=== PATIENT | male | born 1945 | race Caucasian/White ===

== ENCOUNTER 2019-11-13 06:00 | Outpatient (RCR) | payer MEDICARE, OTHER, SELFPAY | END 2019-11-26 00:01 | LOC: TPT 06:00 | PROVIDERS: Family Provider Nurse Practitioner Family; Visit Provider Specialist | DX: R26.81 Unsteadiness on feet (principal) | CPT/HCPCS: 97110 ×2; 97112; 97161; 97530 ==

== ENCOUNTER → 2019-11-26 00:01 | Outpatient (RCR) | payer MEDICARE, OTHER, SELFPAY | LOC: WOUND 11-19 09:47 | PROVIDERS: Family Provider Nurse Practitioner Family; Visit Provider Thoracic Surgery (Cardiothoracic Vascular Surgery) | DX: E11.621 Type 2 diabetes mellitus with foot ulcer (principal); L97.412 Non-pressure chronic ulcer of right heel and midfoot with fat layer exposed; I96 Gangrene, not elsewhere classified | CPT/HCPCS: 11042 ×2 ==

== ENCOUNTER 2019-11-27 06:00 | Outpatient (RCR) | payer MEDICARE, OTHER, SELFPAY | END 2019-12-11 23:00 | disposition home or self-care (01) | LOC: TPT 06:00 | PROVIDERS: Family Provider Nurse Practitioner Family; PCP Nurse Practitioner Family; Referring Provider Nurse Practitioner Family; Visit Provider Nurse Practitioner Family | DX: R26.81 Unsteadiness on feet (principal) | CPT/HCPCS: 97110; 97530 ==

== ENCOUNTER → 2019-12-02 15:06 | Outpatient (BNVA) | payer MEDICARE, OTHER, SELFPAY | PROVIDERS: Family Provider Nurse Practitioner Family; PCP Nurse Practitioner Family; Visit Provider Internal Medicine Nephrology | DX: N18.9 Chronic kidney disease, unspecified (principal) | CPT/HCPCS: 80069; 82044; 85025 ==

== ENCOUNTER 2019-12-10 15:33 | Outpatient (CLI) | payer MEDICARE, OTHER, SELFPAY ==
--- NOTE | 2019-12-10 15:41 | XR_ITS ---
WS: [id number] RIGHT FOOT: 3 VIEW(S) TECHNIQUE: PA, oblique and lateral. HISTORY: PAIN REDNESS, NON HEALING ULCER COMPARISON: 04/29/2019 Diffuse marked osteopenia without significant progression. Degenerative narrowing of the interphalang eal joints and also at the mid tarsal articulations. Mild flattening of the normal arch of the foot w ith vascular calcifications and small calcaneal spur. Ulceration along the plantar surface of the foot is not definitely visualized. There is some mild irr egularity along the skin surface at the level of the tarsals which could be the ulceration. XR/XR foot RT min 3V* 71088 IMPRESSION: 1. Diffuse osteopenia and peripheral arterial disease. 2. Soft tissue ulceration is not definitely seen radiographically. 3. No osteomyelitis.
== END 2019-12-10 15:34 | disposition home or self-care (01) ==
LOC: RADWPI 15:39
PROVIDERS: Family Provider Nurse Practitioner Family; PCP Nurse Practitioner Family; Referring Provider Nurse Practitioner Family; Visit Provider Thoracic Surgery (Cardiothoracic Vascular Surgery)
DX: M79.671 Pain in right foot (principal); M85.871 Other specified disorders of bone density and structure, right ankle and foot; L97.919 Non-pressure chronic ulcer of unspecified part of right lower leg with unspecified severity
CPT/HCPCS: 73630

== ENCOUNTER 2019-12-24 14:59 | Outpatient (RCR) | payer MEDICARE, OTHER, SELFPAY | END 2019-12-27 23:59 | disposition home or self-care (01) | LOC: WOUND 14:59 | PROVIDERS: Family Provider Nurse Practitioner Family; PCP Nurse Practitioner Family; Visit Provider Thoracic Surgery (Cardiothoracic Vascular Surgery) | DX: E11.621 Type 2 diabetes mellitus with foot ulcer (principal); L97.512 Non-pressure chronic ulcer of other part of right foot with fat layer exposed; M79.671 Pain in right foot; M85.871 Other specified disorders of bone density and structure, right ankle and foot; L97.919 Non-pressure chronic ulcer of unspecified part of right lower leg with unspecified severity | CPT/HCPCS: 11042; 73630; L3260 ==

== ENCOUNTER 2020-01-21 14:17 | Outpatient (RCR) | payer MEDICARE, OTHER, SELFPAY | END 2020-01-25 23:59 | disposition home or self-care (01) | LOC: WOUND 14:17 | PROVIDERS: Visit Provider Thoracic Surgery (Cardiothoracic Vascular Surgery) | DX: E11.621 Type 2 diabetes mellitus with foot ulcer (principal); L97.412 Non-pressure chronic ulcer of right heel and midfoot with fat layer exposed | CPT/HCPCS: 11042 ==

== ENCOUNTER 2020-02-25 14:51 | Outpatient (RCR) | payer MEDICARE, OTHER, SELFPAY | END 2020-02-25 23:59 | disposition home or self-care (01) | LOC: WOUND 14:51 | PROVIDERS: Visit Provider Thoracic Surgery (Cardiothoracic Vascular Surgery) | DX: E11.621 Type 2 diabetes mellitus with foot ulcer (principal); L97.512 Non-pressure chronic ulcer of other part of right foot with fat layer exposed | CPT/HCPCS: 11042 ==

== ENCOUNTER → 2020-02-27 11:47 | Outpatient (BNVA) | payer MEDICARE, OTHER, SELFPAY | PROVIDERS: Visit Provider Podiatrist Foot & Ankle Surgery | DX: M79.671 Pain in right foot (principal); E11.43 Type 2 diabetes mellitus with diabetic autonomic (poly)neuropathy; S93.324A Dislocation of tarsometatarsal joint of right foot, initial encounter; N18.9 Chronic kidney disease, unspecified; L60.3 Nail dystrophy; X58.XXXA Exposure to other specified factors, initial encounter; M85.871 Other specified disorders of bone density and structure, right ankle and foot; M77.31 Calcaneal spur, right foot; M21.41 Flat foot [pes planus] (acquired), right foot | CPT/HCPCS: 73630 ==

== ENCOUNTER → 2020-03-23 18:30 | Outpatient (BNVA) | payer MEDICARE, OTHER, SELFPAY | PROVIDERS: Visit Provider Nurse Practitioner Family | DX: E11.9 Type 2 diabetes mellitus without complications (principal) | CPT/HCPCS: 80053; 80061; 81003; 83036; 85025 ==

== ENCOUNTER 2020-03-24 13:53 | Outpatient (RCR) | payer MEDICARE, OTHER, SELFPAY | END 2020-03-26 23:59 | disposition home or self-care (01) | LOC: WOUND 13:53 | PROVIDERS: Visit Provider Thoracic Surgery (Cardiothoracic Vascular Surgery) | DX: E11.621 Type 2 diabetes mellitus with foot ulcer (principal); L97.412 Non-pressure chronic ulcer of right heel and midfoot with fat layer exposed | CPT/HCPCS: 11042 ==

== ENCOUNTER 2020-03-31 13:52 | Outpatient (CLI) | payer MEDICARE, OTHER, SELFPAY | END 2020-03-31 13:53 | disposition home or self-care (01) | LOC: WOUND 13:56 | PROVIDERS: Visit Provider Thoracic Surgery (Cardiothoracic Vascular Surgery) | DX: E11.621 Type 2 diabetes mellitus with foot ulcer (principal); L97.412 Non-pressure chronic ulcer of right heel and midfoot with fat layer exposed | CPT/HCPCS: 97597 ==

== ENCOUNTER 2020-04-07 13:59 | Outpatient (CLI) | payer MEDICARE, OTHER, SELFPAY | END 2020-04-07 14:00 | disposition home or self-care (01) | LOC: WOUND 14:01 | PROVIDERS: Visit Provider Thoracic Surgery (Cardiothoracic Vascular Surgery) | DX: E11.621 Type 2 diabetes mellitus with foot ulcer (principal); L97.412 Non-pressure chronic ulcer of right heel and midfoot with fat layer exposed | CPT/HCPCS: 11042 ==

== ENCOUNTER 2020-04-14 14:00 | Outpatient (CLI) | payer MEDICARE, OTHER, SELFPAY | END 2020-04-14 14:01 | disposition home or self-care (01) | LOC: WOUND 14:01 | PROVIDERS: Visit Provider Thoracic Surgery (Cardiothoracic Vascular Surgery) | DX: Z09 Encounter for follow-up examination after completed treatment for conditions other than malignant neoplasm (principal) | CPT/HCPCS: 99212 ==

== ENCOUNTER → 2020-09-16 15:47 | Outpatient (BNVA) | payer MEDICARE, OTHER, SELFPAY | PROVIDERS: Visit Provider Family Medicine | DX: E11.65 Type 2 diabetes mellitus with hyperglycemia (principal); Z79.4 Long term (current) use of insulin; E78.5 Hyperlipidemia, unspecified; I10 Essential (primary) hypertension; J44.9 Chronic obstructive pulmonary disease, unspecified; Z23 Encounter for immunization | CPT/HCPCS: 80053; 80061; 83036; 85025 ==

== ENCOUNTER 2020-09-29 08:15 | Outpatient (CLI) | payer MEDICARE, SELFPAY | END 2020-09-29 08:16 | disposition home or self-care (01) | LOC: WOUND 08:16 | PROVIDERS: Visit Provider Thoracic Surgery (Cardiothoracic Vascular Surgery) | DX: E11.621 Type 2 diabetes mellitus with foot ulcer (principal); L97.412 Non-pressure chronic ulcer of right heel and midfoot with fat layer exposed | CPT/HCPCS: 11042; G0463 ==

== ENCOUNTER 2020-10-06 13:36 | Outpatient (CLI) | payer MEDICARE, SELFPAY | END 2020-10-06 13:37 | disposition home or self-care (01) | LOC: WOUND 13:37 | PROVIDERS: Visit Provider Thoracic Surgery (Cardiothoracic Vascular Surgery) | DX: E11.621 Type 2 diabetes mellitus with foot ulcer (principal); L97.412 Non-pressure chronic ulcer of right heel and midfoot with fat layer exposed | CPT/HCPCS: 11042 ==

== ENCOUNTER 2020-10-13 13:25 | Outpatient (CLI) | payer MEDICARE, SELFPAY | END 2020-10-13 13:26 | disposition home or self-care (01) | LOC: WOUND 13:26 | PROVIDERS: Visit Provider Nurse Practitioner Family | DX: E11.621 Type 2 diabetes mellitus with foot ulcer (principal); L97.412 Non-pressure chronic ulcer of right heel and midfoot with fat layer exposed | CPT/HCPCS: 11042 ==

== ENCOUNTER 2020-10-20 13:58 | Outpatient (CLI) | payer MEDICARE, SELFPAY | END 2020-10-20 13:59 | disposition home or self-care (01) | LOC: WOUND 13:59 | PROVIDERS: Visit Provider Nurse Practitioner Family | DX: E11.621 Type 2 diabetes mellitus with foot ulcer (principal); L97.412 Non-pressure chronic ulcer of right heel and midfoot with fat layer exposed | CPT/HCPCS: 11042 ==

== ENCOUNTER 2020-10-27 13:03 | Outpatient (CLI) | payer MEDICARE, SELFPAY | END 2020-10-27 13:04 | disposition home or self-care (01) | LOC: WOUND 13:04 | PROVIDERS: Visit Provider Thoracic Surgery (Cardiothoracic Vascular Surgery) | DX: E11.621 Type 2 diabetes mellitus with foot ulcer (principal); L97.412 Non-pressure chronic ulcer of right heel and midfoot with fat layer exposed | CPT/HCPCS: 11042 ==

== ENCOUNTER 2020-11-03 14:02 | Outpatient (CLI) | payer MEDICARE, SELFPAY | END 2020-11-03 14:03 | disposition home or self-care (01) | LOC: WOUND 14:03 | PROVIDERS: Visit Provider Thoracic Surgery (Cardiothoracic Vascular Surgery) | DX: E11.621 Type 2 diabetes mellitus with foot ulcer; L97.412 Non-pressure chronic ulcer of right heel and midfoot with fat layer exposed | CPT/HCPCS: 11042; 99213 ==

== ENCOUNTER 2020-11-10 15:18 | Outpatient (CLI) | payer MEDICARE, SELFPAY | END 2020-11-10 15:19 | disposition home or self-care (01) | PROVIDERS: PCP Nurse Practitioner Family; Visit Provider Thoracic Surgery (Cardiothoracic Vascular Surgery) | DX: E11.621 Type 2 diabetes mellitus with foot ulcer (principal); L97.412 Non-pressure chronic ulcer of right heel and midfoot with fat layer exposed | CPT/HCPCS: 11042 ==

== ENCOUNTER 2020-11-17 10:12 | Outpatient (CLI) | payer MEDICARE, SELFPAY | END 2020-11-17 10:13 | disposition home or self-care (01) | LOC: WOUND 10:13 | PROVIDERS: PCP Nurse Practitioner Family; Visit Provider Nurse Practitioner Family | DX: E11.621 Type 2 diabetes mellitus with foot ulcer (principal); L97.412 Non-pressure chronic ulcer of right heel and midfoot with fat layer exposed | CPT/HCPCS: 11042; 87070; 87077; 87176; 87186; 87205 ==

== ENCOUNTER 2020-11-24 13:02 | Outpatient (CLI) | payer MEDICARE, SELFPAY | END 2020-11-24 13:03 | disposition home or self-care (01) | LOC: WOUND 13:03 | PROVIDERS: PCP Nurse Practitioner Family; Visit Provider Nurse Practitioner Family | DX: E11.621 Type 2 diabetes mellitus with foot ulcer (principal); L97.412 Non-pressure chronic ulcer of right heel and midfoot with fat layer exposed | CPT/HCPCS: 11042 ==

== ENCOUNTER 2020-12-01 10:48 | Outpatient (CLI) | payer MEDICARE, SELFPAY | END 2020-12-01 10:49 | disposition home or self-care (01) | LOC: WOUND 10:49 | PROVIDERS: PCP Nurse Practitioner Family; Visit Provider Thoracic Surgery (Cardiothoracic Vascular Surgery) | DX: E11.621 Type 2 diabetes mellitus with foot ulcer (principal); L97.412 Non-pressure chronic ulcer of right heel and midfoot with fat layer exposed | CPT/HCPCS: 11042 ==

== ENCOUNTER → 2020-12-07 15:52 | Outpatient (BNVA) | payer MEDICARE, OTHER, SELFPAY | PROVIDERS: PCP Nurse Practitioner Family; Visit Provider Internal Medicine Nephrology | DX: N18.2 Chronic kidney disease, stage 2 (mild) (principal); E55.9 Vitamin D deficiency, unspecified | CPT/HCPCS: 80069; 82043; 82306; 82310; 83970; 85025 ==

== ENCOUNTER 2020-12-09 13:45 | Outpatient (CLI) | payer MEDICARE, SELFPAY | END 2020-12-09 13:46 | disposition home or self-care (01) | LOC: WOUND 13:46 | PROVIDERS: PCP Nurse Practitioner Family; Visit Provider Thoracic Surgery (Cardiothoracic Vascular Surgery) | DX: E11.621 Type 2 diabetes mellitus with foot ulcer (principal); L97.412 Non-pressure chronic ulcer of right heel and midfoot with fat layer exposed | CPT/HCPCS: 11042 ==

== ENCOUNTER 2020-12-15 14:22 | Outpatient (CLI) | payer MEDICARE, SELFPAY | END 2020-12-15 14:23 | disposition home or self-care (01) | LOC: WOUND 14:35 | PROVIDERS: PCP Nurse Practitioner Family; Visit Provider Thoracic Surgery (Cardiothoracic Vascular Surgery) | DX: E11.621 Type 2 diabetes mellitus with foot ulcer (principal); L97.412 Non-pressure chronic ulcer of right heel and midfoot with fat layer exposed | CPT/HCPCS: 11042 ==

== ENCOUNTER 2020-12-22 14:08 | Outpatient (CLI) | payer MEDICARE, SELFPAY | END 2020-12-22 14:09 | disposition home or self-care (01) | LOC: WOUND 14:08 | PROVIDERS: PCP Nurse Practitioner Family; Visit Provider Thoracic Surgery (Cardiothoracic Vascular Surgery) | DX: E11.621 Type 2 diabetes mellitus with foot ulcer (principal); L97.412 Non-pressure chronic ulcer of right heel and midfoot with fat layer exposed | CPT/HCPCS: 11042 ==

== ENCOUNTER 2020-12-29 10:43 | Outpatient (CLI) | payer MEDICARE, SELFPAY | END 2020-12-29 10:44 | disposition home or self-care (01) | LOC: WOUND 10:44 | PROVIDERS: PCP Nurse Practitioner Family; Visit Provider Thoracic Surgery (Cardiothoracic Vascular Surgery) | DX: E11.621 Type 2 diabetes mellitus with foot ulcer (principal); L97.412 Non-pressure chronic ulcer of right heel and midfoot with fat layer exposed | CPT/HCPCS: 11042 ==

== ENCOUNTER 2021-01-05 13:06 | Outpatient (CLI) | payer MEDICARE, SELFPAY | END 2021-01-05 13:07 | disposition home or self-care (01) | LOC: WOUND 13:07 | PROVIDERS: PCP Nurse Practitioner Family; Visit Provider Thoracic Surgery (Cardiothoracic Vascular Surgery) | DX: E11.621 Type 2 diabetes mellitus with foot ulcer (principal); L97.412 Non-pressure chronic ulcer of right heel and midfoot with fat layer exposed | CPT/HCPCS: 11042 ==

== ENCOUNTER 2021-01-19 13:27 | Outpatient (CLI) | payer MEDICARE, OTHER, SELFPAY | END 2021-01-19 13:28 | disposition home or self-care (01) | LOC: WOUND 13:29 | PROVIDERS: PCP Nurse Practitioner Family; Visit Provider Nurse Practitioner Family | DX: E11.621 Type 2 diabetes mellitus with foot ulcer (principal); L97.412 Non-pressure chronic ulcer of right heel and midfoot with fat layer exposed | CPT/HCPCS: 11042 ==

== ENCOUNTER 2021-01-26 12:58 | Outpatient (CLI) | payer MEDICARE, OTHER, SELFPAY | END 2021-01-26 12:59 | disposition home or self-care (01) | LOC: WOUND 13:01 | PROVIDERS: PCP Nurse Practitioner Family; Visit Provider Thoracic Surgery (Cardiothoracic Vascular Surgery) | DX: E11.621 Type 2 diabetes mellitus with foot ulcer (principal); L97.412 Non-pressure chronic ulcer of right heel and midfoot with fat layer exposed | CPT/HCPCS: 11042 ==

== ENCOUNTER 2021-02-02 13:29 | Outpatient (CLI) | payer MEDICARE, OTHER, SELFPAY | END 2021-02-02 13:30 | disposition home or self-care (01) | LOC: WOUND 13:29 | PROVIDERS: PCP Nurse Practitioner Family; Visit Provider Thoracic Surgery (Cardiothoracic Vascular Surgery) | DX: E11.621 Type 2 diabetes mellitus with foot ulcer (principal); L97.412 Non-pressure chronic ulcer of right heel and midfoot with fat layer exposed | CPT/HCPCS: 11042 ==

== ENCOUNTER 2021-02-09 14:06 | Outpatient (CLI) | payer MEDICARE, OTHER, SELFPAY | END 2021-02-09 14:07 | disposition home or self-care (01) | LOC: WOUND 14:07 | PROVIDERS: PCP Nurse Practitioner Family; Visit Provider Thoracic Surgery (Cardiothoracic Vascular Surgery) | DX: E11.621 Type 2 diabetes mellitus with foot ulcer (principal); L97.412 Non-pressure chronic ulcer of right heel and midfoot with fat layer exposed | CPT/HCPCS: 11042 ==

== ENCOUNTER 2021-02-23 10:14 | Outpatient (CLI) | payer MEDICARE, OTHER, SELFPAY | END 2021-02-23 10:15 | disposition home or self-care (01) | LOC: WOUND 10:21 | PROVIDERS: PCP Nurse Practitioner Family; Visit Provider Thoracic Surgery (Cardiothoracic Vascular Surgery) | DX: E11.621 Type 2 diabetes mellitus with foot ulcer (principal); L97.412 Non-pressure chronic ulcer of right heel and midfoot with fat layer exposed | CPT/HCPCS: 11042 ==

== ENCOUNTER 2021-03-02 10:43 | Outpatient (CLI) | payer MEDICARE, OTHER, SELFPAY | END 2021-03-02 10:44 | disposition home or self-care (01) | LOC: WOUND 10:45 | PROVIDERS: PCP Nurse Practitioner Family; Visit Provider Thoracic Surgery (Cardiothoracic Vascular Surgery) | DX: E11.621 Type 2 diabetes mellitus with foot ulcer (principal); L97.512 Non-pressure chronic ulcer of other part of right foot with fat layer exposed | CPT/HCPCS: 11042 ==

== ENCOUNTER 2021-03-09 13:12 | Outpatient (CLI) | payer MEDICARE, SELFPAY | END 2021-03-09 13:13 | disposition home or self-care (01) | LOC: WOUND 13:13 | PROVIDERS: PCP Nurse Practitioner Family; Visit Provider Thoracic Surgery (Cardiothoracic Vascular Surgery) | DX: E11.621 Type 2 diabetes mellitus with foot ulcer (principal); L97.512 Non-pressure chronic ulcer of other part of right foot with fat layer exposed | CPT/HCPCS: 11042 ==

== ENCOUNTER 2021-03-16 13:04 | Outpatient (CLI) | payer MEDICARE, OTHER, SELFPAY | END 2021-03-16 13:05 | disposition home or self-care (01) | LOC: WOUND 13:05 | PROVIDERS: PCP Nurse Practitioner Family; Visit Provider Thoracic Surgery (Cardiothoracic Vascular Surgery) | DX: E11.621 Type 2 diabetes mellitus with foot ulcer (principal); L97.512 Non-pressure chronic ulcer of other part of right foot with fat layer exposed | CPT/HCPCS: 11042 ==

== ENCOUNTER → 2021-03-17 15:17 | Outpatient (BNVA) | payer MEDICARE, OTHER, SELFPAY | PROVIDERS: PCP Family Medicine; Visit Provider Family Medicine | DX: E78.5 Hyperlipidemia, unspecified (principal); E11.65 Type 2 diabetes mellitus with hyperglycemia; Z79.4 Long term (current) use of insulin; I10 Essential (primary) hypertension | CPT/HCPCS: 80053; 80061; 83036; 84443; 85025 ==

== ENCOUNTER 2021-03-23 13:52 | Outpatient (CLI) | payer MEDICARE, OTHER, SELFPAY | END 2021-03-23 13:53 | disposition home or self-care (01) | LOC: WOUND 13:53 | PROVIDERS: PCP Family Medicine; Visit Provider Thoracic Surgery (Cardiothoracic Vascular Surgery) | DX: E11.621 Type 2 diabetes mellitus with foot ulcer (principal); L97.512 Non-pressure chronic ulcer of other part of right foot with fat layer exposed | CPT/HCPCS: 11042 ==

== ENCOUNTER 2021-04-06 13:09 | Outpatient (CLI) | payer MEDICARE, OTHER, SELFPAY | END 2021-04-06 13:10 | disposition home or self-care (01) | LOC: WOUND 13:10 | PROVIDERS: PCP Family Medicine; Visit Provider Thoracic Surgery (Cardiothoracic Vascular Surgery) | DX: E11.621 Type 2 diabetes mellitus with foot ulcer (principal); L97.512 Non-pressure chronic ulcer of other part of right foot with fat layer exposed | CPT/HCPCS: 11042; 87070; 87077; 87186 ==

== ENCOUNTER 2021-04-13 13:09 | Outpatient (CLI) | payer MEDICARE, OTHER, SELFPAY | END 2021-04-13 13:10 | disposition home or self-care (01) | LOC: WOUND 13:11 | PROVIDERS: PCP Family Medicine; Visit Provider Thoracic Surgery (Cardiothoracic Vascular Surgery) | DX: E11.621 Type 2 diabetes mellitus with foot ulcer (principal); L97.512 Non-pressure chronic ulcer of other part of right foot with fat layer exposed | CPT/HCPCS: 11042 ==

== ENCOUNTER 2021-04-20 13:13 | Outpatient (CLI) | payer MEDICARE, OTHER, SELFPAY | END 2021-04-20 13:14 | disposition home or self-care (01) | LOC: WOUND 13:14 | PROVIDERS: PCP Family Medicine; Visit Provider Nurse Practitioner Family | DX: E11.621 Type 2 diabetes mellitus with foot ulcer (principal); L97.411 Non-pressure chronic ulcer of right heel and midfoot limited to breakdown of skin | CPT/HCPCS: 11042 ==

== ENCOUNTER 2021-04-27 13:27 | Outpatient (CLI) | payer MEDICARE, OTHER, SELFPAY | END 2021-04-27 13:28 | disposition home or self-care (01) | LOC: WOUND 13:28 | PROVIDERS: PCP Family Medicine; Visit Provider Thoracic Surgery (Cardiothoracic Vascular Surgery) | DX: E11.621 Type 2 diabetes mellitus with foot ulcer (principal); L97.412 Non-pressure chronic ulcer of right heel and midfoot with fat layer exposed | CPT/HCPCS: 11042 ==

== ENCOUNTER → 2021-04-28 12:37 | Outpatient (BNVA) | payer MEDICARE, OTHER, SELFPAY | PROVIDERS: PCP Family Medicine; Visit Provider Specialist | DX: G25.0 Essential tremor (principal); G62.9 Polyneuropathy, unspecified; J44.9 Chronic obstructive pulmonary disease, unspecified; Z87.891 Personal history of nicotine dependence | CPT/HCPCS: 99213; 99214 ==

== ENCOUNTER 2021-05-04 13:01 | Outpatient (CLI) | payer MEDICARE, OTHER, SELFPAY | END 2021-05-04 13:02 | disposition home or self-care (01) | LOC: WOUND 13:04 | PROVIDERS: PCP Family Medicine; Visit Provider Thoracic Surgery (Cardiothoracic Vascular Surgery) | DX: E11.621 Type 2 diabetes mellitus with foot ulcer (principal); L97.412 Non-pressure chronic ulcer of right heel and midfoot with fat layer exposed | CPT/HCPCS: 11042 ==

== ENCOUNTER 2021-05-11 13:32 | Outpatient (CLI) | payer MEDICARE, OTHER, SELFPAY | END 2021-05-11 13:33 | disposition home or self-care (01) | LOC: WOUND 13:33 | PROVIDERS: PCP Family Medicine; Visit Provider Thoracic Surgery (Cardiothoracic Vascular Surgery) | DX: E11.621 Type 2 diabetes mellitus with foot ulcer (principal); L97.512 Non-pressure chronic ulcer of other part of right foot with fat layer exposed | CPT/HCPCS: 11042 ==

== ENCOUNTER → 2021-05-12 09:54 | Outpatient (BNVA) | payer MEDICARE, OTHER, SELFPAY | PROVIDERS: PCP Family Medicine; Visit Provider Podiatrist Foot & Ankle Surgery | DX: M79.673 Pain in unspecified foot (principal); E11.621 Type 2 diabetes mellitus with foot ulcer; L97.521 Non-pressure chronic ulcer of other part of left foot limited to breakdown of skin; E11.65 Type 2 diabetes mellitus with hyperglycemia; Z79.4 Long term (current) use of insulin; E11.22 Type 2 diabetes mellitus with diabetic chronic kidney disease; N18.9 Chronic kidney disease, unspecified; L60.3 Nail dystrophy; X58.XXXS Exposure to other specified factors, sequela; Z46.89 Encounter for fitting and adjustment of other specified devices; S93.324S Dislocation of tarsometatarsal joint of right foot, sequela | CPT/HCPCS: 73610; 73630; 97760; L4361 ==

== ENCOUNTER 2021-05-12 15:45 | Outpatient (CLI) | payer MEDICARE, OTHER, SELFPAY | END 2021-05-12 15:46 | disposition home or self-care (01) | LOC: SPT 15:46 | PROVIDERS: PCP Family Medicine; Visit Provider Podiatrist Foot & Ankle Surgery | DX: Z46.89 Encounter for fitting and adjustment of other specified devices (principal); S82.831D Other fracture of upper and lower end of right fibula, subsequent encounter for closed fracture with routine healing; X58.XXXD Exposure to other specified factors, subsequent encounter | CPT/HCPCS: 97760; L4361 ==

== ENCOUNTER 2021-05-18 14:04 | Outpatient (CLI) | payer MEDICARE, OTHER, SELFPAY | END 2021-05-18 14:05 | disposition home or self-care (01) | LOC: WOUND 14:07 | PROVIDERS: PCP Family Medicine; Visit Provider Nurse Practitioner Family | DX: E11.621 Type 2 diabetes mellitus with foot ulcer (principal); L97.412 Non-pressure chronic ulcer of right heel and midfoot with fat layer exposed | CPT/HCPCS: 11042 ==

== ENCOUNTER → 2021-05-19 14:03 | Outpatient (BNVA) | payer MEDICARE, OTHER, SELFPAY | PROVIDERS: PCP Family Medicine; Visit Provider Podiatrist Foot & Ankle Surgery | DX: M79.673 Pain in unspecified foot (principal); L97.521 Non-pressure chronic ulcer of other part of left foot limited to breakdown of skin; E11.65 Type 2 diabetes mellitus with hyperglycemia; N18.9 Chronic kidney disease, unspecified; Z79.4 Long term (current) use of insulin; L60.3 Nail dystrophy; S82.831A Other fracture of upper and lower end of right fibula, initial encounter for closed fracture; X58.XXXA Exposure to other specified factors, initial encounter | CPT/HCPCS: 73610 ==

== ENCOUNTER 2021-05-25 10:47 | Outpatient (CLI) | payer MEDICARE, OTHER, SELFPAY | END 2021-05-25 10:48 | disposition home or self-care (01) | LOC: WOUND 10:48 | PROVIDERS: PCP Family Medicine; Visit Provider Thoracic Surgery (Cardiothoracic Vascular Surgery) | DX: E11.621 Type 2 diabetes mellitus with foot ulcer (principal); L97.512 Non-pressure chronic ulcer of other part of right foot with fat layer exposed | CPT/HCPCS: 11042 ==

== ENCOUNTER → 2021-06-02 14:36 | Outpatient (BNVA) | payer MEDICARE, OTHER, SELFPAY | PROVIDERS: PCP Family Medicine; Visit Provider Podiatrist Foot & Ankle Surgery | DX: S82.831A Other fracture of upper and lower end of right fibula, initial encounter for closed fracture (principal); M79.673 Pain in unspecified foot; E11.65 Type 2 diabetes mellitus with hyperglycemia; N18.9 Chronic kidney disease, unspecified; Z79.4 Long term (current) use of insulin; L60.3 Nail dystrophy; X58.XXXA Exposure to other specified factors, initial encounter; Z46.89 Encounter for fitting and adjustment of other specified devices; S82.831D Other fracture of upper and lower end of right fibula, subsequent encounter for closed fracture with routine healing; X58.XXXD Exposure to other specified factors, subsequent encounter | CPT/HCPCS: 73610; 87635; 97760; L4361 ==

== ENCOUNTER 2021-06-02 16:12 | Outpatient (CLI) | payer MEDICARE, OTHER, SELFPAY | END 2021-06-02 16:13 | disposition home or self-care (01) | LOC: SPT 16:13 | PROVIDERS: PCP Family Medicine; Visit Provider Podiatrist Foot & Ankle Surgery | DX: Z46.89 Encounter for fitting and adjustment of other specified devices (principal); S82.831D Other fracture of upper and lower end of right fibula, subsequent encounter for closed fracture with routine healing; X58.XXXD Exposure to other specified factors, subsequent encounter | CPT/HCPCS: 87635; 97760; L4361 ==

== ENCOUNTER 2021-06-04 06:10 | Day surgery (SDC) | payer MEDICARE, OTHER, SELFPAY ==
[2021-06-03 13:42] VITALS: BMI 36.2
[2021-06-04] VITALS (9 sets, daily range): BP systolic 118–139; BP diastolic 58–69; PULSE 63–66; RESP 14–18; TEMP 36.1–36.6; O2SAT 93–95
--- NOTE | 2021-06-04 | SCC_ITS ---
Procedure Done: Open reduction internal fixation right bimalleolar ankle fracture CPT 69647 2 minutes, 41 seconds of fluoroscopic guidance, for a cumulative dose of 4.897 mGy, was provided to Dr. Huizar by the radiology department. C-arm images of the RIGHT ankle were saved for the patient's permanent record. [facility]
--- NOTE | 2021-06-04 06:24 | P.HPUD_ITS ---
Surgery/Procedure H&P Update DATE OF PROCEDURE: June 04, 2021 DATE H&P PERFORMED: 06/02/21 H&P UPDATE INFORMATION: I have reviewed H&P completed within last 30 days, I have examined patient prior to procedure, No changes to prior documentation and H&P is in [facility] EMR on date indicated PREOP DIAGNOSIS: Right bimalleolar ankle fracture PLANNED PROCEDURE: Operation Date: 06/04/21 07:00 Proposed Procedures p 84496- Open reduction internal fixation right bimalleolar ankle fracture s82.841a(Right) - Eloy Huizar DPM
--- NOTE | 2021-06-04 06:24 | PM.OP ---
Operative Report Date of procedure: June 04, 2021 Pre-op Diagnosis: Right bimalleolar ankle fracture Post-op diagnosis: same Procedure Done: Open reduction internal fixation right bimalleolar ankle fracture CPT 66799 Implants: Arthrex fibula lock and Arthrex 4 mm x 60 mm headed screw with washer x2 long thread, 3-0 nylon Pathology: none sent Surgeon: Eloy Huizar D.P.M. General Merchandise Manager: Bhaskar Anesthesia: General Estimated blood loss: 5 Tourniquet time: 50 IV fluids: None Urine output: None Complications: None Findings: Right bimalleolar ankle fracture without syndesmotic disruption Condition: stable Disposition: PACU Brief History: Patient sustained a right bimalleolar ankle fracture with significant displacement of the medial malleolus necessitating open reduction internal fixation. Risks are increased due to diabetes and numerous comorbidities. Risks include pain, bleeding, numbness, infection chronic swelling, hardware failure, hardware rotation, delayed union, malunion, nonunion, need for further surgical intervention, deep vein thrombosis, pulmonary embolism, heart attack stroke and . Patient has been n.p.o. since midnight, informed consent signed by patient and myself, no guarantees written, expressed or implied, initialed his right foot and leg he is wishing to proceed. All questions answered to patient's and his satisfaction. Procedure: Under mild sedation the patient was brought to the operating room and placed on the operating table in supine position. A timeout was performed. Anesthesia was then administered by the anesthesia service. Local anesthesia was injected postoperatively a total of 30 cc 0.5% Marcaine plain right ankle hematoma block and at the lateral and medial malleolus. Well-padded pneumatic tourniquet was applied to the right calf. Right lower extremity was then scrubbed, prepped and draped utilizing normal aseptic technique. Right lower extremity was examined a weighted with an Esmarch bandage and a tourniquet inflated to 250 mmHg. Attention was directed to the right lateral ankle where the fibular distal diaphysis was palpated as well as the lateral malleolus. Utilizing fluoroscopy the longitudinal bisection of the fibula was marked on the skin as well as the distal curvature the lateral malleolus. Next a percutaneous incision was made and a 180 mm intramedullary nail provided by Arthrex fibula lock was inserted per manufacture recommendation and package insert this was fixated utilizing static technique with 3 mm screws x2 from lateral to medial and a screw from anterior to posterior these were 16 mm, 18 mm and 22 mm respectively. Excellent bony apposition and compression noted and stabilization of the fracture on was confirmed with 3 views of intraoperative fluoroscopy. Incision was flushed with saline solution and closed with 3-0 nylon. Attention was then directed to the medial malleolus where a percutaneous incision was made and fixation of the medial malleolus was performed utilizing Arthrex cannulated long threaded 4 mm screws by 60 with washers on the heads x2 with excellent apposition and compression without violating the ankle joint this was confirmed with AP, mortise and lateral views. Incision was then flushed with saline solution and closed with 3-0 nylon. Ankle mortise was congruent intraoperatively, syndesmosis was stressed utilizing cotton hook test and noted to be intact. As noted above 30 mL of point has a Marcaine plain infiltrated at the perioperative site. Incisions were then dressed with Unna boot, 4 x 4's, cast padding and short leg cast made of fiberglass was applied with ankle in neutral position. Tourniquet was deflated and a prompt hyperemic response was noted to the distal digits of the right foot. Patient tolerated the procedure and anesthesia well and was transferred to the PACU with vital signs stable and vascular status intact. Following a period of postoperative monitoring he will be discharged home will be following up in podiatry clinic next week Monday morning 11:30 AM.
--- NOTE | 2021-06-04 06:32 | ECG_ITS ---
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
[2021-06-04 06:49] LABS: Glucose Point of Care 94 mg/dL (70-110)
--- NOTE | 2021-06-04 06:52 | ANES.PREANE2 ---
Pre-Anesthetic Assessment Pre-Anesthetic Assessment: Height/Weight: Height 1.8 m Weight 117.934 kg Preop Diagnosis: Right bimalleolar ankle fracture Proposed Procedure: Operation Date: 06/04/21 07:00 Proposed Procedures p 27587- Open reduction internal fixation right bimalleolar ankle fracture s82.841a(Right) - Eloy Huizar DPM Familial anesthetic complications: None Was Beta Juan taken within 24 hours: Yes Was Clonidine taken within 24 hours: N/A Last intake: Intake Last Liquid Date 06/03/21 Last Liquid Time 23:57 Last Solid Date 06/03/21 Last Solid Time 19:00 Social: Social History: No alcohol and No tobacco Exam: Pre-Anes Outpt Exam: alert, oriented x 3, clear to auscultation bilaterally and regular rate & rhythm Additional Exam Findings (including area of procedure): A fib Airway: Cervical ROM: WNL MP: 4 Dentition: Full Pulmonary: Pulmonary: COPD and Sleep apnea CV/HEM: CV/HEM: CAD (CABG + stent in 2006 on plavix), HTN and PVD Comments: EKG showing a fib w/ controlled ventricular rate. Patient unaware of history of a fib. : : Chronic renal Insufficiency Metabolic: Metabolic: DM Neuropsych: Neuropsych: Neuropathy Comments: essential tremor Anesthetic Plan: ASA status: 4 Anesthesia: General Risk of > 500 ml blood loss (7ml/kg in children): No PFSH Anesthesia PFSH: Medical History (Updated 06/03/21 @ 07:59 by Eloy Huizar DPM) ASHD (arteriosclerotic heart disease) BPH (benign prostatic hyperplasia) CKD (chronic kidney disease) COPD (chronic obstructive pulmonary disease) Diabetes mellitus Fibromyalgia HTN (hypertension) Hyperlipidemia JOHAN (obstructive sleep apnea) PAD (peripheral artery disease) Surgical History H/O vasectomy S/P CABG (coronary artery bypass graft) S/P PTCA (percutaneous transluminal coronary angioplasty) S/P rotator cuff repair Family History Other Cancer Denies family history of Diabetes Social History Smoking and tobacco status: former smoker Alcohol intake: never Marital status: Current occupational status: retired History of recent travel: No Data Anesthesia Other Labs: Laboratory Results - last 48 hr 06/04/21 06:43 POC Glucose 94 Cardiac Studies: No Data to Display
[2021-06-04] MEDS: sodium chloride 0.9% 1,000 ML 30 ML IV (07:00)
[2021-06-04] MEDS: lidocaine 1% INJ 20 mL INJECTION (08:08)
--- NOTE | 2021-06-04 08:59 | XR_ITS ---
WS: [id number] Right ankle, 3 views, 06/04/2021 Clinical Data: post op Comparison: Right ankle, 06/02/2021. Findings: There is internal fixation of the bimalleolar fracture. There is a long myah in the medullary canal of the distal right fibula fixed with 3 orthopedic screws. There are 2 oblique screws repairing a medi al malleolar fracture. There is a fiberglass splint about the right ankle. XR/XR ankle RT min 3V* [id number] Impression: Internal fixation of bimalleolar fracture.
[2021-06-04] MEDS: fentaNYL 50 mcg/mL INJ 2mL IVP ×2 (09:11→09:16)
[2021-06-04] MEDS: HYDROcodone-acetaminophen 5-325 mg Tablet 1 TAB PO (10:07)
--- NOTE | 2021-06-04 15:21 | ANE.PACU2 ---
Inpatient post-anesthesia follow up: Airway intact: Yes Vital signs: Temperature 97.9 F Pulse Rate 65 Respiratory Rate 18 Blood Pressure 139/69 Pulse Oximetry 95 Oxygen Delivery Me thod Room Air Oxygen Flow Rate 8 Fraction of Inspir ed Oxygen Hydration adequate: Yes Nausea and vomiting: No Pain level: 2 Mental status: Baseline
== END 2021-06-04 10:45 | disposition home or self-care (01) ==
PROVIDERS: PCP Family Medicine; Visit Provider Podiatrist Foot & Ankle Surgery
PROC: (CPT 27814; principal; 2021-06-04 07:00)
DX: S82.841A Displaced bimalleolar fracture of right lower leg, initial encounter for closed fracture (principal); X58.XXXA Exposure to other specified factors, initial encounter; J44.9 Chronic obstructive pulmonary disease, unspecified; G47.30 Sleep apnea, unspecified; I25.10 Atherosclerotic heart disease of native coronary artery without angina pectoris; Z95.5 Presence of coronary angioplasty implant and graft; Z95.1 Presence of aortocoronary bypass graft; E11.40 Type 2 diabetes mellitus with diabetic neuropathy, unspecified; N40.0 Benign prostatic hyperplasia without lower urinary tract symptoms; M79.7 Fibromyalgia; G47.33 Obstructive sleep apnea (adult) (pediatric); I12.9 Hypertensive chronic kidney disease with stage 1 through stage 4 chronic kidney disease, or unspecified chronic kidney disease; E11.22 Type 2 diabetes mellitus with diabetic chronic kidney disease; N18.9 Chronic kidney disease, unspecified; Z79.4 Long term (current) use of insulin; Z87.891 Personal history of nicotine dependence
CPT/HCPCS: 27814; 36416; 73610; 76000; 82962; 93005; C1713; J1100; J2405; J2704; J3010; J3490; J7030

== ENCOUNTER → 2021-06-11 11:53 | Outpatient (BNVA) | payer MEDICARE, OTHER, SELFPAY | PROVIDERS: PCP Family Medicine; Visit Provider Podiatrist Foot & Ankle Surgery | DX: Z48.89 Encounter for other specified surgical aftercare (principal); S82.841D Displaced bimalleolar fracture of right lower leg, subsequent encounter for closed fracture with routine healing; X58.XXXD Exposure to other specified factors, subsequent encounter | CPT/HCPCS: 73610 ==

== ENCOUNTER → 2021-06-21 11:41 | Outpatient (BNVA) | payer MEDICARE, OTHER, SELFPAY | PROVIDERS: PCP Family Medicine; Visit Provider Specialist | DX: G25.0 Essential tremor (principal); E11.65 Type 2 diabetes mellitus with hyperglycemia; E11.42 Type 2 diabetes mellitus with diabetic polyneuropathy; Z79.4 Long term (current) use of insulin | CPT/HCPCS: 99214 ==

== ENCOUNTER → 2021-06-25 10:27 | Outpatient (BNVA) | payer MEDICARE, OTHER, SELFPAY | PROVIDERS: PCP Family Medicine; Visit Provider Podiatrist Foot & Ankle Surgery | DX: M25.571 Pain in right ankle and joints of right foot (principal) | CPT/HCPCS: 73610; Q4038 ==

== ENCOUNTER → 2021-07-08 13:23 | Outpatient (BNVA) | payer MEDICARE, OTHER, SELFPAY | PROVIDERS: PCP Family Medicine; Visit Provider Podiatrist Foot & Ankle Surgery | DX: M25.571 Pain in right ankle and joints of right foot (principal); Z48.89 Encounter for other specified surgical aftercare | CPT/HCPCS: 73610 ==

== ENCOUNTER → 2021-07-13 14:50 | Outpatient (BNVA) | payer MEDICARE, OTHER, SELFPAY | PROVIDERS: PCP Family Medicine; Visit Provider Nurse Practitioner Family | DX: M25.569 Pain in unspecified knee (principal); L03.115 Cellulitis of right lower limb; M25.561 Pain in right knee; Z71.89 Other specified counseling | CPT/HCPCS: 73562; 80053; 84550; 85025; 85651; 86140 ==

== ENCOUNTER → 2021-07-15 10:07 | Outpatient (BNVA) | payer MEDICARE, OTHER, SELFPAY | PROVIDERS: PCP Family Medicine; Visit Provider Nurse Practitioner Family | DX: R70.0 Elevated erythrocyte sedimentation rate (principal) | CPT/HCPCS: 86038; 86431 ==

== ENCOUNTER → 2021-07-28 14:36 | Outpatient (BNVA) | payer MEDICARE, OTHER, SELFPAY | PROVIDERS: PCP Family Medicine; Visit Provider Podiatrist Foot & Ankle Surgery | DX: Z98.890 Other specified postprocedural states (principal); M25.571 Pain in right ankle and joints of right foot; Z48.89 Encounter for other specified surgical aftercare | CPT/HCPCS: 73610 ==

== ENCOUNTER → 2021-08-25 14:42 | Outpatient (BNVA) | payer MEDICARE, OTHER, SELFPAY | PROVIDERS: PCP Family Medicine; Visit Provider Podiatrist Foot & Ankle Surgery | DX: Z48.89 Encounter for other specified surgical aftercare (principal); S82.841D Displaced bimalleolar fracture of right lower leg, subsequent encounter for closed fracture with routine healing; X58.XXXD Exposure to other specified factors, subsequent encounter; Z98.890 Other specified postprocedural states; M25.571 Pain in right ankle and joints of right foot; S82.831D Other fracture of upper and lower end of right fibula, subsequent encounter for closed fracture with routine healing | CPT/HCPCS: 73610; 97760; L1902 ==

== ENCOUNTER 2021-08-25 15:28 | Outpatient (CLI) | payer MEDICARE, OTHER, SELFPAY | END 2021-08-25 15:29 | disposition home or self-care (01) | LOC: SPT 15:40 | PROVIDERS: PCP Family Medicine; Visit Provider Podiatrist Foot & Ankle Surgery | DX: Z46.89 Encounter for fitting and adjustment of other specified devices (principal); S82.831D Other fracture of upper and lower end of right fibula, subsequent encounter for closed fracture with routine healing; X58.XXXD Exposure to other specified factors, subsequent encounter | CPT/HCPCS: 97760; L1902 ==

== ENCOUNTER → 2021-09-13 16:32 | Outpatient (BNVA) | payer MEDICARE, OTHER, SELFPAY | PROVIDERS: PCP Family Medicine | DX: E11.65 Type 2 diabetes mellitus with hyperglycemia (principal); Z79.4 Long term (current) use of insulin; E78.5 Hyperlipidemia, unspecified; I10 Essential (primary) hypertension | CPT/HCPCS: 80053; 80061; 83036; 85025 ==

== ENCOUNTER → 2021-09-22 14:30 | Outpatient (BNVA) | payer MEDICARE, OTHER, SELFPAY | PROVIDERS: PCP Family Medicine; Visit Provider Podiatrist Foot & Ankle Surgery | DX: Z98.890 Other specified postprocedural states (principal); Z87.81 Personal history of (healed) traumatic fracture; S82.841D Displaced bimalleolar fracture of right lower leg, subsequent encounter for closed fracture with routine healing; X58.XXXD Exposure to other specified factors, subsequent encounter | CPT/HCPCS: 73610 ==

== ENCOUNTER → 2022-01-05 11:52 | Outpatient (BNVA) | payer MEDICARE, OTHER, SELFPAY | PROVIDERS: PCP Family Medicine; Visit Provider Family Medicine | DX: E11.65 Type 2 diabetes mellitus with hyperglycemia; Z79.4 Long term (current) use of insulin; G25.0 Essential tremor; I10 Essential (primary) hypertension; J44.9 Chronic obstructive pulmonary disease, unspecified; E78.5 Hyperlipidemia, unspecified; L97.412 Non-pressure chronic ulcer of right heel and midfoot with fat layer exposed | CPT/HCPCS: 80053; 80061; 83036; 84443; 85025 ==

== ENCOUNTER 2022-01-28 08:49 | Outpatient (CLI) | payer MEDICARE, OTHER, SELFPAY | END 2022-01-28 08:50 | disposition home or self-care (01) | LOC: WOUND 08:52 | PROVIDERS: PCP Family Medicine; Visit Provider Surgery | DX: E11.621 Type 2 diabetes mellitus with foot ulcer (principal); I96 Gangrene, not elsewhere classified; L97.512 Non-pressure chronic ulcer of other part of right foot with fat layer exposed; Z87.891 Personal history of nicotine dependence | CPT/HCPCS: 11042; 99213 ==

== ENCOUNTER 2022-01-31 19:38 | Emergency (ER) | payer MEDICARE, OTHER, SELFPAY ==
--- NOTE | 2022-01-31 19:42 | CTR_ITS ---
PROCEDURE INFORMATION: Exam: CT Head Without Contrast Exam date and time: 01/31/2022 7:42 PM Age: 76 years old Clinical indication: Injury or trauma; Blunt trauma (contusions or hematomas); Patient HX: Hit back of head and neck during fall TECHNIQUE: Imaging protocol: Computed tomography of the head without contrast. Radiation optimization: All CT scans at this facility use at least one of these dose optimization techniques: automated exposure control; mA and/or kV adjustment per patient size (includes targeted exams where dose is matched to clinical indication); or iterative reconstruction. COMPARISON: CT head wo con* [id number] 04/29/2019 8:13 AM RADIATION DOSE METRICS: Total DLP (mGy-cm): 988.88 FINDINGS: Brain: Moderate cortical volume loss. Mild hypodensities in supratentorial periventricular and subcortical white matter, consistent with microangiopathy. No intracranial hemorrhage. Chronic small lacunar infarct in the left and right subinsular regions. Cerebral ventricles: No ventriculomegaly. Paranasal sinuses: Visualized sinuses are unremarkable. No fluid levels. Mastoid air cells: Visualized mastoid air cells are well aerated. Vasculature: No hyperdense artery. Bones/joints: Unremarkable. No acute fracture. Soft tissues: Unremarkable. CT/CT head wo con* [id number] IMPRESSION: 1. No acute intracranial abnormality.
--- NOTE | 2022-01-31 19:42 | CTR_ITS ---
PROCEDURE INFORMATION: Exam: CT Cervical Spine Without Contrast Exam date and time: 01/31/2022 7:42 PM Age: 76 years old Clinical indication: Injury or trauma; Blunt trauma; Patient HX: Hit back of head and neck during fall TECHNIQUE: Imaging protocol: Computed tomography images of the cervical spine without contrast. Radiation optimization: All CT scans at this facility use at least one of these dose optimization techniques: automated exposure control; mA and/or kV adjustment per patient size (includes targeted exams where dose is matched to clinical indication); or iterative reconstruction. COMPARISON: CT head wo con* [id number] 01/31/2022 8:04 PM RADIATION DOSE METRICS: Total DLP (mGy-cm): 1066.32 FINDINGS: Bones/joints: Mild anterior wedging of the T1 vertebral body, new since the CT chest on 01/15/2016. The cervical vertebral body stature is maintained. The facets are intact with hypertrophic degenerative changes. Discs/Spinal canal/Neural foramina: Disc space narrowing at C2-C3 and C3-C4 with degenerative endplate and uncovertebral changes. Mild disc bulges at C2-C3, C3-C4, and C6-C7 with mild central canal stenosis. Bilateral bony foraminal stenosis at C3-C4 and C4-C5. Lungs: Lung apices are normal. Vasculature: Bilateral carotid bulb calcifications. Soft tissues: Unremarkable. CT/CT cervical spin wo con* [id number] IMPRESSION: 1. No cervical spine fracture identified. 2. Age indeterminate but possibly acute mild anterior wedge compression fracture of T1. 3. Degenerative changes as described.
[2022-01-31 19:43] VITALS: BP 117/61; PULSE 56; RESP 18; TEMP 35.9; O2SAT 94; BMI 35.3
--- NOTE | 2022-01-31 19:43 | ECG_ITS ---
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 Measurements Intervals [place] Rate: 61 P: [place]: QRS: 57 QRSD: 121 T: 63 QT: 472 QTc: 477 Interpretive Statements SINUS RYTHM WITH MOBITZ-1 HEART BLOCK POSSIBLE INFERIOR MYOCARDIAL INFARCTION , PROBABLY OLD Compared to ECG 06/04/2021 06:38:25 Myocardial infarct finding now present Electronically Signed On 02-01-2022 7:59:23 DIE PRESS OPERATOR by Marjorie Mcnair M.D. [id number]
--- NOTE | 2022-01-31 19:46 | ED_ITS ---
HPI - Fall General: Chief Complaint: Fall Stated Complaint: fall Time Seen by Provider: 01/31/22 19:39 Source: patient and EMS Mode of arrival: EMS Limitations: no limitations History of Present Illness: 76-year-old male who has a history of hyperglycemia does have episodes where he passes out he states that he passed out 3 days ago does have intermittent upset from them but states that today he is in the bathroom passed out and hit the back of his head when EMS found him he had some confusion but his blood sugar was low was in the low 40s again tomorrow glucose is now in the 70s he is now awake alert does have an abrasion to the back of his head denies headache. He states that he taken his Levemir and insulin today and has not had anything since breakfast. Associated symptoms-after fall: Denies abdominal pain, chest pain, headache(s) or neck pain Review of Systems Const: Denies: fever(s), chills, body aches or change in appetite Eyes: Denies: blurry vision or eye discomfort ENMT: Denies: throat pain or dental pain Card: Denies: chest pain Resp: Denies: dyspnea GI: Denies: abdominal pain, nausea, vomiting or diarrhea : Denies: dysuria Musc: Denies: neck pain or back pain Skin/Breast: Denies: rash Neuro: Reports: numbness in extremities; Denies: headache(s) Psych: Denies: depression Danny/Lymph: Denies: easy bruising All/Imm: Denies: urticaria PFSH ED PFSH: Medical History (Updated 01/31/22 @ 22:21 by Kassidy Wesley MD) ASHD (arteriosclerotic heart disease) BPH (benign prostatic hyperplasia) CKD (chronic kidney disease) COPD (chronic obstructive pulmonary disease) Diabetes mellitus Fibromyalgia HTN (hypertension) Hyperlipidemia JOHAN (obstructive sleep apnea) PAD (peripheral artery disease) Surgical History H/O vasectomy S/P CABG (coronary artery bypass graft) S/P PTCA (percutaneous transluminal coronary angioplasty) S/P rotator cuff repair Family History Other Cancer Denies family history of Diabetes Social History Smoking and tobacco status: former smoker Second hand smoke exposure: No Alcohol intake: never Caregiver/support person: Yes Lives independently: Yes Household members: spouse Marital status: Current occupational status: retired History of recent travel: No Current gender identity: Male Special aubree needs: No Agree to transfusion: Yes Physical Exam Const: COMMON NORMALS: no acute distress, patient oriented x3 and healthy appearing HENMT: COMMON NORMALS: normocephalic; head/scalp not atraumatic (superficial abrasion to posterior head) HEAD & SCALP: normocephalic; not atraumatic (superficial abrasion to posterior head) Eye: COMMON NORMALS: Equal, round and reactive pupils present and EOMs intact bilaterally PUPIL: Yes Equal, round and reactive pupils present Neck/C-Spine: COMMON NORMALS: full ROM and supple Chest: COMMONS NORMALS: normal inspection of the chest and normal palpation of entire chest wall Resp: COMMON NORMALS: normal respiratory effort, No retractions, No use of accessory muscles and clear to auscultation bilaterally AUSCULTATION: clear to auscultation bilaterally Cardio: COMMON NORMALS: regular rate, regular rhythm and No murmurs present (Cardio) RATE: regular rate RHYTHM: regular rhythm GI: COMMON NORMALS: Normal to inspection, nondistended, normoactive bowel sounds present, Soft to palpation, non-tender and no masses PALPATION: Yes Soft to palpation Extremity: COMMON NORMALS: normal to inspection and full ROM Neuro: COMMON NORMALS: patient oriented x3, moves all extremities and no focal motor deficits Psych: COMMON NORMALS: mental status grossly normal, Normal thought process present and cooperative THOUGHT PROCESS: Normal thought process present Skin: COMMON NORMALS: no rashes or lesions noted and no wounds GENERAL SKIN EXAM: no rashes or lesions noted Course Vital Signs: Vital signs: Vital Signs Temperature 96.6 F L 01/31/22 19:43 Pulse Rate 56 L 01/31/22 19:43 Respiratory Rate 18 01/31/22 19:43 Blood Pressure 117/61 01/31/22 19:43 Pulse Oximetry 94 01/31/22 19:43 MDM - Fall Medical Decision Making Patient presents here after a fall closed head injury his head CT here is normal bleeding likely fell on syncopized due to his blood sugar being low due to not eating throughout the day inform if he takes insulin is very important that he eats blood sugar here is stabilized he is stable for discharge and return if worsening. Lab Data : 01/31/22 19:45 01/31/22 19:45 Radiology Impressions Cervical Spine CT 01/31/22 19:42 IMPRESSION: 1. No cervical spine fracture identified. 2. Age indeterminate but possibly acute mild anterior wedge compression fracture of T1. 3. Degenerative changes as described. Head CT 01/31/22 19:42 IMPRESSION: 1. No acute intracranial abnormality. Laboratory Results WBC 11.4 10^3/uL (4.0-10.0) H 01/31/22 19:45 RBC 4.33 10^6/uL (4.1-5.3) 01/31/22 19:45 Hgb 13.4 g/dL (11.7-16.6) 01/31/22 19:45 Hct 42.0 % (42.0-52.0) 01/31/22 19:45 MCV 97.0 fl (80-94) H 01/31/22 19:45 MCH 30.9 pg (28.0-34.0) 01/31/22 19:45 MCHC 31.9 g/dL (30.0-36.0) 01/31/22 19:45 RDW 13.4 % (12.1-15.1) 01/31/22 19:45 Plt Count 195 10^3/cmm (130-400) 01/31/22 19:45 MPV 10.3 fL (7.4-10.4) 01/31/22 19:45 Neut % (Auto) 79.6 % 01/31/22 19:45 Lymph % (Auto) 10.2 % 01/31/22 19:45 Clay % (Auto) 8.0 % 01/31/22 19:45 Eos % (Auto) 1.4 % 01/31/22 19:45 Baso % (Auto) 0.5 % 01/31/22 19:45 Neut # (Auto) 9.10 10^3/uL (1.8-7.7) H 01/31/22 19:45 Lymph # (Auto) 1.2 10^3/uL (0.8-4.8) 01/31/22 19:45 Clay # (Auto) 0.9 10^3/uL (0.2-0.9) 01/31/22 19:45 Eos # (Auto) 0.2 10^3/uL (0.0-0.8) 01/31/22 19:45 Baso # (Auto) 0.1 10^3/uL (0.0-0.1) 01/31/22 19:45 Nucleated RBC % (auto) 0 % 01/31/22 19:45 Nucleated RBCs # 0.0 /100WBC 01/31/22 19:45 Sodium 136 mmol/L (136-145) 01/31/22 19:45 Potassium 3.3 mmol/L (3.5-5.1) L 01/31/22 19:45 Chloride 102 mmol/L (98-107) 01/31/22 19:45 Carbon Dioxide 22 mmol/L (22-29) 01/31/22 19:45 Anion Gap 15.3 (5-19) 01/31/22 19:45 BUN 15 mg/dL (8-23) 01/31/22 19:45 Creatinine 0.6 mg/dL (0.7-1.2) L 01/31/22 19:45 GFR Calculation Not Reportable 01/31/22 19:45 Glucose 75 mg/dL (65-115) 01/31/22 19:45 POC Glucose 197 mg/dL (70-110) H 01/31/22 22:15 Calculated Osmolality 282 mOsm/kg (285-295) L 01/31/22 19:45 Calcium 8.5 mg/dL (8.5-10.5) 01/31/22 19:45 Total Bilirubin 0.2 mg/dL (0.15-1.2) 01/31/22 19:45 AST 10 U/L (0-40) 01/31/22 19:45 ALT 9 U/L (0-41) 01/31/22 19:45 Alkaline Phosphatase 152 IU/L (40-130) H 01/31/22 19:45 Total Protein 7.2 g/dL (6.6-8.7) 01/31/22 19:45 Albumin 3.3 g/dL (3.5-5.2) L 01/31/22 19:45 Globulin 3.9 g/dL (1.3-4.6) 01/31/22 19:45 Phenytoin 0.8 ug/mL (10-20) L 01/31/22 19:45 EKG Data EKG 1: I personally reviewed and interpreted this EKG as follows: EKG interpretation date: 01/31/22 EKG interpretation time: 19:55 Interpretation: afib hr [address] or t wave abnormalities qrs 121 qtc 475 Discharge Plan Discharge Patient Disposition: Home Clinical Impression: Fall, Hypoglycemia Condition: Stable Prescriptions: No Action (DME) Diabetic shoes with inserts See Rx Instructions .Route .MEDSUPPLY Qty: 1 0RF Rx Instructions: As directed (DME) cam boot See Rx Instructions .ROUTE .MEDSUPPLY Qty: 1 0RF Rx Instructions: As directed ([facility]) Cam Boot on the right See Rx Instructions .Route .MEDSUPPLY Qty: 1 0RF Rx Instructions: As directed (DME) ASO to right See Rx Instructions .Route .MEDSUPPLY Qty: 1 0RF Rx Instructions: As directed (DME) Diabetic shoes with 3 sets insoles See Rx Instructions .ROUTE .MEDSUPPLY Qty: 1 0RF Rx Instructions: As directed by PADMINI&O ([facility]) OneTouch Verio test strips Strip See Rx Instructions .Route Qty: 100 2RF Rx Instructions: test Blood sugar three times daily Levemir U-100 Insulin 100 unit/mL solution 85 unit SUBCUT DAILY Qty: 10 2RF atorvastatin 40 mg tablet 40 mg PO DAILY Qty: 90 1RF clonazepam [Klonopin] 0.5 mg tablet 0.5 mg PO DAILY 90 Days Qty: 270 3RF Rx Instructions: 3 prior to bed to prevent sleep behavior disorder clopidogrel 75 mg tablet 75 mg PO DAILY Qty: 90 1RF famotidine 20 mg tablet 20 mg PO DAILY Qty: 90 1RF fluticasone propionate 50 mcg/actuation spray,suspension 2 spray INTRANASAL DAILY Qty: 15.8 2RF Rx Instructions: administer into each nostril furosemide [Lasix] 20 mg tablet 20 mg PO QAM PRN (Reason: edema) Qty: 90 1RF gabapentin 300 mg capsule 600 mg PO TID Qty: 540 1RF metformin 1,000 mg tablet 1,000 mg PO BID Qty: 180 1RF metoprolol succinate 25 mg tablet extended release 24 hr 25 mg PO DAILY Qty: 90 1RF primidone 50 mg tablet See Rx Instructions PO .COMPLEX Qty: 450 1RF Rx Instructions: 50 MG 1 TAB in am and 3 or 4 before supper PO; tamsulosin 0.4 mg capsule 0.4 mg PO DAILY Qty: 90 1RF trandolapril 2 mg tablet 2 mg PO DAILY Qty: 90 1RF insulin aspart U-100 [Novolog U-100 Insulin aspart] 100 unit/mL solution 45 unit SUBCUT TID 90 Days Qty: 121.5 1RF (DME) insulin syringe-needle U-100 [BD Insulin Syringe Ultra-Fine] 1 mL 31 gauge x 5/16 syringe See Rx Instructions .ROUTE .MEDSUPPLY Qty: 100 5RF Rx Instructions: As directed 4 times daily to administer insulin albuterol sulfate [ProAir HFA] 90 mcg/actuation HFA aerosol inhaler 2 puff INHALATION Q6H PRN (Reason: shortness of breath or wheezing) Qty: 18 2RF mupirocin 2 % ointment 1 applic TOPICAL BID Qty: 30 0RF (DME) blood sugar diagnostic Strip See Rx Instructions ea .ROUTE .MEDSUPPLY Qty: 100 2RF Rx Instructions: checking sugars 6 times daily (DME) Wheelchair See Rx Instructions .Route .MEDSUPPLY Qty: 1 0RF Rx Instructions: As directed Discharge Orders: Discharge ED (Routine); Ordered 01/31/22 Ordered By: Kassidy Wesley Referrals: Daya Flower MD [Primary Care Provider] - 1-3 days Discharge Diet: Advance as tolerated Discharge Activity: Resume usual activity Patient Instructions: Hypoglycemia in a Person with Diabetes (DC), Fall Prevention (ED) Coding Level of Care Code ED Field Service Specialist for Yuval Fwd Exam Comprehensive
[2022-01-31] MEDS: dextrose 50% syringe 50 mL IVP (19:55)
[2022-01-31 20:29] LABS: Basophils # 0.1 10^3/uL (0.0-0.1); Basophils % 0.5 %; Eosinophils # 0.2 10^3/uL (0.0-0.8); Eosinophils % 1.4 %; Hemoglobin 13.4 g/dL (11.7-16.6); Lymphocytes # 1.2 10^3/uL (0.8-4.8); Lymphocytes % 10.2 %; Mean Corpuscular HGB Conc 31.9 g/dL (30.0-36.0); Mean Corpuscular Hemoglobin 30.9 pg (28.0-34.0); Mean Platelet Volume 10.3 fL (7.4-10.4); Monocytes # 0.9 10^3/uL (0.2-0.9); Neutrophils % 79.6 %; Nucleated Red Blood Cells % 0 %; Platelet Count 195 10^3/cmm (130-400); Red Blood Count 4.33 10^6/uL (4.1-5.3); Red Cell Distribution Width 13.4 % (12.1-15.1); White Blood Count 11.4 10^3/uL (4.0-10.0)
[2022-01-31 20:30] LABS: Glucose Point of Care 163 mg/dL (70-110)
[2022-01-31 20:52] LABS: Alanine Aminotransferase 9 U/L (0-41); Albumin Level 3.3 g/dL (3.5-5.2); Alkaline Phosphatase 152 IU/L (40-130); Anion Gap 15.3 (5-19); Aspartate Amino Transferase 10 U/L (0-40); Blood Urea Nitrogen 15 mg/dL (8-23); Calcium 8.5 mg/dL (8.5-10.5); Carbon Dioxide 22 mmol/L (22-29); Chloride 102 mmol/L (98-107); Globulin 3.9 g/dL (1.3-4.6); Glucose 75 mg/dL (65-115); Osmolality Calculated 282 mOsm/kg (285-295); Potassium 3.3 mmol/L (3.5-5.1); Sodium 136 mmol/L (136-145); Total Bilirubin 0.2 mg/dL (0.15-1.2); Total Protein 7.2 g/dL (6.6-8.7)
[2022-01-31 21:15] LABS: Glucose Point of Care 128 mg/dL (70-110)
[2022-01-31 22:06] LABS: Phenytoin Dilantin 0.8 ug/mL (10-20)
[2022-01-31 22:20] LABS: Glucose Point of Care 197 mg/dL (70-110)
[2022-01-31 22:29] VITALS: BP 112/83; PULSE 84; RESP 18; O2SAT 94
[2022-01-31 23:16] LABS: Glucose Point of Care 75 mg/dL (70-110)
[2022-01-31 23:16] LABS: Glucose Point of Care 149 mg/dL (70-110)
== END 2022-01-31 23:23 | disposition home or self-care (01) ==
PROVIDERS: Emergency Provider Emergency Medicine; PCP Family Medicine
DX: E11.649 Type 2 diabetes mellitus with hypoglycemia without coma (principal); J44.9 Chronic obstructive pulmonary disease, unspecified; I10 Essential (primary) hypertension; E78.5 Hyperlipidemia, unspecified; Z95.1 Presence of aortocoronary bypass graft; Z87.891 Personal history of nicotine dependence; Z79.84 Long term (current) use of oral hypoglycemic drugs; Z79.02 Long term (current) use of antithrombotics/antiplatelets; Z79.4 Long term (current) use of insulin; W18.30XA Fall on same level, unspecified, initial encounter
CPT/HCPCS: 36416; 70450; 72125; 80053; 80185; 82962; 85025; 93005; 96374; 99283

== ENCOUNTER 2022-02-04 09:27 | Outpatient (CLI) | payer MEDICARE, OTHER, SELFPAY | END 2022-02-04 09:28 | disposition home or self-care (01) | LOC: WOUND 09:28 | PROVIDERS: PCP Family Medicine; Visit Provider Surgery | DX: E11.621 Type 2 diabetes mellitus with foot ulcer (principal); I96 Gangrene, not elsewhere classified; L97.512 Non-pressure chronic ulcer of other part of right foot with fat layer exposed; Z87.891 Personal history of nicotine dependence | CPT/HCPCS: 11042; A6252 ==

== ENCOUNTER → 2022-02-18 09:01 | Outpatient (BNVA) | payer MEDICARE, OTHER, SELFPAY | PROVIDERS: PCP Family Medicine; Visit Provider Nurse Practitioner Family | DX: E11.621 Type 2 diabetes mellitus with foot ulcer (principal); L97.512 Non-pressure chronic ulcer of other part of right foot with fat layer exposed; I96 Gangrene, not elsewhere classified; Z87.891 Personal history of nicotine dependence | CPT/HCPCS: 11042; 87070; 87077; 87176; 87186; 87205; A6250 ==

== ENCOUNTER → 2022-02-25 09:23 | Outpatient (BNVA) | payer MEDICARE, OTHER, SELFPAY | PROVIDERS: PCP Family Medicine; Visit Provider Surgery | DX: E11.621 Type 2 diabetes mellitus with foot ulcer (principal); L97.512 Non-pressure chronic ulcer of other part of right foot with fat layer exposed; I96 Gangrene, not elsewhere classified; Z87.891 Personal history of nicotine dependence | CPT/HCPCS: 15271; A6250; C1713; C1763 ==

== ENCOUNTER → 2022-03-04 13:10 | Outpatient (BNVA) | payer MEDICARE, OTHER, SELFPAY | PROVIDERS: PCP Family Medicine; Visit Provider Surgery | DX: E11.621 Type 2 diabetes mellitus with foot ulcer (principal); L97.512 Non-pressure chronic ulcer of other part of right foot with fat layer exposed; Z87.891 Personal history of nicotine dependence | CPT/HCPCS: 11042; A6252 ==

== ENCOUNTER → 2022-03-11 10:40 | Outpatient (BNVA) | payer MEDICARE, OTHER, SELFPAY | PROVIDERS: PCP Family Medicine; Visit Provider Emergency Medicine | DX: E11.621 Type 2 diabetes mellitus with foot ulcer (principal); L97.522 Non-pressure chronic ulcer of other part of left foot with fat layer exposed; Z87.891 Personal history of nicotine dependence | CPT/HCPCS: 15275; C1713; Q4105 ==

== ENCOUNTER 2022-03-11 11:33 | Emergency (ER) | payer MEDICARE, OTHER, SELFPAY ==
[2022-03-11 11:46] VITALS: BP 152/69; PULSE 86; RESP 18; TEMP 36.6; O2SAT 97; BMI 35.3
[2022-03-11 12:05] LABS: Glucose Point of Care 139 mg/dL (70-110)
--- NOTE | 2022-03-11 12:05 | ECG_ITS ---
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 Measurements Intervals [place] Rate: 82 P: 128 FL: 285 QRS: 54 QRSD: 110 T: 62 QT: 383 QTc: 449 Interpretive Statements CRITICAL TEST RESULT Sinus rhythm with a second-degree type I AV block Compared to ECG 01/31/2022 19:55:32 Myocardial infarct finding no longer present Electronically Signed On 03-11-2022 18:21:12 CDT by Danielle Haley M.D. [email or web address] greenvilleLooseHead [id number]
--- NOTE | 2022-03-11 12:05 | CTR_ITS ---
PROCEDURE INFORMATION: Exam: CT Head Without Contrast Exam date and time: 03/11/2022 12:44 PM Age: 76 years old Clinical indication: Injury or trauma; Fall; Blunt trauma (contusions or hematomas); Consciousness not specified TECHNIQUE: Imaging protocol: Computed tomography of the head without contrast. Total images: 205 Radiation optimization: All CT scans at this facility use at least one of these dose optimization techniques: automated exposure control; mA and/or kV adjustment per patient size (includes targeted exams where dose is matched to clinical indication); or iterative reconstruction. Other technique: STROKE PROTOCOL was implemented. COMPARISON: CT head wo con* [id number] 01/31/2022 8:04 PM RADIATION DOSE METRICS: Total DLP (mGy-cm): 908.18 FINDINGS: Brain: Global brain atrophy and chronic white matter ischemic changes are present. Heterogeneous subdural hemorrhage along the right cerebral convexity measuring 11 mm in greatest thickness. Mass effect noted on the cortex but no significant mass effect on the right lateral ventricle nor midline shift detected. Cerebral ventricles: Ventricles are appropriate in size for degree of atrophy. Paranasal sinuses: Visualized sinuses are unremarkable. No fluid levels. Mastoid air cells: Visualized mastoid air cells are well aerated. Bones/joints: Nasal bone deformity is unchanged from prior exam. Soft tissues: Unremarkable. CT/CT head wo con* [id number] IMPRESSION: 1. Heterogeneous subdural hemorrhage along the right cerebral convexity measuring 11 mm in greatest thickness. 2. Mass effect noted on the cortex but no significant mass effect on the right lateral ventricle nor midline shift detected. ASSESSMENT: ASPECTS (Angela Stroke Program Early CT Score) is 10.
--- NOTE | 2022-03-11 12:06 | W.ED.FALL ---
HPI - Fall General: Chief Complaint: Fall Stated Complaint: Frequent Falls Time Seen by Provider: 03/11/22 11:58 History of Present Illness: 76-year-old with history of diabetes was also on Plavix presents due to syncopal episodes. States that he tried to get out of bed fell to the ground hit his head and believes he had loss of consciousness. However denies any focal weakness numbness or tingling. Denies any chest pain shortness of breath palpitations or any prodrome. States that he has diabetic neuropathy and is often unsteady on his feet. Denies any headache or neck pain. Denies any dysuria fevers or chills. Son is here with him states this is happening quite frequently when patient tries to get out of bed in the middle of the night. Review of Systems Narrative: - CONSTITUTIONAL: Denies weight loss, fever and chills. - HEENT: Denies changes in vision and hearing. - RESPIRATORY: Denies SOB and cough. - CV: Denies palpitations and CP. - GI: Denies abdominal pain, nausea, vomiting and diarrhea. - : Denies dysuria and urinary frequency. - MSK: Denies myalgia and joint pain. - SKIN: Denies rash and pruritus. - NEUROLOGICAL: As above - PSYCHIATRIC: Denies suicidal ideation PFSH ED PFSH: Medical History ASHD (arteriosclerotic heart disease) BPH (benign prostatic hyperplasia) CKD (chronic kidney disease) COPD (chronic obstructive pulmonary disease) Diabetes mellitus Fibromyalgia HTN (hypertension) Hyperlipidemia JOHAN (obstructive sleep apnea) PAD (peripheral artery disease) Surgical History H/O vasectomy S/P CABG (coronary artery bypass graft) S/P PTCA (percutaneous transluminal coronary angioplasty) S/P rotator cuff repair Family History Other Cancer Denies family history of Diabetes Social History Smoking and tobacco status: never smoked Second hand smoke exposure: No Alcohol intake: never Caregiver/support person: Yes Lives independently: Yes Household members: spouse Marital status: Current occupational status: retired History of recent travel: No Current gender identity: Male Special aubree needs: No Agree to transfusion: Yes Physical Exam Narrative: EXAM NARRATIVE: - GENERAL: Alert and oriented x 3. No acute distress. Well-nourished. - EYES: EOMI. Anicteric. - HENT: Atraumatic, no C-spine tenderness. Moist mucous membranes. No scleral icterus. No cervical lymphadenopathy. - LUNGS: Clear to auscultation bilaterally. No accessory muscle use. Equal lung sounds bilaterally. No respiratory distress. - CARDIOVASCULAR: Regular rate and rhythm. No murmur. No JVD. - ABDOMEN: Soft, non-tender and non-distended. Negative CVA tenderness bilaterally, no rebound or guarding, negative Rausch sign. No palpable masses. - EXTREMITIES: No edema. Non-tender. Left lower extremity in boot. Patient states that this is due to diabetic neuropathy and he has been wearing this boot for long time. - SKIN: No rashes or lesions. Warm. - NEUROLOGIC: No meningismus or focal neurological deficits. CN II-XII grossly intact. - PSYCHIATRIC: Cooperative. Appropriate mood and affect. Course Vital Signs: Vital signs: Vital Signs Temperature 97.8 F 03/11/22 11:46 Pulse Rate 86 03/11/22 11:46 Respiratory Rate 18 03/11/22 11:46 Blood Pressure 152/69 03/11/22 11:46 Pulse Oximetry 97 03/11/22 11:46 MDM - Fall Medical Decision Making 76-year-old presents due to syncope and head injury. Does report loss of consciousness. Denies headache or neck pain. No focal deficit on neurologic exam. Patient does have a left lower extremity boot that he states that he has been wearing for a long time and denies any recent injury to this area. CT scan of the head however is concerning for large subdural hematoma. Patient is on Plavix. Lab work currently pending. EKG reveals first-degree AV block with possible 1 skipped beat concerning for infrequent Mobitz type II block. Discussed with physician at [facility] will accept transfer as appropriate subspecialty backup. Patient is currently in stable condition awaiting transfer. Lab Data : 03/11/22 12:18 03/11/22 12:[address] 03/11/22 12:05 IMPRESSION: 1. Heterogeneous subdural hemorrhage along the right cerebral convexity measuring 11 mm in greatest thickness. 2. Mass effect noted on the cortex but no significant mass effect on the right lateral ventricle nor midline shift detected. ASSESSMENT: ASPECTS (Angela Stroke Program Early CT Score) is 10. ADDENDUM: 03/11/22 1301 THIS REPORT CONTAINS FINDINGS THAT MAY BE CRITICAL TO PATIENT CARE. The findings were verbally communicated via telephone conference at 12:59 PM CDT on 03/11/2022 with Titus Wood. The findings were acknowledged and understood. Laboratory Results WBC 8.6 10^3/uL (4.0-10.0) 03/11/22 12:18 RBC 4.94 10^6/uL (4.1-5.3) 03/11/22 12:18 Hgb 14.8 g/dL (11.7-16.6) 03/11/22 12:18 Hct 46.5 % (42.0-52.0) 03/11/22 12:18 MCV 94.1 fl (80-94) H 03/11/22 12:18 MCH 30.0 pg (28.0-34.0) 03/11/22 12:18 MCHC 31.8 g/dL (30.0-36.0) 03/11/22 12:18 RDW 13.6 % (12.1-15.1) 03/11/22 12:18 Plt Count 216 10^3/cmm (130-400) 03/11/22 12:18 MPV 10.4 fL (7.4-10.4) 03/11/22 12:18 Neut % (Auto) 79.9 % 03/11/22 12:18 Lymph % (Auto) 12.4 % 03/11/22 12:18 Coos % (Auto) 7.1 % 03/11/22 12:18 Eos % (Auto) 0.0 % 03/11/22 12:18 Baso % (Auto) 0.4 % 03/11/22 12:18 Neut # (Auto) 6.85 10^3/uL (1.8-7.7) 03/11/22 12:18 Lymph # (Auto) 1.1 10^3/uL (0.8-4.8) 03/11/22 12:18 Coos # (Auto) 0.6 10^3/uL (0.2-0.9) 03/11/22 12:18 Eos # (Auto) 0.0 10^3/uL (0.0-0.8) 03/11/22 12:18 Baso # (Auto) 0.0 10^3/uL (0.0-0.1) 03/11/22 12:18 Nucleated RBC % (auto) 0 % 03/11/22 12:18 Nucleated RBCs # 0.0 /100WBC 03/11/22 12:18 Sodium 136 mmol/L (136-145) 03/11/22 12:18 Chloride 100 mmol/L (98-107) 03/11/22 12:18 Carbon Dioxide 23 mmol/L (22-29) 03/11/22 12:18 Creatinine 0.7 mg/dL (0.7-1.2) 03/11/22 12:18 GFR Calculation Not Reportable 03/11/22 12:18 POC Glucose 127 mg/dL (70-110) H 03/11/22 12:28 Calculated Osmolality 289 mOsm/kg (285-295) 03/11/22 12:18 Total Bilirubin 0.4 mg/dL (0.15-1.2) 03/11/22 12:18 AST 14 U/L (0-40) 03/11/22 12:18 ALT 11 U/L (0-41) 03/11/22 12:18 Total Protein 7.5 g/dL (6.6-8.7) 03/11/22 12:18 Albumin 4.0 g/dL (3.5-5.2) 03/11/22 12:18 Globulin 3.5 g/dL (1.3-4.6) 03/11/22 12:18 TSH 0.35 uIU/mL (0.27-4.20) 03/11/22 12:18 Free T4 1.09 ng/dL (0.82-1.77) 03/11/22 12:18 EKG Data EKG 1: Other EKG comments: Second-degree Mobitz type II block. No sign of acute ischemia or other acute abnormality. Critical Care Time Critical Care Time: Critical Care Time: Yes Total Critical Care Time: 35 Attestation: This case had a high probability of a clinically significant, sudden, or life threatening deterioration of this patient's condition which required my full and direct attention, intervention and personal management. Discharge Plan Discharge Condition: Stable Prescriptions: No Action (DME) Diabetic shoes with inserts See Rx Instructions .Route .MEDSUPPLY Qty: 1 0RF Rx Instructions: As directed (DME) cam boot See Rx Instructions .ROUTE .MEDSUPPLY Qty: 1 0RF Rx Instructions: As directed ([facility] [place]) Cam Boot on the right See Rx Instructions .Route .MEDSUPPLY Qty: 1 0RF Rx Instructions: As directed sildenafil [Viagra] 100 mg tablet 100 mg PO DAILY PRN (Reason: sexual activity) Qty: 10 0RF Rx Instructions: administer 30 minutes to 4 hours before activity (DME) insulin syringes 0.5 ml See Rx Instructions .Route .MEDSUPPLY Qty: 100 4RF Rx Instructions: As directed (DME) ASO to right See Rx Instructions .Route .MEDSUPPLY Qty: 1 0RF Rx Instructions: As directed ([facility] [place]) Diabetic shoes with 3 sets insoles See Rx Instructions .ROUTE .MEDSUPPLY Qty: 1 0RF Rx Instructions: As directed by PADMINI&O ([facility] [place]) OneTouch Verio test strips Strip See Rx Instructions .Route Qty: 100 2RF Rx Instructions: test Blood sugar three times daily Levemir U-100 Insulin 100 unit/mL solution 85 unit SUBCUT DAILY Qty: 10 2RF atorvastatin 40 mg tablet 40 mg PO DAILY Qty: 90 1RF clopidogrel 75 mg tablet 75 mg PO DAILY Qty: 90 1RF famotidine 20 mg tablet 20 mg PO DAILY Qty: 90 1RF fluticasone propionate 50 mcg/actuation spray,suspension 2 spray INTRANASAL DAILY Qty: 15.8 2RF Rx Instructions: administer into each nostril furosemide [Lasix] 20 mg tablet 20 mg PO QAM PRN (Reason: edema) Qty: 90 1RF gabapentin 300 mg capsule 600 mg PO TID Qty: 540 1RF metformin 1,000 mg tablet 1,000 mg PO BID Qty: 180 1RF metoprolol succinate 25 mg tablet extended release 24 hr 25 mg PO DAILY Qty: 90 1RF primidone 50 mg tablet See Rx Instructions PO .COMPLEX Qty: 450 1RF Rx Instructions: 50 MG 1 TAB in am and 3 or 4 before supper PO; tamsulosin 0.4 mg capsule 0.4 mg PO DAILY Qty: 90 1RF trandolapril 2 mg tablet 2 mg PO DAILY Qty: 90 1RF insulin aspart U-100 [Novolog U-100 Insulin aspart] 100 unit/mL solution 45 unit SUBCUT TID 90 Days Qty: 121.5 1RF (DME) insulin syringe-needle U-100 [BD Insulin Syringe Ultra-Fine] 1 mL 31 gauge x 5/16 syringe See Rx Instructions .ROUTE .MEDSUPPLY Qty: 100 5RF Rx Instructions: As directed 4 times daily to administer insulin albuterol sulfate [ProAir HFA] 90 mcg/actuation HFA aerosol inhaler 2 puff INHALATION Q6H PRN (Reason: shortness of breath or wheezing) Qty: 18 2RF mupirocin 2 % ointment 1 applic TOPICAL BID Qty: 30 0RF (DME) blood sugar diagnostic Strip See Rx Instructions ea .ROUTE .MEDSUPPLY Qty: 100 2RF Rx Instructions: checking sugars 6 times daily (DME) Wheelchair See Rx Instructions .Route .MEDSUPPLY Qty: 1 0RF Rx Instructions: As directed clonazepam [Klonopin] 0.5 mg tablet 1.5 mg PO DAILY 90 Days Qty: 270 3RF Rx Instructions: 3 prior to bed to prevent sleep behavior disorder Referrals: Daya Flower MD [Primary Care Provider] - Coding Level of Care Code ED Field Pipe Lines Supervisor for Yuval Kaiser
[2022-03-11 12:27] LABS: Basophils % 0.4 %; Hematocrit 46.5 % (42.0-52.0); Hemoglobin 14.8 g/dL (11.7-16.6); Lymphocytes # 1.1 10^3/uL (0.8-4.8); Lymphocytes % 12.4 %; Mean Corpuscular HGB Conc 31.8 g/dL (30.0-36.0); Mean Corpuscular Volume 94.1 fl (80-94); Mean Platelet Volume 10.4 fL (7.4-10.4); Monocytes # 0.6 10^3/uL (0.2-0.9); Monocytes % 7.1 %; Neutrophils # 6.85 10^3/uL (1.8-7.7); Neutrophils % 79.9 %; Nucleated Red Blood Cells % 0 %; Platelet Count 216 10^3/cmm (130-400); Red Blood Count 4.94 10^6/uL (4.1-5.3); Red Cell Distribution Width 13.6 % (12.1-15.1); White Blood Count 8.6 10^3/uL (4.0-10.0)
[2022-03-11 12:35] LABS: Glucose Point of Care 127 mg/dL (70-110)
--- NOTE | 2022-03-11 12:48 | PC.PHAR ---
PT UNABLE TO CONFIRM MEDICATIONS. LIVES WITH HIS SON SINCE DECEMBER - SON ALSO UNABLE TO VERIFY MEDS. - MEDICATIONS UPDATED USING EXTERNAL MED LIST.
[2022-03-11 12:56] VITALS: PULSE 77; O2SAT 95
[2022-03-11 13:09] LABS: Alanine Aminotransferase 11 U/L (0-41); Alkaline Phosphatase 168 IU/L (40-130); Aspartate Amino Transferase 14 U/L (0-40); Blood Urea Nitrogen 25 mg/dL (8-23); Calcium 8.2 mg/dL (8.5-10.5); Carbon Dioxide 23 mmol/L (22-29); Chloride 100 mmol/L (98-107); Free T4 Free Thyroxine 1.09 ng/dL (0.82-1.77); Globulin 3.5 g/dL (1.3-4.6); Glucose 145 mg/dL (65-115); NT Pro B Type Natriuretic Pept 302 pg/mL (0-125); Osmolality Calculated 289 mOsm/kg (285-295); Sodium 136 mmol/L (136-145); Thyroid Stimulating Hormone 0.35 uIU/mL (0.27-4.20); Total Bilirubin 0.4 mg/dL (0.15-1.2); Total Protein 7.5 g/dL (6.6-8.7)
--- NOTE | 2022-03-11 13:11 | CTR_ITS ---
PROCEDURE INFORMATION: Exam: CT Cervical Spine Without Contrast Exam date and time: 03/11/2022 1:35 PM Age: 76 years old Clinical indication: Injury or trauma; Blunt trauma; Patient HX: Fall today; Confusion-weakness TECHNIQUE: Imaging protocol: Computed tomography images of the cervical spine without contrast. Total images: 327 Radiation optimization: All CT scans at this facility use at least one of these dose optimization techniques: automated exposure control; mA and/or kV adjustment per patient size (includes targeted exams where dose is matched to clinical indication); or iterative reconstruction. COMPARISON: CT cervical spin wo con* [id number] 01/31/2022 8:07 PM RADIATION DOSE METRICS: Total DLP (mGy-cm): 720.69 FINDINGS: Tubes, catheters and devices: Sternotomy wire visualized. Bones/joints: Facet joint degenerative changes are present. Discs/Spinal canal/Neural foramina: Multilevel degenerative disc disease with disc space narrowing and osteophyte formation. Uncovertebral joint degeneration is present. Lungs: Lung apices are normal. Vasculature: Calcified atherosclerotic plaque is noted at the carotid bifurcations bilaterally. Soft tissues: Unremarkable. CT/CT cervical spin wo con* [id number] IMPRESSION: No acute findings.
[2022-03-11 13:12] LABS: Anion Gap 18.4 (5-19); Potassium 5.4 mmol/L (3.5-5.1); Troponin(5th) Baseline 34 ng/L (0-15)
[2022-03-11 15:30] VITALS: PULSE 89; RESP 17; O2SAT 97
== END 2022-03-11 13:52 ==
PROVIDERS: Emergency Provider Emergency Medicine; PCP Family Medicine
DX: E11.621 Type 2 diabetes mellitus with foot ulcer (principal); Z87.891 Personal history of nicotine dependence; L97.512 Non-pressure chronic ulcer of other part of right foot with fat layer exposed; S06.5X9A Traumatic subdural hemorrhage with loss of consciousness of unspecified duration, initial encounter; W06.XXXA Fall from bed, initial encounter; R29.6 Repeated falls; I44.0 Atrioventricular block, first degree; J44.9 Chronic obstructive pulmonary disease, unspecified; I25.10 Atherosclerotic heart disease of native coronary artery without angina pectoris; I12.9 Hypertensive chronic kidney disease with stage 1 through stage 4 chronic kidney disease, or unspecified chronic kidney disease; E11.22 Type 2 diabetes mellitus with diabetic chronic kidney disease; N18.9 Chronic kidney disease, unspecified; E78.5 Hyperlipidemia, unspecified; Z79.4 Long term (current) use of insulin; Z79.84 Long term (current) use of oral hypoglycemic drugs; Z95.1 Presence of aortocoronary bypass graft
CPT/HCPCS: 15275; 36416; 70450; 72125; 80053; 82962; 83880; 84439; 84443; 84484; 85025; 93005; 99212; 99285; A6250; C1713; C1763; Q4105

== ENCOUNTER → 2022-03-18 09:04 | Outpatient (BNVA) | payer MEDICARE, SELFPAY | PROVIDERS: PCP Family Medicine; Visit Provider Surgery | DX: E11.621 Type 2 diabetes mellitus with foot ulcer (principal); L97.512 Non-pressure chronic ulcer of other part of right foot with fat layer exposed; Z87.891 Personal history of nicotine dependence | CPT/HCPCS: 11042 ==

== ENCOUNTER 2022-03-25 12:16 | Emergency (ER) | payer MEDICARE, OTHER, SELFPAY ==
[2022-03-25 12:23] VITALS: BP 91/53; PULSE 87; RESP 18; TEMP 36.1; O2SAT 96; BMI 32.0
--- NOTE | 2022-03-25 12:40 | XRR_ITS ---
PROCEDURE INFORMATION: Exam: XR Right Knee Exam date and time: 03/25/2022 12:47 PM Age: 76 years old Clinical indication: Injury or trauma; Fall; Blunt trauma; Knee; Bilateral; Injury date: 03/25/22 TECHNIQUE: Imaging protocol: XR Right knee. Views: 1 or 2 views. COMPARISON: CR XR ankle RT min 3V* [id number] 09/22/2021 2:37 PM FINDINGS: Bones/joints: Negative for acute bony abnormality. Soft tissues: Vascular calcifications are seen in the posterior knee XR/XR knee RT 1-2V [id number] IMPRESSION: No acute bone abnormality.
--- NOTE | 2022-03-25 12:40 | XRR_ITS ---
PROCEDURE INFORMATION: Exam: XR Left Knee Exam date and time: 03/25/2022 12:50 PM Age: 76 years old Clinical indication: Injury or trauma; Fall; Blunt trauma; Knee; Bilateral; Injury date: 03/25/22 TECHNIQUE: Imaging protocol: XR Left knee. Views: 1 or 2 views. COMPARISON: CR XR knee LT 3V* [id number] 07/13/2021 3:01 PM FINDINGS: Bones/joints: Negative for acute bony abnormality. There is mild osteoarthritis with narrowing of the medial compartment and the patellofemoral compartment. Soft tissues: Vascular calcifications are seen in the posterior knee XR/XR knee LT 1-2V [id number] IMPRESSION: 1. Mild osteoarthritis 2. Otherwise No acute findings.
--- NOTE | 2022-03-25 12:41 | W.ED.EXTPRO ---
HPI - Extremity Problem General: Chief complaint: Extremity Injury, Lower Stated complaint: Fell and hit his knees pretty bad Time Seen by Provider: 03/25/22 12:30 History of Present Illness: She presents with bilateral knee pain after ground-level fall a little while ago. Patient struck both patellas on the ground and now he has abrasions to both kneecaps with swelling and tenderness. Denies any other injury. Recently treated for brain bleed 2 weeks ago. Blood thinners have been stopped. Denies any hip pain. 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 Boot and uses a for lidocaine. Associated symptoms: Deny chest pain, fever(s) or rash Review of Systems Const: Denies: fever(s), chills or body aches Eyes: Denies: eye discomfort ENMT: Denies: throat pain Card: Denies: chest pain Resp: Denies: dyspnea GI: Denies: abdominal pain, nausea or vomiting Musc: Reports: other (Bilateral knee pain after a fall this morning from ground-level.) Skin/Breast: Denies: rash Neuro: Denies: headache(s) Psych: Denies: depression or suicidal ideation [facility] ED PFSH: Medical History (Updated 03/25/22 @ 13:26 by ASHLEY Lawson) ASHD (arteriosclerotic heart disease) BPH (benign prostatic hyperplasia) CKD (chronic kidney disease) COPD (chronic obstructive pulmonary disease) Diabetes mellitus Fibromyalgia HTN (hypertension) Hyperlipidemia JOHAN (obstructive sleep apnea) PAD (peripheral artery disease) Surgical History H/O vasectomy S/P CABG (coronary artery bypass graft) S/P PTCA (percutaneous transluminal coronary angioplasty) S/P rotator cuff repair Family History Other Cancer Denies family history of Diabetes Social History Smoking and tobacco status: never smoked Second hand smoke exposure: No Alcohol intake: never Caregiver/support person: Yes Lives independently: Yes Household members: spouse Marital status: Current occupational status: retired History of recent travel: No Current gender identity: Male Special aubree needs: No Agree to transfusion: Yes Physical Exam Const: COMMON NORMALS: no acute distress, patient oriented x3 and alert HENMT: COMMON NORMALS: normocephalic HEAD & SCALP: normocephalic Eye: COMMON NORMALS: EOMs intact bilaterally Neck/C-Spine: COMMON NORMALS: no JVD Resp: COMMON NORMALS: normal respiratory effort and No use of accessory muscles Cardio: COMMON NORMALS: no JVD GI: INSPECTION: Yes normal to inspection Extremity: NARRATIVE EXTREMITY EXAM: Patient has abrasions both kneecaps with swelling to both. Tenderness. Neuro: COMMON NORMALS: patient oriented x3 SENSORIUM/ORIENTATION: Yes alert Psych: COMMON NORMALS: mental status grossly normal Skin: COMMON NORMALS: no rashes or lesions noted GENERAL SKIN EXAM: no rashes or lesions noted Course Vital Signs: Vital signs: Vital Signs Temperature 97.0 F L 03/25/22 12:23 Pulse Rate 87 03/25/22 12:23 Respiratory Rate 18 03/25/22 12:23 Blood Pressure 91/53 03/25/22 12:23 Pulse Oximetry 96 03/25/22 12:23 MDM - Extremity (Nontraumatic) Medical Decision Making Knee abrasion and contusion after a fall this morning. Radiologist as negative for fracture. Lab Data Radiology Impressions Knee X-Ray 03/25/22 12:40 IMPRESSION: 1. Mild osteoarthritis 2. Otherwise No acute findings. Discharge Plan Discharge Patient Disposition: Home Clinical Impression: Abrasion Condition: Stable Prescriptions: No Action (DME) Diabetic shoes with inserts See Rx Instructions .Route .MEDSUPPLY Qty: 1 0RF Rx Instructions: As directed (DME) cam boot See Rx Instructions .ROUTE .MEDSUPPLY Qty: 1 0RF Rx Instructions: As directed (DME) Cam Boot on the right See Rx Instructions .Route .MEDSUPPLY Qty: 1 0RF Rx Instructions: As directed sildenafil [Viagra] 100 mg tablet 100 mg PO DAILY PRN (Reason: sexual activity) Qty: 10 0RF Rx Instructions: administer 30 minutes to 4 hours before activity (DME) insulin syringes 0.5 ml See Rx Instructions .Route .MEDSUPPLY Qty: 100 4RF Rx Instructions: As directed (DME) ASO to right See Rx Instructions .Route .MEDSUPPLY Qty: 1 0RF Rx Instructions: As directed (DME) Diabetic shoes with 3 sets insoles See Rx Instructions .ROUTE .MEDSUPPLY Qty: 1 0RF Rx Instructions: As directed by PADMINI&O ([facility] [place]) OneTouch Verio test strips Strip See Rx Instructions .Route Qty: 100 2RF Rx Instructions: test Blood sugar three times daily Levemir U-100 Insulin 100 unit/mL solution 85 unit SUBCUT DAILY Qty: 10 2RF atorvastatin 40 mg tablet 40 mg PO DAILY Qty: 90 1RF clopidogrel 75 mg tablet 75 mg PO DAILY Qty: 90 1RF famotidine 20 mg tablet 20 mg PO DAILY Qty: 90 1RF fluticasone propionate 50 mcg/actuation spray,suspension 2 spray INTRANASAL DAILY Qty: 15.8 2RF Rx Instructions: administer into each nostril furosemide [Lasix] 20 mg tablet 20 mg PO QAM PRN (Reason: edema) Qty: 90 1RF gabapentin 300 mg capsule 600 mg PO TID Qty: 540 1RF metformin 1,000 mg tablet 1,000 mg PO BID Qty: 180 1RF metoprolol succinate 25 mg tablet extended release 24 hr 25 mg PO DAILY Qty: 90 1RF primidone 50 mg tablet See Rx Instructions PO .COMPLEX Qty: 450 1RF Rx Instructions: 50 MG 1 TAB in am and 3 or 4 before supper PO; tamsulosin 0.4 mg capsule 0.4 mg PO DAILY Qty: 90 1RF trandolapril 2 mg tablet 2 mg PO DAILY Qty: 90 1RF insulin aspart U-100 [Novolog U-100 Insulin aspart] 100 unit/mL solution 45 unit SUBCUT TID 90 Days Qty: 121.5 1RF ([facility] [place]) insulin syringe-needle U-100 [BD Insulin Syringe Ultra-Fine] 1 mL 31 gauge x 5/16 syringe See Rx Instructions .ROUTE .MEDSUPPLY Qty: 100 5RF Rx Instructions: As directed 4 times daily to administer insulin albuterol sulfate [ProAir HFA] 90 mcg/actuation HFA aerosol inhaler 2 puff INHALATION Q6H PRN (Reason: shortness of breath or wheezing) Qty: 18 2RF mupirocin 2 % ointment 1 applic TOPICAL BID Qty: 30 0RF (DME) blood sugar diagnostic Strip See Rx Instructions ea .ROUTE .MEDSUPPLY Qty: 100 2RF Rx Instructions: checking sugars 6 times daily (DME) Wheelchair See Rx Instructions .Route .MEDSUPPLY Qty: 1 0RF Rx Instructions: As directed clonazepam [Klonopin] 0.5 mg tablet 1.5 mg PO DAILY 90 Days Qty: 270 3RF Rx Instructions: 3 prior to bed to prevent sleep behavior disorder Discharge Orders: Discharge ED (Routine); Ordered 03/25/22 Ordered By: Nishant Grady Referrals: Daya Flower MD [Primary Care Provider] - Discharge Diet: Usual diet Discharge Activity: Increase activity as tolerated Patient Instructions: Abrasion (ED) Activity Restrictions/Additional Instructions: Follow-up with medical provider as directed. Take medications as prescribed. Return to the ER or your medical provider if condition worsens. Please read and understand discharge instructions. If any questions ask please. Coding Level of Care Code ED Produce Manager for Yuval Fwd Exam Comprehensive
[2022-03-25] MEDS: tetanus-dipt-pertussis 0.5 mL SDV IM (12:54)
[2022-03-25] MEDS: HYDROcodone-acetaminophen 5-325 mg Tablet 1 TAB PO (12:57)
--- NOTE | 2022-03-25 13:43 | PC.NURSE ---
patient knees and right elbow cleaned with NS and peroxide solution, patient tolerated well, covered with telfa dressing-
== END 2022-03-25 13:43 | disposition home or self-care (01) ==
PROVIDERS: Emergency Provider Nurse Practitioner Family; PCP Family Medicine
DX: S80.212A Abrasion, left knee, initial encounter (principal); S80.211A Abrasion, right knee, initial encounter; W18.30XA Fall on same level, unspecified, initial encounter; Z23 Encounter for immunization; I25.10 Atherosclerotic heart disease of native coronary artery without angina pectoris; E11.22 Type 2 diabetes mellitus with diabetic chronic kidney disease; I12.9 Hypertensive chronic kidney disease with stage 1 through stage 4 chronic kidney disease, or unspecified chronic kidney disease; N18.9 Chronic kidney disease, unspecified; E11.51 Type 2 diabetes mellitus with diabetic peripheral angiopathy without gangrene; E88.81 Metabolic syndrome and other insulin resistance
CPT/HCPCS: 73560; 90471; 90715; 99283

== ENCOUNTER → 2022-04-01 13:44 | Outpatient (BNVA) | payer MEDICARE, OTHER, SELFPAY | PROVIDERS: PCP Family Medicine; Visit Provider Surgery | DX: E11.621 Type 2 diabetes mellitus with foot ulcer (principal); L97.511 Non-pressure chronic ulcer of other part of right foot limited to breakdown of skin; Z87.891 Personal history of nicotine dependence | CPT/HCPCS: 11043 ==

== ENCOUNTER 2022-04-08 06:00 | Emergency (ER) | payer MEDICARE, OTHER, SELFPAY ==
[2022-04-08 06:02] VITALS: BP 148/82; PULSE 90; RESP 22; TEMP 36.6; O2SAT 97; BMI 33.9
[2022-04-08 06:20] LABS: Basophils % 0.3 %; Eosinophils % 0.4 %; Hematocrit 41.3 % (42.0-52.0); Hemoglobin 13.7 g/dL (11.7-16.6); Lymphocytes % 12.8 %; Mean Corpuscular HGB Conc 33.2 g/dL (30.0-36.0); Mean Corpuscular Hemoglobin 29.8 pg (28.0-34.0); Mean Platelet Volume 10.3 fL (7.4-10.4); Monocytes # 0.7 10^3/uL (0.2-0.9); Monocytes % 8.9 %; Neutrophils # 6.05 10^3/uL (1.8-7.7); Neutrophils % 76.7 %; Nucleated Red Blood Cells % 0 %; Platelet Count 248 10^3/cmm (130-400); Red Blood Count 4.59 10^6/uL (4.1-5.3); Red Cell Distribution Width 13.3 % (12.1-15.1); White Blood Count 7.9 10^3/uL (4.0-10.0)
[2022-04-08 06:22] LABS: Add Urine Microscopic? YES; Bilirubin Urine Neg (Negative); Blood Urine 2+ (Negative); Glucose Urine UA 4+ (Normal); Ketones Urine Negative (Negative); Leukocyte Esterase Urine Negative (Negative); Nitrate Urine Negative (Negative); Protein Urine Neg (Negative); Urine Appearance Clear (CLEAR); Urine Color Yellow (Yellow); Urobilinogen Urine Norm (Negative); pH Urine 5 (5-7)
--- NOTE | 2022-04-08 06:25 | CTR_ITS ---
PROCEDURE INFORMATION: Exam: CT Head Without Contrast Exam date and time: 04/08/2022 6:42 AM Age: 76 years old Clinical indication: Injury or trauma; Fall; Bleeding/hemorrhage; Additional info: Fall, loc TECHNIQUE: Imaging protocol: Computed tomography of the head without contrast. Radiation optimization: All CT scans at this facility use at least one of these dose optimization techniques: automated exposure control; mA and/or kV adjustment per patient size (includes targeted exams where dose is matched to clinical indication); or iterative reconstruction. COMPARISON: CT head wo con* [id number] 03/11/2022 12:44 PM RADIATION DOSE METRICS: Total DLP (mGy-cm): 885.18 FINDINGS: Brain: Heterogeneous subdural hematoma along the right cerebral convexity measuring 9 mm. There are small areas of hyperdensity suggesting an acute component. No midline shift. Periventricular and deep white matter hypodensities compatible with chronic microvascular ischemic changes. Cerebral ventricles: No ventriculomegaly. Paranasal sinuses: Visualized sinuses are unremarkable. No fluid levels. Mastoid air cells: No mastoid effusion. Bones/joints: No acute fracture. Soft tissues: Unremarkable. CT/CT head wo con* [id number] IMPRESSION: Heterogeneous subdural hematoma along the right cerebral convexity measuring 9 mm. There are small areas of hyperdensity suggesting an acute component. No midline shift.
[2022-04-08 06:30] LABS: Add Urine Culture? No; Amorphous Sediment Urine TRACE /hpf; Bacteria Urine TRACE /hpf; Mucus Urine TRACE /hpf; Squamous Epithelial Cell Urine 0-4 /hpf (0-5); WBC Urine 0-4 /hpf (0-5)
[2022-04-08 06:41] LABS: Alanine Aminotransferase 19 U/L (0-41); Albumin Level 3.3 g/dL (3.5-5.2); Alkaline Phosphatase 107 IU/L (40-130); Anion Gap 16.1 (5-19); Aspartate Amino Transferase 13 U/L (0-40); Blood Urea Nitrogen 42 mg/dL (8-23); Calcium 8.7 mg/dL (8.5-10.5); Carbon Dioxide 25 mmol/L (22-29); Chloride 96 mmol/L (98-107); Creatinine Clr Calc Pharmacy 70.2161; Glucose 336 mg/dL (65-115); Osmolality Calculated 298 mOsm/kg (285-295); Potassium 5.1 mmol/L (3.5-5.1); Sodium 132 mmol/L (136-145); Total Bilirubin 0.8 mg/dL (0.15-1.2); Total Protein 7.3 g/dL (6.6-8.7)
[2022-04-08 07:30] VITALS: BP 142/75; PULSE 75; RESP 18; O2SAT 95
--- NOTE | 2022-04-08 07:31 | ED_ITS ---
HPI - Fall General: Chief Complaint: Fall Stated Complaint: FALL Time Seen by Provider: 04/08/22 06:03 Source: patient and family Mode of arrival: EMS Limitations: altered mental status History of Present Illness: 76-year-old male presents from home via EMS. He had multiple falls at home. Initially when he seen he was somewhat confused he knew that he had fallen and he knows that he has an ulcer on his right foot that is being cared for at wound care he knew where he was at but was really not sure of timing. He has a known previous subdural hematoma for which she was transferred to [facility] On March 11. However patient signed out AMA and was not treated initially according to the family who arrived later at the bedside they were just going to monitor it. The last 24 hours they are reporting 4 falls. Patient is confused and the family's perception is that seems to be getting worse. Patient has bruising and eschars at various stages on all extremities. MD complaint: fall Onset (ago): day(s) Fall from: standing Fall witnessed: yes, by family Place fall occurred: home Loss of consciousness: Unsure Prolonged down time: unclear Symptoms prior to fall: lightheadedness and dizziness Location of injury: head Location of injury - extremities: Bilateral: arm, knee and lower leg Associated symptoms-after fall: Reports difficulty walking, lightheadedness and weakness; Denies abdominal pain, chest pain, confusion, headache(s), hematuria, neck pain, numbness, short of breath or vertigo Review of Systems Const: Denies: fever(s), chills, body aches, change in appetite, fatigue or malaise ENMT: Denies: throat pain, ear or mastoid pain, nasal discharge or nasal congestion Card: Reports: lightheadedness; Denies: chest pain Resp: Denies: dyspnea, productive cough or non-productive cough GI: Denies: abdominal pain : Denies: flank pain, difficulty urinating, dysuria, urinary frequency, urinary urgency or hematuria Musc: Denies: neck pain or back pain Skin/Breast: Denies: rash or pruritus Neuro: Reports: difficulty walking and frequent falls; Denies: headache(s), vertigo or confusion PFS ED PFSH: Medical History (Updated 04/08/22 @ 08:14 by Tom Hamilton DO) ASHD (arteriosclerotic heart disease) BPH (benign prostatic hyperplasia) CKD (chronic kidney disease) COPD (chronic obstructive pulmonary disease) Diabetes mellitus Fibromyalgia HTN (hypertension) Hyperlipidemia JOHAN (obstructive sleep apnea) PAD (peripheral artery disease) Surgical History H/O vasectomy S/P CABG (coronary artery bypass graft) S/P PTCA (percutaneous transluminal coronary angioplasty) S/P rotator cuff repair Family History Other Cancer Denies family history of Diabetes Social History Smoking and tobacco status: never smoked Second hand smoke exposure: No Alcohol intake: never Caregiver/support person: Yes Lives independently: Yes Household members: spouse Marital status: Current occupational status: retired History of recent travel: No Current gender identity: Male Special aubree needs: No Agree to transfusion: Yes Physical Exam Const: EXAM LIMITATIONS: altered mental status (Disoriented) GENERAL APPEARANCE: cooperative and comfortable ORIENTATION/CONSCIOUSNESS: Yes awake HENMT: COMMON NORMALS: normocephalic, atraumatic and hearing grossly normal bilaterally HEAD & SCALP: normocephalic and atraumatic Resp: COMMON NORMALS: normal respiratory effort, No retractions, No use of accessory muscles and clear to auscultation bilaterally AUSCULTATION: clear to auscultation bilaterally Cardio: COMMON NORMALS: regular rate, regular rhythm and No murmurs present (Cardio) RATE: regular rate RHYTHM: regular rhythm GI: COMMON NORMALS: Soft to palpation and No hepatosplenomegaly present AUSCULTATION: Yes normoactive bowel sounds PALPATION: Yes Soft to palpation, No Tenderness to palpation present (GI), No Guarding due to palpation present (GI) and Yes No hepatosplenomegaly present Extremity: COMMON NORMALS: capillary refill normal and no calf tenderness OTHER: Chronic diabetic foot ulcer right medial arch. No localized erythema or drainage mucousy eschar in place Course Vital Signs: Vital signs: Vital Signs Temperature 97.8 F 04/08/22 06:02 Pulse Rate 90 04/08/22 06:02 Respiratory Rate 22 H 04/08/22 06:02 Blood Pressure 148/82 04/08/22 06:02 Pulse Oximetry 97 04/08/22 06:02 MDM - Fall Medical Decision Making Patient has not been taking herself very well at home. His p.o. intake has been poor according to the family needs not been very compliant with his medications. He has some new bleeding in the subdural hematoma however overall it is smaller than it was last month when he was transferred to [facility] where he left AMA. There is no midline shift. Discussed with on-call neurosurgery at [facility] in [place](Dr. Tay). They will accept him in transfer they recommend transfer ER to ER. Family is in agreement. For long-term I recommend to them that they consider detention level of care. Discussed with Dr. Paulino at the emergency room at [facility] he will accept on direct transfer. Medical Records I reviewed the patient's medical records. Lab Data I reviewed the patient's lab results. : 04/08/22 06:14 04/08/22 06:[address] 04/08/22 06:25 IMPRESSION: Heterogeneous subdural hematoma along the right cerebral convexity measuring 9 mm. There are small areas of hyperdensity suggesting an acute component. No midline shift. ADDENDUM: 04/08/22 0710 THIS REPORT CONTAINS FINDINGS THAT MAY BE CRITICAL TO PATIENT CARE. The findings were verbally communicated via telephone conference with Dr. Hamilton at 700 AM [employer] on 04/08/2022. The findings were acknowledged and understood. Laboratory Results WBC 7.9 10^3/uL (4.0-10.0) 04/08/22 06:14 RBC 4.59 10^6/uL (4.1-5.3) 04/08/22 06:14 Hgb 13.7 g/dL (11.7-16.6) 04/08/22 06:14 Hct 41.3 % (42.0-52.0) L 04/08/22 06:14 MCV 90.0 fl (80-94) 04/08/22 06:14 MCH 29.8 pg (28.0-34.0) 04/08/22 06:14 MCHC 33.2 g/dL (30.0-36.0) 04/08/22 06:14 RDW 13.3 % (12.1-15.1) 04/08/22 06:14 Plt Count 248 10^3/cmm (130-400) 04/08/22 06:14 MPV 10.3 fL (7.4-10.4) 04/08/22 06:14 Neut % (Auto) 76.7 % 04/08/22 06:14 Lymph % (Auto) 12.8 % 04/08/22 06:14 Titus % (Auto) 8.9 % 04/08/22 06:14 Eos % (Auto) 0.4 % 04/08/22 06:14 Baso % (Auto) 0.3 % 04/08/22 06:14 Neut # (Auto) 6.05 10^3/uL (1.8-7.7) 04/08/22 06:14 Lymph # (Auto) 1.0 10^3/uL (0.8-4.8) 04/08/22 06:14 Titus # (Auto) 0.7 10^3/uL (0.2-0.9) 04/08/22 06:14 Eos # (Auto) 0.0 10^3/uL (0.0-0.8) 04/08/22 06:14 Baso # (Auto) 0.0 10^3/uL (0.0-0.1) 04/08/22 06:14 Nucleated RBC % (auto) 0 % 04/08/22 06:14 Nucleated RBCs # 0.0 /100WBC 04/08/22 06:14 Sodium 132 mmol/L (136-145) L 04/08/22 06:14 Potassium 5.1 mmol/L (3.5-5.1) 04/08/22 06:14 Chloride 96 mmol/L (98-107) L 04/08/22 06:14 Carbon Dioxide 25 mmol/L (22-29) 04/08/22 06:14 Anion Gap 16.1 (5-19) 04/08/22 06:14 BUN 42 mg/dL (8-23) H 04/08/22 06:14 Creatinine 1.2 mg/dL (0.7-1.2) 04/08/22 06:14 GFR Calculation Not Reportable 04/08/22 06:14 Glucose 336 mg/dL (65-115) H 04/08/22 06:14 Calculated Osmolality 298 mOsm/kg (285-295) H 04/08/22 06:14 Calcium 8.7 mg/dL (8.5-10.5) 04/08/22 06:14 Total Bilirubin 0.8 mg/dL (0.15-1.2) 04/08/22 06:14 AST 13 U/L (0-40) 04/08/22 06:14 ALT 19 U/L (0-41) 04/08/22 06:14 Alkaline Phosphatase 107 IU/L (40-130) 04/08/22 06:14 Total Protein 7.3 g/dL (6.6-8.7) 04/08/22 06:14 Albumin 3.3 g/dL (3.5-5.2) L 04/08/22 06:14 Globulin 4.0 g/dL (1.3-4.6) 04/08/22 06:14 Urine Color Yellow (Yellow) 04/08/22 06:14 Urine Appearance Clear (CLEAR) 04/08/22 06:14 Urine pH 5 (5-7) 04/08/22 06:14 Ur Specific [place] 1.010 (1.005-1.030) 04/08/22 06:14 Urine Protein Neg (Negative) 04/08/22 06:14 Urine Glucose (UA) 4+ (Normal) H 04/08/22 06:14 Urine Ketones Negative (Negative) 04/08/22 06:14 Urine Blood 2+ (Negative) H 04/08/22 06:14 Urine Nitrate Negative (Negative) 04/08/22 06:14 Urine Bilirubin Neg (Negative) 04/08/22 06:14 Urine Urobilinogen Norm mg/dL (Negative) 04/08/22 06:14 Ur Leukocyte Esterase Negative (Negative) 04/08/22 06:14 Urine RBC 5-10 /hpf (0-2) H 04/08/22 06:14 Urine WBC 0-4 /hpf (0-5) H 04/08/22 06:14 Ur Squamous Epith Cells 0-4 /hpf (0-5) H 04/08/22 06:14 Amorphous Sediment Trace /hpf 04/08/22 06:14 Urine Bacteria Trace /hpf (NONE) 04/08/22 06:14 Urine Mucus Trace /hpf 04/08/22 06:14 Discharge Plan Discharge Patient Disposition: Transfer to ED Clinical Impression: Subdural hematoma, HTN (hypertension), 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, Non-pressure chronic ulcer of right heel and midfoot with fat layer exposed, Falls frequently Condition: Stable Prescriptions: No Action (DME) Diabetic shoes with inserts See Rx Instructions .Route .MEDSUPPLY Qty: 1 0RF Rx Instructions: As directed (DME) cam boot See Rx Instructions .ROUTE .MEDSUPPLY Qty: 1 0RF Rx Instructions: As directed (DME) Cam Boot on the right See Rx Instructions .Route .MEDSUPPLY Qty: 1 0RF Rx Instructions: As directed sildenafil [Viagra] 100 mg tablet 100 mg PO DAILY PRN (Reason: sexual activity) Qty: 10 0RF Rx Instructions: administer 30 minutes to 4 hours before activity (DME) insulin syringes 0.5 ml See Rx Instructions .Route .MEDSUPPLY Qty: 100 4RF Rx Instructions: As directed (DME) ASO to right See Rx Instructions .Route .MEDSUPPLY Qty: 1 0RF Rx Instructions: As directed (DME) Diabetic shoes with 3 sets insoles See Rx Instructions .ROUTE .MEDSUPPLY Qty: 1 0RF Rx Instructions: As directed by [facility] ([facility] [place]) OneTouch Verio test strips Strip See Rx Instructions .Route Qty: 100 2RF Rx Instructions: test Blood sugar three times daily atorvastatin 40 mg tablet 40 mg PO DAILY Qty: 90 1RF clopidogrel 75 mg tablet 75 mg PO DAILY Qty: 90 1RF famotidine 20 mg tablet 20 mg PO DAILY Qty: 90 1RF fluticasone propionate 50 mcg/actuation spray,suspension 2 spray INTRANASAL DAILY Qty: 15.8 2RF Rx Instructions: administer into each nostril furosemide [Lasix] 20 mg tablet 20 mg PO QAM PRN (Reason: edema) Qty: 90 1RF gabapentin 300 mg capsule 600 mg PO TID Qty: 540 1RF metformin 1,000 mg tablet 1,000 mg PO BID Qty: 180 1RF metoprolol succinate 25 mg tablet extended release 24 hr 25 mg PO DAILY Qty: 90 1RF primidone 50 mg tablet See Rx Instructions PO .COMPLEX Qty: 450 1RF Rx Instructions: 50 MG 1 TAB in am and 3 or 4 before supper PO; tamsulosin 0.4 mg capsule 0.4 mg PO DAILY Qty: 90 1RF trandolapril 2 mg tablet 2 mg PO DAILY Qty: 90 1RF insulin aspart U-100 [Novolog U-100 Insulin aspart] 100 unit/mL solution 45 unit SUBCUT TID 90 Days Qty: 121.5 1RF (DME) insulin syringe-needle U-100 [BD Insulin Syringe Ultra-Fine] 1 mL 31 gauge x 5/16 syringe See Rx Instructions .ROUTE .MEDSUPPLY Qty: 100 5RF Rx Instructions: As directed 4 times daily to administer insulin albuterol sulfate [ProAir HFA] 90 mcg/actuation HFA aerosol inhaler 2 puff INHALATION Q6H PRN (Reason: shortness of breath or wheezing) Qty: 18 2RF (DME) Diabetic shoes with inserts See Rx Instructions .Route .MEDSUPPLY Qty: 1 0RF Rx Instructions: As directed (DME) blood sugar diagnostic Strip See Rx Instructions ea .ROUTE .MEDSUPPLY Qty: 100 2RF Rx Instructions: checking sugars 6 times daily (DME) Wheelchair See Rx Instructions .Route .MEDSUPPLY Qty: 1 0RF Rx Instructions: As directed clonazepam [Klonopin] 0.5 mg tablet 1.5 mg PO DAILY 90 Days Qty: 270 3RF Rx Instructions: 3 prior to bed to prevent sleep behavior disorder valacyclovir 1 gram Tablet 1,000 mg PO TID 0RF prednisone 20 mg Tablet See Rx Instructions .ROUTE .COMPLEX 0RF Rx Instructions: 3 TAB DAILY FOR 2 DAYS, 2 DAILY FOR 3 DAYS, 1 DAILY FOR 3 DAYS, 1/2 FOR 2 DAYS meclizine 12.5 mg Tablet 12.5 mg PO TID PRN (Reason: Motion Sickness) 0RF Levemir U-100 Insulin 100 unit/mL solution 80 unit SUBCUT DAILY 0RF Referrals: Daya Flower MD [Primary Care Provider] - Coding Level of Care Code ED Wildlife Ecology Professor for Chg Fwd Exam Detailed
--- NOTE | 2022-04-08 07:37 | PC.NURSE ---
Granddaughter reports to this staff member that patient has not been eating, talking to his son and that he has been estranged from for some time. Also relates that when he was sent, from this facility to [facility] for brain bleed a couple weeks ago, he signed out AMA on arrival and never received treatment from that facility. He is also not taking his medication.
== END 2022-04-08 10:17 ==
PROVIDERS: Emergency Provider Family Medicine; PCP Family Medicine
DX: S06.5X9A Traumatic subdural hemorrhage with loss of consciousness of unspecified duration, initial encounter (principal); W19.XXXA Unspecified fall, initial encounter; Z91.81 History of falling; I10 Essential (primary) hypertension; E11.610 Type 2 diabetes mellitus with diabetic neuropathic arthropathy; L97.412 Non-pressure chronic ulcer of right heel and midfoot with fat layer exposed; I73.9 Peripheral vascular disease, unspecified; J44.9 Chronic obstructive pulmonary disease, unspecified; E78.5 Hyperlipidemia, unspecified; Z79.84 Long term (current) use of oral hypoglycemic drugs
CPT/HCPCS: 70450; 80053; 81001; 85025; 99285

== ENCOUNTER → 2022-04-26 14:00 | Outpatient (BNVA) | payer MEDICARE, OTHER, SELFPAY | PROVIDERS: PCP Family Medicine; Visit Provider Specialist | DX: G25.0 Essential tremor (principal); G31.84 Mild cognitive impairment of uncertain or unknown etiology; S06.5X9S Traumatic subdural hemorrhage with loss of consciousness of unspecified duration, sequela; Y93.9 Activity, unspecified; E11.42 Type 2 diabetes mellitus with diabetic polyneuropathy; Z79.4 Long term (current) use of insulin | CPT/HCPCS: 99214; 99215 ==

== ENCOUNTER → 2022-06-20 08:16 | Outpatient (BNVA) | payer MEDICARE, OTHER, SELFPAY | PROVIDERS: PCP Family Medicine; Visit Provider Podiatrist Foot & Ankle Surgery | DX: L97.412 Non-pressure chronic ulcer of right heel and midfoot with fat layer exposed (principal); Z79.4 Long term (current) use of insulin; N18.9 Chronic kidney disease, unspecified; L60.3 Nail dystrophy; E11.65 Type 2 diabetes mellitus with hyperglycemia; M21.41 Flat foot [pes planus] (acquired), right foot; M21.42 Flat foot [pes planus] (acquired), left foot; E11.610 Type 2 diabetes mellitus with diabetic neuropathic arthropathy; L97.513 Non-pressure chronic ulcer of other part of right foot with necrosis of muscle | CPT/HCPCS: 11043; 11721; 99214 ==

== ENCOUNTER 2022-06-20 11:19 | Outpatient (CLI) | payer OTHER, MEDICARE, SELFPAY | END 2022-06-20 11:20 | disposition home or self-care (01) | LOC: SPT 11:20 | PROVIDERS: PCP Family Medicine; Visit Provider Podiatrist Foot & Ankle Surgery | DX: Z46.89 Encounter for fitting and adjustment of other specified devices (principal); L97.412 Non-pressure chronic ulcer of right heel and midfoot with fat layer exposed | CPT/HCPCS: 87070; 87075; 87077; 87186; 87205; 97760; L4361 ==

== ENCOUNTER 2022-07-23 01:57 | Emergency (ER) | payer MEDICARE, OTHER, SELFPAY ==
[2022-07-23 02:00] VITALS: BP 136/89; PULSE 103; RESP 34; TEMP 39; O2SAT 94; BMI 29.2
--- NOTE | 2022-07-23 02:23 | CTR_ITS ---
PROCEDURE INFORMATION: Exam: CT Chest Without Contrast; Diagnostic Exam date and time: 07/23/2022 3:12 AM Age: 76 years old Clinical indication: Injury or trauma; Generalized; Blunt trauma (contusions or hematomas); Prior surgery; Surgery type: Cabg. Vasectomy. Patient HX: Fall at [facility]. ; Additional info: Fall mid back pain, bruising TECHNIQUE: Imaging protocol: Diagnostic computed tomography of the chest without contrast. Radiation optimization: All CT scans at this facility use at least one of these dose optimization techniques: automated exposure control; mA and/or kV adjustment per patient size (includes targeted exams where dose is matched to clinical indication); or iterative reconstruction. COMPARISON: CT chest w con* [id number] 01/15/2016 2:12 PM RADIATION DOSE METRICS: Total DLP (mGy-cm): 1716.21 FINDINGS: Lungs: Unremarkable. No consolidation. No masses. Pleural spaces: Unremarkable. No pneumothorax. No pleural effusion. Heart: Stable CABG procedure. Lymph nodes: Unremarkable. No enlarged lymph nodes. Vasculature: Calcification of the thoracic aorta and/or great vessels consistent with atherosclerotic vessel disease. Bones/joints: Idiopathic S-shaped scoliosis. Bilateral healed anterior rib fractures. Soft tissues: Unremarkable. PROCEDURE INFORMATION: Exam: CT Abdomen And Pelvis Without Contrast Exam date and time: 07/23/2022 3:12 AM Age: 76 years old Clinical indication: Injury or trauma; Generalized; Blunt trauma (contusions or hematomas); Prior surgery; Surgery type: Cabg. Vasectomy. Patient HX: Fall at [facility]. ; Additional info: Fall mid back pain, bruising TECHNIQUE: Imaging protocol: Computed tomography of the abdomen and pelvis without contrast. Radiation optimization: All CT scans at this facility use at least one of these dose optimization techniques: automated exposure control; mA and/or kV adjustment per patient size (includes targeted exams where dose is matched to clinical indication); or iterative reconstruction. COMPARISON: CT chest w con* [id number] 01/15/2016 2:12 PM RADIATION DOSE METRICS: Total DLP (mGy-cm): 1716.21 FINDINGS: Liver: Normal. No mass. Gallbladder and bile ducts: Normal. No calcified stones. No ductal dilation. Pancreas: Normal. No ductal dilation. Spleen: Normal. No splenomegaly. Adrenal glands: Normal. No mass. Kidneys and ureters: Multiple bilateral exophytic renal lesions which could represent complex renal cyst versus renal cell carcinomas. Correlation with nonemergent multiphasic CT abdomen with noncontrast, arterial phase contrast, venous phase contrast and delayed phase imaging may be helpful. Stomach and bowel: Moderate descending and/or sigmoid colon diverticulosis without diverticulitis. Appendix: No evidence of appendicitis. Intraperitoneal space: Unremarkable. No free air. No significant fluid collection. Vasculature: Calcification of the abdominal aorta and/or iliac arteries consistent with atherosclerotic vessel disease. Lymph nodes: Unremarkable. No enlarged lymph nodes. Urinary bladder: Unremarkable as visualized. Reproductive: Nonspecific prostate calcifications. Enlarged 6.3 cm prostate greater than or equal to 5.0 cm; correlation with PSA levels is recommended. Bones/joints: Unremarkable. No acute fracture. Soft tissues: Examination is limited by artifact from one or both arms by the patient's side. CT/[facility] [id number] IMPRESSION: No acute findings. IMPRESSION: 1. Multiple bilateral exophytic renal lesions which could represent complex renal cyst versus renal cell carcinomas. Correlation with nonemergent multiphasic CT abdomen with noncontrast, arterial phase contrast, venous phase contrast and delayed phase imaging may be helpful. 2. Enlarged 6.3 cm prostate greater than or equal to 5.0 cm; correlation with PSA levels is recommended.
--- NOTE | 2022-07-23 02:23 | CTR_ITS ---
PROCEDURE INFORMATION: Exam: CT Head Without Contrast Exam date and time: 07/23/2022 3:06 AM Age: 76 years old Clinical indication: Injury or trauma; Blunt trauma (contusions or hematomas); Patient HX: Fall at long term. Patient is very altered. History of RT subdural hematoma on 03/2022. ; Additional info: Fall AMS TECHNIQUE: Imaging protocol: Computed tomography of the head without contrast. Radiation optimization: All CT scans at this facility use at least one of these dose optimization techniques: automated exposure control; mA and/or kV adjustment per patient size (includes targeted exams where dose is matched to clinical indication); or iterative reconstruction. COMPARISON: CT head wo con* [id number] 04/08/2022 6:42 AM RADIATION DOSE METRICS: Total DLP (mGy-cm): 1091.36 FINDINGS: Brain: Moderate cerebral atrophy and ischemic leukoencephalopathy. Resolution of right posterior subdural fluid collection since the previous exam.. Interval appearance of loculated right anterior subdural fluid collection with hematocrit level consistent with acute on subacute subdural hematoma which measures up to 12 mm in thickness on the coronal images. There is no midline shift, probably because there is significant cerebral atrophy. Cerebral ventricles: No ventriculomegaly. Paranasal sinuses: Visualized sinuses are unremarkable. No fluid levels. Mastoid air cells: Visualized mastoid air cells are well aerated. Bones/joints: Unremarkable. No acute fracture. Soft tissues: Unremarkable. CT/CT head wo con* [id number] IMPRESSION: 1. Resolution of right posterior subdural fluid collection since the previous exam.. 2. Interval appearance of loculated right anterior subdural fluid collection with hematocrit level consistent with acute on subacute subdural hematoma which measures up to 12 mm in thickness on the coronal images. 3. There is no midline shift, probably because there is significant cerebral atrophy.
--- NOTE | 2022-07-23 02:23 | CTR_ITS ---
PROCEDURE INFORMATION: Exam: CT Cervical Spine Without Contrast Exam date and time: 07/23/2022 3:10 AM Age: 76 years old Clinical indication: Injury or trauma; Patient HX: [facility] at [facility]. ; Additional info: Fall AMS TECHNIQUE: Imaging protocol: Computed tomography of the cervical spine without contrast. Radiation optimization: All CT scans at this facility use at least one of these dose optimization techniques: automated exposure control; mA and/or kV adjustment per patient size (includes targeted exams where dose is matched to clinical indication); or iterative reconstruction. COMPARISON: CT cervical spin wo con* [id number] 03/11/2022 1:35 PM RADIATION DOSE METRICS: Total DLP (mGy-cm): 231.77 FINDINGS: Bones/joints: Moderate to severe multilevel spine degenerative changes including degenerative disc disease, spondylosis and facet degenerative changes. Multilevel bilateral foraminal stenosis. Lungs: Lung apices are normal. Soft tissues: Unremarkable. Other findings: Examination is limited secondary to motion artifact. CT/CT cervical spin wo con* [id number] IMPRESSION: 1. Examination is limited secondary to motion artifact. 2. No acute C-spine findings.
--- NOTE | 2022-07-23 02:23 | XRR_ITS ---
PROCEDURE INFORMATION: Exam: XR Right Knee Exam date and time: 07/23/2022 2:34 AM Age: 76 years old Clinical indication: Injury or trauma; Blunt trauma; Knee; Right; Patient HX: Fall at [facility]. Laceration to patellar region; Additional info: Fall knee inj TECHNIQUE: Imaging protocol: Radiologic exam of the Right knee. Views: 3 views. COMPARISON: CR XR foot RT 2V [id number] 07/23/2022 2:32 AM FINDINGS: Bones/joints: Mild patellofemoral compartment primary osteoarthritis. There are calcifications or ossification within the tendons inserting on the superior and inferior poles of the patella consistent with enthesopathy. Soft tissues: Normal. Vasculature: Severe calcified peripheral vascular disease. XR/XR knee RT 3V* [id number] IMPRESSION: No acute findings.
--- NOTE | 2022-07-23 02:23 | XRR_ITS ---
PROCEDURE INFORMATION: Exam: XR Left Knee Exam date and time: 07/23/2022 2:38 AM Age: 76 years old Clinical indication: Injury or trauma; Blunt trauma; Patient HX: Fall at [facility]. Multiple small abrasions to anterior surface of left knee. ; Additional info: Fall knee inj TECHNIQUE: Imaging protocol: Radiologic exam of the Left knee. Views: 3 views. COMPARISON: No relevant prior studies available. FINDINGS: Bones/joints: Normal. Soft tissues: Normal. Vasculature: Severe calcified peripheral vascular disease. XR/XR knee LT 3V* [id number] IMPRESSION: No acute findings.
--- NOTE | 2022-07-23 02:23 | XRR_ITS ---
PROCEDURE INFORMATION: Exam: XR Right Foot Exam date and time: 07/23/2022 2:32 AM Age: 76 years old Clinical indication: Swelling, leg or foot; Prior surgery; Surgery type: Ankle fixation. Patient HX: Non healing diabetic ulcer to RT foot; Additional info: Wound fever TECHNIQUE: Imaging protocol: Radiologic exam of the Right foot. Views: 1 or 2 views. COMPARISON: No relevant prior studies available. FINDINGS: Bones/joints: Metallic fixation of healed bimalleolar fracture. Calcaneal spur. Degenerative changes with osteophyte formation over one or more of the tarsal metatarsal joints. Soft tissues: Soft tissue swelling over the plantar medial aspect of the midfoot with probable soft tissue ulceration. XR/XR foot RT 2V [id number] IMPRESSION: Soft tissue swelling over the plantar medial aspect of the midfoot with probable soft tissue ulceration.
[2022-07-23 02:36] LABS: Basophils % 0.4 %; Eosinophils # 0.1 10^3/uL (0.0-0.8); Eosinophils % 0.6 %; Hematocrit 43.4 % (42.0-52.0); Hemoglobin 13.9 g/dL (11.7-16.6); Lymphocytes # 0.4 10^3/uL (0.8-4.8); Mean Corpuscular Volume 96.7 fl (80-94); Mean Platelet Volume 10.7 fL (7.4-10.4); Monocytes # 0.7 10^3/uL (0.2-0.9); Monocytes % 6.5 %; Neutrophils # 8.88 10^3/uL (1.8-7.7); Neutrophils % 88.1 %; Nucleated Red Blood Cells % 0 %; Platelet Count 184 10^3/cmm (130-400); Red Blood Count 4.49 10^6/uL (4.1-5.3); Red Cell Distribution Width 14.1 % (12.1-15.1); White Blood Count 10.1 10^3/uL (4.0-10.0)
--- NOTE | 2022-07-23 02:52 | ECG_ITS ---
[facility] Test Date: 2022-07-23 Pat Name: Marcelino Díaz Department: Room: Gender: Male Technical Support Director: : 1945 Requested By: Francisco Javier Kilgore Order Number: [id number] Cy MD: Missael Rosenberg M.D. Measurements Intervals [place] Rate: 105 P: OK: QRS: 17 QRSD: 121 T: 76 QT: 373 QTc: 493 Interpretive Statements Sinus tachycardia with first-degree AV block, occasional PVCs POSSIBLE INFERIOR MYOCARDIAL INFARCTION , PROBABLY OLD [30 ms Q WAVE IN II/aVF] ABNORMAL RHYTHM ECG Compared to ECG 03/11/2022 12:26:26 Aberrant conduction of supraventricular beat(s) now present Ventricular premature complex(es) now present Myocardial infarct finding now present Sinus rhythm no longer present Electronically Signed On 07-23-2022 9:29:24 CDT by Missale Rosenberg M.D. [email or web address]
[2022-07-23 03:00] LABS: Alanine Aminotransferase 15 U/L (0-41); Albumin Level 3.9 g/dL (3.5-5.2); Alkaline Phosphatase 121 U/L (40-130); Anion Gap 21.6 (5-19); Aspartate Amino Transferase 11 U/L (0-40); Blood Urea Nitrogen 18 mg/dL (8-23); C Reactive Protein 108.3 mg/L (0.0-4.9); Calcium 8.9 mg/dL (8.5-10.5); Carbon Dioxide 23 mmol/L (22-29); Chloride 99 mmol/L (98-107); Creatine Phosphokinase 90 U/L (39-308); Glucose 154 mg/dL (65-115); Osmolality Calculated 293 mOsm/kg (285-295); Potassium 4.6 mmol/L (3.5-5.1); Sodium 139 mmol/L (136-145); Total Bilirubin 0.5 mg/dL (0.15-1.2); Total Protein 6.9 g/dL (6.6-8.7)
[2022-07-23 03:04] LABS: Procalcitonin 0.14 ng/mL (0-0.5)
[2022-07-23 03:09] LABS: Lactate (Lactic Acid level) 4.6 mmol/L (0.5-2.2)
[2022-07-23] MEDS: acetaminophen 325 mg Tablet 650 MG PO (03:20)
[2022-07-23] MEDS: piperacillin-tazobactam 4.5 GM in sodium chloride 0.9% (plus) 50 ML IV (03:23)
[2022-07-23 03:45] VITALS: BP 104/77; PULSE 105; RESP 39; O2SAT 92
--- NOTE | 2022-07-23 03:53 | ED_ITS ---
HPI - Fever General: Chief Complaint: Fever Stated Complaint: FEVER,FALL Time Seen by Provider: 07/23/22 02:03 Source: patient and EMS History of Present Illness: 76-year-old male with a history of frequent falls, residing in a [place] [facility]. He fell this morning, injuring his bilateral knees, potentially his mid back, and unknown trauma to the head. He seemed confused. He also has a fever. He is awake and talking, and answering some simple questions, but according to [place] [facility] staff, is usually more alert and oriented. Patient is a poor historian at this point due to confusion, but denies cough or increasing shortness of breath or belly pain, vomiting, etc. MD elicited complaint: fever Onset (ago): hour(s) Measured temperature: 102.2 F Exacerbating factors: nothing Relieving factors: nothing Associated symptoms: Reports chills; Deny abdominal pain, chest pain, cough, short of breath or vomiting Review of Systems General: Reports: ROS unobtainable due to mental status Const: Reports: fever(s) and chills Card: Denies: chest pain Resp: Denies: dyspnea or productive cough GI: Denies: abdominal pain or vomiting [facility] ED PFSH: Medical History (Updated 07/23/22 @ 04:05 by Francisco Javier Wells DO) ASHD (arteriosclerotic heart disease) BPH (benign prostatic hyperplasia) CKD (chronic kidney disease) COPD (chronic obstructive pulmonary disease) Diabetes mellitus Fibromyalgia HTN (hypertension) Hyperlipidemia JOHAN (obstructive sleep apnea) PAD (peripheral artery disease) Surgical History H/O vasectomy S/P CABG (coronary artery bypass graft) S/P PTCA (percutaneous transluminal coronary angioplasty) S/P rotator cuff repair Family History Other Cancer Denies family history of Diabetes Social History Smoking and tobacco status: former smoker Second hand smoke exposure: No Alcohol intake: never Caregiver/support person: Yes Lives independently: Yes Household members: spouse Marital status: Current occupational status: retired History of recent travel: No Current gender identity: Male Special aubree needs: No Agree to transfusion: Yes Physical Exam Const: GENERAL APPEARANCE: cooperative, ill appearing and frail appearing ORIENTATION/CONSCIOUSNESS: Yes awake and Yes oriented to person HENMT: COMMON NORMALS: normocephalic and Normal external nose present HEAD & SCALP: normocephalic FACE & SINUS: normal facial exam and face symmetric NOSE: Normal external nose present Eye: COMMON NORMALS: Equal, round and reactive pupils present and EOMs intact bilaterally PUPIL: Yes Equal, round and reactive pupils present Neck/C-Spine: GENERAL: Yes trachea midline CERVICAL SPINE: No Cervical spine tenderness Chest: CHEST: Yes Symmetrical chest wall rise Resp: COMMON NORMALS: clear to auscultation bilaterally EFFORT & INSPECTION: Yes tachypneic and No labored AUSCULTATION: clear to auscultation bilaterally Cardio: COMMON NORMALS: regular rhythm RATE: tachycardic RHYTHM: regular rhythm GI: COMMON NORMALS: Normal to inspection, nondistended, normoactive bowel sounds present and Soft to palpation PALPATION: Yes Soft to palpation Back/Pelvis: THORACIC SPINE/UPPER BACK: Yes thoracic spinal tenderness (Mid- lower thoracic spine) T-spine tenderness details: ecchymosis (Present) OTHER: No decubitus ulcer Extremity: NARRATIVE EXTREMITY EXAM: Exam of the right lower extremity reveals ecchymosis with superficial abrasion and skin avulsion to the right anterior knee. There is minimal effusion present. He also has a wound to his medial right foot with rolled borders. It appears clean. It is mildly red and warm. Exam the left lower extremity reveals contusion with abrasion to the left anterior knee Neuro: ALISSON COMA SCALE: document GCS findings Alisson coma scale eye opening: Spontaneous [place] coma scale verbal response: Confused [place] coma scale motor response: Obey commands Alisson coma scale total score: 14 SENSORIUM/ORIENTATION: Yes oriented to person Psych: COMMON NORMALS: cooperative Skin: NARRATIVE SKIN EXAM: See above Course Consultations: Consultation #1: Rishabh. , [facility] Vital Signs: Vital signs: Vital Signs Temperature 102.2 F H 07/23/22 02:00 Pulse Rate 105 H 07/23/22 03:45 Respiratory Rate 39 H 07/23/22 03:45 Blood Pressure 104/77 07/23/22 03:45 Pulse Oximetry 92 07/23/22 03:45 Oxygen Delivery Me thod 07/23/22 03:45 MDM - Fever Medical Decision Making 76-year-old gentleman with a prior traumatic brain injury. He presents after a fall this morning. He has a significant fever of 102.2. He is tachycardic. He is not overly short of breath or hypoxic. Last blood pressure 154/65. He has no localizing neurological symptoms. He is confused however. CBC is essentially normal. BMP is normal save mild hyperglycemia. His lactate however is 4.6. His CRP is significantly elevated. No clear source of fever, although there is erythema that is mild surrounding the wound to the right medial midfoot. There is bruising to the mid back. CT of the head reveals resolution of prior hematoma, with a new hematoma present frontally measuring 12 mm. No shift. Concern is for sepsis also in this patient. He is treated with fluid bolus, Zosyn, and will be getting vancomycin. He is not on anticoagulants. We have no neurosurgical service here, and will require their evaluation, although he may be treated conservatively. He has been seen for his prior subdural we believe at [facility] in [place]. I spoke with our counterparts there in the ER, and they are willing to take as a trauma transfer given the subdural bleed. No signs of impending airway compromise at this time, as the patient is easily arousable and answers some questions Lab Data : 07/23/22 02:30 07/23/22 02:30 Radiology Impressions Cervical Spine CT 07/23/22 02:23 IMPRESSION: 1. Examination is limited secondary to motion artifact. 2. No acute C-spine findings. Head CT 07/23/22 02:23 IMPRESSION: 1. Resolution of right posterior subdural fluid collection since the previous exam.. 2. Interval appearance of loculated right anterior subdural fluid collection with hematocrit level consistent with acute on subacute subdural hematoma which measures up to 12 mm in thickness on the coronal images. 3. There is no midline shift, probably because there is significant cerebral atrophy. ADDENDUM: 07/23/22 0340 THIS REPORT CONTAINS FINDINGS THAT MAY BE CRITICAL TO PATIENT CARE. The findings were verbally communicated via telephone conference with FRANCISCO JAVIER WELLS at 3:38 AM CDT on 07/23/2022. The findings were acknowledged and understood. Laboratory Results WBC 10.1 10^3/uL (4.0-10.0) H 07/23/22 02:30 RBC 4.49 10^6/uL (4.1-5.3) 07/23/22 02:30 Hgb 13.9 g/dL (11.7-16.6) 07/23/22 02:30 Hct 43.4 % (42.0-52.0) 07/23/22 02:30 MCV 96.7 fl (80-94) H 07/23/22 02:30 MCH 31.0 pg (28.0-34.0) 07/23/22 02:30 MCHC 32.0 g/dL (30.0-36.0) 07/23/22 02:30 RDW 14.1 % (12.1-15.1) 07/23/22 02:30 Plt Count 184 10^3/cmm (130-400) 07/23/22 02:30 MPV 10.7 fL (7.4-10.4) H 07/23/22 02:30 Neut % (Auto) 88.1 % 07/23/22 02:30 Lymph % (Auto) 4.0 % 07/23/22 02:30 Nuckolls % (Auto) 6.5 % 07/23/22 02:30 Eos % (Auto) 0.6 % 07/23/22 02:30 Baso % (Auto) 0.4 % 07/23/22 02:30 Neut # (Auto) 8.88 10^3/uL (1.8-7.7) H 07/23/22 02:30 Lymph # (Auto) 0.4 10^3/uL (0.8-4.8) L 07/23/22 02:30 Nuckolls # (Auto) 0.7 10^3/uL (0.2-0.9) 07/23/22 02:30 Eos # (Auto) 0.1 10^3/uL (0.0-0.8) 07/23/22 02:30 Baso # (Auto) 0.0 10^3/uL (0.0-0.1) 07/23/22 02:30 Nucleated RBC % (auto) 0 % 07/23/22 02:30 Nucleated RBCs # 0.0 /100WBC 07/23/22 02:30 Sodium 139 mmol/L (136-145) 07/23/22 02:30 Potassium 4.6 mmol/L (3.5-5.1) 07/23/22 02:30 Chloride 99 mmol/L (98-107) 07/23/22 02:30 Carbon Dioxide 23 mmol/L (22-29) 07/23/22 02:30 Anion Gap 21.6 (5-19) H 07/23/22 02:30 BUN 18 mg/dL (8-23) 07/23/22 02:30 Creatinine 0.8 mg/dL (0.7-1.2) 07/23/22 02:30 GFR Calculation Not Reportable 07/23/22 02:30 Glucose 154 mg/dL (65-115) H 07/23/22 02:30 Calculated Osmolality 293 mOsm/kg (285-295) 07/23/22 02:30 Lactate 4.6 mmol/L (0.5-2.2) H* 07/23/22 02:30 Calcium 8.9 mg/dL (8.5-10.5) 07/23/22 02:30 Total Bilirubin 0.5 mg/dL (0.15-1.2) 07/23/22 02:30 AST 11 U/L (0-40) 07/23/22 02:30 ALT 15 U/L (0-41) 07/23/22 02:30 Alkaline Phosphatase 121 U/L (40-130) 07/23/22 02:30 Creatine Kinase 90 U/L (39-308) 07/23/22 02:30 C-Reactive Protein 108.3 mg/L (0.0-4.9) H 07/23/22 02:30 Total Protein 6.9 g/dL (6.6-8.7) 07/23/22 02:30 Albumin 3.9 g/dL (3.5-5.2) 07/23/22 02:30 Globulin 3.0 g/dL (1.3-4.6) 07/23/22 02:30 Procalcitonin 0.14 ng/mL (0-0.5) 07/23/22 02:30 Critical Care Time Critical Care Time: Critical Care Time: Yes Total Critical Care Time: 40 Attestation: This case had a high probability of a clinically significant, sudden, or life threatening deterioration of this patient's condition which required my full and direct attention, intervention and personal management. Discharge Plan Discharge Patient Disposition: Xfer Short-Term Hosp Clinical Impression: Sepsis, Acute subdural hematoma Condition: Serious Referrals: Daya Flower MD [Primary Care Provider] - Coding Level of Care Code ED Floatlight Powder Mixer for Chg Fwd Exam Comprehensive
[2022-07-23] MEDS: sodium chloride 0.9% 1,000 ML 999 ML IV ×2 (04:16→04:26)
[2022-07-23] MEDS: vancomycin 1,250 MG/250 ML PIGGYBACK 250 MG IV (04:26)
[2022-07-23 06:00] LABS: Adenovirus Not Detected (NOT DETECT); Chlamydia Pneumoniae Not Detected (NOT DETECT); Coronavirus 229E,HKU1,NL63,OC4 Not Detected (NOT DETECT); Human Metapneumovirus Not Detected (NOT DETECT); Human Rhinovirus/Enterovirus Not Detected (NOT DETECT); Influenza A Not Detected (NOT DETECT); Influenza A H1 Not Detected (NOT DETECT); Influenza A H1-2009 Not Detected (NOT DETECT); Influenza A H3 Not Detected (NOT DETECT); Influenza B Not Detected (NOT DETECT); Mycoplasma Pneumoniae Not Detected (NOT DETECT); Parainfluenza Virus Type 1 Not Detected (NOT DETECT); Parainfluenza Virus Type 2 Not Detected (NOT DETECT); Parainfluenza Virus Type 3 Not Detected (NOT DETECT); Parainfluenza Virus Type 4 Not Detected (NOT DETECT); Respiratory Syncytial Virus A Not Detected (NOT DETECT); Respiratory Syncytial Virus B Not Detected (NOT DETECT); SARS-COV-2 Not Detected (NOT DETECT)
== END 2022-07-23 04:55 | disposition short-term general hospital (02) ==
PROVIDERS: Emergency Provider Emergency Medicine; PCP Family Medicine
DX: A41.9 Sepsis, unspecified organism (principal); S06.5X9A Traumatic subdural hemorrhage with loss of consciousness of unspecified duration, initial encounter; W19.XXXA Unspecified fall, initial encounter; Y92.129 Unspecified place in nursing home as the place of occurrence of the external cause; J44.9 Chronic obstructive pulmonary disease, unspecified; E11.9 Type 2 diabetes mellitus without complications; I10 Essential (primary) hypertension; E78.5 Hyperlipidemia, unspecified; Z95.1 Presence of aortocoronary bypass graft; Z87.891 Personal history of nicotine dependence; Z20.822 Contact with and (suspected) exposure to COVID-19
CPT/HCPCS: 36415; 70450; 71250; 72125; 73562; 73620; 74176; 80053; 82550; 83605; 84145; 85025; 86140; 87040; 87077; 87186; 87205; 87635; 93005; 96365; 96367; 99285; J2543; J3370; J7030

== ENCOUNTER 2022-08-04 07:39 | Outpatient (CLI) | payer MEDICARE, OTHER, SELFPAY ==
[2022-08-04 08:18] LABS: Vancomycin Trough 17.4 ug/mL (10-15)
== END 2022-08-04 07:40 | disposition home or self-care (01) ==
PROVIDERS: PCP Family Medicine; Visit Provider Internal Medicine
DX: A49.02 Methicillin resistant Staphylococcus aureus infection, unspecified site (principal)
CPT/HCPCS: 80202

== ENCOUNTER 2022-08-08 08:01 | Outpatient (CLI) | payer MEDICARE, OTHER, SELFPAY ==
[2022-08-08 08:55] LABS: Vancomycin Trough 17.2 ug/mL (10-15)
== END 2022-08-08 08:02 | disposition home or self-care (01) ==
LOC: LAB 08:05
PROVIDERS: PCP Family Medicine; Visit Provider Internal Medicine
DX: A49.02 Methicillin resistant Staphylococcus aureus infection, unspecified site (principal)
CPT/HCPCS: 80202

== ENCOUNTER 2022-08-17 06:54 | Outpatient (RCR) | payer MEDICARE, OTHER, SELFPAY ==
[2022-08-17 08:38] LABS: Vancomycin Trough 19.3 ug/mL (10-15)
== END 2022-08-26 23:59 | disposition home or self-care (01) ==
LOC: LAB 06:54
PROVIDERS: PCP Family Medicine; Visit Provider Internal Medicine
DX: A41.9 Sepsis, unspecified organism (principal)
CPT/HCPCS: 80202

== ENCOUNTER 2022-08-22 07:25 | Outpatient (CLI) | payer MEDICARE, OTHER, SELFPAY ==
[2022-08-22 08:18] LABS: Vancomycin Trough 16.5 ug/mL (10-15)
== END 2022-08-22 07:26 | disposition home or self-care (01) ==
PROVIDERS: PCP Family Medicine; Visit Provider Internal Medicine
DX: A49.02 Methicillin resistant Staphylococcus aureus infection, unspecified site (principal)
CPT/HCPCS: 80202

== ENCOUNTER 2022-08-25 06:50 | Outpatient (CLI) | payer MEDICARE, OTHER, SELFPAY ==
[2022-08-25 07:47] LABS: Vancomycin Trough 17.1 ug/mL (10-15)
== END 2022-08-25 06:51 | disposition home or self-care (01) ==
LOC: LAB 06:52
PROVIDERS: PCP Family Medicine; Visit Provider Internal Medicine
DX: A49.02 Methicillin resistant Staphylococcus aureus infection, unspecified site (principal)
CPT/HCPCS: 36415; 80202

== ENCOUNTER 2022-09-01 07:29 | Outpatient (CLI) | payer MEDICARE, OTHER, SELFPAY ==
[2022-09-01 08:18] LABS: Vancomycin Trough 17.4 ug/mL (10-15)
== END 2022-09-01 07:30 | disposition home or self-care (01) ==
LOC: LAB 07:39
PROVIDERS: PCP Family Medicine; Visit Provider Nurse Practitioner Family
DX: A49.02 Methicillin resistant Staphylococcus aureus infection, unspecified site (principal)
CPT/HCPCS: 36415; 80202

== ENCOUNTER → 2022-11-01 12:22 | Outpatient (BNVA) | payer MEDICARE, OTHER, SELFPAY | PROVIDERS: PCP Family Medicine; Visit Provider Specialist | DX: G30.9 Alzheimer's disease, unspecified (principal); F02.80 Dementia in other diseases classified elsewhere, unspecified severity, without behavioral disturbance, psychotic disturbance, mood disturbance, and anxiety; E11.610 Type 2 diabetes mellitus with diabetic neuropathic arthropathy; Z79.4 Long term (current) use of insulin; G96.08 Other cranial cerebrospinal fluid leak; S06.5XAS Traumatic subdural hemorrhage with loss of consciousness status unknown, sequela; W19.XXXS Unspecified fall, sequela | CPT/HCPCS: 99214 ==

== ENCOUNTER → 2022-11-02 10:52 | Outpatient (BNVA) | payer MEDICARE, OTHER, SELFPAY | PROVIDERS: PCP Family Medicine; Visit Provider Internal Medicine Cardiovascular Disease | DX: I25.10 Atherosclerotic heart disease of native coronary artery without angina pectoris (principal); M14.672 Charcot's joint, left ankle and foot; G30.9 Alzheimer's disease, unspecified; F02.80 Dementia in other diseases classified elsewhere, unspecified severity, without behavioral disturbance, psychotic disturbance, mood disturbance, and anxiety; L97.513 Non-pressure chronic ulcer of other part of right foot with necrosis of muscle; G25.0 Essential tremor; J44.9 Chronic obstructive pulmonary disease, unspecified; Z98.61 Coronary angioplasty status; G47.33 Obstructive sleep apnea (adult) (pediatric); E78.5 Hyperlipidemia, unspecified; Z95.1 Presence of aortocoronary bypass graft; I73.9 Peripheral vascular disease, unspecified; I12.9 Hypertensive chronic kidney disease with stage 1 through stage 4 chronic kidney disease, or unspecified chronic kidney disease; E11.22 Type 2 diabetes mellitus with diabetic chronic kidney disease; N18.9 Chronic kidney disease, unspecified; Z87.891 Personal history of nicotine dependence; Z79.4 Long term (current) use of insulin; Z79.84 Long term (current) use of oral hypoglycemic drugs | CPT/HCPCS: 99213 ==

== ENCOUNTER → 2023-01-31 12:45 | Outpatient (BNVA) | payer MEDICARE, OTHER, MEDICAID, SELFPAY | PROVIDERS: PCP Family Medicine; Visit Provider Specialist | DX: G30.9 Alzheimer's disease, unspecified (principal); G62.9 Polyneuropathy, unspecified; G25.0 Essential tremor; F02.A18 Dementia in other diseases classified elsewhere, mild, with other behavioral disturbance | CPT/HCPCS: 99214 ==

== ENCOUNTER → 2023-03-14 13:56 | Outpatient (BNVA) | payer MEDICARE, OTHER, MEDICAID, SELFPAY | PROVIDERS: PCP Family Medicine; Referring Provider Family Medicine; Visit Provider Dermatology | DX: C44.311 Basal cell carcinoma of skin of nose (principal); L57.0 Actinic keratosis; L81.4 Other melanin hyperpigmentation; Z85.828 Personal history of other malignant neoplasm of skin; Z87.891 Personal history of nicotine dependence | CPT/HCPCS: 11102; 17000; 17003; 99202 ==

== ENCOUNTER → 2023-04-17 08:48 | Outpatient (BNVA) | payer MEDICARE, OTHER, MEDICAID, SELFPAY | PROVIDERS: PCP Family Medicine; Visit Provider Dermatology | DX: C44.311 Basal cell carcinoma of skin of nose (principal) | CPT/HCPCS: 17311; 17312 ==

== ENCOUNTER → 2023-04-21 08:39 | Outpatient (BNVA) | payer MEDICARE, OTHER, MEDICAID, SELFPAY | PROVIDERS: PCP Family Medicine; Visit Provider Dermatology | DX: C44.311 Basal cell carcinoma of skin of nose (principal) | CPT/HCPCS: 15260 ==

== ENCOUNTER → 2023-05-01 10:48 | Outpatient (BNVA) | payer MEDICARE, OTHER, MEDICAID, SELFPAY | PROVIDERS: PCP Family Medicine; Visit Provider Dermatology | DX: Z48.817 Encounter for surgical aftercare following surgery on the skin and subcutaneous tissue (principal); Z48.02 Encounter for removal of sutures; Z85.828 Personal history of other malignant neoplasm of skin; Z87.891 Personal history of nicotine dependence | CPT/HCPCS: 99212 ==

== ENCOUNTER → 2023-05-25 13:48 | Outpatient (BNVA) | payer MEDICARE, OTHER, MEDICAID, SELFPAY | PROVIDERS: PCP Family Medicine; Visit Provider Dermatology | DX: Z48.817 Encounter for surgical aftercare following surgery on the skin and subcutaneous tissue (principal); Z85.828 Personal history of other malignant neoplasm of skin; Z87.891 Personal history of nicotine dependence | CPT/HCPCS: 99212 ==

== ENCOUNTER → 2023-07-05 11:02 | Outpatient (BNVA) | payer MEDICARE, MEDICAID, OTHER, SELFPAY | PROVIDERS: PCP Family Medicine; Visit Provider Internal Medicine Cardiovascular Disease | DX: I25.10 Atherosclerotic heart disease of native coronary artery without angina pectoris (principal); I12.9 Hypertensive chronic kidney disease with stage 1 through stage 4 chronic kidney disease, or unspecified chronic kidney disease; E11.22 Type 2 diabetes mellitus with diabetic chronic kidney disease; N18.9 Chronic kidney disease, unspecified; Z95.1 Presence of aortocoronary bypass graft; Z87.891 Personal history of nicotine dependence; E11.65 Type 2 diabetes mellitus with hyperglycemia; Z79.4 Long term (current) use of insulin | CPT/HCPCS: 99214 ==

== ENCOUNTER 2023-07-26 10:57 | Outpatient (CLI) | payer MEDICARE, OTHER, MEDICAID, SELFPAY ==
--- NOTE | 2023-07-26 11:00 | USCV_ITS ---
Marcelino Díaz Age: 78 Gender: M : 1945 Exam Date: 07/26/2023 11:10 Ordering Phys: Marjorie Mcnair MD ([email or web address]) Technologist: Lisa Dukes Exam Location: [facility] [place] Indication: Shortness of breath BP: 120 / 70 HR: 81 Rhythm: Sinus Technical Quality: Adequate MEASUREMENTS (Male / Female) Normal Values 2D ECHO LV Diastolic Diameter PLAX 4.2 cm 4.2 - 5.9 / 3.9 - 5.3 cm LV Systolic Diameter PLAX 2.5 cm IVS Diastolic Thickness 1.8 cm 0.6 - 1.0 / 0.6 - 0.9 cm IVS Systolic Thickness 2.3 cm LVPW Diastolic Thickness 1.6 cm 0.6 - 1.0 / 0.6 - 0.9 cm LVPW Systolic Thickness 2.1 cm LVOT Diameter 2.1 cm LV Ejection Fraction 2D Teich 72.2 % LV Ejection Fraction MOD 2C 55.5 % LV Ejection Fraction 2C AL 59.8 % LA Diameter 3.8 cm LA Width 4.0 cm LA Height 5.1 cm RA Width 3.3 cm RA Height 3.4 cm Aorta at Sinotubular Diameter 3.2 cm IVC Diameter 1.0 cm M-MODE Aortic Annulus Diameter 4.1 cm LA Ao Ratio MM 1.1 MV E Point Septal Separation 0.3 cm DOPPLER AV Peak Velocity 187.7 cm/s LVOT Peak Velocity 94.0 cm/s AV Area Cont Eq vti 1.9 cm squared AV Area Cont Eq pk 1.7 cm squared MV Peak Velocity 137.0 cm/s MV Area PHT 3.6 cm squared Mitral E to A Ratio 0.7 MV E' Velocity 40.4 cm/s Mitral E to MV E' Ratio 8.2 Mitral E to LV E' Lateral Ratio 10.3 Mitral E to LV E' Septal Ratio 6.8 TR Peak Velocity 117.3 cm/s TR Peak Gradient 5.5 mmHg Right Atrial Pressure 5.0 mmHg Pulmonary Artery Systolic Pressu 10.5 mmHg PV Peak Velocity 123.0 cm/s RV Acceleration Time 0.1 s RV Ejection Time 0.3 s RV AcT/ET 0.4 FINDINGS Left Ventricle Normal left ventricular size, systolic function and wall thickness, with no diagnostic regional wall motion abnormalities. Left ventricular ejection fraction is estimated at 65 %. Abnormal septal motion. Grade I diastolic dysfunction (abnormal relaxation filling pattern), normal to mildly elevated filling pressures. Right Ventricle Normal right ventricular size and systolic function. RVSP could not be calculated due to incomplete tricuspid regurgitation velocity profile. Right Atrium Normal right atrial size. Left Atrium Upper normal left atrial size. Mitral Valve Moderate mitral annular calcification. Structurally normal mitral valve. No mitral valve stenosis. No mitral valve regurgitation. Aortic Valve Mildly thickened and calcified trileaflet aortic valve. Mild aortic valve stenosis, peak velocity 2.3 m/s, mean gradient 11 mmHg, NEMESIO 1.6 cm squared. No aortic valve regurgitation. Tricuspid Valve Structurally normal tricuspid valve. Trace tricuspid valve regurgitation. Pulmonic Valve Pulmonic valve not well visualized. No pulmonary valve stenosis. Pericardium No pericardial effusion. Aorta Normal sized aortic root. IVC Inferior vena cava not visualized. CONCLUSIONS 1. Normal left ventricular size, systolic function and wall thickness, with no diagnostic regional wall motion abnormalities. Left ventricular ejection fraction is estimated at 65 %. Abnormal septal motion. Grade I diastolic dysfunction (abnormal relaxation filling pattern), normal to mildly elevated filling pressures. 2. Mild aortic valve stenosis, peak velocity 2.3 m/s, mean gradient 11 mmHg, NEMESIO 1.6 cm squared. 3. No recent similar studies to compare. Marjorie Mcnair MD (Electronically Signed) Final Date: 06 August 2023 21:39 S
== END 2023-07-26 10:58 | disposition home or self-care (01) ==
PROVIDERS: PCP Family Medicine; Visit Provider Internal Medicine Cardiovascular Disease
DX: I35.0 Nonrheumatic aortic (valve) stenosis (principal); R06.02 Shortness of breath
CPT/HCPCS: 93306

== ENCOUNTER → 2023-08-22 10:42 | Outpatient (BNVA) | payer MEDICARE, OTHER, MEDICAID, SELFPAY | PROVIDERS: PCP Internal Medicine; Visit Provider Nurse Practitioner Family | DX: L57.8 Other skin changes due to chronic exposure to nonionizing radiation (principal); Z48.817 Encounter for surgical aftercare following surgery on the skin and subcutaneous tissue; Z85.828 Personal history of other malignant neoplasm of skin; L57.0 Actinic keratosis | CPT/HCPCS: 17000; 99213 ==

== ENCOUNTER → 2023-11-22 08:56 | Outpatient (BNVA) | payer MEDICARE, OTHER, MEDICAID, SELFPAY | PROVIDERS: PCP Internal Medicine; Visit Provider Nurse Practitioner Family | DX: E11.52 Type 2 diabetes mellitus with diabetic peripheral angiopathy with gangrene (principal); E11.621 Type 2 diabetes mellitus with foot ulcer; L97.516 Non-pressure chronic ulcer of other part of right foot with bone involvement without evidence of necrosis; L97.512 Non-pressure chronic ulcer of other part of right foot with fat layer exposed; L97.412 Non-pressure chronic ulcer of right heel and midfoot with fat layer exposed | CPT/HCPCS: 11042; 99213 ==

== ENCOUNTER → 2023-12-13 08:22 | Outpatient (BNVA) | payer MEDICARE, OTHER, SELFPAY | PROVIDERS: PCP Internal Medicine; Visit Provider Thoracic Surgery (Cardiothoracic Vascular Surgery) | DX: E11.52 Type 2 diabetes mellitus with diabetic peripheral angiopathy with gangrene (principal); E11.621 Type 2 diabetes mellitus with foot ulcer; L97.514 Non-pressure chronic ulcer of other part of right foot with necrosis of bone; L97.412 Non-pressure chronic ulcer of right heel and midfoot with fat layer exposed; L97.511 Non-pressure chronic ulcer of other part of right foot limited to breakdown of skin | CPT/HCPCS: 11042; 11044; 87070; 87176; 87205; 97597; A6251 ==

== ENCOUNTER → 2023-12-20 08:55 | Outpatient (BNVA) | payer MEDICARE, OTHER, SELFPAY | PROVIDERS: PCP Internal Medicine; Visit Provider Thoracic Surgery (Cardiothoracic Vascular Surgery) | DX: E11.52 Type 2 diabetes mellitus with diabetic peripheral angiopathy with gangrene (principal); E11.621 Type 2 diabetes mellitus with foot ulcer; L97.512 Non-pressure chronic ulcer of other part of right foot with fat layer exposed; L97.412 Non-pressure chronic ulcer of right heel and midfoot with fat layer exposed | CPT/HCPCS: 11042; 97597; A6251 ==

== ENCOUNTER → 2023-12-27 08:12 | Outpatient (BNVA) | payer MEDICARE, OTHER, SELFPAY | PROVIDERS: PCP Internal Medicine; Visit Provider Thoracic Surgery (Cardiothoracic Vascular Surgery) | DX: E11.52 Type 2 diabetes mellitus with diabetic peripheral angiopathy with gangrene (principal); E11.621 Type 2 diabetes mellitus with foot ulcer; L97.512 Non-pressure chronic ulcer of other part of right foot with fat layer exposed; L97.411 Non-pressure chronic ulcer of right heel and midfoot limited to breakdown of skin | CPT/HCPCS: 11042; 11043; 97597; A6251 ==

== ENCOUNTER → 2024-01-03 08:59 | Outpatient (BNVA) | payer MEDICARE, OTHER, SELFPAY | PROVIDERS: PCP Internal Medicine; Visit Provider Thoracic Surgery (Cardiothoracic Vascular Surgery) | DX: E11.52 Type 2 diabetes mellitus with diabetic peripheral angiopathy with gangrene (principal); E11.621 Type 2 diabetes mellitus with foot ulcer; L97.516 Non-pressure chronic ulcer of other part of right foot with bone involvement without evidence of necrosis; L97.511 Non-pressure chronic ulcer of other part of right foot limited to breakdown of skin; L97.411 Non-pressure chronic ulcer of right heel and midfoot limited to breakdown of skin | CPT/HCPCS: 97597 ==

== ENCOUNTER → 2024-01-11 08:36 | Outpatient (BNVA) | payer MEDICARE, OTHER, SELFPAY | PROVIDERS: PCP Internal Medicine; Visit Provider Thoracic Surgery (Cardiothoracic Vascular Surgery) | DX: E11.52 Type 2 diabetes mellitus with diabetic peripheral angiopathy with gangrene (principal); E11.621 Type 2 diabetes mellitus with foot ulcer; L97.511 Non-pressure chronic ulcer of other part of right foot limited to breakdown of skin; L97.411 Non-pressure chronic ulcer of right heel and midfoot limited to breakdown of skin; L89.892 Pressure ulcer of other site, stage 2; Z09 Encounter for follow-up examination after completed treatment for conditions other than malignant neoplasm | CPT/HCPCS: 97597 ==

== ENCOUNTER → 2024-01-17 08:31 | Outpatient (BNVA) | payer MEDICARE, OTHER, SELFPAY | PROVIDERS: PCP Internal Medicine; Visit Provider Thoracic Surgery (Cardiothoracic Vascular Surgery) | DX: E11.52 Type 2 diabetes mellitus with diabetic peripheral angiopathy with gangrene (principal); E11.621 Type 2 diabetes mellitus with foot ulcer; L97.511 Non-pressure chronic ulcer of other part of right foot limited to breakdown of skin; L97.521 Non-pressure chronic ulcer of other part of left foot limited to breakdown of skin; L97.411 Non-pressure chronic ulcer of right heel and midfoot limited to breakdown of skin | CPT/HCPCS: 97597 ==

== ENCOUNTER → 2024-01-24 08:51 | Outpatient (BNVA) | payer MEDICARE, OTHER, SELFPAY | PROVIDERS: PCP Internal Medicine; Visit Provider Thoracic Surgery (Cardiothoracic Vascular Surgery) | DX: E11.52 Type 2 diabetes mellitus with diabetic peripheral angiopathy with gangrene (principal); E11.621 Type 2 diabetes mellitus with foot ulcer; L97.524 Non-pressure chronic ulcer of other part of left foot with necrosis of bone; L97.511 Non-pressure chronic ulcer of other part of right foot limited to breakdown of skin; L97.411 Non-pressure chronic ulcer of right heel and midfoot limited to breakdown of skin | CPT/HCPCS: 11044; 87070; 87077; 87176; 87186; 87205; 97597 ==

== ENCOUNTER 2024-01-30 06:58 | Outpatient (CLI) | payer MEDICARE, OTHER, SELFPAY ==
--- NOTE | 2024-01-30 07:15 | USCV_ITS ---
Bre Marcelino Age: 78 Gender: M : 1945 Exam Date: 01/30/2024 07:29 Ordering Phys: Scott Subramanian MD (Andy) ([email or web address] [place] [email or web address] Technologist: Shonda Benjamin [place] [facility] [place] Indication: NON HEALING WOUNDS BILATERAL FEET Risk Factors: DM AND WAS A SMOKER Previous Vascular Surgery: CABG AND SD RIGHT LEFT BP: 143.0 / 72.00 BP: 104.0/ 64.00 0 0 Waveform Velocity (cm/s) Velocity (cm/s) Waveform Triphasic 93.0 Iliac Prox 77.0 Biphasic Triphasic 93.0 Iliac Mid 57.0 Biphasic Triphasic 61.0 Iliac Distal 79.0 Biphasic Biphasic 48.0 INSULATION INSTALLER 50.0 Biphasic Biphasic 73.0 SFA Prox 43.0 Monophasic Biphasic SFA Mid Monophasic 56.0 53.0 Biphasic 59.0 SFA Dist 44.0 Monophasic Biphasic 59.0 POP 71.0 Monophasic Monophasic 58.0 ONLINE ADVERTISING DIRECTOR 27.0 Monophasic Monophasic 74.0 DPA 42.0 Monophasic FINDINGS RT AND LT PTS ARE NON COMPRESSIBLE SO NO ERICH DONE Mild to moderate scattered plaques in the iliac and femoral arteries bilaterally Monophasic posterior tibial and dorsalis pedis artery on the right side with a normal Doppler flow velocities Monophasic and continuous waveforms in the left posterior tibial and dorsalis pedis arteries with diminished Doppler flow velocities CONCLUSIONS 1. Noncompressible ankle vessels bilaterally suggesting extensive arterial sclerosis 2. Mild to moderate scattered plaques in the iliac and femoral arteries bilaterally 3. Abnormal Doppler waveforms and velocities in the left posterior tibial and dorsalis pedis arteries, suggesting collateral filling of these arteries Dr Danielle Haley MD [facility] (Electronically Signed) Final Date: 30 January 2024 15:42 S
== END 2024-01-30 06:59 | disposition home or self-care (01) ==
LOC: RAD 06:59
PROVIDERS: PCP Internal Medicine; Visit Provider Thoracic Surgery (Cardiothoracic Vascular Surgery)
DX: I73.9 Peripheral vascular disease, unspecified (principal); E11.621 Type 2 diabetes mellitus with foot ulcer; L97.509 Non-pressure chronic ulcer of other part of unspecified foot with unspecified severity; R29.90 Unspecified symptoms and signs involving the nervous system; G30.9 Alzheimer's disease, unspecified; F02.80 Dementia in other diseases classified elsewhere, unspecified severity, without behavioral disturbance, psychotic disturbance, mood disturbance, and anxiety; G25.0 Essential tremor
CPT/HCPCS: 93925; 99213

== ENCOUNTER 2024-01-31 08:46 | Outpatient (CLI) | payer MEDICARE, OTHER, SELFPAY ==
--- NOTE | 2024-01-31 10:04 | XRR_ITS ---
PROCEDURE INFORMATION: Exam: XR Left Foot Exam date and time: 01/31/2024 10:12 AM Age: 78 years old Clinical indication: Condition or disease; Other: Non healing ulcer, ; additional info: Non healing ulcer, left 2nd toe; Rule out osteomyelitis, attn left 2nd toe TECHNIQUE: Imaging protocol: Radiologic exam of the left foot. Views: 3 or more views. COMPARISON: CR XR foot LT min 3V* [id number] 04/29/2019 1:09 PM FINDINGS: Bones/joints: Charcot joint changes at the hindfoot. No acute osseous destruction is appreciated. Soft tissues: Nonspecific soft tissue swelling about the foot. Vascular calcifications. XR/XR foot LT min 3V* [id number] IMPRESSION: No radiographic evidence of acute osteomyelitis. Consider MRI for much greater sensitivity.
== END 2024-01-31 08:47 | disposition home or self-care (01) ==
LOC: RAD 08:49
PROVIDERS: PCP Internal Medicine; Visit Provider Thoracic Surgery (Cardiothoracic Vascular Surgery)
DX: E11.621 Type 2 diabetes mellitus with foot ulcer (principal); L97.524 Non-pressure chronic ulcer of other part of left foot with necrosis of bone; L97.511 Non-pressure chronic ulcer of other part of right foot limited to breakdown of skin; L97.521 Non-pressure chronic ulcer of other part of left foot limited to breakdown of skin; L97.411 Non-pressure chronic ulcer of right heel and midfoot limited to breakdown of skin
CPT/HCPCS: 11043; 73630; 97597

== ENCOUNTER 2024-02-02 13:18 | Outpatient (CLI) | payer MEDICARE, OTHER, SELFPAY ==
--- NOTE | 2024-02-02 13:30 | CTR_ITS ---
PROCEDURE INFORMATION: Exam: CTA Abdominal Aorta and Bilateral Lower Extremities (Run-off) With Contrast Exam date and time: 02/02/2024 1:35 PM Age: 78 years old Clinical indication: Condition or disease; Prior surgery; Surgery date: 6+ months; Surgery type: Cabg, vasectomy; Patient HX: Non healing ulcer right foot 2nd digit, HX of pad, diabetic foot ulcers; Additional info: Non healing ulcer; Diabetic foot ulcers; Pad TECHNIQUE: Imaging protocol: Computed tomographic angiography of the of the abdominal aorta, pelvis and bilateral lower extremities with contrast. 3D rendering (Not supervised by radiologist): MIP and/or 3D reconstructed images were created by the technologist. Radiation optimization: All CT scans at this facility use at least one of these dose optimization techniques: automated exposure control; mA and/or kV adjustment per patient size (includes targeted exams where dose is matched to clinical indication); or iterative reconstruction. Contrast material: OMNI 350; Contrast volume: 125 ml; Contrast route: INTRAVENOUS (IV); COMPARISON: [place] [id number] 07/23/2022 3:12 AM RADIATION DOSE METRICS: Total DLP (mGy-cm): 2073.03 FINDINGS: Aorta: Extensive calcifications without aneurysm or dissection. Celiac trunk and mesenteric arteries: No occlusion or significant stenosis. Renal arteries: No occlusion or significant stenosis. Dual bilateral renal arteries. Right iliac arteries: Areas of moderate stenosis without occlusion. Right femoral/popliteal arteries: Areas of moderate to severe stenosis without occlusion. Right infrapopliteal arteries: Three-vessel runoff poorly evaluated with extensive calcifications and intermittent opacification. Left iliac arteries: Areas of moderate stenosis without occlusion. Left femoral/popliteal arteries: Areas of moderate to severe stenosis without occlusion. Left infrapopliteal arteries: Three-vessel runoff poorly evaluated with extensive calcifications and intermittent opacification. Liver: No acute findings. Gallbladder and bile ducts: No calcified stones. No ductal dilation. Pancreas: No ductal dilation. Spleen: No splenomegaly. Adrenal glands: No mass. Kidneys and ureters: No hydronephrosis. Punctate calcifications bilaterally are likely vascular. Bilateral simple renal cysts, no follow-up indicated. Stomach and bowel: No obstruction. Extensive colonic diverticulosis. Appendix: No evidence of appendicitis. Urinary bladder: No acute findings. Reproductive: Marked prostatomegaly. Intraperitoneal space: No acute findings. Lymph nodes: No lymphadenopathy. Bones/joints: Extensive degenerative changes without acute findings. Soft tissues: No acute findings. CT/CT angio abd aorta runof [id number] IMPRESSION: Severe multifocal atherosclerotic disease as above. Poorly evaluated three-vessel runoff bilaterally given extent of calcification and intermittent opacification.
[2024-02-02] MEDS: iohexol 350 mg/mL 500 mL Btl (per mL) IV (15:47)
== END 2024-02-02 13:19 | disposition home or self-care (01) ==
LOC: RAD 13:18
PROVIDERS: PCP Internal Medicine; Visit Provider Thoracic Surgery (Cardiothoracic Vascular Surgery)
DX: I70.203 Unspecified atherosclerosis of native arteries of extremities, bilateral legs (principal)
CPT/HCPCS: 75635; Q9967

== ENCOUNTER → 2024-02-05 11:57 | Outpatient (BNVA) | payer MEDICARE, MEDICAID, OTHER, SELFPAY | PROVIDERS: PCP Family Medicine; Visit Provider Internal Medicine Cardiovascular Disease | DX: I73.9 Peripheral vascular disease, unspecified (principal); Z95.1 Presence of aortocoronary bypass graft; E78.5 Hyperlipidemia, unspecified; I25.10 Atherosclerotic heart disease of native coronary artery without angina pectoris; Z98.61 Coronary angioplasty status; E11.65 Type 2 diabetes mellitus with hyperglycemia; Z79.4 Long term (current) use of insulin; E11.610 Type 2 diabetes mellitus with diabetic neuropathic arthropathy; I12.9 Hypertensive chronic kidney disease with stage 1 through stage 4 chronic kidney disease, or unspecified chronic kidney disease; E11.22 Type 2 diabetes mellitus with diabetic chronic kidney disease; N18.9 Chronic kidney disease, unspecified; G31.84 Mild cognitive impairment of uncertain or unknown etiology; G25.0 Essential tremor; J44.9 Chronic obstructive pulmonary disease, unspecified; G47.33 Obstructive sleep apnea (adult) (pediatric); Z87.891 Personal history of nicotine dependence | CPT/HCPCS: 99214 ==

== ENCOUNTER → 2024-02-07 10:53 | Outpatient (BNVA) | payer MEDICARE, MEDICAID, OTHER, SELFPAY | PROVIDERS: PCP Family Medicine; Visit Provider Thoracic Surgery (Cardiothoracic Vascular Surgery) | DX: E11.621 Type 2 diabetes mellitus with foot ulcer (principal); E11.52 Type 2 diabetes mellitus with diabetic peripheral angiopathy with gangrene; L97.511 Non-pressure chronic ulcer of other part of right foot limited to breakdown of skin; L97.524 Non-pressure chronic ulcer of other part of left foot with necrosis of bone; L97.411 Non-pressure chronic ulcer of right heel and midfoot limited to breakdown of skin | CPT/HCPCS: 11042; 97597 ==

== ENCOUNTER → 2024-02-13 09:12 | Outpatient (BNVA) | payer MEDICARE, MEDICAID, OTHER, SELFPAY | PROVIDERS: PCP Family Medicine; Visit Provider Podiatrist Foot & Ankle Surgery | DX: L97.522 Non-pressure chronic ulcer of other part of left foot with fat layer exposed (principal); I73.9 Peripheral vascular disease, unspecified; E11.65 Type 2 diabetes mellitus with hyperglycemia; Z79.4 Long term (current) use of insulin; N18.9 Chronic kidney disease, unspecified; E11.621 Type 2 diabetes mellitus with foot ulcer; M86.8X7 Other osteomyelitis, ankle and foot; Z79.84 Long term (current) use of oral hypoglycemic drugs | CPT/HCPCS: 99204 ==

== ENCOUNTER → 2024-02-21 14:35 | Outpatient (BNVA) | payer MEDICARE, MEDICAID, OTHER, SELFPAY | PROVIDERS: PCP Family Medicine; Visit Provider Thoracic Surgery (Cardiothoracic Vascular Surgery) | DX: E11.621 Type 2 diabetes mellitus with foot ulcer (principal); L97.524 Non-pressure chronic ulcer of other part of left foot with necrosis of bone; L97.511 Non-pressure chronic ulcer of other part of right foot limited to breakdown of skin; L97.411 Non-pressure chronic ulcer of right heel and midfoot limited to breakdown of skin | CPT/HCPCS: 97597 ==

== ENCOUNTER → 2024-02-22 09:10 | Outpatient (BNVA) | payer MEDICARE, MEDICAID, OTHER, SELFPAY | PROVIDERS: PCP Family Medicine; Visit Provider Podiatrist Foot & Ankle Surgery | DX: L97.522 Non-pressure chronic ulcer of other part of left foot with fat layer exposed (principal); I73.9 Peripheral vascular disease, unspecified; E11.65 Type 2 diabetes mellitus with hyperglycemia; Z79.4 Long term (current) use of insulin; N18.9 Chronic kidney disease, unspecified; L57.0 Actinic keratosis; L57.8 Other skin changes due to chronic exposure to nonionizing radiation; L85.3 Xerosis cutis; Z85.828 Personal history of other malignant neoplasm of skin; E11.621 Type 2 diabetes mellitus with foot ulcer; M86.8X7 Other osteomyelitis, ankle and foot; Z79.84 Long term (current) use of oral hypoglycemic drugs | CPT/HCPCS: 17000; 99214 ==

== ENCOUNTER 2024-02-28 06:48 | Day surgery (SDC) | payer MEDICARE, MEDICAID, OTHER, SELFPAY ==
[2024-02-28] VITALS (7 sets, daily range): BP systolic 101–144; BP diastolic 49–100; PULSE 64–80; RESP 16–18; TEMP 36.1–36.2; O2SAT 93–98; BMI 38.0
[2024-02-28] MEDS: sodium chloride 0.9% 1,000 ML 30 ML IV (07:26)
[2024-02-28] MEDS: acetaminophen 1,000 MG/100 ML PIGGYBACK 400 MG IV (07:26)
[2024-02-28] MEDS: gabapentin 300 mg Capsule PO (07:26)
[2024-02-28 07:36] LABS: Glucose Point of Care 198 mg/dL (70-110)
--- NOTE | 2024-02-28 07:46 | P.ANESASSM_ITS ---
Pre-Anesthetic Assessment Height/Weight: Height 1.83 m Weight 127.006 kg Temp Pulse Resp BP Pulse Ox O2 Del Method 97.0 F L 76 18 114/70 93 Room Air 02/28/24 07:22 02/28/24 07:22 02/28/24 07:22 02/28/24 07:22 02/28/24 07:22 02/28/24 07:23 Preop Diagnosis: Osteomyelitis Operation Date: 02/28/24 08:25 Proposed Procedures p Amputation Toe/s/Left foot second toe amputation(Left) - Devin Mcneal, DPM Was Beta Juan taken within 24 hours: N/A Was Clonidine taken within 24 hours: N/A Last intake: Intake Last Liquid Date 02/27/24 Last Liquid Time 22:00 Last Solid Date 02/27/24 Last Solid Time 19:45 Social No alcohol (history quit 21 years ago) and No tobacco (history quit 21 years ago) Exam alert, oriented x 3, clear to auscultation bilaterally and regular rate & rhythm Airway Submandibular: within normal limits Cervical ROM: within normal limits Mallampati: Class II Dentition: full Pulmonary Sleep Apnea CV/HEM Coronary Artery Disease, Myocardial Infarction and Peripheral Vascular Disease CABG x 4 vessel 2000 in [place] None reported Hepatic None reported GI None reported Metabolic Diabetes Mellitus, Hyperlipidemia and Morbid Obesity [facility] [place] None reported Neuropsych None reported Anesthetic Plan ASA status: 3 Anesthesia: MAC Risk of > 500 ml blood loss (7ml/kg in children): No Medications/Allergies Home Medications Medication Instructions Recorded Confirmed Last Taken Type albuterol sulfate 90 mcg/actuation 2 puff inhalation Q6H PRN 01/05/22 02/27/24 Unknown Rx aerosol inhaler (ProAir HFA) shortness of breath or wheezing #18 grams atorvastatin 40 mg tablet 40 mg PO DAILY #90 tabs 01/05/22 02/27/24 02/27/24 Rx blood sugar diagnostic (OneTouch #100 ea 01/05/22 02/22/24 Unknown Rx Verio test strips) famotidine 20 mg tablet 20 mg PO DAILY #90 tabs 01/05/22 02/27/24 02/27/24 Rx fluticasone propionate 50 2 spray intranasal DAILY #15.8 mL 01/05/22 02/28/24 02/28/24 Rx mcg/actuation nasal spray,suspension furosemide 20 mg tablet (Lasix) 20 mg PO QAM PRN edema #90 tabs 01/05/22 02/27/24 Unknown Rx metformin 1,000 mg tablet 1,000 mg PO BID #180 tabs 01/05/22 02/27/24 02/27/24 Rx primidone 50 mg tablet See Rx Instructions PO .COMPLEX 01/05/22 02/27/24 02/27/24 Rx #450 tabs tamsulosin 0.4 mg capsule 0.4 mg PO DAILY #90 caps 01/05/22 02/27/24 02/27/24 Rx trandolapril 2 mg tablet 2 mg PO DAILY #90 tabs 01/05/22 02/27/24 02/27/24 Rx Diabetic shoes with inserts #1 ea 03/30/22 02/22/24 Unknown Rx Cam Boot to the Right #1 ea 06/20/22 02/22/24 Unknown Rx [place] Boot to the left #1 ea 06/20/22 02/22/24 Unknown Rx articulating AFO to the right #1 ea 06/20/22 02/22/24 Unknown Rx lower extremity galantamine 4 mg tablet 4 mg PO BID #60 tabs 11/01/22 02/27/24 02/27/24 Rx multivitamin 1 tab PO DAILY 11/02/22 02/27/24 02/27/24 History acetaminophen 325 mg tablet 325 mg PO QID PRN Pain 07/05/23 02/27/24 02/03/24 Hi story (Tylenol) bisacodyl 10 mg rectal suppository 10 mg RI DAILY PRN Constipation 07/05/23 02/27/24 Unknown History (Dulcolax (bisacodyl)) calcium carbonate 200 mg calcium 200 mg PO BID PRN Heartburn 07/05/23 02/27/24 02/03/24 History (500 mg) chewable tablet (Tums) gabapentin 300 mg capsule 300 mg PO TID 07/05/23 02/27/24 02/27/24 History insulin glargine 100 unit/mL (3 42 unit SUBCUT BID 07/05/23 02/27/24 02/27/24 History mL) subcutaneous pen insulin lispro 100 unit/mL 3 unit SUBCUT BID 07/05/23 02/27/24 02/27/24 History subcutaneous pen (Humalog KwikPen (U-100) Insulin) magnesium hydroxide 400 mg/5 mL 30 ml PO DAILY PRN Constipation 07/05/23 02/27/24 Unknown History oral suspension (Milk of Magnesia) nitroglycerin 0.4 mg sublingual 0.4 mg sublingual Q5M PRN Chest 07/05/23 02/27/24 Unknown History tablet (Nitrostat) Pain sitagliptin phosphate 50 mg tablet 50 mg PO DAILY 01/30/24 02/27/24 02/27/24 History (Januvia) Allergies Allergy/AdvReac Type Severity Reaction Status Date / Time sertraline [From Zoloft] Allergy Intermediate Seizure Verified 02/22/24 09:16 Latex, Natural Rubber Allergy Unknown ALGY-Rash Verified 02/22/24 09:16 Current Medications Generic Name Dose Route Start Last Admin Trade Name Freq PRN Reason Stop Dose Admin Sodium Chloride 1,000 mls @ 30 mls/hr 02/28/24 07:00 02/28/24 07:26 Sodium Chloride 0.9% IV 02/29/24 06:59 30 mls/hr .Q24H FILIPPO Administration PFSH Anesthesia Medical History HTN (hypertension) BPH (benign prostatic hyperplasia) Diabetes mellitus COPD (chronic obstructive pulmonary disease) CKD (chronic kidney disease) Fibromyalgia ASHD (arteriosclerotic heart disease) JOHAN (obstructive sleep apnea) Hyperlipidemia PAD (peripheral artery disease) Surgical History H/O vasectomy S/P rotator cuff repair S/P PTCA (percutaneous transluminal coronary angioplasty) S/P CABG (coronary artery bypass graft) Family History Other Cancer Denies family history of Diabetes Social History Smoking and tobacco/nicotine status: former use of tobacco/nicotine Second hand smoke exposure: No Alcohol intake: never Substance/Drug Use: never Caregiver/support person: Yes Lives independently: Yes Household members: spouse Marital status: Current occupational status: retired Current gender identity: Male Special aubree needs: No Agree to transfusion: Yes Data Anesthesia Cardiac Studies: Echocardiogram 07/26/23
--- NOTE | 2024-02-28 08:50 | P.HPUD_ITS ---
Surgery/Procedure H&P Update DATE OF PROCEDURE: February 28, 2024 DATE H&P PERFORMED: 02/22/24 H&P UPDATE INFORMATION: I have reviewed H&P completed within last 30 days, I have examined patient prior to procedure, No changes to prior documentation and H&P is in [facility] [place] [facility] [place] on date indicated PREOP DIAGNOSIS: Osteomyelitis PLANNED PROCEDURE: Operation Date: 02/28/24 08:25 Proposed Procedures p Amputation Toe/s/Left foot second toe amputation(Left) - Devin Mcneal DPM
[2024-02-28] MEDS: ceFAZolin 3,000 MG in sodium chloride 0.9% (plus) 100 ML 200 MG IV (09:16)
[2024-02-28] MEDS: BUPivacaine 0.5% INJ 30 mL INJECTION (09:37)
--- NOTE | 2024-02-28 09:55 | P.BOP_ITS ---
Date of procedure: 02/28/2024 Surgeon name: Dottie SmithPAgata Straightening Machine Operator(s) name(s): Kishore Procedure(s) performed: Left foot second digit amputation Description of findings: Osteomyelitis left foot second digit Estimated blood loss: 5 cc Tourniquet time: 11 minutes Specimen(s) removed: Left foot second toe Post-operative diagnosis: Osteomyelitis left foot second digit
--- NOTE | 2024-02-28 09:56 | PM.OP ---
Operative Report Date of procedure: February 28, 2024 Pre-op diagnosis: Osteomyelitis left foot second toe Post-op diagnosis: Same Post-op findings: Osteomyelitis of left foot second toe Procedure done: Left foot second digit amputation CPT 19117 Implants: None Specimens removed/disposition: Second toe left foot sent to pathology as surgical specimen Surgeon: Devin Mcneal DPM Gas Compressor Turbine Operator: Kishore Estimated blood loss: 5 cc 11 minutes Complications: None Findings: See above Procedure: Patient is a 78-year-old male that has a history of left foot second digit chronic ulceration with underlying osteomyelitis. The patient has had the aforementioned chief complaint for some time. Conservative treatment measures have been attempted and the patient has opted for surgical intervention at this time. A lengthy discussion regarding the procedure, including risks and complications has been had with the patient and is noted in the recent clinic note. Written and verbal consent have been obtained. All patient questions have been answered to the patient?s satisfaction. No written or verbal guarantees have been given or implied. The patient has been NPO since midnight. The history has been reviewed and the history and physical is current. The signed consent was confirmed and placed in the patient chart. Patient imaging has been reviewed and is consistent with the diagnosis. Under mild sedation, the patient was brought into the operating room and placed on the table in the supine position. IV antibiotics were given by the anesthesia team as preoperative surgical prophylaxis. IV sedation was then performed by the anesthesiateam. A local field block was performed using 0.5% Marcaine plain. A pneumatic tourniquet was then placed about the left ankle. The operative extremity was then prepped and draped in the usual fashion. The extremity was then elevated before the tourniquet was inflated to 250 mmHg. After inflation, the following procedure was then performed. Attention was directed to the left foot where an elliptical incision was made at the base of the second digit with care to preserve as much soft tissue as possible. This incision was made using a #15 blade. Dissection was carried down to the level of the second metatarsal phalangeal joint. Soft tissue attachments including medial and lateral collateral ligaments as well as joint capsule were incised using the #15 blade. The second toe was passed from the operative field after being disarticulated from the foot. It was sent to pathology as surgical specimen. The remaining tissue appeared healthy and viable. The tourniquet was let down good hyperemic response was noted to all digits of the left foot. Hemostasis was achieved. The site was then irrigated with copious months of sterile saline before attention was directed to closure. Skin edges were reapproximated using 3-0 nylon in simple interrupted fashion. The incision site was then dressed with Xeroform, 4 x 4 gauze, Kerlix, Nestor. The patient tolerated the procedure and anesthesia well and without complication. The patient was transported from the operating room to the recovery room with vital signs stable and vascular status intact to all remaining digits of the left foot. The patient was given both written and verbal instructions to remain weightbearing as tolerated in postop shoe to the operative extremity, to keep dressings/splint clean, dry and intact and to take pain medication as directed. The patient will follow-up in the outpatient setting at their scheduled appointment. The patient was discharged with my personal number and was instructed to call if any questions or issues should arise. They were discharged home once anesthesia criteria was met.
[2024-02-28] MEDS: TRAMadol 50 mg Tablet PO (10:28)
--- NOTE | 2024-02-28 10:50 | ANE.PACU2 ---
Inpatient post-anesthesia follow up: Airway intact: Yes Vital signs: Temperature 97.0 F Pulse Rate 80 Respiratory Rate 18 Blood Pressure 137/84 Pulse Oximetry 98 Oxygen Delivery Me thod Room Air Oxygen Flow Rate 6 Fraction of Inspir ed Oxygen Hydration adequate: Yes Nausea and vomiting: No Pain level: 1 Mental status: Baseline
== END 2024-02-28 10:50 | disposition home or self-care (01) ==
PROVIDERS: PCP Family Medicine; Visit Provider Podiatrist Foot & Ankle Surgery
PROC: (CPT 28820; principal; 2024-02-28 08:25)
DX: M86.8X7 Other osteomyelitis, ankle and foot (principal); Z87.891 Personal history of nicotine dependence; G47.30 Sleep apnea, unspecified; I25.10 Atherosclerotic heart disease of native coronary artery without angina pectoris; I25.2 Old myocardial infarction; Z95.1 Presence of aortocoronary bypass graft; E78.5 Hyperlipidemia, unspecified; E66.01 Morbid (severe) obesity due to excess calories; Z68.38 Body mass index [BMI] 38.0-38.9, adult; N40.0 Benign prostatic hyperplasia without lower urinary tract symptoms; J44.9 Chronic obstructive pulmonary disease, unspecified; M79.7 Fibromyalgia; G47.33 Obstructive sleep apnea (adult) (pediatric); E11.22 Type 2 diabetes mellitus with diabetic chronic kidney disease; I12.9 Hypertensive chronic kidney disease with stage 1 through stage 4 chronic kidney disease, or unspecified chronic kidney disease; N18.9 Chronic kidney disease, unspecified; E11.621 Type 2 diabetes mellitus with foot ulcer; Z79.4 Long term (current) use of insulin
CPT/HCPCS: 28820; 36416; 82962; 88305; 88311; J0131; J0690; J2704; J3010; J3490; J7030

== ENCOUNTER → 2024-03-06 14:17 | Outpatient (BNVA) | payer MEDICARE, MEDICAID, OTHER, SELFPAY | PROVIDERS: PCP Family Medicine; Visit Provider Podiatrist Foot & Ankle Surgery | DX: L97.522 Non-pressure chronic ulcer of other part of left foot with fat layer exposed (principal); I73.9 Peripheral vascular disease, unspecified; E11.65 Type 2 diabetes mellitus with hyperglycemia; Z79.4 Long term (current) use of insulin; N18.9 Chronic kidney disease, unspecified; E11.621 Type 2 diabetes mellitus with foot ulcer; M86.8X7 Other osteomyelitis, ankle and foot; Z79.84 Long term (current) use of oral hypoglycemic drugs | CPT/HCPCS: 99213 ==

== ENCOUNTER → 2024-03-07 08:32 | Outpatient (BNVA) | payer MEDICARE, MEDICAID, OTHER, SELFPAY | PROVIDERS: PCP Family Medicine; Visit Provider Thoracic Surgery (Cardiothoracic Vascular Surgery) | DX: E11.52 Type 2 diabetes mellitus with diabetic peripheral angiopathy with gangrene (principal); E11.621 Type 2 diabetes mellitus with foot ulcer; L97.511 Non-pressure chronic ulcer of other part of right foot limited to breakdown of skin; L97.411 Non-pressure chronic ulcer of right heel and midfoot limited to breakdown of skin; Z09 Encounter for follow-up examination after completed treatment for conditions other than malignant neoplasm | CPT/HCPCS: 97597 ==

== ENCOUNTER → 2024-03-13 15:43 | Outpatient (BNVA) | payer MEDICARE, MEDICAID, OTHER, SELFPAY | PROVIDERS: PCP Family Medicine; Visit Provider Podiatrist Foot & Ankle Surgery | DX: L97.522 Non-pressure chronic ulcer of other part of left foot with fat layer exposed (principal); M86.9 Osteomyelitis, unspecified; I73.9 Peripheral vascular disease, unspecified; E11.65 Type 2 diabetes mellitus with hyperglycemia; Z79.4 Long term (current) use of insulin; N18.9 Chronic kidney disease, unspecified; E11.621 Type 2 diabetes mellitus with foot ulcer; Z79.84 Long term (current) use of oral hypoglycemic drugs | CPT/HCPCS: 99213 ==

== ENCOUNTER → 2024-03-15 08:03 | Outpatient (BNVA) | payer MEDICARE, MEDICAID, OTHER, SELFPAY | PROVIDERS: PCP Family Medicine; Visit Provider Thoracic Surgery (Cardiothoracic Vascular Surgery) | DX: E11.52 Type 2 diabetes mellitus with diabetic peripheral angiopathy with gangrene (principal); E11.621 Type 2 diabetes mellitus with foot ulcer; L97.511 Non-pressure chronic ulcer of other part of right foot limited to breakdown of skin; L97.521 Non-pressure chronic ulcer of other part of left foot limited to breakdown of skin; L97.421 Non-pressure chronic ulcer of left heel and midfoot limited to breakdown of skin; L97.411 Non-pressure chronic ulcer of right heel and midfoot limited to breakdown of skin; T87.81 Dehiscence of amputation stump; Y83.8 Other surgical procedures as the cause of abnormal reaction of the patient, or of later complication, without mention of misadventure at the time of the procedure; Z89.422 Acquired absence of other left toe(s) | CPT/HCPCS: 11042; 87070; 87077; 87176; 87186; 87205; 97597; A6248 ==

== ENCOUNTER → 2024-03-21 09:34 | Outpatient (BNVA) | payer MEDICARE, MEDICAID, OTHER, SELFPAY | PROVIDERS: PCP Family Medicine; Visit Provider Thoracic Surgery (Cardiothoracic Vascular Surgery) | DX: E11.52 Type 2 diabetes mellitus with diabetic peripheral angiopathy with gangrene (principal); E11.621 Type 2 diabetes mellitus with foot ulcer; L97.521 Non-pressure chronic ulcer of other part of left foot limited to breakdown of skin; L97.411 Non-pressure chronic ulcer of right heel and midfoot limited to breakdown of skin; L97.511 Non-pressure chronic ulcer of other part of right foot limited to breakdown of skin; L97.421 Non-pressure chronic ulcer of left heel and midfoot limited to breakdown of skin; T87.81 Dehiscence of amputation stump; Y83.8 Other surgical procedures as the cause of abnormal reaction of the patient, or of later complication, without mention of misadventure at the time of the procedure; Z89.422 Acquired absence of other left toe(s) | CPT/HCPCS: 11044; 97597; A6210 ==

== ENCOUNTER 2024-03-23 16:12 | Emergency (ER) | payer MEDICARE, MEDICAID, SELFPAY ==
[2024-03-23 16:14] VITALS: BP 138/80; PULSE 92; RESP 17; TEMP 36.7; O2SAT 95
--- NOTE | 2024-03-23 16:19 | XRR_ITS ---
PROCEDURE INFORMATION: Exam: XR Chest Exam date and time: 03/23/2024 5:06 PM Age: 78 years old Clinical indication: Shortness of breath; Prior surgery; Surgery date: 6+ months; Surgery type: Cabg 2000 TECHNIQUE: Imaging protocol: Radiologic exam of the chest. Views: 1 view. COMPARISON: CT chest abdpel [id number] 07/23/2022 3:12 AM FINDINGS: Tubes, catheters and devices: PICC from the right arm with the tip in the distal SVC in satisfactory position. Lungs: Unremarkable. No consolidation or mass. Pleural spaces: Unremarkable. No pleural effusion. No pneumothorax. Heart/Mediastinum: Unremarkable. No cardiomegaly. Bones/joints: Sternal sutures are noted. XR/XR chest 1V [id number] IMPRESSION: No acute findings.
--- NOTE | 2024-03-23 16:21 | W.ED.WEAKNES ---
Documented by User: Lilia Tan MD 03/23/24 17:54 HPI - Weakness General: Chief complaint: Weakness Stated complaint: MEHNAZ FOOT WOUNDS Time Seen by Provider: 03/23/24 16:17 History of Present Illness: 78-year-old male with a history of coronary artery disease status post CABG and stents, diabetes mellitus, hypertension, COPD, CKD, fibromyalgia, hyperlipidemia and osteomyelitis of his feet who was just [facility]. He presents by ambulance for worsening generalized weakness and malaise. He says there is nothing really focal. He says I just do not feel good no chest pain. No fevers. They do report that his sugar was over 500 at the [facility]. No altered mental status. No focal motor deficits. Review of Systems Narrative: Constitutional symptoms: Negative except as documented in HPI. Skin symptoms: Negative except as documented in HPI. Eye symptoms: Negative except as documented in HPI. ENMT symptoms: Negative except as documented in HPI. Respiratory symptoms: Negative except as documented in HPI. Cardiovascular symptoms: Negative except as documented in HPI. Gastrointestinal symptoms: Negative except as documented in HPI. Genitourinary symptoms: Negative except as documented in HPI. Musculoskeletal symptoms: Negative except as documented in HPI. Neurologic symptoms: Negative except as documented in HPI. Psychiatric symptoms: Negative except as documented in HPI. Endocrine symptoms: Negative except as documented in HPI. PFS ED PFSH: Medical History (Updated 03/23/24 @ 19:47 by Francisco Javier Wells DO) HTN (hypertension) BPH (benign prostatic hyperplasia) Diabetes mellitus COPD (chronic obstructive pulmonary disease) CKD (chronic kidney disease) Fibromyalgia ASHD (arteriosclerotic heart disease) JOHAN (obstructive sleep apnea) Hyperlipidemia PAD (peripheral artery disease) Surgical History H/O vasectomy S/P rotator cuff repair S/P PTCA (percutaneous transluminal coronary angioplasty) S/P CABG (coronary artery bypass graft) Family History Other Cancer Denies family history of Diabetes Social History Smoking and tobacco/nicotine status: former use of tobacco/nicotine Second hand smoke exposure: No Alcohol intake: never Substance/Drug Use: never Caregiver/support person: Yes Lives independently: Yes Household members: spouse Marital status: Current occupational status: retired Current gender identity: Male Special aubree needs: No Agree to transfusion: Yes Physical Exam Narrative: EXAM NARRATIVE: General: Alert, no acute distress. Skin: Warm, dry. Head: Normocephalic, atraumatic. Neck: Supple, trachea midline. Eye: Extraocular movements are intact. Ears, nose, mouth and throat: Tacky oral mucosa Cardiovascular: Regular, Normal peripheral perfusion. Respiratory: Lungs are clear to auscultation, respirations are non-labored, breath sounds are equal, Symmetrical chest wall expansion. Gastrointestinal: Soft, Nontender, Non distended, Normal bowel sounds. Musculoskeletal: Normal ROM, dressings in place on his feet. He is missing several toes. Neurological: Alert and oriented, No focal neurological deficit observed. Psychiatric: Cooperative, appropriate mood & affect. Course Vital Signs: Vital signs: Vital Signs Temperature 98.0 F 03/23/24 16:14 Pulse Rate 91 03/23/24 21:09 Respiratory Rate 15 03/23/24 18:00 Blood Pressure 120/67 03/23/24 21:09 Pulse Oximetry 96 03/23/24 21:09 Oxygen Delivery Me thod Room Air 03/23/24 18:00 MDM - Weakness Medical Decision Making Medical decision making: Differential diagnosis for patient presenting with generalized weakness including but not limited to and based on the above HPI, review of systems and physical exam: Sepsis. Dehydration. Renal failure. Electrolyte abnormalities. Anemia. Congestive heart failure. Hypotension. Coronary syndrome. Hepatitis. Cirrhosis. Infections such as pneumonia, urinary tract infection, Tick bourne illness, Cellulitis, Viral infections including influenza and Covid-19. Workup: labwork and lab/exam driven imaging ordered to evaluate, rule in and rule out above pathologies. EKG: Time 1642 rate 92 normal sinus rhythm, No ST-T changes, no ectopy, first degree AV Block, EP Interpretation. This was reviewed and interpreted by myself the ER physician at 1645. Chest x-ray: Sternotomy wires in place. No acute process. No infiltrate. No pneumothorax. No cardiomegaly. This was reviewed and interpreted by myself the ER physician. Lab Review: Laboratory results were reviewed and interpreted by myself the emergency room physician. I reviewed the patient's medical record. Reexamination: Lab Data 03/23/24 17:06 03/23/24 17:06 Radiology Impressions Chest X-Ray 03/23/24 16:19 IMPRESSION: No acute findings. Laboratory Results WBC 9.38 10^3/uL (3.29-11.43) 03/23/24 17:06 RBC 4.81 10^6/uL (3.85-5.65) 03/23/24 17:06 Hgb 14.80 g/dL (11.27-16.99) 03/23/24 17:06 Hct 47.2 % (37-53) 03/23/24 17:06 MCV 98.1 fl (82-101) 03/23/24 17:06 MCH 30.8 pg (27-33) 03/23/24 17:06 MCHC 31.4 g/dL (30-55) 03/23/24 17:06 RDW 14.2 % (12.1-15.1) 03/23/24 17:06 Plt Count 193 10^3/cmm (157-399) 03/23/24 17:06 MPV 10.4 fL (7.4-10.4) 03/23/24 17:06 Neut % (Auto) 78.2 % 03/23/24 17:06 Lymph % (Auto) 11.4 % 03/23/24 17:06 Churchill % (Auto) 7.6 % 03/23/24 17:06 Eos % (Auto) 1.6 % 03/23/24 17:06 Baso % (Auto) 0.6 % 03/23/24 17:06 Neut # (Auto) 7.33 10^3/uL (1.8-7.7) 03/23/24 17:06 Lymph # (Auto) 1.1 10^3/uL (0.8-4.8) 03/23/24 17:06 Churchill # (Auto) 0.7 10^3/uL (0.2-0.9) 03/23/24 17:06 Eos # (Auto) 0.2 10^3/uL (0.0-0.8) 03/23/24 17:06 Baso # (Auto) 0.1 10^3/uL (0.0-0.1) 03/23/24 17:06 Nucleated RBC % (auto) 0 % 03/23/24 17:06 Nucleated RBCs # 0.0 /100WBC 03/23/24 17:06 Specimen Type Arterial 03/23/24 16:35 Sample Site Radial, left 03/23/24 16:35 ABG pH 7.42 (7.35-7.45) 03/23/24 16:35 ABG pCO2 37.6 mmHg (35-45) 03/23/24 16:35 ABG pO2 68.9 mmHg (80.0-100.0) L 03/23/24 16:35 ABG PO2/FiO2 Ratio 0 03/23/24 16:35 ABG HCO3 24.3 mmol/L (22-26) 03/23/24 16:35 ABG O2 Saturation 94.3 03/23/24 16:35 ABG Base Excess 0.0 mmol/L (-2.0-2.0) 03/23/24 16:35 Song Test Pos 03/23/24 16:35 A-a O2 Gradient 4.4 mmHg (5-10) L 03/23/24 16:35 Hematocrit 43.0 % (42-52) 03/23/24 16:35 Hgb O2 Saturation 92.7 % (95-100) L 03/23/24 16:35 Carboxyhemoglobin 1.4 %THgb (0.4-20.1) 03/23/24 16:35 Methemoglobin 0.3 % (0.4-1.5) L 03/23/24 16:35 Total Hemoglobin 14.0 g/dL (14-18) 03/23/24 16:35 Sodium 134.0 mmol/L (131-143) 03/23/24 16:35 Potassium 4.4 mmol/L (3.5-5.0) 03/23/24 16:35 Glucose 359.0 mg/dL (70-115) H 03/23/24 16:35 Ionized Calcium 1.2 mmol/L (1.1-1.4) 03/23/24 16:35 O2 Delivery Device Room air 03/23/24 16:35 FiO2 21.0 % 03/23/24 16:35 Application Lead ID Monro 03/23/24 16:35 Sodium 135 mmol/L (136-145) L 03/23/24 17:06 Potassium 4.4 mmol/L (3.5-5.1) 03/23/24 17:06 Chloride 98 mmol/L (98-107) 03/23/24 17:06 Carbon Dioxide 23 mmol/L (22-29) 03/23/24 17:06 Anion Gap 18.4 (5-19) 03/23/24 17:06 BUN 17 mg/dL (8-23) 03/23/24 17:06 Creatinine 0.9 mg/dL (0.7-1.2) 03/23/24 17:06 GFR Calculation Not Reportable 03/23/24 17:06 Glucose 360 mg/dL (65-115) H 03/23/24 17:06 POC Glucose 289 mg/dL (70-110) H 03/23/24 19:41 Calculated Osmolality 296 mOsm/kg (285-295) H 03/23/24 17:06 Lactic Acid 3.8 mmol/L (0.5-2.2) H 03/23/24 17:06 Lactic Acid (Sepsis) 4.2 mmol/L (0.5-2.2) H* 03/23/24 19:29 Calcium 8.7 mg/dL (8.5-10.5) 03/23/24 17:06 Total Bilirubin 0.2 mg/dL (0.15-1.2) 03/23/24 17:06 AST 9 U/L (0-40) 03/23/24 17:06 ALT 13 U/L (0-41) 03/23/24 17:06 Alkaline Phosphatase 130 U/L (40-130) 03/23/24 17:06 Total Protein 7.8 g/dL (6.6-8.7) 03/23/24 17:06 Albumin 3.2 g/dL (3.5-5.2) L 03/23/24 17:06 Globulin 4.6 g/dL (1.3-4.6) 03/23/24 17:06 Urine Color Yellow (Yellow) 03/23/24 17:30 Urine Appearance Clear (CLEAR) 03/23/24 17:30 Urine pH 5 (5-7) 03/23/24 17:30 Ur Specific Clarkson 1.015 (1.005-1.030) 03/23/24 17:30 Urine Protein Trace (Negative) 03/23/24 17:30 Urine Glucose (UA) 4+ (Normal) H 03/23/24 17:30 Urine Ketones Negative (Negative) 03/23/24 17:30 Urine Blood Neg (Negative) 03/23/24 17:30 Urine Nitrate Negative (Negative) 03/23/24 17:30 Urine Bilirubin Neg (Negative) 03/23/24 17:30 Urine Urobilinogen Norm mg/dL (Negative) 03/23/24 17:30 Ur Leukocyte Esterase Negative (Negative) 03/23/24 17:30 Urine RBC None /hpf (0-2) 03/23/24 17:30 Urine WBC None /hpf (0-5) 03/23/24 17:30 Ur Squamous Epith Cells None /hpf (0-5) 03/23/24 17:30 Amorphous Sediment Not Reportable 03/23/24 17:30 Urine Bacteria 1+ /hpf (NONE) H 03/23/24 17:30 Serum Ketones Negative (Negative) 03/23/24 17:06 Influenza Type A Ag negative (Negative) 03/23/24 17:30 Influenza Type B Ag negative (Negative) 03/23/24 17:30 SARS-CoV-2 Ag (Rapid) negative (Negative) 03/23/24 17:30 Discharge Plan Discharge Patient Disposition: Home Clinical Impression: Acute hyperglycemia Diabetes mellitus Qualifiers: Diabetes mellitus type: type 2 Diabetes mellitus intermediate manager insulin use: with custodial use Diabetes mellitus complication status: with hyperglycemia Qualified Code(s): E11.65 - Type 2 diabetes mellitus with hyperglycemia Condition: Stable Prescriptions: No Action (DME) OneTouch Verio test strips Strip See Rx Instructions .Route Qty: 100 2RF Rx Instructions: test Blood sugar three times daily atorvastatin 40 mg tablet 40 mg PO DAILY Qty: 90 1RF famotidine 20 mg tablet 20 mg PO DAILY Qty: 90 1RF fluticasone propionate 50 mcg/actuation spray,suspension 2 spray INTRANASAL DAILY Qty: 15.8 2RF Rx Instructions: administer into each nostril furosemide [Lasix] 20 mg tablet 20 mg PO QAM PRN (Reason: edema) Qty: 90 1RF metformin 1,000 mg tablet 1,000 mg PO BID Qty: 180 1RF primidone 50 mg tablet See Rx Instructions PO .COMPLEX Qty: 450 1RF Rx Instructions: 50 MG 1 TAB in am and 3 or 4 before supper PO; tamsulosin 0.4 mg capsule 0.4 mg PO DAILY Qty: 90 1RF trandolapril 2 mg tablet 2 mg PO DAILY Qty: 90 1RF albuterol sulfate [ProAir HFA] 90 mcg/actuation HFA aerosol inhaler 2 puff INHALATION Q6H PRN (Reason: shortness of breath or wheezing) Qty: 18 2RF (DME) Diabetic shoes with inserts See Rx Instructions .Route .MEDSUPPLY Qty: 1 0RF Rx Instructions: As directed multivitamin Tablet 1 tab PO DAILY galantamine 4 mg tablet 4 mg PO BID Qty: 60 3RF Rx Instructions: administer with AM and PM meals Januvia 50 mg tablet 50 mg PO DAILY (DME) Cam Boot to the Right See Rx Instructions .Route .MEDSUPPLY Qty: 1 0RF Rx Instructions: As directed ([facility] [place]) [place] Boot to the left See Rx Instructions .Route .MEDSUPPLY Qty: 1 0RF Rx Instructions: As directed by PADMINI&O ([facility] [place]) articulating AFO to the right lower extremity See Rx Instructions .Route .MEDSUPPLY Qty: 1 0RF Rx Instructions: As directed bisacodyl [Dulcolax (bisacodyl)] 10 mg suppository [address] DAILY PRN (Reason: Constipation) calcium carbonate [Tums] 200 mg calcium (500 mg) tablet,chewable 200 mg PO BID PRN (Reason: Heartburn) gabapentin 300 mg capsule 300 mg PO TID insulin lispro [Humalog KwikPen Insulin] 100 unit/mL insulin pen 3 unit SUBCUT BID acetaminophen [Tylenol] 325 mg tablet 325 mg PO QID PRN (Reason: Pain) magnesium hydroxide [Milk of Magnesia] 400 mg/5 mL suspension 30 ml PO DAILY PRN (Reason: Constipation) nitroglycerin [Nitrostat] 0.4 mg tablet, sublingual 0.4 mg sublingual Q5M PRN (Reason: Chest Pain) Rx Instructions: do not exceed 3 doses per episode insulin glargine 100 unit/mL (3 mL) insulin pen 42 unit SUBCUT BID amoxicillin-pot clavulanate 875-125 mg tablet 1 tab PO Q12H Qty: 14 0RF tramadol 50 mg tablet 50 mg PO Q6H PRN (Reason: post op pain) Qty: 12 0RF Discharge Orders: Discharge ED (Routine); Ordered 03/23/24 Ordered By: Francisco Javier Wells Referrals: Daya Flower MD [Physician] - 1-3 days Patient Instructions: Opioid Safety, Pain Management Activity Restrictions/Additional Instructions: A sliding scale for insulin has been included in discharge instructions. Use the high-dose sliding scale with frequent blood glucoses to measure appropriate insulin dosage. Call your doctor on Monday. Let them know you were seen here with a high blood sugar, with trouble controlling the blood sugar. Return for any problems. Coding Level of Care Code ED Inside Sales Coordinator for Chg Fwd Documented by User: Francisco Javier Wells DO 03/23/24 21:36 HPI - Weakness General: Chief complaint: Weakness Stated complaint: MEHNAZ FOOT WOUNDS Time Seen by Provider: 03/23/24 16:17 PFSH ED PFSH: Medical History (Updated 03/23/24 @ 19:47 by Francisco Javier Wells DO) HTN (hypertension) BPH (benign prostatic hyperplasia) Diabetes mellitus COPD (chronic obstructive pulmonary disease) CKD (chronic kidney disease) Fibromyalgia ASHD (arteriosclerotic heart disease) JOHAN (obstructive sleep apnea) Hyperlipidemia PAD (peripheral artery disease) Surgical History H/O vasectomy S/P rotator cuff repair S/P PTCA (percutaneous transluminal coronary angioplasty) S/P CABG (coronary artery bypass graft) Family History Other Cancer Denies family history of Diabetes Social History Smoking and tobacco/nicotine status: former use of tobacco/nicotine Second hand smoke exposure: No Alcohol intake: never Substance/Drug Use: never Caregiver/support person: Yes Lives independently: Yes Household members: spouse Marital status: Current occupational status: retired Current gender identity: Male Special aubree needs: No Agree to transfusion: Yes Course Vital Signs: Vital signs: Vital Signs Temperature 98.0 F 03/23/24 16:14 Pulse Rate 91 03/23/24 21:09 Respiratory Rate 15 03/23/24 18:00 Blood Pressure 120/67 03/23/24 21:09 Pulse Oximetry 96 03/23/24 21:09 Oxygen Delivery Me thod Room Air 03/23/24 18:00 MDM - Weakness Medical Decision Making Medical decision making: Differential diagnosis for patient presenting with generalized weakness including but not limited to and based on the above HPI, review of systems and physical exam: Sepsis. Dehydration. Renal failure. Electrolyte abnormalities. Anemia. Congestive heart failure. Hypotension. Coronary syndrome. Hepatitis. Cirrhosis. Infections such as pneumonia, urinary tract infection, Tick bourne illness, Cellulitis, Viral infections including influenza and Covid-19. Workup: labwork and lab/exam driven imaging ordered to evaluate, rule in and rule out above pathologies. EKG: Time 1642 rate 92 normal sinus rhythm, No ST-T changes, no ectopy, first degree AV Block, EP Interpretation. This was reviewed and interpreted by myself the ER physician at 1645. Chest x-ray: Sternotomy wires in place. No acute process. No infiltrate. No pneumothorax. No cardiomegaly. This was reviewed and interpreted by myself the ER physician. Lab Review: Laboratory results were reviewed and interpreted by myself the emergency room physician. I reviewed the patient's medical record. Reexamination: 78-year-old male checked out to me by Dr. Berman at shift change. This gentleman had a high blood sugar. After 20 units of insulin over time, and IV fluid, blood sugar is now down to 289. No definite cause of hyperglycemia has been elicited. CBC is normal. BMP is otherwise essentially normal. Lactic acid is mildly elevated, but with no apparent cause of sepsis. Urinalysis is negative. Serum ketones are negative. Influenza and COVID testing is negative as well. Negative chest x-ray. With improvement in sugar, he will be [facility] to [facility] with increased dose of insulin and close monitoring. Lab Data 03/23/24 17:06 03/23/24 17:06 Radiology Impressions Chest X-Ray 03/23/24 16:19 IMPRESSION: No acute findings. Laboratory Results WBC 9.38 10^3/uL (3.29-11.43) 03/23/24 17:06 RBC 4.81 10^6/uL (3.85-5.65) 03/23/24 17:06 Hgb 14.80 g/dL (11.27-16.99) 03/23/24 17:06 Hct 47.2 % (37-53) 03/23/24 17:06 MCV 98.1 fl (82-101) 03/23/24 17:06 MCH 30.8 pg (27-33) 03/23/24 17:06 MCHC 31.4 g/dL (30-55) 03/23/24 17:06 RDW 14.2 % (12.1-15.1) 03/23/24 17:06 Plt Count 193 10^3/cmm (157-399) 03/23/24 17:06 MPV 10.4 fL (7.4-10.4) 03/23/24 17:06 Neut % (Auto) 78.2 % 03/23/24 17:06 Lymph % (Auto) 11.4 % 03/23/24 17:06 Churchill % (Auto) 7.6 % 03/23/24 17:06 Eos % (Auto) 1.6 % 03/23/24 17:06 Baso % (Auto) 0.6 % 03/23/24 17:06 Neut # (Auto) 7.33 10^3/uL (1.8-7.7) 03/23/24 17:06 Lymph # (Auto) 1.1 10^3/uL (0.8-4.8) 03/23/24 17:06 Churchill # (Auto) 0.7 10^3/uL (0.2-0.9) 03/23/24 17:06 Eos # (Auto) 0.2 10^3/uL (0.0-0.8) 03/23/24 17:06 Baso # (Auto) 0.1 10^3/uL (0.0-0.1) 03/23/24 17:06 Nucleated RBC % (auto) 0 % 03/23/24 17:06 Nucleated RBCs # 0.0 /100WBC 03/23/24 17:06 Specimen Type Arterial 03/23/24 16:35 Sample Site Radial, left 03/23/24 16:35 ABG pH 7.42 (7.35-7.45) 03/23/24 16:35 ABG pCO2 37.6 mmHg (35-45) 03/23/24 16:35 ABG pO2 68.9 mmHg (80.0-100.0) L 03/23/24 16:35 ABG PO2/FiO2 Ratio 0 03/23/24 16:35 ABG HCO3 24.3 mmol/L (22-26) 03/23/24 16:35 ABG O2 Saturation 94.3 03/23/24 16:35 ABG Base Excess 0.0 mmol/L (-2.0-2.0) 03/23/24 16:35 Song Test Pos 03/23/24 16:35 A-a O2 Gradient 4.4 mmHg (5-10) L 03/23/24 16:35 Hematocrit 43.0 % (42-52) 03/23/24 16:35 Hgb O2 Saturation 92.7 % (95-100) L 03/23/24 16:35 Carboxyhemoglobin 1.4 %THgb (0.4-20.1) 03/23/24 16:35 Methemoglobin 0.3 % (0.4-1.5) L 03/23/24 16:35 Total Hemoglobin 14.0 g/dL (14-18) 03/23/24 16:35 Sodium 134.0 mmol/L (131-143) 03/23/24 16:35 Potassium 4.4 mmol/L (3.5-5.0) 03/23/24 16:35 Glucose 359.0 mg/dL (70-115) H 03/23/24 16:35 Ionized Calcium 1.2 mmol/L (1.1-1.4) 03/23/24 16:35 O2 Delivery Device Room air 03/23/24 16:35 FiO2 21.0 % 03/23/24 16:35 Application Lead ID Monro 03/23/24 16:35 Sodium 135 mmol/L (136-145) L 03/23/24 17:06 Potassium 4.4 mmol/L (3.5-5.1) 03/23/24 17:06 Chloride 98 mmol/L (98-107) 03/23/24 17:06 Carbon Dioxide 23 mmol/L (22-29) 03/23/24 17:06 Anion Gap 18.4 (5-19) 03/23/24 17:06 BUN 17 mg/dL (8-23) 03/23/24 17:06 Creatinine 0.9 mg/dL (0.7-1.2) 03/23/24 17:06 GFR Calculation Not Reportable 03/23/24 17:06 Glucose 360 mg/dL (65-115) H 03/23/24 17:06 POC Glucose 289 mg/dL (70-110) H 03/23/24 19:41 Calculated Osmolality 296 mOsm/kg (285-295) H 03/23/24 17:06 Lactic Acid 3.8 mmol/L (0.5-2.2) H 03/23/24 17:06 Lactic Acid (Sepsis) 4.2 mmol/L (0.5-2.2) H* 03/23/24 19:29 Calcium 8.7 mg/dL (8.5-10.5) 03/23/24 17:06 Total Bilirubin 0.2 mg/dL (0.15-1.2) 03/23/24 17:06 AST 9 U/L (0-40) 03/23/24 17:06 ALT 13 U/L (0-41) 03/23/24 17:06 Alkaline Phosphatase 130 U/L (40-130) 03/23/24 17:06 Total Protein 7.8 g/dL (6.6-8.7) 03/23/24 17:06 Albumin 3.2 g/dL (3.5-5.2) L 03/23/24 17:06 Globulin 4.6 g/dL (1.3-4.6) 03/23/24 17:06 Urine Color Yellow (Yellow) 03/23/24 17:30 Urine Appearance Clear (CLEAR) 03/23/24 17:30 Urine pH 5 (5-7) 03/23/24 17:30 Ur Specific Clarkson 1.015 (1.005-1.030) 03/23/24 17:30 Urine Protein Trace (Negative) 03/23/24 17:30 Urine Glucose (UA) 4+ (Normal) H 03/23/24 17:30 Urine Ketones Negative (Negative) 03/23/24 17:30 Urine Blood Neg (Negative) 03/23/24 17:30 Urine Nitrate Negative (Negative) 03/23/24 17:30 Urine Bilirubin Neg (Negative) 03/23/24 17:30 Urine Urobilinogen Norm mg/dL (Negative) 03/23/24 17:30 Ur Leukocyte Esterase Negative (Negative) 03/23/24 17:30 Urine RBC None /hpf (0-2) 03/23/24 17:30 Urine WBC None /hpf (0-5) 03/23/24 17:30 Ur Squamous Epith Cells None /hpf (0-5) 03/23/24 17:30 Amorphous Sediment Not Reportable 03/23/24 17:30 Urine Bacteria 1+ /hpf (NONE) H 03/23/24 17:30 Serum Ketones Negative (Negative) 03/23/24 17:06 Influenza Type A Ag negative (Negative) 03/23/24 17:30 Influenza Type B Ag negative (Negative) 03/23/24 17:30 SARS-CoV-2 Ag (Rapid) negative (Negative) 03/23/24 17:30 All radiology interpretation(s) finalized by discharge Discharge Plan Discharge Patient Disposition: Home Clinical Impression: Acute hyperglycemia Diabetes mellitus Qualifiers: Diabetes mellitus type: type 2 Diabetes mellitus custodial insulin use: with custodial use Diabetes mellitus complication status: with hyperglycemia Qualified Code(s): E11.65 - Type 2 diabetes mellitus with hyperglycemia Condition: Stable Prescriptions: No Action (DME) OneTouch Verio test strips Strip See Rx Instructions .Route Qty: 100 2RF Rx Instructions: test Blood sugar three times daily atorvastatin 40 mg tablet 40 mg PO DAILY Qty: 90 1RF famotidine 20 mg tablet 20 mg PO DAILY Qty: 90 1RF fluticasone propionate 50 mcg/actuation spray,suspension 2 spray INTRANASAL DAILY Qty: 15.8 2RF Rx Instructions: administer into each nostril furosemide [Lasix] 20 mg tablet 20 mg PO QAM PRN (Reason: edema) Qty: 90 1RF metformin 1,000 mg tablet 1,000 mg PO BID Qty: 180 1RF primidone 50 mg tablet See Rx Instructions PO .COMPLEX Qty: 450 1RF Rx Instructions: 50 MG 1 TAB in am and 3 or 4 before supper PO; tamsulosin 0.4 mg capsule 0.4 mg PO DAILY Qty: 90 1RF trandolapril 2 mg tablet 2 mg PO DAILY Qty: 90 1RF albuterol sulfate [ProAir HFA] 90 mcg/actuation HFA aerosol inhaler 2 puff INHALATION Q6H PRN (Reason: shortness of breath or wheezing) Qty: 18 2RF (DME) Diabetic shoes with inserts See Rx Instructions .Route .MEDSUPPLY Qty: 1 0RF Rx Instructions: As directed multivitamin Tablet 1 tab PO DAILY galantamine 4 mg tablet 4 mg PO BID Qty: 60 3RF Rx Instructions: administer with AM and PM meals Januvia 50 mg tablet 50 mg PO DAILY (DME) [place] to the Right See Rx Instructions .Route .MEDSUPPLY Qty: 1 0RF Rx Instructions: As directed ([facility] [place]) [place] Boot to the left See Rx Instructions .Route .MEDSUPPLY Qty: 1 0RF Rx Instructions: As directed by PADMINI&O ([facility] [place]) articulating AFO to the right lower extremity See Rx Instructions .Route .MEDSUPPLY Qty: 1 0RF Rx Instructions: As directed bisacodyl [Dulcolax (bisacodyl)] 10 mg suppository [address] DAILY PRN (Reason: Constipation) calcium carbonate [Tums] 200 mg calcium (500 mg) tablet,chewable 200 mg PO BID PRN (Reason: Heartburn) gabapentin 300 mg capsule 300 mg PO TID insulin lispro [Humalog KwikPen Insulin] 100 unit/mL insulin pen 3 unit SUBCUT BID acetaminophen [Tylenol] 325 mg tablet 325 mg PO QID PRN (Reason: Pain) magnesium hydroxide [Milk of Magnesia] 400 mg/5 mL suspension 30 ml PO DAILY PRN (Reason: Constipation) nitroglycerin [Nitrostat] 0.4 mg tablet, sublingual 0.4 mg sublingual Q5M PRN (Reason: Chest Pain) Rx Instructions: do not exceed 3 doses per episode insulin glargine 100 unit/mL (3 mL) insulin pen 42 unit SUBCUT BID amoxicillin-pot clavulanate 875-125 mg tablet 1 tab PO Q12H Qty: 14 0RF tramadol 50 mg tablet 50 mg PO Q6H PRN (Reason: post op pain) Qty: 12 0RF Discharge Orders: Discharge ED (Routine); Ordered 03/23/24 Ordered By: Francisco Javier Wells Referrals: Daya Flower MD [Physician] - 1-3 days Patient Instructions: Opioid Safety, Pain Management Activity Restrictions/Additional Instructions: A sliding scale for insulin has been included in discharge instructions. Use the high-dose sliding scale with frequent blood glucoses to measure appropriate insulin dosage. Call your doctor on Monday. Let them know you were seen here with a high blood sugar, with trouble controlling the blood sugar. Return for any problems. Coding Level of Care Code ED Inside Sales Coordinator for Yuval Kaiser
--- NOTE | 2024-03-23 16:42 | ECG_ITS ---
[facility] Test Date: 2024-03-23 Pat Name: Marcelino Díaz Department: Room: Gender: Male Manager Animation: : 1945 Requested By: Lilia Liu Order Number: [id number] Cy MD: Danielle Haley M.D. Measurements Intervals [place] Rate: 92 P: -63 SC: 281 QRS: 61 QRSD: 113 T: 60 QT: 368 QTc: 456 Interpretive Statements ECTOPIC ATRIAL RHYTHM WITH FIRST DEGREE AV BLOCK POSSIBLE LEFT ATRIAL ENLARGEMENT [-0.1mV P-WAVE IN V1/V2] MODERATE INTRAVENTRICULAR CONDUCTION DELAY [110+ ms QRS DURATION] NONSPECIFIC T-WAVE ABNORMALITY Compared to ECG 07/23/2022 02:52:12 Ectopic atrial rhythm now present First degree AV block now present Intraventricular conduction delay now present T-wave abnormality now present Sinus tachycardia no longer present Ventricular premature complex(es) no longer present Myocardial infarct finding no longer present Electronically Signed On 03-23-2024 19:41:05 CDT by Danielle Haley M.D. [email or web address]
[2024-03-23 16:47] LABS: ABG PCO2 37.6 mmHg (35-45); ABG PH Result 7.42 (7.35-7.45); Alveolar-Arterial Oxygen Gradi 4.4 mmHg (5-10); Blood Gas Allen Test Pos; Blood Gas Sample Type Arterial; Carboxyhemoglobin 1.4 %THgb (0.4-20.1); HCO3 ABG 24.3 mmol/L (22-26); HGB O2 Sat 92.7 % (95-100); Ionized Calcium Level - ABG 1.2 mmol/L (1.1-1.4); Methemoglobin 0.3 % (0.4-1.5); Oxygen Saturation ABG 94.3; PO2 ABG 68.9 mmHg (80.0-100.0); Potassium Level - ABG 4.4 mmol/L (3.5-5.0)
[2024-03-23 16:48] LABS: Blood Gas Operator Identificat MONRO; Blood Gas Sample Site Radial, left; Oxygen Device ROOM AIR; PO2 FiO2 Ratio Arterial Blood 0
[2024-03-23 17:28] LABS: Basophils # 0.1 10^3/uL (0.0-0.1); Basophils % 0.6 %; Eosinophils # 0.2 10^3/uL (0.0-0.8); Eosinophils % 1.6 %; Hematocrit 47.2 % (37-53); Lymphocytes # 1.1 10^3/uL (0.8-4.8); Lymphocytes % 11.4 %; Mean Corpuscular HGB Conc 31.4 g/dL (30-55); Mean Corpuscular Hemoglobin 30.8 pg (27-33); Mean Corpuscular Volume 98.1 fl (82-101); Mean Platelet Volume 10.4 fL (7.4-10.4); Monocytes # 0.7 10^3/uL (0.2-0.9); Monocytes % 7.6 %; Neutrophils # 7.33 10^3/uL (1.8-7.7); Neutrophils % 78.2 %; Nucleated Red Blood Cells % 0 %; Platelet Count 193 10^3/cmm (157-399); Red Blood Count 4.81 10^6/uL (3.85-5.65); Red Cell Distribution Width 14.2 % (12.1-15.1); White Blood Count 9.38 10^3/uL (3.29-11.43)
[2024-03-23 17:37] LABS: Ketone (Acetest) Serum Negative (Negative)
[2024-03-23 17:48] LABS: Add Urine Culture? No; Bacteria Urine 1+ /hpf; Bilirubin Urine Neg (Negative); Blood Urine Neg (Negative); Glucose Urine UA 4+ (Normal); Ketones Urine Negative (Negative); Leukocyte Esterase Urine Negative (Negative); Nitrate Urine Negative (Negative); Protein Urine Trace (Negative); Specific Gravity, Urine 1.015 (1.005-1.030); Urine Appearance Clear (CLEAR); Urine Color Yellow (Yellow); Urobilinogen Urine Norm (Negative); pH Urine 5 (5-7)
[2024-03-23 17:49] LABS: Alanine Aminotransferase 13 U/L (0-41); Albumin Level 3.2 g/dL (3.5-5.2); Alkaline Phosphatase 130 U/L (40-130); Anion Gap 18.4 (5-19); Aspartate Amino Transferase 9 U/L (0-40); Blood Urea Nitrogen 17 mg/dL (8-23); Calcium 8.7 mg/dL (8.5-10.5); Carbon Dioxide 23 mmol/L (22-29); Chloride 98 mmol/L (98-107); Globulin 4.6 g/dL (1.3-4.6); Glucose 360 mg/dL (65-115); Osmolality Calculated 296 mOsm/kg (285-295); Potassium 4.4 mmol/L (3.5-5.1); Sodium 135 mmol/L (136-145); Total Bilirubin 0.2 mg/dL (0.15-1.2); Total Protein 7.8 g/dL (6.6-8.7)
[2024-03-23 17:57] LABS: Influenza A by IFA negative (Negative); Influenza B by IFA negative (Negative)
[2024-03-23 17:57] LABS: Glucose Point of Care > 600 mg/dL (70-110)
[2024-03-23 18:00] VITALS: BP 120/73; PULSE 88; RESP 15; O2SAT 98
[2024-03-23 18:04] LABS: Lactic Sepsis W/Reflex 3.8 mmol/L (0.5-2.2)
[2024-03-23] MEDS: insulin regular-human 100 units/1 mL 10 UNIT IVP ×2 (18:05→19:01)
[2024-03-23] MEDS: sodium chloride 0.9% 1,000 ML 999 ML IV (18:06)
[2024-03-23 18:14] LABS: SARS Covid-2 Antigen negative (Negative)
[2024-03-23 18:50] LABS: Glucose Point of Care 410 mg/dL (70-110)
[2024-03-23 19:10] LABS: Reflex Lactate Order REFLEX LACTIC ORDERD
[2024-03-23 19:44] LABS: Glucose Point of Care 289 mg/dL (70-110)
[2024-03-23 19:51] LABS: Lactic Acid level (Lactate) 4.2 mmol/L (0.5-2.2)
[2024-03-23 21:09] VITALS: BP 120/67; PULSE 91; O2SAT 96
--- NOTE | 2024-03-28 16:40 | P.CONIM_ITS ---
Providers/Reason For Consult 2 Consulting Physician/Specialty*: Corwin Heck MD/ Interventional Cardiology Reason for Consult*: Critical limb ischemia/Peripheral artery disease/non healing wound Primary Care Provider: Terry Llanos MD History of Present Illness History of Present Illness Marcelino Díaz is a 78 year old male with past medical history of CAD, PAD who has nonhealing ulcers on the feet. 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 Now has non healing wound on the planter surface. Podiatry planning to perform debridement and attempt to provide interpretation. Interventional cardiology consulted for revascularization of left lower extremity as CT is showing significant PAD. Review of Systems 2 General: Reports: 10 or more systems reviewed and unremarkable except in HPI and below Const: Denies: fever(s), chills, body aches or change in appetite Eyes: Denies: change in vision or blurry vision Card: Denies: chest pain, palpitations or irregular heart rhythm Resp: Denies: dyspnea GI: Denies: abdominal pain, nausea, vomiting or diarrhea Musc: Reports: joint stiffness Skin/Breast: Reports: non-healing lesions and lesions Neuro: Reports: numbness in extremities Medications/Allergies Home Medications Medication Instructions Recorded Confirmed Last Taken Type albuterol sulfate 90 mcg/actuation 2 puff inhalation Q6H PRN 01/05/22 03/28/24 Unknown Rx aerosol inhaler (ProAir HFA) shortness of breath or wheezing #18 grams blood sugar diagnostic (OneTouch #100 ea 01/05/22 03/28/24 Unknown Rx Verio test strips) famotidine 20 mg tablet 20 mg PO DAILY #90 tabs 01/05/22 03/28/24 02/27/24 Rx fluticasone propionate 50 2 spray intranasal DAILY #15.8 mL 01/05/22 03/28/24 02/28/24 Rx mcg/actuation nasal spray,suspension furosemide 20 mg tablet (Lasix) 20 mg PO QAM PRN edema #90 tabs 01/05/22 03/28/24 Unknown Rx metformin 1,000 mg tablet 1,000 mg PO BID #180 tabs 01/05/22 03/28/24 02/27/24 Rx tamsulosin 0.4 mg capsule 0.4 mg PO DAILY #90 caps 01/05/22 03/28/24 02/27/24 Rx trandolapril 2 mg tablet 2 mg PO DAILY #90 tabs 01/05/22 03/28/24 02/27/24 Rx Diabetic shoes with inserts #1 ea 03/30/22 03/28/24 Unknown Rx Cam Boot to the Right #1 ea 06/20/22 03/28/24 Unknown Rx [place] Boot to the left #1 ea 06/20/22 03/28/24 Unknown Rx articulating AFO to the right #1 ea 06/20/22 03/28/24 Unknown Rx lower extremity galantamine 4 mg tablet 4 mg PO BID #60 tabs 11/01/22 03/28/24 02/27/24 Rx multivitamin 1 tab PO DAILY 11/02/22 03/28/24 02/27/24 History acetaminophen 325 mg tablet 325 mg PO QID PRN Pain 07/05/23 03/28/24 02/03/24 History (Tylenol) calcium carbonate (Tums) 200 mg PO BID PRN Heartburn 07/05/23 03/28/24 02/03/24 History gabapentin 300 mg capsule 300 mg PO TID 07/05/23 03/28/24 02/27/24 History insulin glargine 100 unit/mL (3 42 unit SUBCUT BID 07/05/23 03/28/24 02/27/24 History mL) subcutaneous pen insulin lispro 100 unit/mL 3 unit SUBCUT BID 07/05/23 03/28/24 02/27/24 History subcutaneous pen (Humalog KwikPen (U-100) Insulin) nitroglycerin 0.4 mg sublingual 0.4 mg sublingual Q5M PRN Chest 07/05/23 03/28/24 Unknown History tablet (Nitrostat) Pain atorvastatin 10 mg tablet 10 mg PO DAILY 03/28/24 03/28/24 Unknown History bisacodyl 10 mg rectal suppository 10 mg SC DAILY PRN Constipation 03/28/24 03/28/24 Unknown History (Dulcolax (bisacodyl)) ceftriaxone 1 gram intravenous 1 g IV DAILY 03/28/24 03/28/24 Unknown History solution diclofenac sodium 1 % topical gel 2 g topical QID 03/28/24 03/28/24 Unknown History docusate sodium 100 mg tablet 100 mg PO BID PRN Constipation 03/28/24 03/28/24 Unknown History emollient 1 applic topical BID PRN actinic 03/28/24 03/28/24 Unknown History keratosis insulin aspart U-100 100 unit/mL See Rx Instructions .Route .COMPLEX 03/28/24 03/28/24 Unknown History (3 mL) subcutaneous pen (Novolog FlexPen U-100 Insulin aspart) magnesium hydroxide 400 mg/5 mL 400 mg PO DAILY PRN Constipation 03/28/24 03/28/24 Unknown History oral suspension (Milk of Magnesia) melatonin 3 mg tablet 3 mg PO DAILY PRN Insomnia 03/28/24 03/28/24 Unknown History primidone 50 mg tablet 50 mg PO DAILY 03/28/24 03/28/24 Unknown History sitagliptin phosphate 50 mg tablet 75 mg PO DAILY 03/28/24 03/28/24 Unknown History (Januvia) sodium phosphates 19 gram-7 1 ml SC DAILY PRN Constipation 03/28/24 03/28/24 Unknown History gram/118 mL enema (Fleet Enema) triamcinolone acetonide 0.1 % 1 applic topical BID 03/28/24 03/28/24 Unknown History topical cream Allergies Allergy/AdvReac Type Severity Reaction Status Date / Time sertraline [From Zoloft] Allergy Intermediate Seizure Verified 03/13/24 15:45 Latex, Natural Rubber Allergy Unknown ALGY-Rash Verified 03/13/24 15:45 PFSH Acute 2 PFSH: Medical History (Updated 03/29/24 @ 13:08 by Corwin Heck M.D) HTN (hypertension) BPH (benign prostatic hyperplasia) Diabetes mellitus COPD (chronic obstructive pulmonary disease) CKD (chronic kidney disease) Fibromyalgia ASHD (arteriosclerotic heart disease) JOHAN (obstructive sleep apnea) Hyperlipidemia PAD (peripheral artery disease) Surgical History H/O vasectomy S/P rotator cuff repair S/P PTCA (percutaneous transluminal coronary angioplasty) S/P CABG (coronary artery bypass graft) Family History Other Cancer Denies family history of Diabetes Social History Smoking and tobacco/nicotine status: former use of tobacco/nicotine Second hand smoke exposure: No Alcohol intake: never Substance/Drug Use: never Caregiver/support person: Yes Lives independently: Yes Household members: spouse Marital status: Current occupational status: retired Current gender identity: Male Special aubree needs: No Agree to transfusion: Yes Vitals/I&O/Wt Last Vital Signs Temp 98.0 F 03/23/24 16:14 Pulse 91 03/23/24 21:09 Resp 15 03/23/24 18:00 BP 120/67 03/23/24 21:09 Pulse Ox 96 03/23/24 21:09 O2 Del Method Room Air 03/23/24 18:00 Physical Exam 2 Narrative: GENERAL: Patient is alert, awake and oriented x3. [] NECK: No jugular vein distension. [] HEENT: No cyanosis. No icterus. No pallor. [] HEART: Regular S1 and S2. No murmur, rub or gallop. [] LUNGS: Clear to auscultate bilaterally. [] CENTRAL NERVOUS SYSTEM: Grossly nonfocal. [] EXTREMITIES: Lower extremities with 1+ edema bilaterally. Data 03/23/24 17:06 03/23/24 17:06 A&P Assessment and plan (1) Critical limb ischemia of left lower extremity: (2) PAD (peripheral artery disease): (3) Hyperlipidemia: Qualifiers: Hyperlipidemia type: unspecified Qualified Code(s): E78.5 - Hyperlipidemia, unspecified (4) ASHD (arteriosclerotic heart disease): (5) HTN (hypertension): (6) Diabetes mellitus: Qualifiers: Diabetes mellitus type: type 2 Diabetes mellitus mcfp insulin use: with lead front desk agent use Diabetes mellitus complication status: with hyperglycemia Qualified Code(s): E11.65 - Type 2 diabetes mellitus with hyperglycemia; 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 N.p.o. after midnight. Thank you for involving us with care of this patient. We will continue to follow. Please call with questions. Consult Attestations 2 Medical Necessity Statement: Care expected to cross 2 midnights. Coding Level of Care Code Acute Code for [facility] Diagnoses Critical limb ischemia of left lower extremity I70.222 PAD (peripheral artery disease) I73.9 Hyperlipidemia, unspecified hyperlipidemia type E78.5 Hyperlipidemia type: unspecified ASHD (arteriosclerotic heart disease) I25.10 Essential hypertension I10 Type 2 diabetes mellitus with hyperglycemia, with long-term current use of insulin E11.65; Z79.4 Diabetes mellitus type: type 2 Diabetes mellitus lead front desk agent insulin use: with lead front desk agent use Diabetes mellitus complication status: with hyperglycemia
== END 2024-03-23 21:12 | disposition home or self-care (01) ==
PROVIDERS: Emergency Medicine; Emergency Provider Emergency Medicine; PCP Internal Medicine
DX: E11.65 Type 2 diabetes mellitus with hyperglycemia (principal); Z79.84 Long term (current) use of oral hypoglycemic drugs; Z79.4 Long term (current) use of insulin; Z11.52 Encounter for screening for COVID-19; Z87.891 Personal history of nicotine dependence; E11.22 Type 2 diabetes mellitus with diabetic chronic kidney disease; I12.9 Hypertensive chronic kidney disease with stage 1 through stage 4 chronic kidney disease, or unspecified chronic kidney disease; N18.9 Chronic kidney disease, unspecified; J44.9 Chronic obstructive pulmonary disease, unspecified; E78.5 Hyperlipidemia, unspecified; Z95.1 Presence of aortocoronary bypass graft
CPT/HCPCS: 36415; 36416; 36600; 71045; 80051; 80053; 81001; 82009; 82330; 82805; 82962; 83605; 85025; 87040; 87150; 87186; 87205; 87426; 87804; 93005; 96361; 96374; 96376; 99285; J1815; J7030

== ENCOUNTER 2024-03-28 14:56 | Inpatient (IN) | payer MEDICARE, MEDICAID, SELFPAY ==
[2024-03-28 15:20] VITALS: BMI 39.1
[2024-03-28 15:37] VITALS: BP 131/76; PULSE 86; RESP 15; TEMP 36.7; O2SAT 97
--- NOTE | 2024-03-28 15:40 | CTR_ITS ---
PROCEDURE INFORMATION: Exam: CT Left Lower Extremity With Contrast, Foot Exam date and time: 03/28/2024 6:51 PM Age: 78 years old Clinical indication: Other: R/O osteomyelitis TECHNIQUE: Imaging protocol: CT of the left lower extremity with intravenous contrast was performed. Exam focused on the foot. Radiation optimization: All CT scans at this facility use at least one of these dose optimization techniques: automated exposure control; mA and/or kV adjustment per patient size (includes targeted exams where dose is matched to clinical indication); or iterative reconstruction. Contrast material: OMNI 350; Contrast volume: 100 ml; Contrast route: INTRAVENOUS (IV); COMPARISON: CT angio abd aorta runof [id number] 02/02/2024 1:35 PM RADIATION DOSE METRICS: Total DLP (mGy-cm): 212.91 FINDINGS: There has been prior amputation of the 2nd toe. There is soft tissue ulceration in the region of the resection bed and 2nd webspace with soft tissue edema and skin thickening compatible with cellulitis. There is underlying osseous erosion of the 2nd metatarsal head as well as the dorsum of the 3rd metatarsal head suggestive of osteomyelitis. No gross soft tissue air to suggest gas-forming infection. There is unorganized fluid subjacent to the 2nd metatarsal head and in the region of the 3rd metatarsal head compatible with phlegmon. No discrete collection. There is severe advanced neuropathic changes of the hindfoot/midfoot with fragmentation and malalignment. CT/CT foot LT w con [id number] IMPRESSION: 1. Osteomyelitis of the 2nd and 3rd metatarsal heads. MRI may be helpful to assess the extent of infection if clinically warranted. 2. Advanced neuropathic changes of the hindfoot/midfoot.
--- NOTE | 2024-03-28 15:40 | P.HP_ITS ---
Providers/Chief Complaint Admitting Physician: Skyla Estrella MD Primary Care Provider: Terry Llanos MD Chief Complaint: possible toe amputation History of Present Illness Marcelino Díaz is a 78 year old male With past medical history of hypertension, BPH, diabetes mellitus, COPD, CKD, obstructive sleep apnea, hyperlipidemia, peripheral arterial disease presented to the wound care clinic today for his routine wound care for left foot ulcer. I received a call from wound care surgeon Dr. Subramanian who advised patient to be directly admitted for further debridement by podiatry and possible vascular intervention by cardiology. Patient had a CTA abdomen runoff in January which showed Severe multifocal atherosclerotic disease as above.Poorly evaluated three-vessel runoff bilaterally given extent of calcification and intermittent opacification. Discussed case with Dr. Barron over the phone. He plans to do a peripheral angiogram. We will get basic labs today. Order CT foot as well. Seen on [facility]. Patient does not have any active complaints right now except his foot. Denies fever however says he has been having chills otherwise denies nausea vomiting diarrhea constipation any pain. Medications/Allergies Home Medications Medication Instructions Recorded Confirmed Last Taken Type albuterol sulfate 90 mcg/actuation 2 puff inhalation Q6H PRN 01/05/22 03/28/24 Unknown Rx aerosol inhaler (ProAir HFA) shortness of breath or wheezing #18 grams blood sugar diagnostic (OneTouch #100 ea 01/05/22 03/28/24 Unknown Rx Verio test strips) famotidine 20 mg tablet 20 mg PO DAILY #90 tabs 01/05/22 03/28/24 02/27/24 Rx fluticasone propionate 50 2 spray intranasal DAILY #15.8 mL 01/05/22 03/28/24 02/28/24 Rx mcg/actuation nasal spray,suspension furosemide 20 mg tablet (Lasix) 20 mg PO QAM PRN edema #90 tabs 01/05/22 03/28/24 Unknown Rx metformin 1,000 mg tablet 1,000 mg PO BID #180 tabs 01/05/22 03/28/24 02/27/24 Rx tamsulosin 0.4 mg capsule 0.4 mg PO DAILY #90 caps 01/05/22 03/28/24 02/27/24 Rx trandolapril 2 mg tablet 2 mg PO DAILY #90 tabs 01/05/22 03/28/24 02/27/24 Rx Diabetic shoes with inserts #1 ea 03/30/22 03/28/24 Unknown Rx Cam Boot to the Right #1 ea 06/20/22 03/28/24 Unknown Rx [place] Boot to the left #1 ea 06/20/22 03/28/24 Unknown Rx articulating AFO to the right #1 ea 06/20/22 03/28/24 Unknown Rx lower extremity galantamine 4 mg tablet 4 mg PO BID #60 tabs 11/01/22 03/28/24 02/27/24 Rx multivitamin 1 tab PO DAILY 11/02/22 03/28/24 02/27/24 History acetaminophen 325 mg tablet 325 mg PO QID PRN Pain 07/05/23 03/28/24 02/03/24 History (Tylenol) calcium carbonate (Tums) 200 mg PO BID PRN Heartburn 07/05/23 03/28/24 02/03/24 History gabapentin 300 mg capsule 300 mg PO TID 07/05/23 03/28/24 02/27/24 History insulin glargine 100 unit/mL (3 42 unit SUBCUT BID 07/05/23 03/28/24 02/27/24 History mL) subcutaneous pen insulin lispro 100 unit/mL 3 unit SUBCUT BID 07/05/23 03/28/24 02/27/24 History subcutaneous pen (Humalog KwikPen (U-100) Insulin) nitroglycerin 0.4 mg sublingual 0.4 mg sublingual Q5M PRN Chest 07/05/23 03/28/24 Unknown History tablet (Nitrostat) Pain atorvastatin 10 mg tablet 10 mg PO DAILY 03/28/24 03/28/24 Unknown History bisacodyl 10 mg rectal suppository 10 mg [place] DAILY PRN Constipation 03/28/24 03/28/24 Unknown History (Dulcolax (bisacodyl)) ceftriaxone 1 gram intravenous 1 g IV DAILY 03/28/24 03/28/24 Unknown History solution diclofenac sodium 1 % topical gel 2 g topical QID 03/28/24 03/28/24 Unknown History docusate sodium 100 mg tablet 100 mg PO BID PRN Constipation 03/28/24 03/28/24 Unknown History emollient 1 applic topical BID PRN actinic 03/28/24 03/28/24 Unknown History keratosis insulin aspart U-100 100 unit/mL See Rx Instructions .Route .COMPLEX 03/28/24 03/28/24 Unknown History (3 mL) subcutaneous pen (Novolog FlexPen U-100 Insulin aspart) magnesium hydroxide 400 mg/5 mL 400 mg PO DAILY PRN Constipation 03/28/24 03/28/24 Unknown History oral suspension (Milk of Magnesia) melatonin 3 mg tablet 3 mg PO DAILY PRN Insomnia 03/28/24 03/28/24 Unknown History primidone 50 mg tablet 50 mg PO DAILY 03/28/24 03/28/24 Unknown History sitagliptin phosphate 50 mg tablet 75 mg PO DAILY 03/28/24 03/28/24 Unknown History (Januvia) sodium phosphates 19 gram-7 1 ml [place] DAILY PRN Constipation 03/28/24 03/28/24 Unknown History gram/118 mL enema (Fleet Enema) triamcinolone acetonide 0.1 % 1 applic topical BID 03/28/24 03/28/24 Unknown History topical cream Allergies Allergy/AdvReac Type Severity Reaction Status Date / Time sertraline [From Zoloft] Allergy Intermediate Seizure Verified 03/13/24 15:45 Latex, Natural Rubber Allergy Unknown ALGY-Rash Verified 03/13/24 15:45 PFSH Acute PFSH: Medical History (Updated 03/28/24 @ 18:32 by Skyla Estrella MD) HTN (hypertension) BPH (benign prostatic hyperplasia) Diabetes mellitus COPD (chronic obstructive pulmonary disease) CKD (chronic kidney disease) Fibromyalgia ASHD (arteriosclerotic heart disease) JOHAN (obstructive sleep apnea) Hyperlipidemia PAD (peripheral artery disease) Surgical History H/O vasectomy S/P rotator cuff repair S/P PTCA (percutaneous transluminal coronary angioplasty) S/P CABG (coronary artery bypass graft) Family History Other Cancer Denies family history of Diabetes Social History Smoking and tobacco/nicotine status: former use of tobacco/nicotine Second hand smoke exposure: No Alcohol intake: never Substance/Drug Use: never Caregiver/support person: Yes Lives independently: Yes Household members: spouse Marital status: Current occupational status: retired Current gender identity: Male Special aubree needs: No Agree to transfusion: Yes Vitals/I&O/Wt Last Vital Signs O2 Del Method Room Air 03/28/24 15:20 Weight last 48 hrs Weight 127.278 kg Physical Exam Narrative: General: Laying in bed appearing comfortable at this time on room air Lungs clear throughout bilaterally Abdomen soft nontender Extremities: Both feet wrapped with Band-Aid. He was just examined by podiatry. I did not take the bandage down. Normal S1 and S2. 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 dedicated intermodal truck driver use Diabetes mellitus complication status: with hyperglycemia Qualified Code(s): E11.65 - Type 2 diabetes mellitus with hyperglycemia; Z79.4 - assisted (current) use of insulin (5) CKD (chronic kidney disease): Qualifiers: Chronic kidney disease stage: unspecified stage Qualified Code(s): N18.9 - Chronic kidney disease, unspecified (6) Abscess of left foot: (7) JOHAN (obstructive sleep apnea): (8) COPD (chronic obstructive pulmonary disease): Qualifiers: COPD type: unspecified COPD Qualified Code(s): J44.9 - Chronic obstructive pulmonary disease, unspecified (9) Charcot's joint of left foot: (10) Chills: (11) PAD (peripheral artery disease): Plan #Left foot ulcer (left worse than right) #Right foot ulcer # Diabetes mellitus type 2 #Peripheral arterial disease #Hypertension #Peripheral neuropathy ? He is a direct admission so we do not have any labs on the patient. ? Check CBC, CMP, magnesium, INR ? Continue on carbohydrate cardiac diet ? Order CT foot with contrast left side. If podiatry would like to do an MRI we may switch the imaging study. ? Check CRP, ESR ? Patient says he been afebrile ? Check blood culture ? Check lactic acid ? Check BNP ? Check procalcitonin ? Sliding scale insulin ? Heparin SQ twice daily for DVT prophylaxis ? Placed on mag and Zosyn empirically ? Placed on normal saline 75 cc/h ? Nurse to list medications and complete med rec. Patient is a poor historian and cannot tell me all his medication at this time. -Consult cardiology for peripheral arterial disease. Discussed with cardiology ? Consult podiatry for possible intervention debridement of ulcers. Discussed with Dr. Mcneal Full code DVT prophylaxis: Heparin SQ twice daily Attestations Medical Necessity Statement*: Than 2 midnight stay for management of bilateral foot ulcers with potential peripheral intervention and debridement. 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
--- NOTE | 2024-03-28 16:21 | P.CONIM_ITS ---
Providers/Reason For Consult 2 Consulting Physician/Specialty*: Hermelindo Smith.P.M./podiatry Reason for Consult*: Bilateral lower extremity wounds Attending Physician: Skyla Estrella MD Primary Care Provider: Terry Llanos MD History of Present Illness History of Present Illness Marcelino Díaz is a 78 year old male Review of Systems 2 General: Reports: 10 or more systems reviewed and unremarkable except in HPI and below Const: Denies: fever(s), chills, body aches or change in appetite Eyes: Denies: change in vision or blurry vision Card: Denies: chest pain, palpitations or irregular heart rhythm Resp: Denies: dyspnea GI: Denies: abdominal pain, nausea, vomiting or diarrhea Musc: Reports: joint stiffness Skin/Breast: Reports: non-healing lesions and lesions Neuro: Reports: numbness in extremities Medications/Allergies Home Medications Medication Instructions Recorded Confirmed Last Taken Type albuterol sulfate 90 mcg/actuation 2 puff inhalation Q6H PRN 01/05/22 03/13/24 Unknown Rx aerosol inhaler (ProAir HFA) shortness of breath or wheezing #18 grams atorvastatin 40 mg tablet 40 mg PO DAILY #90 tabs 01/05/22 03/13/24 02/27/24 Rx blood sugar diagnostic (OneTouch #100 ea 01/05/22 03/13/24 Unknown Rx Verio test strips) famotidine 20 mg tablet 20 mg PO DAILY #90 tabs 01/05/22 03/13/24 02/27/24 Rx fluticasone propionate 50 2 spray intranasal DAILY #15.8 mL 01/05/22 03/13/24 02/28/24 Rx mcg/actuation nasal spray,suspension furosemide 20 mg tablet (Lasix) 20 mg PO QAM PRN edema #90 tabs 01/05/22 03/13/24 Unknown Rx metformin 1,000 mg tablet 1,000 mg PO BID #180 tabs 01/05/22 03/13/24 02/27/24 Rx primidone 50 mg tablet See Rx Instructions PO .COMPLEX 01/05/22 03/13/24 02/27/24 Rx #450 tabs tamsulosin 0.4 mg capsule 0.4 mg PO DAILY #90 caps 01/05/22 03/13/24 02/27/24 Rx trandolapril 2 mg tablet 2 mg PO DAILY #90 tabs 01/05/22 03/13/24 02/27/24 Rx Diabetic shoes with inserts #1 ea 03/30/22 03/13/24 Unknown Rx [place] Boot to the Right #1 ea 06/20/22 03/13/24 Unknown Rx [place] Boot to the left #1 ea 06/20/22 03/13/24 Unknown Rx articulating AFO to the right #1 ea 06/20/22 03/13/24 Unknown Rx lower extremity galantamine 4 mg tablet 4 mg PO BID #60 tabs 11/01/22 03/13/24 02/27/24 Rx multivitamin 1 tab PO DAILY 11/02/22 03/13/24 02/27/24 History acetaminophen 325 mg tablet 325 mg PO QID PRN Pain 07/05/23 03/13/24 02/03/24 History (Tylenol) bisacodyl 10 mg rectal suppository 10 mg IN DAILY PRN Constipation 07/05/23 03/13/24 Unknown History (Dulcolax (bisacodyl)) calcium carbonate (Tums) 200 mg PO BID PRN Heartburn 07/05/23 03/13/24 02/03/24 History gabapentin 300 mg capsule 300 mg PO TID 07/05/23 03/13/24 02/27/24 History insulin glargine 100 unit/mL (3 42 unit SUBCUT BID 07/05/23 03/13/24 02/27/24 History mL) subcutaneous pen insulin lispro 100 unit/mL 3 unit SUBCUT BID 07/05/23 03/13/24 02/27/24 History subcutaneous pen (Humalog KwikPen (U-100) Insulin) magnesium hydroxide 400 mg/5 mL 30 ml PO DAILY PRN Constipation 07/05/23 03/13/24 Unknown History oral suspension (Milk of Magnesia) nitroglycerin 0.4 mg sublingual 0.4 mg sublingual Q5M PRN Chest 07/05/23 03/13/24 Unknown History tablet (Nitrostat) Pain sitagliptin phosphate 50 mg tablet 50 mg PO DAILY 01/30/24 03/13/24 02/27/24 History (Januvia) tramadol 50 mg tablet 50 mg PO Q6H PRN post op pain #12 02/28/24 03/13/24 Unknown Rx tabs amoxicillin 875 mg-potassium 1 tab PO Q12H #14 tabs 03/06/24 03/13/24 Unknown Rx clavulanate 125 mg tablet Allergies Allergy/AdvReac Type Severity Reaction Status Date / Time sertraline [From Zoloft] Allergy Intermediate Seizure Verified 03/13/24 15:45 Latex, Natural Rubber Allergy Unknown ALGY-Rash Verified 03/13/24 15:45 PFSH Acute 2 PFSH: Medical History (Updated 03/28/24 @ 17:23 by Devin Mcneal DPM) HTN (hypertension) BPH (benign prostatic hyperplasia) Diabetes mellitus COPD (chronic obstructive pulmonary disease) CKD (chronic kidney disease) Fibromyalgia ASHD (arteriosclerotic heart disease) JOHAN (obstructive sleep apnea) Hyperlipidemia PAD (peripheral artery disease) Surgical History H/O vasectomy S/P rotator cuff repair S/P PTCA (percutaneous transluminal coronary angioplasty) S/P CABG (coronary artery bypass graft) Family History Other Cancer Denies family history of Diabetes Social History Smoking and tobacco/nicotine status: former use of tobacco/nicotine Second hand smoke exposure: No Alcohol intake: never Substance/Drug Use: never Caregiver/support person: Yes Lives independently: Yes Household members: spouse Marital status: Current occupational status: retired Current gender identity: Male Special aubree needs: No Agree to transfusion: Yes Vitals/I&O/Wt Last Vital Signs Temp 98.1 F 03/28/24 15:37 Pulse 86 03/28/24 15:37 Resp 15 03/28/24 15:37 BP 131/76 03/28/24 15:37 Pulse Ox 97 03/28/24 15:37 O2 Del Method Room Air 03/28/24 15:37 Weight last 48 hrs Weight 280 lb 9.6 oz Physical Exam 2 Narrative: EXAM NARRATIVE: VASCULAR: PT monophasic DP biphasic Left foot DERMATOLOGICAL: Multiple ulcerations to bilateral feet. Left worse than right. Most worrisome is left plantar heel wound measuring 3.0 x 3.0 x 0.2 cm. Negative probe to bone. Significant surrounding erythema and maceration. Erythema greater than 3 cm circumferentially and extending medially up into the lyle pedis. No underlying fluctuance. Dorsal wound left foot overlying medial cuneiform ischemic in nature no active drainage. Surrounding erythema. Left foot second digit amputation site full-thickness ulceration down to level of second metatarsal head no active drainage no surrounding erythema. Right foot wounds stable these include right foot fourth digit superficial ulceration. Right foot third digit with positive probe to bone. Plantar medial right foot wound at the level of the first metatarsal base. MUSCULOSKELETAL: Contracture PIPJ lesser digits. Status post left foot second digit amputation NEUROLOGICAL: Neurological sensation to the affected foot and ankle is diminished through L4-S1 dermatomes via 10g SWMF, diminished sensation extends proximally to the level of the ankle A&P Assessment and plan (1) Abscess of left foot: (2) Diabetes mellitus: Qualifiers: Diabetes mellitus type: type 2 Diabetes mellitus senior living insulin use: with senior living use Diabetes mellitus complication status: with hyperglycemia Qualified Code(s): E11.65 - Type 2 diabetes mellitus with hyperglycemia; Z79.4 - residential (current) use of insulin (3) PAD (peripheral artery disease): Plan -Bilateral foot wounds. Left foot most concerning for underlying abscess -Labs and vitals reviewed -WBC pending -ESR pending -CRP pending -HR 86 -RR 15 -Tmax 98.1 -Cultures wound cultures taken today at wound care pending. Wound cultures taken left foot on 03/15/2024 showed Proteus and group B strep. Both sensitive to Rocephin -Abx patient has been on 1 g Rocephin outpatient -Diet: Okay for diet from podiatry standpoint at this time -Most concern for left foot abscess. CT scan left foot with contrast pending. Evaluate for abscess. Patient also has significant peripheral arterial disease which is complicating wound healing process. CT angiogram taken on 02/02/2024 showed severe multifocal atherosclerotic disease. Cardiology has been consulted to evaluate and determine if intervention is possible for revascularization of the left lower extremity. Based on the findings of the CT scan as well as findings from angio we will be able to determine best course of action for left foot infection whether that be incision and debridement versus amputation. Concern for debridement at this time as patient poor blood flow and ability to heal aggressive debridement. 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
[2024-03-28] MEDS: pantoprazole 40 mg SDV IVP (17:09)
[2024-03-28] MEDS: heparin 5,000 unit/mL INJ 1 mL 5000 UNIT SUBCUT (17:10)
[2024-03-28] MEDS: vancomycin 1,250 MG/250 ML PIGGYBACK 250 MG IV (17:11)
[2024-03-28] MEDS: sodium chloride 0.9% 1,000 ML 75 ML IV (17:12)
[2024-03-28 17:22] LABS: Glucose Point of Care 272 mg/dL (70-110)
[2024-03-28 17:34] VITALS: O2SAT 92
[2024-03-28] MEDS: insulin lispro 100 unit/1 mL SUBCUT ×2 (17:42→21:52)
[2024-03-28 18:56] LABS: Basophils # 0.1 10^3/uL (0.0-0.1); Basophils % 0.6 %; Eosinophils # 0.3 10^3/uL (0.0-0.8); Eosinophils % 3.1 %; Hematocrit 39.1 % (37-53); Lymphocytes # 1.3 10^3/uL (0.8-4.8); Lymphocytes % 13.6 %; Mean Corpuscular HGB Conc 30.9 g/dL (30-55); Mean Corpuscular Hemoglobin 30.5 pg (27-33); Mean Corpuscular Volume 98.5 fl (82-101); Mean Platelet Volume 10.5 fL (7.4-10.4); Monocytes # 0.8 10^3/uL (0.2-0.9); Monocytes % 8.5 %; Neutrophils % 72.9 %; Nucleated Red Blood Cells % 0 %; Platelet Count 191 10^3/cmm (157-399); Red Blood Count 3.97 10^6/uL (3.85-5.65); Red Cell Distribution Width 14.3 % (12.1-15.1); White Blood Count 9.46 10^3/uL (3.29-11.43)
[2024-03-28 19:19] LABS: Lactic Sepsis W/Reflex 3.1 mmol/L (0.5-2.2)
[2024-03-28 19:29] LABS: NT Pro B Type Natriuretic Pept 139 pg/mL (0-450); Procalcitonin 0.09 ng/mL (0-0.5); Thyroid Stimulating Hormone 0.25 uIU/mL (0.27-4.20)
[2024-03-28 19:40] LABS: Alanine Aminotransferase 15 U/L (0-41); Albumin Level 2.8 g/dL (3.5-5.2); Alkaline Phosphatase 120 U/L (40-130); Anion Gap 17.5 (5-19); Aspartate Amino Transferase 10 U/L (0-40); Blood Urea Nitrogen 21 mg/dL (8-23); C Reactive Protein 184.3 mg/L (0.0-4.9); Calcium 8.2 mg/dL (8.5-10.5); Carbon Dioxide 24 mmol/L (22-29); Chloride 97 mmol/L (98-107); Creatinine Clr Calc Pharmacy 77.6495; Globulin 4.4 g/dL (1.3-4.6); Glucose 320 mg/dL (65-115); Magnesium 1.7 mg/dL (1.7-2.3); Osmolality Calculated 293 mOsm/kg (285-295); Potassium 4.5 mmol/L (3.5-5.1); Sodium 134 mmol/L (136-145); Total Bilirubin 0.2 mg/dL (0.15-1.2); Total Protein 7.2 g/dL (6.6-8.7)
[2024-03-28 20:00] VITALS: BP 145/62; PULSE 89; RESP 20; TEMP 36.7; O2SAT 95
[2024-03-28 20:10] LABS: Estmated Average Glucose 220; Hemoglobin A1C 9.3 % (4.0-6.0)
[2024-03-28 20:36] LABS: Reflex Lactate Order REFLEX LACTIC ORDERD
[2024-03-28 21:05] LABS: Glucose Point of Care 205 mg/dL (70-110)
[2024-03-28] MEDS: piperacillin-tazobactam 3.375 GM in sodium chloride 0.9% (plus) 50 ML IV (21:52)
[2024-03-28 23:06] LABS: Lactic Acid level (Lactate) 1.7 mmol/L (0.5-2.2)
[2024-03-29] VITALS (38 sets, daily range): BP systolic 93–176; BP diastolic 48–130; PULSE 15–94; RESP 16–30; TEMP 36.5–37.2; O2SAT 83–99
--- NOTE | 2024-03-29 03:06 | PC.NURSE ---
FLOOR [place] report called to TAMI Matthews
[2024-03-29] MEDS: heparin 5,000 unit/mL INJ 1 mL 5000 UNIT SUBCUT (04:06)
[2024-03-29] MEDS: vancomycin 1,250 MG/250 ML PIGGYBACK 250 MG IV ×2 (04:07→16:55)
[2024-03-29] MEDS: piperacillin-tazobactam 3.375 GM in sodium chloride 0.9% (plus) 50 ML IV ×3 (05:12→21:55)
[2024-03-29 06:04] LABS: Glucose Point of Care 151 mg/dL (70-110)
[2024-03-29 06:06] LABS: Basophils # 0.1 10^3/uL (0.0-0.1); Basophils % 0.6 %; Eosinophils # 0.3 10^3/uL (0.0-0.8); Eosinophils % 3.8 %; Hematocrit 38.2 % (37-53); Lymphocytes # 1.2 10^3/uL (0.8-4.8); Lymphocytes % 13.2 %; Mean Corpuscular HGB Conc 31.9 g/dL (30-55); Mean Corpuscular Hemoglobin 30.4 pg (27-33); Mean Corpuscular Volume 95.3 fl (82-101); Monocytes # 0.8 10^3/uL (0.2-0.9); Monocytes % 8.6 %; Neutrophils # 6.52 10^3/uL (1.8-7.7); Neutrophils % 72.5 %; Nucleated Red Blood Cells % 0 %; Platelet Count 197 10^3/cmm (157-399); Red Blood Count 4.01 10^6/uL (3.85-5.65); Red Cell Distribution Width 14.1 % (12.1-15.1); White Blood Count 8.99 10^3/uL (3.29-11.43)
[2024-03-29 06:15] LABS: INR 1.14 (0.8-1.2)
[2024-03-29 06:29] LABS: Alanine Aminotransferase 15 U/L (0-41); Albumin Level 2.8 g/dL (3.5-5.2); Alkaline Phosphatase 102 U/L (40-130); Anion Gap 15.1 (5-19); Aspartate Amino Transferase 10 U/L (0-40); Blood Urea Nitrogen 16 mg/dL (8-23); Calcium 8.6 mg/dL (8.5-10.5); Carbon Dioxide 25 mmol/L (22-29); Chloride 104 mmol/L (98-107); Creatinine Clr Calc Pharmacy 94.9049; Globulin 4.3 g/dL (1.3-4.6); Glucose 140 mg/dL (65-115); Magnesium 1.7 mg/dL (1.7-2.3); Osmolality Calculated 293 mOsm/kg (285-295); Potassium 4.1 mmol/L (3.5-5.1); Sodium 140 mmol/L (136-145); Total Bilirubin 0.2 mg/dL (0.15-1.2); Total Protein 7.1 g/dL (6.6-8.7)
--- NOTE | 2024-03-29 09:00 | XACV_ITS ---
Exam Room: [facility] Ht: 180 cm Wt: 127 kg BSA: 2.57 m2 Gender: Male : 1945 Any Known Allergies: Other Exam Priority: Routine Procedure(s): Procedure Description: Diagnostic procedure Procedure Description: Peripheral Cath Diagnostic Procedure Procedure Description: Peripheral vascular Intervention Procedure Description: PV Balloon Procedure Description: PV Stent Procedure Description: Miscellaneous Procedure Description: ACT Lower Extremity Diagnostic Findings INDICATION: Critical limb ischemia/non healing wound of left foot/PAD. Left lower extremity findings: Left common iliac artery has severe 80 to 90% stenosis. Distal left common iliac artery has another 50-60% stenosis. Left internal iliac artery is patent. Left external iliac artery was patent. Left common femoral artery has 30-40% stenosis. Left profunda artery is patent. Left SFA is patent. Left popliteal artery is patent. Patient has three-vessel runoff to the foot. Left anterior tibial artery has diffuse disease. However is patent. Left peroneal artery is patent. Left posterior tibial artery has proximal 90% stenosis.. Lower Extremity Interventional Findings Left Common Iliac Artery: 80% stenosis treated with AB ARMADA 35 OTW [id number] and AB ARMADA 35 OTW [id number]. Left Common Iliac Artery: 80% stenosis treated with Omnilink. Left Mid-longitudinal Posterior Tibial Artery: 90% stenosis treated with AB ARMADA 14 OTW [id number]. Procedure detail: After diagnostic images were obtained, we decided to perform balloon angioplasty of severe posterior tibial artery stenosis and stent left common iliac artery. We switched the right common femoral artery access from short sheath to long sheath and went up and over to the left lower extremity. Using run-through wire and seeker support catheter we crossed the posterior tibial artery stenosis. We dilated the stenosis with 2.5 x 120 mm [place] balloon. This improved flow significantly. There was some haziness noted in peroneal artery after ballooning with PT. As flow was brisk, we decided to treated with heparin. We then obtained access in left common femoral artery. Using Glidewire we crossed the severe right common iliac artery stenosis. We predilated the stenosis initially with 6.0 x 40 mm [place] balloon. This was followed by predilation with a 7.0 x 60 mm [place] balloon. We then placed a 8.0 x 39 mm Omnilink stent. At this time final angiogram was performed that showed excellent stent expansion and no residual stenosis in the iliac artery. Patient left the laboratory apparatus glass blower in a stable condition. . Conclusions Severe proximal left common iliac artery stenosis s/p successful revascularization with 1 stent. Severe posterior tibial artery stenosis s/p revascularization with balloon angioplasty. There is significant left lower extremity disease. Left Common Iliac Artery was treated with two Balloon. Left Common Iliac Artery was treated with Stent. Left Mid-longitudinal Posterior Tibial Artery was treated with Balloon. Recommendations Dual antiplatelet therapy with aspirin and plavix. Outpatient cardiology follow up in 2 weeks. Pressures Phase:Rest AO : 161 / 63 ( 103 ) @ 11:29:00 AM 137 / 51 ( 88 ) @ 11:38:00 AM 141 / 66 ( 99 ) @ 11:55:00 AM 140 / 64 ( 96 ) @ 12:07:00 PM 178 / 69 ( 110 ) @ 12:39:00 PM 157 / 61 ( 97 ) @ 12:39:00 PM 182 / 67 ( 113 ) @ 12:58:00 PM Hemodynamic Data Phase:Rest AO : 161.0 / 63.0 ( 103.0 ) @ 11:29:00 AM 137.0 / 51.0 ( 88.0 ) @ 11:38:00 AM 141.0 / 66.0 ( 99.0 ) @ 11:55:00 AM 140.0 / 64.0 ( 96.0 ) @ 12:07:00 PM 178.0 / 69.0 ( 110.0 ) @ 12:39:00 PM 157.0 / 61.0 ( 97.0 ) @ 12:39:00 PM 182.0 / 67.0 ( 113.0 ) @ 12:58:00 PM Clinical Evaluation EBL: 5mL-10mL Procedural Details Procedure Consent Obtained. Pre-Procedure Time Out. Identified patient by full name and date of as verbalized by the patient/guarantor. Does the consent match the physician's order: Yes. Accurate & Complete Informed Consent: Yes. Inpatient/Outpatient History & Physical on Chart: Yes. If H&P is completed, is and addenduem needed: No. Visualize and Verify Site with Patient/Guarantor: N/A. Relevant Radiology Images available: Yes. The risks, benefits, and alternatives of sedation and/or procedure were discussed by physician. The patient agrees to continue. Procedure started. Correct patient, site and procedure confirmed by cath team. Current diagnosis: PVD. PERRLA. Strong, equal hand oncology transplant network manager bilaterally. Lungs clear x 5 lobes. IV Site on Arrival: Single Lumen PICC in the right anticubital. IV Fluids: 0.9% NaCl at KVO. 900 mL infused prior to laboratory apparatus glass blower. Pre Procedural Pulses: bilateral dorsalis pedis was Doppled. Pre Procedural Pulses: bilateral posterior tibial was Doppled. Oxygen started at 2liters/min via nasal canula. bilateral groins was prepped with chloroprep then draped in the usual sterile fashion. Physician notified. Baseline sample Acquired. HR: 71 BPM. Patient's family unavailable. Equipment: 6F - Femoral. Cardiac Cath Pack. ACIST Manifold Kit Model BT 2000. Heparinized Saline (2 units/mL), 1000 mL bag. Kit, Micropuncture. Physician arrived. Physician scrubbed in. Immediate Pre-Procedure Time Out. Correct Patient: Yes; Correct Procedure: Yes; Correct Site: Yes; Correct Patient Position: Yes; Correct Supplies: Yes; Dried Flammable Prep: Yes; Blood Products Available: N/A;. Lidocaine 1% infiltrated to the right groin. Arterial access obtained with micropuncture set. A 5 r UF catheter in over the standard J wire. Aortic arch arteriogram performed in AP @ 10 ml/sec for a total of 30 mL. Pigtail postioned above the bifurcation of the iliacs. Aortagram performed @ 10 mL/sec for a total of 30 mL. Left common iliac selected and arteriogram with runoff performed @ 10 mL/sec for a total of 30 mL in DSA. UF catheter out. Exchange stiff angled glidewire in through the sheath and advanced distal to the lesion in the Left PT. Sheath upsized to a 6 Fr. Seeker catheter inserted over the wire. Wire out. 300cm Runthrough guidewire in through the Seeker support catheter and advanced distal to the lesion in the Left PT. Seeker catheter out over the wire. Left posterior tibial selected and arteriogram with runoff performed @ 10 mL/sec for a total of 20 mL. Inflation number : 1 A AB ARMADA 14 OTW [id number] was prepped and advanced across the Posterior Tibial, Left , then inflated to 8 WALI for 1:01 seconds. Balloon out. Left posterior tibial selected and arteriogram with runoff performed @ 10 mL/sec for a total of 20 mL. ACT drawn. Results 276 seconds. Therapeutic limits - pre-heparin administration 90-150 seconds and monitoring heparin during a vascular procedure >250 seconds. Wire out. Sheath injected in Right common femoral artery and runoff performed at 10 for 30. Sheath upsized to a [address] Heck scrubbed out. left groin was prepped with chloroprep then draped in the usual sterile fashion. Dr. Heck scrubbed in. Ultrasound being used to obtain access in the left groin. Lidocaine 1% infiltrated to the left groin. Arterial access obtained with micropuncture set. Glidewire inserted through the 6Fr sheath. Sheath upsized to a 7 Fr. A 5Fr UF catheter in over wire through the right femoral sheath. DSA performed of the left iliac artery. 7x60mm balloon inserted and advanced to the left common iliac. Balloon out. The UF catheter hooked to heparnized saline at KVO to maintain patency. Inflation number : 1 A AB ARMADA 35 OTW [id number] was prepped and advanced across the Common Iliac, Left , then inflated to 6 WALI for 1:05 seconds. Inflation number: 2 The AB ARMADA 35 OTW [id number] was reinflated across the Common Iliac, Left, to 6 WALI for 1:01 seconds. Balloon out. Left common iliac selected and arteriogram with runoff performed @ 10 mL/sec for a total of 20 mL. Inflation number : 3 A AB ARMADA 35 OTW [id number] was prepped and advanced across the Common Iliac, Left , then inflated to 6 WALI for 0:57 seconds. Inflation number: 4 The AB ARMADA 35 OTW [id number] was reinflated across the Common Iliac, Left, to 6 WALI for 0:45 seconds. Balloon out. Results checked. Inflation Number : 1 A Omnilink 8.0 x 39 -Lot Number# [id number] was prepped and advanced across the Common Iliac, Left1. The stent was deployed at 11 WALI for 0:30 seconds. Exp . Stent balloon out over wire. Left common iliac selected and arteriogram with runoff performed @ 10 mL/sec for a total of 30 mL in DSA. UF Catheter removed over the standard wire on the right. Glidewire out on the left. ACT drawn. Results 277 seconds. Therapeutic limits - pre-heparin administration 90-150 seconds and monitoring heparin during a vascular procedure >[address] Heck scrubbed out. A Suture was successful obtaining hemostatsis at the Right Femoral artery insertion site. A Suture was successful obtaining hemostatsis at the Left Femoral artery insertion site. Sheath(s) sutured into position with 2-0 silk and sterile 4x4's and Op-site applied over the site. No oozing or signs and symptoms of hematoma noted. Arterial sheaths flushed and connected to tranducer and pressure bag with heparinized saline. Post Procedure: Pulses reassessed and unchanged. PERRLA. Strong, equal hand oncology transplant network manager bilaterally. No VTE prophylaxis required. Post-op diagnosis: Severe left common iliac disease s/p stenting/Sever left PT disease s/p ballooning. Complications: none. Estimated blood loss: 5mL-10mL. Responsiveness - Normal response to verbal stimuli; alert and oriented, PERRLA. Airway - Unaffected, no intervention required; spontaneous ventilation. Circulation: W/N/L, pulses unchanged. Nausea/Vomiting: No. Medication's Wasted: Heparin = 3000 units. Medication's Wasted: Other = Versed 1 mg. Total IV fluids: 125 mL. Procedure completed. Patient transferred by bed to 1st floor. Access Site Site: Right Femoral artery Sheath Size: 6 Fr Hemostasis Method: Suture Hemostasis Success: Successful Site: Left Femoral artery Sheath Size: 6 Fr Hemostasis Method: Suture Hemostasis Success: Successful Procedure Medications Start: 10:22 AM Stop: 10:22 AM Medication: Versed Amount: 1 mg Route: I.V. Start: 10:29 AM Stop: 10:29 AM Medication: Fentanyl Amount: 50 mcg Route: I.V. Start: 10:39 AM Stop: 10:39 AM Medication: Versed Amount: 1 mg Route: I.V. Start: 10:44 AM Stop: 10:44 AM Medication: Heparin Amount: 5000 units Route: I.V. Start: 10:49 AM Stop: 10:49 AM Medication: Heparin Amount: 3000 units Route: I.V. Start: 10:58 AM Stop: 10:58 AM Medication: Fentanyl Amount: 50 mcg Route: I.V. Start: 11:10 AM Stop: 11:10 AM Medication: Heparin Amount: 1000 units Route: I.V. Start: 11:14 AM Stop: 11:14 AM Medication: Heparin Amount: 2000 units Route: I.V. Start: 11:23 AM Stop: : AM Medication: Fentanyl Amount: 50 mcg Route: I.V. Start: 11:28 AM Stop: : AM Medication: Versed Amount: 1 mg Route: I.V. Start: 11:45 AM Stop: :45 AM Medication: Fentanyl Amount: 50 mcg Route: I.V. Start: 11:32 AM Stop: 11:32 AM Medication: Heparin Amount: 2000 units Route: I.V. Start: 12:15 PM Stop: 12:15 PM Medication: Heparin Amount: 1000 units Route: I.V. Start: 12:15 PM Stop: 12:15 PM Medication: Plavix Amount: 600 mg Route: P.O. Start: 12:15 PM Stop: 12:15 PM Medication: Aspirin Amount: 325 mg Route: P.O. I, the attending physician, have reviewed and verified all procedure medications. Yes, all medications given per verbal order History/Risk Factors Hypertension: Yes Dyslipidemia: Yes Peripheral Arterial Disease (PAD): Yes Myocardial Infarction ([place]): No Obesity: Yes Renal Disease: No Tobacco Use: Former Prior Interventions PCI: Yes CABG: Yes Valve Surgery: No Report Signatures Finalized by Corwin Heck MD on 04/06/2024 11:20 PM
--- NOTE | 2024-03-29 10:06 | W.PM.OPSUD ---
Surgery/Procedure H&P Update DATE OF PROCEDURE: March 29, 2024 DATE H&P PERFORMED: 03/28/24 H&P UPDATE INFORMATION: I have reviewed H&P completed within last 30 days, I have examined patient prior to procedure and No changes to prior documentation PREOP DIAGNOSIS: Critical limb ischemia/non healing wound of left foot/PAD PRIMARY INDICATION FOR PROCEDURE: Critical limb ischemia/non healing wound of left foot/PAD PLANNED PROCEDURE: Peripheral angiogram with possible intervention PATIENT REASSESSED PRIOR TO SEDATION, WITH NO CHANGE NOTED: Yes PHYSICAL EXAM: alert, oriented x 3, clear to auscultation bilaterally and regular rate & rhythm AIRWAY EVAL/ANESTHESIA PLAN: normal airway, ASA III, Local Anesthesia, Risks, benefits & alternatives of sedation and/or procedure discussed and Patient agrees to continue as planned ADDITIONAL INFORMATION: Moderate sedation
[2024-03-29 12:50] LABS: Glucose Point of Care 159 mg/dL (70-110)
[2024-03-29] MEDS: insulin lispro 100 unit/1 mL SUBCUT ×3 (12:52→21:53)
--- NOTE | 2024-03-29 13:15 | P.PN_ITS ---
Subjective 2 Subjective: Patient had peripheral angiogram done today that showed severe left common iliac disease and critical stenosis of proximal posterior tibial artery. He had successful revascularization of PT with balloon angioplasty and left common iliac artery treated with 1 stent. Vitals/I&O/Wt Last Vital Signs Temp 98.0 F 03/29/24 12:00 Pulse 84 03/29/24 12:00 Resp 22 H 03/29/24 12:00 BP 145/101 03/29/24 12:00 Pulse Ox 94 03/29/24 12:00 O2 Del Method Room Air 03/29/24 12:00 03/28/24 03/29/24 03/29/24 22:59 06:59 14:59 Intake Total 490 / 490 300 / 790 Output Total 600 / 600 Balance 490 / 490 -300 / 190 Weight last 48 hrs Weight 278 lb 7 oz Weight 280 lb 9.6 oz Physical Exam 2 Narrative: GENERAL: Patient is alert, awake and oriented x3. [] NECK: No jugular vein distension. [] HEENT: No cyanosis. No icterus. No pallor. [] HEART: Regular S1 and S2. No murmur, rub or gallop. [] LUNGS: Clear to auscultate bilaterally. [] CENTRAL NERVOUS SYSTEM: Grossly nonfocal. [] EXTREMITIES: Lower extremities with 1+ edema bilaterally. Dressing applied on the foot. Data 03/29/24 05:54 03/29/24 05:54 Micro: Microbiology 03/28/24 18:02 Blood Culture - Preliminary Blood SPECIMEN COLLECTED 03/28/24 18:02 Blood Culture - Preliminary Blood SPECIMEN COLLECTED A&P Assessment and plan (1) Critical limb ischemia of left lower extremity: (2) PAD (peripheral artery disease): (3) Hyperlipidemia: Qualifiers: Hyperlipidemia type: unspecified Qualified Code(s): E78.5 - Hyperlipidemia, unspecified (4) ASHD (arteriosclerotic heart disease): (5) HTN (hypertension): (6) Diabetes mellitus: Qualifiers: Diabetes mellitus type: type 2 Diabetes mellitus custodial insulin use: with custodial use Diabetes mellitus complication status: with hyperglycemia Qualified Code(s): E11.65 - Type 2 diabetes mellitus with hyperglycemia; 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 some haziness seen in the proximal peroneal artery post ballooning of PT. We will start aspirin Plavix and continue. He was adequately anticoagulated during the procedure Thank you for involving us with care of this patient. We will continue to follow. Please call with questions. Attestations 2 Medical Necessity Statement*: Care expected to cross 2 midnights. Coding Level of Care Code Acute Code for [facility] Diagnoses Critical limb ischemia of left lower extremity I70.222 PAD (peripheral artery disease) I73.9 Hyperlipidemia, unspecified hyperlipidemia type E78.5 Hyperlipidemia type: unspecified ASHD (arteriosclerotic heart disease) I25.10 Essential hypertension I10 Type 2 diabetes mellitus with hyperglycemia, with long-term current use of insulin E11.65; Z79.4 Diabetes mellitus type: type 2 Diabetes mellitus custodial insulin use: with custodial use Diabetes mellitus complication status: with hyperglycemia
[2024-03-29] MEDS: sodium chloride 0.9% 1,000 ML 100 ML IV ×2 (14:31→22:39)
--- NOTE | 2024-03-29 14:41 | PC.NURSE ---
received from cardiac collaborative teacher at 1235.report received.pt is awake and alert.sr on monitor.denies pain.right and left groin with srterial sheaths intact to pressurized system..both sites with drsgs in place.no hematoma noted.both legs are warm to touch and with brisk capillary refill.bilat foot drsgs in place...received in report from film processing shift supervisor that dr mark does not want dressings removed..so unable to assess for dp pulses at this time.pt instructed in activity restrictions s/p femoral artery procedures...and instructed to notify staff for any chest pain,any pain,numbness,sob,or for any concerns at all.pt verb understanding of instructions.
--- NOTE | 2024-03-29 14:58 | P.PN_ITS ---
Subjective 2 Subjective: Seen today. Seen after back from angiogram. Plan to take to the OR tomorrow. Patient does not offer any complaints at this time. Vitals/I&O/Wt Last Vital Signs Temp 98.0 F 03/29/24 12:00 Pulse 84 03/29/24 12:00 Resp 22 H 03/29/24 12:00 BP 145/101 03/29/24 12:00 Pulse Ox 94 03/29/24 12:00 O2 Del Method Room Air 03/29/24 12:00 03/28/24 03/29/24 03/29/24 22:59 06:59 14:59 Intake Total 490 / 490 300 / 790 50 / 50 Output Total 600 / 600 350 / 350 Balance 490 / 490 -300 / 190 -300 / -300 Weight last 48 hrs Weight 126.297 kg Weight 127.278 kg Physical Exam 2 Narrative: General: Laying in bed appearing comfortable at this time on room air Lungs clear throughout bilaterally Abdomen soft nontender Extremities: Both feet wrapped with Band-Aid. I did not take the bandage down. Normal S1 and S2. Data 03/29/24 05:54 03/29/24 05:54 Micro: Microbiology 03/28/24 18:02 Blood Culture - Preliminary Blood SPECIMEN COLLECTED 03/28/24 18:02 Blood Culture - Preliminary Blood SPECIMEN COLLECTED A&P Assessment and plan (1) HTN (hypertension): (2) S/P CABG (coronary artery bypass graft): (3) Hyperlipidemia: Qualifiers: Hyperlipidemia type: unspecified Qualified Code(s): E78.5 - Hyperlipidemia, unspecified (4) Diabetes mellitus: Qualifiers: Diabetes mellitus type: type 2 Diabetes mellitus long term care phlebotomist insulin use: with long term care phlebotomist use Diabetes mellitus complication status: with hyperglycemia Qualified Code(s): E11.65 - Type 2 diabetes mellitus with hyperglycemia; Z79.4 - [facility] (current) use of insulin (5) CKD (chronic kidney disease): Qualifiers: Chronic kidney disease stage: unspecified stage Qualified Code(s): N 18.9 - Chronic kidney disease, unspecified (6) Abscess of left foot: (7) JOHAN (obstructive sleep apnea): (8) COPD (chronic obstructive pulmonary disease): Qualifiers: COPD type: unspecified COPD Qualified Code(s): J44.9 - Chronic obstructive pulmonary disease, unspecified (9) Charcot's joint of left foot: (10) Chills: (11) PAD (peripheral artery disease): Plan #Left foot ulcer (left worse than right) #Right foot ulcer # Diabetes mellitus type 2 #Peripheral arterial disease #Hypertension #Peripheral neuropathy ? He is a direct admission so we do not have any labs on the patient. ? Check CBC, CMP, magnesium, INR ? Continue on carbohydrate cardiac diet ? Order CT foot with contrast left side. If podiatry would like to do an MRI we may switch the imaging study. ? Check CRP, ESR ? Patient says he been afebrile ? Check blood culture ? Check lactic acid ? Check BNP ? Check procalcitonin ? Sliding scale insulin ? Heparin SQ twice daily for DVT prophylaxis ? Placed on mag and Zosyn empirically ? Placed on normal saline 75 cc/h ? Nurse to list medications and complete med rec. Patient is a poor historian and cannot tell me all his medication at this time. -Consult cardiology for peripheral arterial disease. Discussed with cardiology ? Consult podiatry for possible intervention debridement of ulcers. Discussed with Dr. Mcneal -Patient is status post peripheral angiogram today. ? Plan to take to the OR in morning with Dr. Mcneal. Full code DVT prophylaxis: Heparin SQ twice daily Attestations 2 Medical Necessity Statement*: Care expected to cross 2 midnights. Diagnoses Essential hypertension I10 S/P CABG (coronary artery bypass graft) Z95.1 Hyperlipidemia, unspecified hyperlipidemia type E78.5 Hyperlipidemia type: unspecified Type 2 diabetes mellitus with hyperglycemia, with long-term current use of insulin E11.65; Z79.4 Diabetes mellitus type: type 2 Diabetes mellitus nursing home insulin use: with long term care phlebotomist use Diabetes mellitus complication status: with hyperglycemia Chronic kidney disease, unspecified CKD stage N18.9 Chronic kidney disease stage: unspecified stage Abscess of left foot L02.612 JOHAN (obstructive sleep apnea) G47.33 Chronic obstructive pulmonary disease, unspecified COPD type J44.9 COPD type: unspecified COPD Charcot's joint of left foot M14.672 Chills R68.83 PAD (peripheral artery disease) I73.9
[2024-03-29 15:03] LABS: Partial Thromboplastin Time 63.1 SECONDS (23.9-36.7)
[2024-03-29] MEDS: pantoprazole 40 mg SDV IVP (15:37)
--- NOTE | 2024-03-29 16:05 | PC.SOCIAL ---
Pg 2 IMM Explained to pt Pg 2 IMM. No questions voiced. Provided pt a copy. Initialed, dated, & timed a copy & placed in chart.
[2024-03-29 16:28] LABS: Partial Thromboplastin Time 30.3 SECONDS (23.9-36.7)
[2024-03-29 16:38] LABS: Glucose Point of Care 239 mg/dL (70-110)
--- NOTE | 2024-03-29 17:00 | P.PN_ITS ---
Subjective 2 Subjective: Patient seen at bedside this afternoon. Status post angiogram with intervention to left lower extremity. Spoke with database marketing analyst who states blood flow has improved with three-vessel runoff Vitals/I&O/Wt Last Vital Signs Temp 99.0 F 03/29/24 16:00 Pulse 70 03/29/24 16:00 Resp 28 H 03/29/24 16:00 BP 145/59 03/29/24 16:00 Pulse Ox 96 03/29/24 16:00 O2 Del Method Room Air 03/29/24 12:00 03/29/24 03/29/24 03/29/24 06:59 14:59 22:59 Intake Total 300 / 790 50 / 50 Output Total 600 / 600 350 / 350 400 / 750 Balance -300 / 190 -300 / -300 -400 / -700 Weight last 48 hrs Weight 278 lb 7 oz Weight 280 lb 9.6 oz Physical Exam 2 Narrative: EXAM NARRATIVE: VASCULAR: PT monophasic DP biphasic Left foot DERMATOLOGICAL: Multiple ulcerations to bilateral feet. Left worse than right. Most worrisome is left plantar heel wound measuring 3.0 x 3.0 x 0.2 cm. Negative probe to bone. Significant surrounding erythema and maceration. Erythema greater than 3 cm circumferentially and extending medially up into the lyle pedis. No underlying fluctuance. Dorsal wound left foot overlying medial cuneiform ischemic in nature no active drainage. Surrounding erythema. Left foot second digit amputation site full-thickness ulceration down to level of second metatarsal head no active drainage no surrounding erythema. Right foot wounds stable these include right foot fourth digit superficial ulceration. Right foot third digit with positive probe to bone. Plantar medial right foot wound at the level of the first metatarsal base. MUSCULOSKELETAL: Contracture PIPJ lesser digits. Status post left foot second digit amputation NEUROLOGICAL: Neurological sensation to the affected foot and ankle is diminished through L4-S1 dermatomes via 10g SWMF, diminished sensation extends proximally to the level of the ankle Data 03/29/24 05:54 03/29/24 05:54 Micro: Microbiology 03/28/24 18:02 Blood Culture - Preliminary Blood SPECIMEN COLLECTED 03/28/24 18:02 Blood Culture - Preliminary Blood SPECIMEN COLLECTED A&P Assessment and plan (1) Abscess of left foot: (2) Diabetes mellitus: Qualifiers: Diabetes mellitus type: type 2 Diabetes mellitus skilled nursing insulin use: with intermediate designer use Diabetes mellitus complication status: with hyperglycemia Qualified Code(s): E11.65 - Type 2 diabetes mellitus with hyperglycemia; Z79.4 - [facility] (current) use of insulin (3) PAD (peripheral artery disease): Plan -Bilateral foot wounds. Left foot most concerning for underlying abscess -Labs and vitals reviewed -WBC 8.9 -ESR pending -CRP 184.3 VSS -Cultures wound cultures taken today at wound care pending. Wound cultures taken left foot on 03/15/2024 showed Proteus and group B strep. Both sensitive to Rocephin -Abx patient has been on 1 g Rocephin outpatient -Diet: N.p.o. at midnight for procedure of left foot 03/30/2024 -Lengthy discussion was had with patient at bedside this afternoon status post revascularization. We discussed options of treatment which include limb salvage in the form of incision and debridement tomorrow morning 03/30/2024 in an attempt to save the foot. I expressed my concern to the patient about healing the wound that we will most likely need to be left open. This will require extensive weekly wound care and continuation of PICC line and IV antibiotics. Alternative option discussed with patient was below the knee amputation to the left side. I discussed with the three-vessel runoff the patient would have a better chance of healing the below the knee amputation. Patient wishes to do everything possible to save the left lower extremity. We will proceed with incision and drainage of left foot tomorrow 03/30/2024. -Weight bearing: Weightbearing for transfers only -Dressings: Daily dressing changes to bilateral foot wounds consisting of Hydrofera Blue, 4 x 4 gauze, Kerlix -Continue current Abx therapy until ID and Sensitivity results -Trend labs -Discharge plan: To be determined -Podiatry will continue to round on patient daily and provide recommendations Attestations 2 Medical Necessity Statement*: Plan to go to the OR 03/30/2024 for incision and debridement of left foot Coding Level of Care Code Acute Code for Chg Fwd Diagnoses Abscess of left foot L02.612 Type 2 diabetes mellitus with hyperglycemia, with long-term current use of insulin E11.65; Z79.4 Diabetes mellitus type: type 2 Diabetes mellitus intermediate designer insulin use: with skilled nursing use Diabetes mellitus complication status: with hyperglycemia PAD (peripheral artery disease) I73.9
--- NOTE | 2024-03-29 20:20 | PC.NURSE ---
left femoral arterial sheath pulled at 1700.and right femoral arterial sheath pulled at 1730.manual pressure held x 20 min on each site.vss through-out procedure.no hematoma formation noted.sites dressed with 2x2 gauze and secured with biocclusive drsg.pt instructed in activity restrictions s/p femoral artery sheath pulls...and instructed to notify staff for any bleeding,pain,numbness,sob,...or for any concerns at all.pt verb understanding of instructions.
[2024-03-29 21:14] LABS: Glucose Point of Care 141 mg/dL (70-110)
[2024-03-30] VITALS (11 sets, daily range): BP systolic 102–167; BP diastolic 67–89; PULSE 73–87; RESP 18–29; TEMP 36.2–37.2; O2SAT 92–94
[2024-03-30] MEDS: heparin 5,000 unit/mL INJ 1 mL 5000 UNIT SUBCUT (03:50)
[2024-03-30 04:49] LABS: Vancomycin Trough 12.8 ug/mL (10-15)
[2024-03-30] MEDS: vancomycin 1,250 MG/250 ML PIGGYBACK 250 MG IV (05:25)
[2024-03-30 06:24] LABS: Glucose Point of Care 117 mg/dL (70-110)
[2024-03-30] MEDS: piperacillin-tazobactam 3.375 GM in sodium chloride 0.9% (plus) 50 ML IV (06:54)
--- NOTE | 2024-03-30 07:39 | P.ANESASSM_ITS ---
Pre-Anesthetic Assessment Height/Weight: Height 1.8 m Weight 125.418 kg Temp Pulse Resp BP Pulse Ox O2 Del Method 97.7 F 73 18 160/68 93 Room Air 03/30/24 07:26 03/30/24 07:26 03/30/24 07:26 03/30/24 07:26 03/30/24 07:26 03/30/24 07:26 Preop Diagnosis: Critical limb ischemia/non healing wound of left foot/PAD Operation Date: 03/30/24 08:00 Proposed Procedures p Incision And Drainage left foot(Left) - Devin Mcneal DPM Social Tobacco (former) and No alcohol Exam alert, oriented x 3 and clear to auscultation bilaterally Airway Submandibular: within normal limits Cervical ROM: Other (limited) Mallampati: Class II Pulmonary Chronic Obstructive Pulmonary Disease, Cough and Shortness of Breath CV/HEM Coronary Artery Disease and Hypertension Metabolic Diabetes Mellitus and Hyperlipidemia [facility] [place] Osteoarthritis/DJD Anesthetic Plan ASA status: 4 Anesthesia: MAC Medications/Allergies Home Medications Medication Instructions Recorded Confirmed Last Taken Type albuterol sulfate 90 mcg/actuation 2 puff inhalation Q6H PRN 01/05/22 03/28/24 Unknown Rx aerosol inhaler (ProAir HFA) shortness of breath or wheezing #18 grams blood sugar diagnostic (OneTouch #100 ea 01/05/22 03/28/24 Unknown Rx Verio test strips) famotidine 20 mg tablet 20 mg PO DAILY #90 tabs 01/05/22 03/28/24 02/27/24 Rx fluticasone propionate 50 2 spray intranasal DAILY #15.8 mL 01/05/22 03/28/24 02/28/24 Rx mcg/actuation nasal spray,suspension furosemide 20 mg tablet (Lasix) 20 mg PO QAM PRN edema #90 tabs 01/05/22 03/28/24 Unknown Rx metformin 1,000 mg tablet 1,000 mg PO BID #180 tabs 01/05/22 03/28/24 02/27/24 Rx tamsulosin 0.4 mg capsule 0.4 mg PO DAILY #90 caps 01/05/22 03/28/24 02/27/24 Rx trandolapril 2 mg tablet 2 mg PO DAILY #90 tabs 01/05/22 03/28/24 02/27/24 Rx Diabetic shoes with inserts #1 ea 03/30/22 03/28/24 Unknown Rx Cam Boot to the Right #1 ea 06/20/22 03/28/24 Unknown Rx [place] Boot to the left #1 ea 06/20/22 03/28/24 Unknown Rx articulating AFO to the right #1 ea 06/20/22 03/28/24 Unknown Rx lower extremity galantamine 4 mg tablet 4 mg PO BID #60 tabs 11/01/22 03/28/24 02/27/24 Rx multivitamin 1 tab PO DAILY 11/02/22 03/28/24 02/27/24 History acetaminophen 325 mg tablet 325 mg PO QID PRN Pain 07/05/23 03/28/24 02/03/24 History (Tylenol) calcium carbonate (Tums) 200 mg PO BID PRN Heartburn 07/05/23 03/28/24 02/03/24 History gabapentin 300 mg capsule 300 mg PO TID 07/05/23 03/28/24 02/27/24 History insulin glargine 100 unit/mL (3 42 unit SUBCUT BID 07/05/23 03/28/24 02/27/24 History mL) subcutaneous pen insulin lispro 100 unit/mL 3 unit SUBCUT BID 07/05/23 03/28/24 02/27/24 History subcutaneous pen (Humalog KwikPen (U-100) Insulin) nitroglycerin 0.4 mg sublingual 0.4 mg sublingual Q5M PRN Chest 07/05/23 03/28/24 Unknown History tablet (Nitrostat) Pain atorvastatin 10 mg tablet 10 mg PO DAILY 03/28/24 03/28/24 Unknown History bisacodyl 10 mg rectal suppository 10 mg AK DAILY PRN Constipation 03/28/24 03/28/24 Unknown History (Dulcolax (bisacodyl)) ceftriaxone 1 gram intravenous 1 g IV DAILY 03/28/24 03/28/24 Unknown History solution diclofenac sodium 1 % topical gel 2 g topical QID 03/28/24 03/28/24 Unknown History docusate sodium 100 mg tablet 100 mg PO BID PRN Constipation 03/28/24 03/28/24 Unknown History emollient 1 applic topical BID PRN actinic 03/28/24 03/28/24 Unknown History keratosis insulin aspart U-100 100 unit/mL See Rx Instructions .Route .COMPLEX 03/28/24 03/28/24 Unknown History (3 mL) subcutaneous pen (Novolog FlexPen U-100 Insulin aspart) magnesium hydroxide 400 mg/5 mL 400 mg PO DAILY PRN Constipation 03/28/24 03/28/24 Unknown History oral suspension (Milk of Magnesia) melatonin 3 mg tablet 3 mg PO DAILY PRN Insomnia 03/28/24 03/28/24 Unknown History primidone 50 mg tablet 50 mg PO DAILY 03/28/24 03/28/24 Unknown History sitagliptin phosphate 50 mg tablet 75 mg PO DAILY 03/28/24 03/28/24 Unknown History (Januvia) sodium phosphates 19 gram-7 1 ml AK DAILY PRN Constipation 03/28/24 03/28/24 Unknown History gram/118 mL enema (Fleet Enema) triamcinolone acetonide 0.1 % 1 applic topical BID 03/28/24 03/28/24 Unknown History topical cream Allergies Allergy/AdvReac Type Severity Reaction Status Date / Time sertraline [From Zoloft] Allergy Intermediate Seizure Verified 03/13/24 15:45 Latex, Natural Rubber Allergy Unknown ALGY-Rash Verified 03/13/24 15:45 Current Medications Generic Name Dose Route Start Last Admin Trade Name Freq PRN Reason Stop Dose Admin Heparin Sodium (Porcine) 5,000 unit 03/28/24 15:45 03/30/24 03:50 Heparin 5,000 Unit/Ml Inj 1 Ml SUBCUT 5,000 unit Q12H FILIPPO Administration Piperacillin Sod/Tazobactam 50 mls @ 12.5 mls/hr 03/28/24 17:00 03/30/24 06:54 Sod 3.375 gm/ Sodium Chloride IV 12.5 mls/hr Q8H FILIPPO Administration Vancomycin/PEG/NADA/Lysine/Water 1,250 mg in 250 mls @ 250 mls/hr 03/28/24 17:00 03/30/24 06:56 Vancocin IV Infused Q12H FILIPPO Infusion Sodium Chloride 1,000 mls @ 100 mls/hr 03/29/24 14:15 03/29/24 22:39 Sodium Chloride 0.9% IV 100 mls/hr .Q10H FILIPPO Administration Insulin Human Lispro 0 unit 03/28/24 18:00 03/29/24 21:53 Insulin Lispro 100 Unit/1 Ml SUBCUT 4 unit WM&BEDTIME FILIPPO Administration Protocol Pantoprazole Sodium 40 mg 03/28/24 15:45 03/29/24 15:37 Pantoprazole 40 Mg Sdv IVP 40 mg Q24H FILIPPO Administration PFSH Anesthesia Medical History (Updated 03/29/24 @ 13:08 by Corwin Heck M.D) HTN (hypertension) BPH (benign prostatic hyperplasia) Diabetes mellitus COPD (chronic obstructive pulmonary disease) CKD (chronic kidney disease) Fibromyalgia ASHD (arteriosclerotic heart disease) JOHAN (obstructive sleep apnea) Hyperlipidemia PAD (peripheral artery disease) Surgical History H/O vasectomy S/P rotator cuff repair S/P PTCA (percutaneous transluminal coronary angioplasty) S/P CABG (coronary artery bypass graft) Family History Other Cancer Denies family history of Diabetes Social History Smoking and tobacco/nicotine status: former use of tobacco/nicotine Second hand smoke exposure: No Alcohol intake: never Substance/Drug Use: never Caregiver/support person: Yes Lives independently: Yes Household members: spouse Marital status: Current occupational status: retired Current gender identity: Male Special aubree needs: No Agree to transfusion: Yes Data Anesthesia 03/29/24 05:54 03/29/24 05:54 Short CBC 03/28/24 03/29/24 Range/Units 18:02 05:54 WBC 9.46 8.99 (3.29-11.43) 10^3/uL Hgb 12.10 12.20 (11.27-16.99) g/dL Hct 39.1 38.2 (37-53) % MCV 98.5 95.3 (82-101) fl Plt Count 191 197 (157-399) 10^3/cmm Neut % (Auto) 72.9 72.5 % Neut # (Auto) 6.90 6.52 (1.8-7.7) 10^3/uL BMP 03/28/24 03/29/24 18:02 05:54 Sodium 134 L 140 Potassium 4.5 4.1 Chloride 97 L 104 Carbon Dioxide 24 25 BUN 21 16 Creatinine 1.1 0.9 Glucose 320 H 140 H Calcium 8.2 L 8.6 Cardiac Enzymes 03/28/24 Range/Units 18:02 NT-Pro-B Natriuret Pep 139 (0-450) pg/mL Liver Function 03/28/24 03/29/24 Range/Units 18:02 05:54 Total Bilirubin 0.2 0.2 (0.15-1.2) mg/dL AST 10 10 (0-40) U/L ALT 15 15 (0-41) U/L Alkaline Phosphatase 120 102 (40-130) U/L Albumin 2.8 L 2.8 L (3.5-5.2) g/dL Coags 03/28/24 03/29/24 03/29/24 18:02 05:54 14:37 PT 15.00 H INR 1.14 APTT 63.1 H C-Reactive Protein 184.3 H 03/29/24 15:54 PT INR APTT 30.3 D C-Reactive Protein Microbiology 03/28/24 18:02 Blood Culture - Preliminary Blood NEGATIVE TO DATE 03/28/24 18:02 Blood Culture - Preliminary Blood NEGATIVE TO DATE Cardiac Studies: 2 Echocardiogram 07/26/23
--- NOTE | 2024-03-30 07:51 | W.PM.OPSUD ---
Surgery/Procedure H&P Update DATE OF PROCEDURE: March 30, 2024 DATE H&P PERFORMED: 03/28/24 H&P UPDATE INFORMATION: I have reviewed H&P completed within last 30 days, I have examined patient prior to procedure, No changes to prior documentation and H&P is in [facility] [place] [facility] EMR on date indicated PREOP DIAGNOSIS: Critical limb ischemia/non healing wound of left foot/PAD PLANNED PROCEDURE: Operation Date: 03/30/24 08:00 Proposed Procedures p Incision And Drainage left foot(Left) - Devin Mcneal DPM
[2024-03-30] MEDS: BUPivacaine 0.5% INJ 30 mL INJECTION (08:25)
--- NOTE | 2024-03-30 08:40 | PM.OP ---
Operative Report Date of procedure: March 30, 2024 Pre-op diagnosis: Left foot abscess Post-op diagnosis: Same Post-op findings: Small abscess visualized intraoperatively extending from medial aspect of plantar left heel wound into the lyle pedis. Procedure done: Left foot incision and drainage CPT 09022 Specimens removed/disposition: Cultures aerobic and anaerobic sent to micro for ID and sensitivity Surgeon: Devin Mcneal DPM Finishing Manager: Logan Estimated blood loss: 5 cc Complications: None Findings: See above Procedure: Patient is a 78-year-old male that has a history of left foot PAD status post revascularization, chronic ulceration and abscess to left foot. The extent of wound of left foot necessitates incision and drainage of left foot with removal of nonviable tissue. A lengthy discussion regarding the procedure, including risks and complications has been had with the patient and is noted in the recent clinic note. Written and verbal consent have been obtained. All patient questions have been answered to the patient?s satisfaction. No written or verbal guarantees have been given or implied. The patient has been NPO since midnight. The history has been reviewed and the history and physical is current. The signed consent was confirmed and placed in the patient chart. Patient imaging has been reviewed and is consistent with the diagnosis. Under mild sedation, the patient was brought into the operating room and left on the bed in the supine position. Patient is receiving antibiotics [id number] on the floor. IV sedation was then performed by the anesthesiateam. A local field block was performed using 0.5% Marcaine plain. The operative extremity was then prepped and draped in the usual fashion. After preparation, the following procedure was then performed. Attention was directed to the plantar aspect of the left heel where a necrotic ulceration was visualized measuring 3.0 x 4.5 cm with significant surrounding erythema and blister formation progressing into the medial longitudinal arch over the lyle pedis. A dermal curette was used to perform excisional debridement of the wound down to the level of deep fascia. The wound was then assessed and noted to track medially through subcutaneous tissue into the lyle pedis. A [place] was inserted into this area and a #15 blade was used to incise over the [place] elevator. Mosquito hemostat was used to bluntly dissect down through subcutaneous tissue to assess for abscess. There is noted to be a small amount of purulence in this area less than 3 cc. Cultures both aerobic and anaerobic were taken at this point. The site was further inspected and was noted not to track or tunnel in any direction. The most plantar proximal aspect of the wound showed avascular changes with not a lot of blood flow visualized intraoperatively to the base of the wound. There was distal aspect of the wound and into the medial longitudinal arch showed adequate blood flow. The site was expressed and no further purulence was visualized. The site was irrigated with copious amounts of sterile saline before attention was directed to closure. The wound was packed with iodoform packing gauze before being dressed Betadine soaked Adaptic 4 x 4 gauze, ABD valdo, Irma Batista. The patient tolerated the procedure and anesthesia well and without complication. The patient was transported from the operating room to the recovery room with vital signs stable and vascular status intact to all digits of the left foot. Thepatient was instructed to remain minimally weightbearing for transfers only to the operative extremity, to keep surgical dressing clean, dry and intact. The patient will be transferred back to the floor once anesthesia criteria is met. I will continue to round on and follow the patient in the inpatientsetting and provide recommendations to stabilize the patient for discharge.
--- NOTE | 2024-03-30 09:45 | PM.PN ---
Subjective Subjective: Patient overall doing well. Had podiatry procedure Vitals/I&O/Wt Last Vital Signs Temp 97.4 F L 03/30/24 08:53 Pulse 79 03/30/24 09:01 Resp 24 H 03/30/24 09:01 BP 149/73 03/30/24 09:01 Pulse Ox 94 03/30/24 09:01 O2 Del Method Room Air 03/30/24 09:01 03/29/24 03/30/24 03/30/24 22:59 06:59 14:59 Intake Total 2113.333 / 2163.333 300 / 2463.333 0 / 0 Output Total 700 / 1050 200 / 1250 2 / 2 Balance 1413.333 / 1113.333 100 / 1213.333 -2 / -2 Weight last 48 hrs Weight 276 lb 8 oz Weight 278 lb 7 oz Weight 280 lb 9.6 oz Physical Exam Narrative: GENERAL: Patient is alert, awake and oriented x3. [] NECK: No jugular vein distension. [] HEENT: No cyanosis. No icterus. No pallor. [] HEART: Regular S1 and S2. No murmur, rub or gallop. [] LUNGS: Clear to auscultate bilaterally. [] CENTRAL NERVOUS SYSTEM: Grossly nonfocal. [] EXTREMITIES: Lower extremities with 1+ edema bilaterally. Dressing applied on the foot. 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 Continue aspirin and Plavix. Please call with questions Attestations Medical Necessity Statement*: Care expected to cross 2 midnights. Coding Level of Care Code Acute Code for Chg Fwd Diagnoses Critical limb ischemia of left lower extremity I70.222 PAD (peripheral artery disease) I73.9 Hyperlipidemia, unspecified hyperlipidemia type E78.5 Hyperlipidemia type: unspecified ASHD (arteriosclerotic heart disease) I25.10 Essential hypertension I10 Type 2 diabetes mellitus with hyperglycemia, with long-term current use of insulin E11.65; Z79.4 Diabetes mellitus type: type 2 Diabetes mellitus [facility] insulin use: with superintendent marine oil terminal use Diabetes mellitus complication status: with hyperglycemia
--- NOTE | 2024-03-30 10:12 | P.DS_ITS ---
Discharge Providers Date of Admission: 03/28/24 14:56 Date of Discharge: March 30, 2024 Attending Provider at Admission: Skyla Estrella MD Attending Provider at Discharge: Skyla Estrella MD Primary Care Provider: Terry Llanos MD Diagnoses at Discharge Discharge Diagnosis (1) Abscess of left foot: Status: Acute (2) Diabetes mellitus: Status: Acute Qualifiers: Diabetes mellitus complication status: with hyperglycemia Diabetes norah itus chcf insulin use: with chcf use Diabetes mellitus type: type 2 Qualified Code(s): E11.65 - Type 2 diabetes mellitus with hyperglycemia; Z79.4 - tank terminal gauger (current) use of insulin (3) PAD (peripheral artery disease): Status: Acute Reason for Visit Reason for Visit: possible toe amputation Hospital Course Hospital Course Patient was electively admitted for direct admit for possible intervention for left heel wound that was being managed at wound care. Patient has seen podiatry in the past. CT did show osteomyelitis. Patient was offered amputation however he was inclined to salvage the leg. Patient was seen by podiatry and taken to the OR for debridement. Please see operative notes. Patient to go back to custodial on IV ceftriaxone daily and to see podiatry on upcoming Monday. Dressing change instructions given to patient. During hospital stay he also underwent peripheral angiogram. See report in chart For peripheral arterial disease aspirin and Plavix were added. Physical Exam Narrative: General: Laying in bed appearing comfortable at this time on room air Lungs clear throughout bilaterally Abdomen soft nontender Extremities: Both feet wrapped with Band-Aid. I did not take the bandage down. It was just wrapped by podiatry this morning after procedure. Normal S1 and S2. Discharge Data Studies Completed and Pending Completed Studies During Hospitalization Category Date Time Status CT foot LT w con [id number] Stat Cat Scan 03/28/24 15:40 Completed Pending at discharge Category Date Time Status ICD 9 CODER request for service Routine Exams 03/29/24 09:00 Taken Anaerobic Culture Routine Lab 03/30/24 08:26 Ordered Basic Metabolic Panel AM LABS Lab 03/30/24 04:00 Ordered Blood Culture Stat Lab 03/28/24 18:02 Results Complete Blood Count w/Auto AM LABS Lab 03/30/24 04:00 Ordered Magnesium AM LABS Lab 03/30/24 04:00 Ordered Wound Culture and Gram Stain Routine Lab 03/30/24 08:26 Ordered Radiology Impressions Foot CT 03/28/24 15:40 IMPRESSION: 1. Osteomyelitis of the 2nd and 3rd metatarsal heads. MRI may be helpful to assess the extent of infection if clinically warranted. 2. Advanced neuropathic changes of the hindfoot/midfoot. Laboratory Results WBC 8.99 10^3/uL (3.29-11.43) 03/29/24 05:54 RBC 4.01 10^6/uL (3.85-5.65) 03/29/24 05:54 Hgb 12.20 g/dL (11.27-16.99) 03/29/24 05:54 Hct 38.2 % (37-53) 03/29/24 05:54 MCV 95.3 fl (82-101) 03/29/24 05:54 MCH 30.4 pg (27-33) 03/29/24 05:54 MCHC 31.9 g/dL (30-55) 03/29/24 05:54 RDW 14.1 % (12.1-15.1) 03/29/24 05:54 Plt Count 197 10^3/cmm (157-399) 03/29/24 05:54 MPV 10.0 fL (7.4-10.4) 03/29/24 05:54 Neut % (Auto) 72.5 % 03/29/24 05:54 Lymph % (Auto) 13.2 % 03/29/24 05:54 Ford % (Auto) 8.6 % 03/29/24 05:54 Eos % (Auto) 3.8 % 03/29/24 05:54 Baso % (Auto) 0.6 % 03/29/24 05:54 Neut # (Auto) 6.52 10^3/uL (1.8-7.7) 03/29/24 05:54 Lymph # (Auto) 1.2 10^3/uL (0.8-4.8) 03/29/24 05:54 Ford # (Auto) 0.8 10^3/uL (0.2-0.9) 03/29/24 05:54 Eos # (Auto) 0.3 10^3/uL (0.0-0.8) 03/29/24 05:54 Baso # (Auto) 0.1 10^3/uL (0.0-0.1) 03/29/24 05:54 Nucleated RBC % (auto) 0 % 03/29/24 05:54 Nucleated RBCs # 0.0 /100WBC 03/29/24 05:54 PT 15.00 SECONDS (12.1-14.9) H 03/29/24 05:54 INR 1.14 (0.8-1.2) 03/29/24 05:54 APTT 30.3 SECONDS (23.9-36.7) D 03/29/24 15:54 Sodium 140 mmol/L (136-145) 03/29/24 05:54 Potassium 4.1 mmol/L (3.5-5.1) 03/29/24 05:54 Chloride 104 mmol/L (98-107) 03/29/24 05:54 Carbon Dioxide 25 mmol/L (22-29) 03/29/24 05:54 Anion Gap 15.1 (5-19) 03/29/24 05:54 BUN 16 mg/dL (8-23) 03/29/24 05:54 Creatinine 0.9 mg/dL (0.7-1.2) 03/29/24 05:54 GFR Calculation Not Reportable 03/29/24 05:54 Glucose 140 mg/dL (65-115) H 03/29/24 05:54 POC Glucose 117 mg/dL (70-110) H 03/30/24 06:07 Estimat Average Glucose 220 03/28/24 18:02 Hemoglobin A1c 9.3 % (4.0-6.0) H 03/28/24 18:02 Calculated Osmolality 293 mOsm/kg (285-295) 03/29/24 05:54 Lactic Acid 3.1 mmol/L (0.5-2.2) H 03/28/24 18:02 Lactic Acid (Sepsis) 1.7 mmol/L (0.5-2.2) 03/28/24 22:26 Calcium 8.6 mg/dL (8.5-10.5) 03/29/24 05:54 Magnesium 1.7 mg/dL (1.7-2.3) 03/29/24 05:54 Total Bilirubin 0.2 mg/dL (0.15-1.2) 03/29/24 05:54 AST 10 U/L (0-40) 03/29/24 05:54 ALT 15 U/L (0-41) 03/29/24 05:54 Alkaline Phosphatase 102 U/L (40-130) 03/29/24 05:54 C-Reactive Protein 184.3 mg/L (0.0-4.9) H 03/28/24 18:02 NT-Pro-B Natriuret Pep 139 pg/mL (0-450) 03/28/24 18:02 Total Protein 7.1 g/dL (6.6-8.7) 03/29/24 05:54 Albumin 2.8 g/dL (3.5-5.2) L 03/29/24 05:54 Globulin 4.3 g/dL (1.3-4.6) 03/29/24 05:54 Procalcitonin 0.09 ng/mL (0-0.5) 03/28/24 18:02 TSH 0.25 uIU/mL (0.27-4.20) L 03/28/24 18:02 Vancomycin Trough 12.8 ug/mL (10-15) 03/30/24 04:09 Vitals Last Vital Signs Temp 97.4 F L 03/30/24 08:53 Pulse 79 03/30/24 09:01 Resp 24 H 03/30/24 09:01 BP 149/73 03/30/24 09:01 Pulse Ox 94 03/30/24 09:01 O2 Del Method Room Air 03/30/24 09:01 Discharge Plan Discharge Patient Disposition: Home Condition: Stable Prescriptions: New clopidogrel 75 mg Tablet 75 mg PO DAILY Qty: 30 0RF aspirin 81 mg Tablet,Delayed Release (Dr/Ec) 81 mg PO DAILY Qty: 30 0RF Continued (DME) OneTouch Verio test strips Strip See Rx Instructions .Route Qty: 100 2RF Rx Instructions: test Blood sugar three times daily famotidine 20 mg tablet 20 mg PO DAILY Qty: 90 1RF fluticasone propionate 50 mcg/actuation spray,suspension 2 spray INTRANASAL DAILY Qty: 15.8 2RF Rx Instructions: administer into each nostril furosemide [Lasix] 20 mg tablet 20 mg PO QAM PRN (Reason: edema) Qty: 90 1RF tamsulosin 0.4 mg capsule 0.4 mg PO DAILY Qty: 90 1RF trandolapril 2 mg tablet 2 mg PO DAILY Qty: 90 1RF albuterol sulfate [ProAir HFA] 90 mcg/actuation HFA aerosol inhaler 2 puff INHALATION Q6H PRN (Reason: shortness of breath or wheezing) Qty: 18 2RF (DME) Diabetic shoes with inserts See Rx Instructions .Route .MEDSUPPLY Qty: 1 0RF Rx Instructions: As directed multivitamin Tablet 1 tab PO DAILY galantamine 4 mg tablet 4 mg PO BID Qty: 60 3RF Rx Instructions: administer with AM and PM meals (DME) Cam Boot to the Right See Rx Instructions .Route .MEDSUPPLY Qty: 1 0RF Rx Instructions: As directed (DME) [employer] Boot to the left See Rx Instructions .Route .MEDSUPPLY Qty: 1 0RF Rx Instructions: As directed by PADMINI&O (LYNETTE) articulating AFO to the right lower extremity See Rx Instructions .Route .MEDSUPPLY Qty: 1 0RF Rx Instructions: As directed calcium carbonate [Tums] 200 mg calcium (500 mg) tablet,chewable 200 mg PO BID PRN (Reason: Heartburn) gabapentin 300 mg capsule 300 mg PO TID insulin lispro [Humalog KwikPen Insulin] 100 unit/mL insulin pen 3 unit SUBCUT BID acetaminophen [Tylenol] 325 mg tablet 325 mg PO QID PRN (Reason: Pain) nitroglycerin [Nitrostat] 0.4 mg tablet, sublingual 0.4 mg sublingual Q5M PRN (Reason: Chest Pain) Rx Instructions: do not exceed 3 doses per episode insulin glargine 100 unit/mL (3 mL) insulin pen 42 unit SUBCUT BID atorvastatin 10 mg Tablet 10 mg PO DAILY Januvia 50 mg Tablet 75 mg PO DAILY primidone 50 mg Tablet 50 mg PO DAILY docusate sodium 100 mg Tablet 100 mg PO BID PRN (Reason: Constipation) Dulcolax (bisacodyl) 10 mg Suppository 10 mg SD DAILY PRN (Reason: Constipation) Fleet Enema 19-7 gram/118 mL Enema 1 ml SD DAILY PRN (Reason: Constipation) melatonin 3 mg Tablet 3 mg PO DAILY PRN (Reason: Insomnia) Milk of Magnesia 400 mg/5 mL Suspension 400 mg PO DAILY PRN (Reason: Constipation) Novolog FlexPen U-100 Insulin 100 unit/mL (3 mL) Insulin Pen See Rx Instructions .ROUTE .COMPLEX Rx Instructions: SLIDING SCALE diclofenac sodium 1 % Gel 2 g TOPICAL QID Rx Instructions: apply to single elbow, wrist or hand; for hand includes palm/fingers/back of hand emollient Cream 1 applic TOPICAL BID PRN (Reason: actinic keratosis) triamcinolone acetonide 0.1 % Cream 1 applic TOPICAL BID ceftriaxone 1 gram Recon Soln 1 g IV DAILY Held metformin 1,000 mg tablet 1,000 mg PO BID Qty: 180 1RF Hold Instructions: hold for 48 hours before resuming No Action linezolid 600 mg tablet 600 mg PO BID Qty: 28 0RF Rx Instructions: take one tablet by mouth twice daily for 14 days. Discharge Orders: Discharge Order (Routine); Ordered 03/30/24 Ordered By: Skyla Estrella Referrals: Devin Mcneal DPM [Physician] - 1-3 days (Need to be seen MondayApril [address] Mcneal Please call Dr. Mcneal's Office at [phone] [facility] to schedule a follow up appointment. Thank you.) Opal Yi FNP [Nurse Practitioner] - 04/10/24 3:00 pm Daya Flower MD [Physician] - (Please call Dr. Flower's Office on Monday at [phone] to schedule a follow up appointment. Thank you.) Discharge Diet: Cardiac and Diabetic Discharge Activity: Limit activity as instructed Patient Instructions: Aspirin (By mouth) (Shawn Extra Strength, Shawn Aspirin [facility],..., Clopidogrel (By mouth) (Plavix), Coronary Angioplasty (DC), Opioid Safety, Post Angiogram Home Care Instructions Activity Restrictions/Additional Instructions: Weight bearing in post-op shoe for transfers only. Dr Mcneal's office will call [facility] on Monday to let them know appointment time. If [facility] unable to transport pt on Monday, they may see Dr. Mcneal on monday or monday instead (preferrebly Monday). If that is the case, then his dressing will need to be changed on Monday. Dressing instructions by Dr. Diaz. Mathieu valadez to all wounds including surgical wounds. Discharge Attestations Time Spent in Discharge Care*: less than 30 min Quality Metrics Clinical Quality Measures [ No reported AMI, CVA or VTE this stay] Coding Level of Care Code 53688 Total time (in minutes) for Discharge: 30 Diagnoses Abscess of left foot L02.612 Type 2 diabetes mellitus with hyperglycemia, with long-term current use of insulin E11.65; Z79.4 Diabetes mellitus complication status: with hyperglycemia Diabetes mellitus chcf insulin use: with intermediate teacher use Diabetes mellitus type: type 2 PAD (peripheral artery disease) I73.9
[2024-03-30] MEDS: sodium chloride 0.9% 1,000 ML 100 ML IV (11:37)
[2024-03-30 11:43] LABS: Glucose Point of Care 137 mg/dL (70-110)
[2024-03-30] MEDS: cefTRIAXone 1,000 MG in sodium chloride 0.9% (plus) 50 ML 100 MG IV (13:08)
== END 2024-03-30 14:50 | disposition skilled nursing facility (03) | DRG 623 ==
LOC: MEDSURG 19:29 → CSU 03-29 03:41
PROVIDERS: Internal Medicine; Podiatrist Foot & Ankle Surgery; Admitting Provider Internal Medicine; PCP Internal Medicine; Visit Provider Internal Medicine
PROC: 047D34Z Dilation of Left Common Iliac Artery with Drug-eluting Intraluminal Device, Percutaneous Approach (ICD-10-PCS; principal; 2024-03-29 10:00)
PROC: 047D34Z Dilation of Left Common Iliac Artery with Drug-eluting Intraluminal Device, Percutaneous Approach (ICD-10-PCS; 2024-03-29 10:00)
PROC: 0JBR0ZZ Excision of Left Foot Subcutaneous Tissue and Fascia, Open Approach (ICD-10-PCS; principal; 2024-03-30 08:00)
DX: E11.621 Type 2 diabetes mellitus with foot ulcer (principal); L97.429 Non-pressure chronic ulcer of left heel and midfoot with unspecified severity; M86.9 Osteomyelitis, unspecified; E11.69 Type 2 diabetes mellitus with other specified complication; E11.51 Type 2 diabetes mellitus with diabetic peripheral angiopathy without gangrene; E11.610 Type 2 diabetes mellitus with diabetic neuropathic arthropathy; E11.40 Type 2 diabetes mellitus with diabetic neuropathy, unspecified; E11.22 Type 2 diabetes mellitus with diabetic chronic kidney disease; I12.9 Hypertensive chronic kidney disease with stage 1 through stage 4 chronic kidney disease, or unspecified chronic kidney disease; N18.9 Chronic kidney disease, unspecified; I70.222 Atherosclerosis of native arteries of extremities with rest pain, left leg; N40.0 Benign prostatic hyperplasia without lower urinary tract symptoms; J44.9 Chronic obstructive pulmonary disease, unspecified; G47.33 Obstructive sleep apnea (adult) (pediatric); E78.5 Hyperlipidemia, unspecified; M79.7 Fibromyalgia; I25.10 Atherosclerotic heart disease of native coronary artery without angina pectoris; Z79.4 Long term (current) use of insulin; Z95.1 Presence of aortocoronary bypass graft
CPT/HCPCS: 11042; 36415; 36416; 36592; 37221; 37228; 73701; 75625; 75716; 80053; 80202; 82962; 83036; 83605; 83735; 83880; 84145; 84443; 85025; 85347; 85610; 85730; 86140; 87040; 87070; 87075; 87077; 87176; 87186; 87205; 94664; 96372; 96374; 96375; 96376; 97597; 97598; 99152; 99153; C1725; C1769; C1876; C1887; C1894; C9113; J0696; J1644; J1815; J2250; J2543; J2704; J3010; J3370; J3490; J7030; Q9967

== ENCOUNTER → 2024-04-02 13:32 | Outpatient (BNVA) | payer MEDICARE, MEDICAID, SELFPAY | PROVIDERS: PCP Internal Medicine; Visit Provider Podiatrist Foot & Ankle Surgery | DX: Z98.890 Other specified postprocedural states (principal); L97.522 Non-pressure chronic ulcer of other part of left foot with fat layer exposed; I73.9 Peripheral vascular disease, unspecified; E11.65 Type 2 diabetes mellitus with hyperglycemia; Z79.4 Long term (current) use of insulin; N18.9 Chronic kidney disease, unspecified; M86.8X7 Other osteomyelitis, ankle and foot; Z79.84 Long term (current) use of oral hypoglycemic drugs; E11.621 Type 2 diabetes mellitus with foot ulcer | CPT/HCPCS: 99024; A6219 ==

== ENCOUNTER → 2024-04-04 10:25 | Outpatient (BNVA) | payer MEDICARE, MEDICAID, SELFPAY | PROVIDERS: PCP Internal Medicine; Visit Provider Thoracic Surgery (Cardiothoracic Vascular Surgery) | DX: E11.52 Type 2 diabetes mellitus with diabetic peripheral angiopathy with gangrene (principal); E11.621 Type 2 diabetes mellitus with foot ulcer; L97.422 Non-pressure chronic ulcer of left heel and midfoot with fat layer exposed; L97.411 Non-pressure chronic ulcer of right heel and midfoot limited to breakdown of skin; L97.521 Non-pressure chronic ulcer of other part of left foot limited to breakdown of skin; T87.81 Dehiscence of amputation stump; Y83.8 Other surgical procedures as the cause of abnormal reaction of the patient, or of later complication, without mention of misadventure at the time of the procedure; Z89.422 Acquired absence of other left toe(s) | CPT/HCPCS: 11042; 11045; 97597 ==

== ENCOUNTER → 2024-04-10 14:53 | Outpatient (BNVA) | payer MEDICARE, MEDICAID, SELFPAY | PROVIDERS: PCP Internal Medicine; Visit Provider Nurse Practitioner Family | DX: E11.51 Type 2 diabetes mellitus with diabetic peripheral angiopathy without gangrene (principal); Z87.891 Personal history of nicotine dependence; Z79.4 Long term (current) use of insulin | CPT/HCPCS: 99213 ==

== ENCOUNTER → 2024-04-11 10:40 | Outpatient (BNVA) | payer MEDICARE, MEDICAID, SELFPAY | PROVIDERS: PCP Internal Medicine; Visit Provider Thoracic Surgery (Cardiothoracic Vascular Surgery) | DX: E11.52 Type 2 diabetes mellitus with diabetic peripheral angiopathy with gangrene (principal); E11.621 Type 2 diabetes mellitus with foot ulcer; L97.521 Non-pressure chronic ulcer of other part of left foot limited to breakdown of skin; L97.511 Non-pressure chronic ulcer of other part of right foot limited to breakdown of skin; T87.81 Dehiscence of amputation stump; Y83.8 Other surgical procedures as the cause of abnormal reaction of the patient, or of later complication, without mention of misadventure at the time of the procedure; Z89.422 Acquired absence of other left toe(s) | CPT/HCPCS: 11750; 97597; 97598 ==

== ENCOUNTER → 2024-04-18 10:08 | Outpatient (BNVA) | payer MEDICARE, MEDICAID, SELFPAY | PROVIDERS: PCP Internal Medicine; Visit Provider Thoracic Surgery (Cardiothoracic Vascular Surgery) | DX: E11.52 Type 2 diabetes mellitus with diabetic peripheral angiopathy with gangrene (principal); E11.621 Type 2 diabetes mellitus with foot ulcer; L97.521 Non-pressure chronic ulcer of other part of left foot limited to breakdown of skin; L97.511 Non-pressure chronic ulcer of other part of right foot limited to breakdown of skin; T87.81 Dehiscence of amputation stump; Y83.8 Other surgical procedures as the cause of abnormal reaction of the patient, or of later complication, without mention of misadventure at the time of the procedure; Z89.422 Acquired absence of other left toe(s) | CPT/HCPCS: 11042; 11045; 97597 ==

== ENCOUNTER → 2024-05-02 08:55 | Outpatient (BNVA) | payer MEDICARE, MEDICAID, SELFPAY | PROVIDERS: PCP Internal Medicine; Visit Provider Thoracic Surgery (Cardiothoracic Vascular Surgery) | DX: E11.52 Type 2 diabetes mellitus with diabetic peripheral angiopathy with gangrene (principal); E11.621 Type 2 diabetes mellitus with foot ulcer; L97.525 Non-pressure chronic ulcer of other part of left foot with muscle involvement without evidence of necrosis; L97.511 Non-pressure chronic ulcer of other part of right foot limited to breakdown of skin; L97.421 Non-pressure chronic ulcer of left heel and midfoot limited to breakdown of skin | CPT/HCPCS: 11043; 97597; A6248 ==

== ENCOUNTER → 2024-05-09 08:27 | Outpatient (BNVA) | payer MEDICARE, MEDICAID, SELFPAY | PROVIDERS: PCP Internal Medicine; Visit Provider Thoracic Surgery (Cardiothoracic Vascular Surgery) | DX: E11.52 Type 2 diabetes mellitus with diabetic peripheral angiopathy with gangrene (principal); E11.621 Type 2 diabetes mellitus with foot ulcer; L97.525 Non-pressure chronic ulcer of other part of left foot with muscle involvement without evidence of necrosis; L97.422 Non-pressure chronic ulcer of left heel and midfoot with fat layer exposed; L89.892 Pressure ulcer of other site, stage 2; L97.411 Non-pressure chronic ulcer of right heel and midfoot limited to breakdown of skin | CPT/HCPCS: 11042; 97597; A6248 ==

== ENCOUNTER → 2024-05-16 15:09 | Outpatient (BNVA) | payer MEDICARE, MEDICAID, SELFPAY | PROVIDERS: PCP Internal Medicine; Visit Provider Thoracic Surgery (Cardiothoracic Vascular Surgery) | DX: E11.52 Type 2 diabetes mellitus with diabetic peripheral angiopathy with gangrene (principal); E11.621 Type 2 diabetes mellitus with foot ulcer; L97.511 Non-pressure chronic ulcer of other part of right foot limited to breakdown of skin; L97.521 Non-pressure chronic ulcer of other part of left foot limited to breakdown of skin; L97.411 Non-pressure chronic ulcer of right heel and midfoot limited to breakdown of skin; T87.81 Dehiscence of amputation stump; Y83.8 Other surgical procedures as the cause of abnormal reaction of the patient, or of later complication, without mention of misadventure at the time of the procedure; Z89.422 Acquired absence of other left toe(s) | CPT/HCPCS: 17000; 97597; 97598; 99213; A6248 ==

== ENCOUNTER → 2024-05-21 10:48 | Outpatient (BNVA) | payer MEDICARE, MEDICAID, SELFPAY | PROVIDERS: PCP Internal Medicine; Visit Provider Podiatrist Foot & Ankle Surgery | DX: L97.522 Non-pressure chronic ulcer of other part of left foot with fat layer exposed (principal); I73.9 Peripheral vascular disease, unspecified; E11.65 Type 2 diabetes mellitus with hyperglycemia; Z79.4 Long term (current) use of insulin; N18.9 Chronic kidney disease, unspecified; L60.3 Nail dystrophy; G62.9 Polyneuropathy, unspecified; E11.621 Type 2 diabetes mellitus with foot ulcer; Z79.84 Long term (current) use of oral hypoglycemic drugs | CPT/HCPCS: 11721 ==

== ENCOUNTER → 2024-05-23 07:49 | Outpatient (BNVA) | payer MEDICARE, MEDICAID, SELFPAY | PROVIDERS: PCP Internal Medicine; Visit Provider Thoracic Surgery (Cardiothoracic Vascular Surgery) | DX: E11.52 Type 2 diabetes mellitus with diabetic peripheral angiopathy with gangrene (principal); E11.621 Type 2 diabetes mellitus with foot ulcer; L97.523 Non-pressure chronic ulcer of other part of left foot with necrosis of muscle; L97.511 Non-pressure chronic ulcer of other part of right foot limited to breakdown of skin; L97.411 Non-pressure chronic ulcer of right heel and midfoot limited to breakdown of skin; Z09 Encounter for follow-up examination after completed treatment for conditions other than malignant neoplasm | CPT/HCPCS: 11043; 97597; A6248 ==

== ENCOUNTER → 2024-06-06 08:28 | Outpatient (BNVA) | payer MEDICARE, MEDICAID, SELFPAY | PROVIDERS: PCP Internal Medicine; Visit Provider Thoracic Surgery (Cardiothoracic Vascular Surgery) | DX: E11.52 Type 2 diabetes mellitus with diabetic peripheral angiopathy with gangrene (principal); E11.621 Type 2 diabetes mellitus with foot ulcer; L97.525 Non-pressure chronic ulcer of other part of left foot with muscle involvement without evidence of necrosis; L97.411 Non-pressure chronic ulcer of right heel and midfoot limited to breakdown of skin; L97.421 Non-pressure chronic ulcer of left heel and midfoot limited to breakdown of skin | CPT/HCPCS: 97597 ==

== ENCOUNTER → 2024-06-13 08:45 | Outpatient (BNVA) | payer MEDICARE, MEDICAID, SELFPAY | PROVIDERS: PCP Internal Medicine; Visit Provider Thoracic Surgery (Cardiothoracic Vascular Surgery) | DX: E11.52 Type 2 diabetes mellitus with diabetic peripheral angiopathy with gangrene (principal); E11.621 Type 2 diabetes mellitus with foot ulcer; L97.511 Non-pressure chronic ulcer of other part of right foot limited to breakdown of skin; L97.521 Non-pressure chronic ulcer of other part of left foot limited to breakdown of skin; L97.421 Non-pressure chronic ulcer of left heel and midfoot limited to breakdown of skin; L97.411 Non-pressure chronic ulcer of right heel and midfoot limited to breakdown of skin | CPT/HCPCS: 97597; 97598 ==

== ENCOUNTER → 2024-06-19 15:50 | Outpatient (BNVA) | payer MEDICARE, MEDICAID, SELFPAY | PROVIDERS: PCP Internal Medicine; Visit Provider Thoracic Surgery (Cardiothoracic Vascular Surgery) | DX: E11.52 Type 2 diabetes mellitus with diabetic peripheral angiopathy with gangrene (principal); E11.621 Type 2 diabetes mellitus with foot ulcer; L97.521 Non-pressure chronic ulcer of other part of left foot limited to breakdown of skin; L97.421 Non-pressure chronic ulcer of left heel and midfoot limited to breakdown of skin; L97.411 Non-pressure chronic ulcer of right heel and midfoot limited to breakdown of skin | CPT/HCPCS: 97597; 97598 ==

== ENCOUNTER → 2024-06-26 15:40 | Outpatient (BNVA) | payer MEDICARE, MEDICAID, SELFPAY | PROVIDERS: PCP Internal Medicine; Visit Provider Thoracic Surgery (Cardiothoracic Vascular Surgery) | DX: E11.52 Type 2 diabetes mellitus with diabetic peripheral angiopathy with gangrene (principal); E11.621 Type 2 diabetes mellitus with foot ulcer; L97.511 Non-pressure chronic ulcer of other part of right foot limited to breakdown of skin; L97.521 Non-pressure chronic ulcer of other part of left foot limited to breakdown of skin; L97.421 Non-pressure chronic ulcer of left heel and midfoot limited to breakdown of skin | CPT/HCPCS: 97597; A6210 ==

== ENCOUNTER → 2024-07-03 14:18 | Outpatient (BNVA) | payer MEDICARE, MEDICAID, SELFPAY | PROVIDERS: PCP Internal Medicine; Visit Provider Thoracic Surgery (Cardiothoracic Vascular Surgery) | DX: E11.52 Type 2 diabetes mellitus with diabetic peripheral angiopathy with gangrene (principal); E11.621 Type 2 diabetes mellitus with foot ulcer; L97.511 Non-pressure chronic ulcer of other part of right foot limited to breakdown of skin; L97.521 Non-pressure chronic ulcer of other part of left foot limited to breakdown of skin; L97.421 Non-pressure chronic ulcer of left heel and midfoot limited to breakdown of skin; L97.411 Non-pressure chronic ulcer of right heel and midfoot limited to breakdown of skin | CPT/HCPCS: 97597; 97598 ==

== ENCOUNTER → 2024-07-10 13:55 | Outpatient (BNVA) | payer MEDICARE, MEDICAID, SELFPAY | PROVIDERS: PCP Internal Medicine; Visit Provider Thoracic Surgery (Cardiothoracic Vascular Surgery) | DX: E11.52 Type 2 diabetes mellitus with diabetic peripheral angiopathy with gangrene (principal); E11.621 Type 2 diabetes mellitus with foot ulcer; L97.521 Non-pressure chronic ulcer of other part of left foot limited to breakdown of skin; L97.421 Non-pressure chronic ulcer of left heel and midfoot limited to breakdown of skin; L97.411 Non-pressure chronic ulcer of right heel and midfoot limited to breakdown of skin | CPT/HCPCS: 97597 ==

== ENCOUNTER → 2024-07-17 15:14 | Outpatient (BNVA) | payer MEDICARE, MEDICAID, SELFPAY | PROVIDERS: PCP Internal Medicine; Visit Provider Thoracic Surgery (Cardiothoracic Vascular Surgery) | DX: E11.52 Type 2 diabetes mellitus with diabetic peripheral angiopathy with gangrene (principal); E11.621 Type 2 diabetes mellitus with foot ulcer; L97.511 Non-pressure chronic ulcer of other part of right foot limited to breakdown of skin; L97.521 Non-pressure chronic ulcer of other part of left foot limited to breakdown of skin; L97.421 Non-pressure chronic ulcer of left heel and midfoot limited to breakdown of skin; L97.411 Non-pressure chronic ulcer of right heel and midfoot limited to breakdown of skin | CPT/HCPCS: 97597; A6210 ==

== ENCOUNTER → 2024-07-23 10:59 | Outpatient (BNVA) | payer MEDICARE, MEDICAID, SELFPAY | PROVIDERS: PCP Internal Medicine; Visit Provider Podiatrist Foot & Ankle Surgery | DX: L60.3 Nail dystrophy (principal); I73.9 Peripheral vascular disease, unspecified; E11.65 Type 2 diabetes mellitus with hyperglycemia; Z79.4 Long term (current) use of insulin; N18.9 Chronic kidney disease, unspecified; G62.9 Polyneuropathy, unspecified; L97.522 Non-pressure chronic ulcer of other part of left foot with fat layer exposed; E11.621 Type 2 diabetes mellitus with foot ulcer; L97.512 Non-pressure chronic ulcer of other part of right foot with fat layer exposed; Z79.84 Long term (current) use of oral hypoglycemic drugs | CPT/HCPCS: 11721; 99213 ==

== ENCOUNTER → 2024-07-24 15:18 | Outpatient (BNVA) | payer MEDICARE, MEDICAID, SELFPAY | PROVIDERS: PCP Internal Medicine; Visit Provider Thoracic Surgery (Cardiothoracic Vascular Surgery) | DX: E11.52 Type 2 diabetes mellitus with diabetic peripheral angiopathy with gangrene (principal); E11.621 Type 2 diabetes mellitus with foot ulcer; L97.511 Non-pressure chronic ulcer of other part of right foot limited to breakdown of skin; L97.521 Non-pressure chronic ulcer of other part of left foot limited to breakdown of skin; L97.411 Non-pressure chronic ulcer of right heel and midfoot limited to breakdown of skin | CPT/HCPCS: 97597; A6210 ==

== ENCOUNTER → 2024-07-31 15:41 | Outpatient (BNVA) | payer MEDICARE, MEDICAID, SELFPAY | PROVIDERS: PCP Internal Medicine; Visit Provider Thoracic Surgery (Cardiothoracic Vascular Surgery) | DX: E11.52 Type 2 diabetes mellitus with diabetic peripheral angiopathy with gangrene (principal); E11.621 Type 2 diabetes mellitus with foot ulcer; L97.521 Non-pressure chronic ulcer of other part of left foot limited to breakdown of skin; L97.411 Non-pressure chronic ulcer of right heel and midfoot limited to breakdown of skin; L97.511 Non-pressure chronic ulcer of other part of right foot limited to breakdown of skin; L97.421 Non-pressure chronic ulcer of left heel and midfoot limited to breakdown of skin; Z09 Encounter for follow-up examination after completed treatment for conditions other than malignant neoplasm | CPT/HCPCS: 97597; A6210 ==

== ENCOUNTER → 2024-08-07 09:26 | Outpatient (BNVA) | payer MEDICARE, MEDICAID, SELFPAY | PROVIDERS: PCP Internal Medicine; Visit Provider Nurse Practitioner Family | DX: I73.9 Peripheral vascular disease, unspecified (principal); I25.10 Atherosclerotic heart disease of native coronary artery without angina pectoris; Z72.0 Tobacco use; I12.9 Hypertensive chronic kidney disease with stage 1 through stage 4 chronic kidney disease, or unspecified chronic kidney disease; N18.9 Chronic kidney disease, unspecified | CPT/HCPCS: 99214 ==

== ENCOUNTER → 2024-08-08 08:35 | Outpatient (BNVA) | payer MEDICARE, MEDICAID, SELFPAY | PROVIDERS: PCP Internal Medicine; Visit Provider Thoracic Surgery (Cardiothoracic Vascular Surgery) | DX: E11.52 Type 2 diabetes mellitus with diabetic peripheral angiopathy with gangrene (principal); E11.621 Type 2 diabetes mellitus with foot ulcer; L97.521 Non-pressure chronic ulcer of other part of left foot limited to breakdown of skin; L97.511 Non-pressure chronic ulcer of other part of right foot limited to breakdown of skin; L97.421 Non-pressure chronic ulcer of left heel and midfoot limited to breakdown of skin; L97.411 Non-pressure chronic ulcer of right heel and midfoot limited to breakdown of skin | CPT/HCPCS: 97597 ==

== ENCOUNTER → 2024-08-15 08:32 | Outpatient (BNVA) | payer MEDICARE, MEDICAID, SELFPAY | PROVIDERS: PCP Internal Medicine; Visit Provider Thoracic Surgery (Cardiothoracic Vascular Surgery) | DX: E11.621 Type 2 diabetes mellitus with foot ulcer (principal); E11.52 Type 2 diabetes mellitus with diabetic peripheral angiopathy with gangrene; L97.515 Non-pressure chronic ulcer of other part of right foot with muscle involvement without evidence of necrosis; L97.521 Non-pressure chronic ulcer of other part of left foot limited to breakdown of skin; L97.421 Non-pressure chronic ulcer of left heel and midfoot limited to breakdown of skin; L97.411 Non-pressure chronic ulcer of right heel and midfoot limited to breakdown of skin | CPT/HCPCS: 87070; 87075; 87077; 87186; 87205; 97597 ==

== ENCOUNTER → 2024-08-22 09:00 | Outpatient (BNVA) | payer MEDICARE, MEDICAID, SELFPAY | PROVIDERS: PCP Internal Medicine; Visit Provider Thoracic Surgery (Cardiothoracic Vascular Surgery) | DX: E11.52 Type 2 diabetes mellitus with diabetic peripheral angiopathy with gangrene (principal); E11.621 Type 2 diabetes mellitus with foot ulcer; L97.511 Non-pressure chronic ulcer of other part of right foot limited to breakdown of skin; L97.521 Non-pressure chronic ulcer of other part of left foot limited to breakdown of skin; L97.421 Non-pressure chronic ulcer of left heel and midfoot limited to breakdown of skin; L97.411 Non-pressure chronic ulcer of right heel and midfoot limited to breakdown of skin | CPT/HCPCS: 97597 ==

== ENCOUNTER 2024-08-29 11:49 | Outpatient (CLI) | payer MEDICARE, MEDICAID, SELFPAY ==
[2024-08-29 12:21] LABS: Basophils # 0.1 10^3/uL (0.0-0.1); Basophils % 0.7 %; Eosinophils # 0.3 10^3/uL (0.0-0.8); Eosinophils % 3.9 %; Hematocrit 43.5 % (37-53); Lymphocytes # 1.8 10^3/uL (0.8-4.8); Lymphocytes % 20.3 %; Mean Corpuscular Volume 93.3 fl (82-101); Mean Platelet Volume 9.6 fL (7.4-10.4); Monocytes # 0.8 10^3/uL (0.2-0.9); Monocytes % 9.2 %; Neutrophils # 5.72 10^3/uL (1.8-7.7); Neutrophils % 65.6 %; Nucleated Red Blood Cells % 0 %; Platelet Count 181 10^3/cmm (157-399); Red Blood Count 4.66 10^6/uL (3.85-5.65); Red Cell Distribution Width 14.7 % (12.1-15.1); White Blood Count 8.72 10^3/uL (3.29-11.43)
[2024-08-29 12:35] LABS: Erythrocyte Sedimentation Rate 42 mm/hr (0-10)
[2024-08-29 12:46] LABS: Anion Gap 18.9 (5-19); Blood Urea Nitrogen 18 mg/dL (8-23); C Reactive Protein 5.5 mg/L (0.0-4.9); Calcium 8.8 mg/dL (8.5-10.5); Carbon Dioxide 21 mmol/L (22-29); Chloride 104 mmol/L (98-107); Glucose 208 mg/dL (65-115); Osmolality Calculated 296 mOsm/kg (285-295); Potassium 4.9 mmol/L (3.5-5.1); Sodium 139 mmol/L (136-145)
== END 2024-08-29 11:50 | disposition home or self-care (01) ==
LOC: LAB 11:51
PROVIDERS: PCP Internal Medicine; Visit Provider Thoracic Surgery (Cardiothoracic Vascular Surgery)
DX: E11.621 Type 2 diabetes mellitus with foot ulcer (principal); L97.509 Non-pressure chronic ulcer of other part of unspecified foot with unspecified severity
CPT/HCPCS: 36415; 80048; 85025; 85651; 86140

== ENCOUNTER 2024-08-30 14:12 | Outpatient (CLI) | payer MEDICARE, MEDICAID, SELFPAY ==
--- NOTE | 2024-08-30 14:30 | MRR_ITS ---
PROCEDURE INFORMATION: Exam: MR Right Lower Extremity Other Than Joint Without and With Contrast; Foot Exam date and time: 08/30/2024 2:49 PM Age: 79 years old Clinical indication: Condition or disease; Other: Type 2 diabetes mellitus with foot ulcer; Prior surgery; Surgery date: 1-6 months; Surgery type: Y x3, 02/2024 most recent; Additional info: E11.621 - type 2 diabetes mellitus with foot ulcer TECHNIQUE: Imaging protocol: Magnetic resonance imaging of the right lower extremity without and with contrast. Exam focused on the foot. Contrast material: MULTIHANCE; Contrast volume: 20 ml; Contrast route: INTRAVENOUS (IV); COMPARISON: CT angio abd aorta runof [id number] 02/02/2024 1:35 PM FINDINGS: Bones/joints: There is osseous fragmentation of the distal aspect of the proximal phalanx of the 5th toe as well as the fused middle/distal phalanges with residual edema and heterogeneously low T1 signal. This could reflect ongoing osteomyelitis or residual edema status post treated osteomyelitis. There is edema involving the proximal and middle phalanges of the 2nd and 3rd toes with low T1 signal compatible with osteomyelitis. There is edema in the distal phalanx of the 3rd toe without confluent low T1 signal. Given proximity to the ulcer, this is suspicious for early osteomyelitis. There is a collection in the dorsal aspect of the 3rd toe that measures 1.8 x 1.9 x 1.2 cm; query abscess. Lisfranc ligament: The Lisfranc ligament is intact. Soft tissues: Subcutaneous edema compatible with cellulitis. There is a plantar ulcer involving the midfoot with an overlying collection measuring 0.5 x 1.1 x 2.1 cm; this could reflect an abscess. MR/MR foot RT wo/w con [id number] IMPRESSION: 1. Osteomyelitis involving the proximal and middle phalanges of the 2nd and 3rd toes. 2. Marrow edema in the distal phalanx of the 3rd toe without confluent low T1 signal. Given proximity to the ulcer, this is suspicious for early osteomyelitis. 3. Collection in the dorsal aspect of the 3rd toe; query abscess. 4. Osseous fragmentation of the distal aspect of the proximal phalanx of the 5th toe as well as the fused middle/distal phalanges with residual edema and heterogeneously low T1 signal. This could reflect ongoing osteomyelitis or residual edema status post treated osteomyelitis. Correlate clinically. 5. Plantar ulcer involving the midfoot with an collection that could reflect an abscess. 6. Subcutaneous edema compatible with cellulitis.
[2024-08-30] MEDS: gadobenate dimeglumine 20 mL vial IV (16:03)
== END 2024-08-30 14:13 | disposition home or self-care (01) ==
LOC: RAD 14:13
PROVIDERS: PCP Internal Medicine; Visit Provider Thoracic Surgery (Cardiothoracic Vascular Surgery)
DX: E11.621 Type 2 diabetes mellitus with foot ulcer (principal); M86.9 Osteomyelitis, unspecified; L97.519 Non-pressure chronic ulcer of other part of right foot with unspecified severity
CPT/HCPCS: 73720; A9577

== ENCOUNTER → 2024-09-04 13:41 | Outpatient (BNVA) | payer MEDICARE, MEDICAID, SELFPAY | PROVIDERS: PCP Internal Medicine; Visit Provider Thoracic Surgery (Cardiothoracic Vascular Surgery) | DX: E11.52 Type 2 diabetes mellitus with diabetic peripheral angiopathy with gangrene (principal); E11.621 Type 2 diabetes mellitus with foot ulcer; L97.511 Non-pressure chronic ulcer of other part of right foot limited to breakdown of skin; L97.521 Non-pressure chronic ulcer of other part of left foot limited to breakdown of skin; L97.411 Non-pressure chronic ulcer of right heel and midfoot limited to breakdown of skin | CPT/HCPCS: 97597 ==

== ENCOUNTER → 2024-09-10 14:57 | Outpatient (BNVA) | payer MEDICARE, MEDICAID, SELFPAY | PROVIDERS: PCP Internal Medicine; Visit Provider Podiatrist Foot & Ankle Surgery | DX: R03.0 Elevated blood-pressure reading, without diagnosis of hypertension; L60.3 Nail dystrophy; I73.9 Peripheral vascular disease, unspecified; E11.65 Type 2 diabetes mellitus with hyperglycemia; Z79.4 Long term (current) use of insulin; N18.9 Chronic kidney disease, unspecified; G62.9 Polyneuropathy, unspecified; L97.522 Non-pressure chronic ulcer of other part of left foot with fat layer exposed; M86.8X7 Other osteomyelitis, ankle and foot; E11.621 Type 2 diabetes mellitus with foot ulcer; Z79.84 Long term (current) use of oral hypoglycemic drugs | CPT/HCPCS: 99214 ==

== ENCOUNTER → 2024-09-11 15:16 | Outpatient (BNVA) | payer MEDICARE, MEDICAID, SELFPAY | PROVIDERS: PCP Internal Medicine; Visit Provider Thoracic Surgery (Cardiothoracic Vascular Surgery) | DX: E11.52 Type 2 diabetes mellitus with diabetic peripheral angiopathy with gangrene (principal); E11.621 Type 2 diabetes mellitus with foot ulcer; L97.511 Non-pressure chronic ulcer of other part of right foot limited to breakdown of skin; L97.521 Non-pressure chronic ulcer of other part of left foot limited to breakdown of skin; L97.411 Non-pressure chronic ulcer of right heel and midfoot limited to breakdown of skin | CPT/HCPCS: 97597; A6210 ==

== ENCOUNTER → 2025-02-06 14:40 | Outpatient (BNVA) | payer MEDICARE, OTHER, MEDICAID, SELFPAY | PROVIDERS: PCP Internal Medicine; Visit Provider Internal Medicine | DX: I73.9 Peripheral vascular disease, unspecified (principal); I25.10 Atherosclerotic heart disease of native coronary artery without angina pectoris; I10 Essential (primary) hypertension | CPT/HCPCS: 99214 ==

== ENCOUNTER → 2025-02-21 10:28 | Outpatient (BNVA) | payer MEDICARE, OTHER, MEDICAID, SELFPAY | PROVIDERS: PCP Internal Medicine; Visit Provider Nurse Practitioner Family | DX: L72.0 Epidermal cyst (principal); L29.89 Other pruritus; L57.8 Other skin changes due to chronic exposure to nonionizing radiation; D22.4 Melanocytic nevi of scalp and neck; L81.4 Other melanin hyperpigmentation; Z08 Encounter for follow-up examination after completed treatment for malignant neoplasm; Z85.828 Personal history of other malignant neoplasm of skin; L57.0 Actinic keratosis | CPT/HCPCS: 17000; 99213 ==

== ENCOUNTER 2025-06-26 14:26 | Inpatient (IN) | payer MEDICARE, OTHER, MEDICAID, SELFPAY ==
--- OUTSIDE RECORDS SUMMARY | 2025-06-19 12:00 | XMS_ITS | Encounter Summary ---
Author Organization [facility] Address [address] [place] [address] Care Team Providers Care Engagement Executive Name Role Phone Jose Youssef NP Primary Care Provider [phone] Reason for Visit * Radiology Services (Routine) - Closed Specialty Diagnoses / Procedures Referred By Contac t Referred To Contact Radiology Diagnoses Peripheral arterial disease Procedures US ANKLE PRESSURE INDEX Jeremy Gray MD [address] [place] [phone] Phone: tel: fax: [facility]- [address] [address] Phone: tel: fax: Referral ID Status Reason Start Date Expiration Date Visits Requested Visits Authorized [id number] Closed Performing Department to Schedule 05/28/2025 06/28/2026 1 1 Encounter Details Date Type Department Care Team (Latest Contact Info) Description 06/19/2025 12:00 PM CDT Ancillary Procedure [facility]- [address] [phone] Jeremy Gray MD [address] [place] [phone] Peripheral arterial disease Social History Tobacco Use Types Packs/Day Years Used Date Smoking Tobacco: Former Cigarettes Q uit: 02/09/2001 Pipe Quit: 02/10/20 01 Sex and Gender Information Value Date Recorded Sex Assigned at Not on file 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 Gender Identity Not on file Sexual Orientation Not on file documented as of this encounter Plan of Treatment Upcoming Encounters Date Type Department Care Team (Late st Contact Info) Description 07/03/2025 1:30 PM CDT Office Visit [facility] Podiatry-Audi Awan [address] [place] [address] Gerard Roberts, DPM [address] [place] [address] documented as of this encounter Procedures Procedure Name Priority Date/Time Associated Diagnosis Comments US ANKLE PRESSURE INDEX Routine 06/19/2025 1:07 PM CDT Peripheral arterial disease documented in this encounter Results * US ANKLE PRESSURE INDEX (06/19/2025 1:07 PM CDT) Anatomical Region Laterality Modality Lower Extremity Ultrasound 06/19/2025 12:2 8 PM CDT Narrative 06/20/2025 10:10 AM CDT [facility] [address] [place] [address] Noninvasive Vascular Lab ERICH with PVR Arterial Physiologic Evaluation Patient: Marcelino Díaz Study ID: 1 Gender: M : 1945 Age: 79 Room: Height: 180.3cm Weight: 128.8kg BSA: 2.59m^2 Pt status: Outpatient Study Date: 06/19/2025 Study Time: 12:28:00 PM BSA: 2.59m^2 Ordering: Jeremy Gray Interpreting:Devin Blackman Clothing Patternmaker: Hawa Melissa RVT Indications: I73.9 PAD. History: Risk factors: Hypertension. IDDM Obese. Previous surgery: Right 3 rd toe, left 2 nd toe surgically removed. Renal disease. Summary Impression: 1. Study demonstrates no evidence of arterial insufficiency at rest, involving the right lower extremity and the left lower extremity. 2. 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 3. Absolute toe pressures are 126 mmHg on the right and 113 mmHg on the left. 4. Exam was done with patient sitting in wheelchair. 5. No significant change from prior exam. Study data: ERICH with PVR. Ankle-brachial index and pulse volume recording. Height: 180.3cm. Height: 71in. Weight: 128.8kg. Weight: 284lb. BMI: 39.6kg/m^2. BSA: 2.59m^2. Location: Vascular laboratory. Patient status: Outpatient. Study status: Routine. Procedure: A vascular evaluation was performed. Image quality was fair. Aorta and systemic arteries: PVR on right 9 mm, left 10 mm amplitude. Arterial flow: - Right femoral mid: Right femoral mid 0.4m/sec Biphasic - Right popliteal proximal: Right popliteal proximal 0.42m/sec Biphasic - Right anterior tibial distal: Right anterior tibial distal 0.68m/sec Biphasic - Right posterior tibial mid: Right posterior tibial mid 0m/sec Occluded - Right posterior tibial distal: Right posterior tibial distal 0.26m/sec Monophasic; retrograde flow - Left femoral mid: Left femoral mid 0.39m/sec Biphasic - Left popliteal proximal: Left popliteal proximal 0.33m/sec Biphasic - Left anterior tibial distal: Left anterior tibial distal 0.21m/sec Biphasic - Left posterior tibial distal: Left posterior tibial distal 0.25m/sec Biphasic Photoplethysmography: - R 1st toe Mildly dampened TBI 1.03. - R 2nd toe Moderately dampened - R 3rd toe Surgically absent. - R 4th toe Normal - R 5th toe Open wound, did not get PPG. - L 1st toe Mildly dampened TBI .93. - L 2nd toe Surgically absent. - L 3rd toe Moderately dampened - L 4th toe Moderately dampened - L 5th toe Mildly dampened Ankle brachial indices Rt PT: 147mm Hg Rt DP: 185mm Hg Rt brachial: 120mm Hg Rt PT: 1.20 Rt DP: 1.52 Lt PT: 131mm Hg Lt DP: 255mm Hg Lt Brachial: 122mm Hg Lt PT: 1.07 [facility] is accredited with the [facility] Commission for the Accreditation of Vascular Laboratories (ICAVL) Prepared and Electronically Authenticated Devin Blackman Confirmed 06/20/2025 10:10 Procedure Note Devin Blackman MD - 06/20/2025 [facility] [address] [place] [address] [place] [id number] Noninvasive Vascular Lab ERICH with PVR Arterial Physiologic Evaluation Patient: Marcelino Díaz Study ID: 1 Gender: M : 1945 Age: 79 Room: Height: 180.3cm Weight: 128.8kg BSA: 2.59m^2 Pt status: Outpatient Study Date: 06/19/2025 Study Time: 12:28:00 PM BSA: 2.59m^2 Ordering: Jeermy Gray Interpreting:Devin Blackman Clothing Patternmaker: Hawa ROWLEYT Indications: I73.9 PAD. History: Risk factors: Hypertension. IDDM Obese. Previous surgery:Right 3 rd toe, left 2 nd toe surgically removed. Renal disease. Summary Impression: 1. Study demonstrates no evidence of arterial insufficiency at rest,involving the right lower extremity and the left lower extremity. 2. 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 3. Absolute toe pressures are 126 mmHg on the right and 113 mmHg on theleft. 4. Exam was done with patient sitting in wheelchair. 5. No significant change from prior exam. Study data: ERICH with PVR. Ankle-brachial index and pulse volume recording. Height: 180.3cm. Height: 71in. Weight: 128.8kg. Weight: 284lb. BMI: 39.6kg/m^2. BSA: 2.59m^2. Location: Vascularlaboratory. Patient status: Outpatient. Study status: Routine. Procedure: A vascular evaluation was performed. Image quality was fair. Aorta and systemic arteries: PVR on right 9 mm, left 10 mm amplitude. Arterial flow: - Right femoral mid: Right femoral mid 0.4m/sec Biphasic - Right popliteal proximal: Right popliteal proximal 0.42m/sec Biphasic - Right anterior tibial distal: Right anterior tibial distal 0.68m/sec Biphasic - Right posterior tibial mid: Right posterior tibial mid 0m/sec Occluded - Right posterior tibial distal: Right posterior tibial distal 0.26m/sec Monophasic; retrograde flow - Left femoral mid: Left femoral mid 0.39m/sec Biphasic - Left popliteal proximal: Left popliteal proximal 0.33m/sec Biphasic - Left anterior tibial distal: Left anterior tibial distal 0.21m/secBiphasic - Left posterior tibial distal: Left posterior tibial distal 0.25m/sec Biphasic Photoplethysmography: - R 1st toe Mildly dampened TBI 1.03. - R 2nd toe Moderately dampened - R 3rd toe Surgically absent. - R 4th toe Normal - R 5th toe Open wound, did not get PPG. - L 1st toe Mildly dampened TBI .93. - L 2nd toe Surgically absent. - L 3rd toe Moderately dampened - L 4th toe Moderately dampened - L 5th toe Mildly dampened Ankle brachial indices Rt PT: 147mm Hg Rt DP: 185mm Hg Rt brachial:120mm Hg Rt PT: 1.20 Rt DP: 1.52 Lt PT: 131mm Hg Lt DP: 255mm Hg Lt Brachial: 122mmHg Lt PT: 1.07 [facility] is accredited withthe [employer] Commission for the Accreditation of Vascular Laboratories (ICAVL) Prepared and Electronically Authenticated Devin Blackman Confirmed 06/20/2025 10:10 Jeremy Gray MD ORDERABLES Final Result documented in this encounter Visit Diagnoses Diagnosis Peripheral arterial disease Unspecified disorders of arteries and arterioles documented in this encounter Care Teams Engagement Executive Relationship Specialty Start Date End Date Jose Youssef, OPTICAL INSTRUMENT ASSEMBLY SUPERVISOR [address] [place] [phone] PCP - General NURSE PRACTITIONER 07/10/14 documented as of this encounter
--- OUTSIDE RECORDS SUMMARY | 2025-06-19 13:00 | XMS_ITS | Encounter Summary ---
Author Organization [facility] Address [address] [place] [address] Care Team Providers Care Welding Estimator Name Role Phone Jose Youssef NP Primary Care Provider [phone]- [phone] Reason for Visit * Reason Comments Consult * Consult for Advice and Opinion (Routine) - Closed Specialty Diagnoses / Procedures Referred By Contac t Referred To Contact Vascular Surgery Diagnoses Peripheral vascular disease, unspecified Adonay Zhang, DO [address] [address] Phone: tel: fax: [facility] Vascular Surgery [address] [address] Phone: tel: fax: Referral ID Status Reason Start Date Expiration Date Visits Re quested Visits Authorized [id number] Closed 05/28/2025 06/28/2026 1 1 Encounter Details Date Type Department Care Team (Late st Contact Info) Description 06/19/2025 1:00 PM CDT Office Visit [facility] Vascular Surgery [address] [address] Jeremy Gray MD [address] [place] [phone] Devin Blackman MD [address] [place] [phone] Peripheral artery disease (Primary Dx); Venous stasis ulcer of left midfoot limited to breakdown of skin without varicose veins (CMS/HCC); Venous stasis ulcer of right midfoot limited to breakdown of skin without varicose veins (CMS/HCC); Diabetic ulcer of toe associated with type 2 diabetes mellitus, limited to breakdown of skin, unspecified laterality (CMS/HCC) Social History Tobacco Use Types Packs/Day Years Used Date Smoking Tobacco: Former Cigarettes Q uit: 02/09/2001 Pipe Quit: 02/10/20 01 Tobacco Cessation:Counseling Given: Not Answered Sex and Gender Information Value Date Recorded Sex Assigned at Not on file 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 Gender Identity Not on file Sexual Orientation Not on file documented as of this encounter Last Filed Vital Signs Vital Sign Reading Time Taken Comments Blood Pressure 122/72 06/19/2025 1:12 PM CDT Pulse 60 06/19/2025 1:12 PM CDT Temperature - - Respiratory Rate - - Oxygen Saturation 98% 06/19/2025 1:12 PM CDT Inhaled Oxygen Concentration - - Weight 131.5 kg (290 lb) 06/19/2025 1:12 PM CDT Height 181.6 cm (5' 11.5 ) 06/19/2025 1:12 PM CD T Body Mass Index 39.88 06/19/2025 1:12 PM CDT documented in this encounter Progress Notes * Devin Blackman MD - 06/19/2025 1:26 PM CDT Images from the original note were not included. Your life is our life???s work [facility] VASCULAR SURGERY [facility] ENDOVASCULAR THERAPY [place], [place] CLINIC NOTE HISTORY & PHYSICAL PATIENT NAME: Marcelino Díaz : 1945; AGE: 79 y.o.; SEX: M PHONE NUMBER: ; (Work); (Cell) ; #: [phone] PHYSICIAN: Devin Blackman MD PRIMARY CARE / REFERRING PHYSICIAN: Jeremy Gray MD / Jose Youssef R / [facility] [employer] [facility] / [facility] [id number] / REASON FOR EVALUATION / CHIEF COMPLAINT: Bilateral foot ulcers ASSESSMENT: 79-year-old male with multifactorial nonhealing bilateral foot and toe wounds in the setting of venous insufficiency and peripheral arterial disease without arterial insufficiency. Plan: Chief Complaint: I had a long talk with Marcelino today regarding his leg issues. He has not reliably ambulated for 3 years. He is adamant that he wants out of his [facility]ci and to move back to [place]. I do not blame him, I think that he is going through an adjustment disorder due to his housing as well as a divorce. On independent review his imaging both today and back in November of this year, the patient has biphasic signals to the level of the ankles bilaterally. He has peripheral arterial disease, but withoutarterial insufficiency. His absolute toe pressure on the right is 126 mmHg and on the left is 113 mmHg. Even in the setting of diabetes mellitus or end-stage renal disease, a toe pressure of greater than 65 mmHg is adequate to heal the wound. His wounds are not healing, likely due to a multitude offactors. My sense is that his wounds are combination of uncontrolled diabetes mellitus as well as venous stasis. Clinically, he does have venous insufficiency and his wounds appear to have similar stigmata. When I asked him what his last hemoglobin A1c was, he states that he has not had this lab performed in 2 to 3 years. I cannot find a lab draw for this in his current medical record. We discussed that surgical revascularization would not significantly improve his chances of keepinghis feet at this point. I have independently reviewed all of his imaging. The best chance that he would have is to pursue a course of best medical management including his Eliquis, Plavix, and statin. Additionally, we will refer him to primary care for management of his diabetes. He can follow-up with us in 6 months. He does not need imaging at that time. He is in agreement with the plan. All of his questions were answered. HISTORY OF PRESENT ILLNESS: The patient is a 79-year-old male from [place], who presents with complaint of 3 years of nonhealingulcers of the feet. He has been undergoing podiatric care and has required several toe amputations.He does not ambulate enough to claudicate, and barely ambulates in his [facility]. He states thata fall precipitated his admission to a nursing facility. He states that he wants to get out of the [facility] and move to [place]. He does not have ischemic rest pain. He is a former smoker that quit years ago. He has not had a hemoglobin A1c in some time, but clearly has diabetes based on his labs and stigmata of presentation. PAST SURGICAL HISTORY: The patient's has a past surgical history that includes toe amputation (Right, 12/07/2024). PAST MEDICAL HISTORY: The patient has a past medical history of Cellulitis of right lower extremity(12/04/2024), Diabetic ulcer of left midfoot associated with type 2 diabetes mellitus, with fat layer exposed ([facility] (12/04/2024), Diabetic ulcer of right midfoot associated with type 2 diabetes mellitus, with fat layer exposed ([facility]) (12/04/2024), Essential hypertension (12/18/2018), MRSA (methicillin resistant staph aureus) culture positive (12/07/2004), Peripheral arterial disease (12/04/2024), Sinus bradycardia (12/06/2024), Stage 2 chronic kidney disease (12/18/2018), and Type 2 diabetes mellitus, with long- term current use of insulin ([facility]) (12/04/2024). FAMILY HISTORY: The patient's family history is not on file. CURRENT MEDICATIONS: Current Outpatient Medications on File Prior to Visit Medication Sig Dispense Refill famotidine (PEPCID) 20 mg tablet Take 20 mg by mouth daily. finasteride (PROSCAR) 5 mg tablet Take 5 mg by mouth daily. fluticasone propionate (FLONASE) 50 mcg/spray [place], Suspension nasal inhaler insulin aspart U-100 (NovoLOG) 100 unit/mL pen syringe metFORMIN (GLUCOPHAGE) 1,000 mg tablet AutoShield Duo Pen Needle 30 gauge x 3/16 Needle pentoxifylline (TRENtal) 400 mg Extended Release tablet Januvia 100 mg Tablet vancomycin/water for inj, PEG, (vancomycin, PEG,NADA,) 1,250 mg/250 mL Piggyback trandolapriL (MAVIK) 2 mg Tablet daily. apixaban (ELIQUIS) 5 mg tablet Take 1 Tablet (5 mg) by mouth 2 times daily. 180 Tablet 3 albuterol (PROVENTIL,VENTOLIN) 2.5 mg /3 mL (0.083 %) Solution for Nebulization Take 2.5 mg by inhalation every 4 hours as needed. albuterol sulfate HFA 90 mcg/actuation aerosol inhaler Take 2 Puffs by inhalation every 6 hours as needed. atorvastatin (LIPITOR) 40 mg tablet Take 40 mg by mouth daily. busPIRone (BUSPAR) 10 mg tablet Take 10 mg by mouth 3 times daily. clopidogreL (PLAVIX) 75 mg Tablet Take 75 mg by mouth daily. dapagliflozin-metFORMIN 5-1,000 mg tablet, IR & ER, biphasic 24hr Take 2 Tablets by mouth daily. fluticasone furoate (ARNUITY) 100 mcg/actuation inhaler Administer 2 Sprays in each nostril daily. gabapentin (NEURONTIN) 300 mg capsule Take 300 mg by mouth 3 times daily. insulin detemir U-100 (LEVEMIR) 100 unit/mL vial Inject 1 Units by subcutaneous injection daily at bedtime. Lantus Solostar U-100 Insulin 100 unit/mL (3 mL) solution for injection Inject 1 Units by subcutaneous injection one time only. predniSONE (DELTASONE) 20 mg tablet Take 20 mg by mouth 2 times daily with meals. primidone (MYSOLINE) 50 mg tablet Take 2 Tablets by mouth daily. tamsulosin (FLOMAX) 0.4 mg capsule Take 0.4 mg by mouth daily. traMADoL (ULTRAM) 50 mg tablet Take 50 mg by mouth every 6 hours as needed. triamcinolone acetonide (KENALOG) 0.5 % Ointment by Other route 2 times daily. No current facility-administered medications on file prior to visit. ALLERGIES: Allergies Allergen Reactions Latex Unknown Sertraline Unknown SOCIAL HISTORY: reports that he quit smoking about 24 years ago. His smoking use included cigarettes and pipe. He does not have any smokeless tobacco history on file. REVIEW OF SYSTEMS: Review of Systems Constitutional: Negative for chills, fever and malaise/fatigue. HENT: Positive for congestion and sinus pain. Negative for hearing loss. Eyes: Negative for blurred vision and double vision. Respiratory: Negative for shortness of breath and wheezing. Cardiovascular: Positive for leg swelling. Negative for chest pain, palpitations and claudication. Gastrointestinal: Negative for abdominal pain, nausea and vomiting. Musculoskeletal: Positive for falls and neck pain. Negative for back pain. Neurological: Negative for dizziness and headaches. Psychiatric/Behavioral: Negative for depression. All other systems reviewed and are negative. VITAL SIGNS: Pulse 60 Ht 5' 11.5 (1.816 m) Wt 131.5 kg (290 lb) SpO2 98% BMI 39.88 kg/m?? PHYSICAL EXAM: Constitutional: Following commands, no signs of distress, alert and oriented Neck: Supple, no visible adenopathy or masses noted, no scars Cardiovascular: Normal rate, regular rhythm Pulmonary/Chest: Bilateral and symmetric chest rise without respiratory distress on room air Abdominal: Soft. No abdominal distension or tenderness. No masses palpated. No organomegaly. No abdominal pulsatile mass noted. Extremities: Scattered venous stasis wounds on the bilateral feet. There is nonpitting edema and Charcot feet bilaterally. There are several well-healed toe amputations. On the right, there is a softtissue ulceration involving the fifth digit. The pedal pulses are nonpalpable. There are biphasic DP signals and monophasic PT signals bilaterally. Neurological: alert and oriented. Once in a wheelchair Imaging Reviewed: I have personally and independently reviewed the ultrasound ankle pressure index and ultrasound duplex arterial study images dated 06/19/2025 and 12/04/2024 and agree with the Radiologist's findings with the following additions/exceptions: There are biphasic signals to the level of the ankles bilaterally. The ABIs are greater than 1, but possibly elevated due to medial calcinosis. The absolute toe pressure on the right is 126 and on the left is 113 mmHg. TOBACCO COUNSELING He is not a tobacco/nicotine user. This note has been sent to Jose Youssef NP and the referring physican, with findings and recommendations. Electronically Signed: Devin Blackman MD, MPH Vascular Surgeon 06/19/2025 [facility] Coil Machine Supervisor [address] [place] [address], [address] [facility]. [id number] (Office) documented in this encounter Plan of Treatment Upcoming Encounters Date Type Department Care Team (Late st Contact Info) Description 07/03/2025 1:30 PM CDT Office Visit [facility] Podiatry-Audi Garciaaway [address] [place] [address] Gerard Roberts, DPM [address] [facility] [address] [place] [address] documented as of this encounter Visit Diagnoses Diagnosis Peripheral artery disease- Primary Unspecified disorders of arteries and arterioles Venous stasis ulcer of left midfoot limited to breakdown of skin without varicose veins (CMS/HCC) Venous stasis ulcer of right midfoot limited to breakdown of skin without varicose veins (CMS/HCC) Diabetic ulcer of toe associated with type 2 diabetes mellitus, limited to breakdown of skin, unspecified laterality (CMS/HCC) documented in this encounter Care Teams Welding Estimator Relationship Specialty Start Date End Date Jose Youssef NP [address] [place] [phone] PCP - General NURSE PRACTITIONER 07/10/14 documented as of this encounter
[2025-06-26 14:27] VITALS: BP 125/71; PULSE 83; RESP 20; TEMP 36.8; O2SAT 98
--- NOTE | 2025-06-26 14:30 | W.ED.GENADLT ---
HPI - General Adult General: Chief complaint: Wound/Laceration Stated complaint: r foot infection Time Seen by Provider: 06/26/25 14:26 History of Present Illness: 79-year-old male presents emergency room from [facility]. He has a chronic wound on his right foot he also has some peripheral vascular disease. He has been seeing wound care. The [facility] staff noticed that the wound on the lateral portion of the right foot and right little toe has been get progressively worse is foul-smelling there is redness increased inflammation. He denies any fever. He did had some evaluation by vascular surgery recently for his right leg he states they have told him that someday he may end up having to amputate the leg because of poor blood flow. He previously had stenting to his left leg. He is diabetic. He has been seeing wound care but has not seen them recently. Associated symptoms: Deny chest pain or dyspnea Related Data Home Medications ?Medication ?Instructions ?Recorded ?Confirmed multivitamin 1 tab PO DAILY 11/02/22 06/26/25 acetaminophen 325 mg tablet 650 mg PO Q4H PRN Pain 07/05/23 06/26/25 (Tylenol) calcium carbonate (Tums) 1,000 mg PO Q8H PRN upset stomach 07/05/23 06/26/25 gabapentin 300 mg capsule 300 mg PO QID 07/05/23 06/26/25 insulin glargine 100 unit/mL (3 45 unit SUBCUT BID 07/05/23 06/26/25 mL) subcutaneous pen (Lantus Solostar U-100 Insulin) nitroglycerin 0.4 mg sublingual 0.4 mg sublingual Q5M PRN Chest 07/05/23 06/26/25 tablet (Nitrostat) Pain bisacodyl 10 mg rectal suppository 10 mg AK DAILY PRN Constipation 03/28/24 06/26/25 (Dulcolax (bisacodyl)) diclofenac sodium 1 % topical gel 2 g topical QID 03/28/24 06/26/25 docusate sodium 100 mg tablet 100 mg PO BID Constipation 03/28/24 06/26/25 insulin aspart U-100 100 unit/mL See Rx Instructions .Route .COMPLEX 03/28/24 06/26/25 (3 mL) subcutaneous pen (Novolog FlexPen U-100 Insulin aspart) magnesium hydroxide 400 mg/5 mL 2,000 mg PO DAILY PRN Constipation 03/28/24 06/26/25 oral suspension (Milk of Magnesia) melatonin 3 mg tablet 3 mg PO DAILY PRN Insomnia 03/28/24 06/26/25 primidone 50 mg tablet 50 mg PO DAILY 03/28/24 06/26/25 sodium phosphates 19 gram-7 1 ml AK DAILY PRN Constipation 03/28/24 06/26/25 gram/118 mL enema (Fleet Enema) triamcinolone acetonide 0.1 % 1 applic topical BID PRN actinic 03/28/24 06/26/25 topical cream keratosis famotidine 20 mg tablet 20 mg PO BID 09/24/24 06/26/25 pentoxifylline 400 mg 400 mg PO TID 09/24/24 06/26/25 tablet,extended release Lactobacillus acidophilus 1 1,000 mmu cells PO DAILY 06/26/25 06/26/25 billion cell tablet albuterol sulfate 2.5 mg/3 mL 2.5 mg continuous nebulization Q4H 06/26/25 06/26/25 (0.083 %) solution for nebulization PRN Shortness Of Breath albuterol sulfate 90 mcg/actuation 2 puff inhalation Q6H PRN 06/26/25 06/26/25 aerosol inhaler Shortness Of Breath apixaban 5 mg tablet (Eliquis) 5 mg PO BID 06/26/25 06/26/25 finasteride 5 mg tablet 5 mg PO BEDTIME 06/26/25 06/26/25 guaifenesin 100 mg/5 mL oral liquid 200 mg PO Q4H PRN Cough 06/26/25 06/26/25 loperamide 2 mg tablet (Imodium 2 mg PO Q6H PRN Constipation 06/26/25 06/26/25 A-D) loratadine 10 mg tablet (Claritin) 10 mg PO DAILY PRN allergies 06/26/25 06/26/25 sitagliptin phosphate 100 mg 100 mg PO DAILY 06/26/25 06/26/25 tablet (Januvia) tamsulosin 0.4 mg capsule 0.4 mg PO BEDTIME 06/26/25 06/26/25 white petrolatum (Vaseline jelly, 1 applic topical Q12H PRN actinic 06/26/25 06/26/25 topical) keratosis Previous Rx's ?Medication ?Instructions ?Recorded blood sugar diagnostic (OneTouch #100 ea 01/05/22 Verio test strips) fluticasone propionate 50 2 spray intranasal DAILY #15.8 mL 01/05/22 mcg/actuation nasal spray,suspension metformin 1,000 mg tablet 1,000 mg PO BID #180 tabs 01/05/22 trandolapril 2 mg tablet 2 mg PO DAILY #90 tabs 01/05/22 Diabetic shoes with inserts #1 ea 03/30/22 Cam Boot to the Right #1 ea 06/20/22 [place] Boot to the left #1 ea 06/20/22 articulating AFO to the right #1 ea 06/20/22 lower extremity clopidogrel 75 mg tablet 75 mg PO DAILY #30 tabs 03/30/24 Allergies Allergy/AdvReac Type Severity Reaction Status Date / Time sertraline (From Zoloft) Allergy Intermediate Seizure Verified 02/06/25 15:22 Latex, Natural Rubber Allergy Unknown ALGY-Rash Verified 02/06/25 15:22 Review of Systems Const: Denies: fever(s) or chills Card: Denies: chest pain Resp: Denies: dyspnea GI: Denies: abdominal pain : Denies: dysuria, urinary frequency or urinary urgency Musc: Denies: neck pain or back pain Skin/Breast: Reports: erythema, changing lesions, non-healing lesions and lesions PFSH ED PFSH: Medical History HTN (hypertension) BPH (benign prostatic hyperplasia) Diabetes mellitus COPD (chronic obstructive pulmonary disease) CKD (chronic kidney disease) Fibromyalgia ASHD (arteriosclerotic heart disease) JOHAN (obstructive sleep apnea) Hyperlipidemia PAD (peripheral artery disease) Surgical History H/O vasectomy S/P rotator cuff repair S/P PTCA (percutaneous transluminal coronary angioplasty) S/P CABG (coronary artery bypass graft) Family History Other Cancer Denies family history of Diabetes Social History (Reviewed 06/26/25 @ 16:38 by ANA Byrd Smoking and tobacco/nicotine status: former use of tobacco/nicotine Second hand smoke exposure: No Alcohol intake: never Substance/Drug Use: never Caregiver/support person: Yes Lives independently: Yes Household members: spouse Marital status: Current occupational status: retired Current gender identity: Male Special aubree needs: No Agree to transfusion: Yes Physical Exam Const: COMMON NORMALS: no acute distress GENERAL APPEARANCE: cooperative and comfortable ORIENTATION/CONSCIOUSNESS: Yes awake, Yes oriented to person, Yes oriented to place and Yes oriented to time HENMT: COMMON NORMALS: normocephalic, atraumatic and hearing grossly normal bilaterally HEAD & SCALP: normocephalic and atraumatic Resp: COMMON NORMALS: normal respiratory effort, No retractions, No use of accessory muscles and clear to auscultation bilaterally AUSCULTATION: clear to auscultation bilaterally Cardio: COMMON NORMALS: regular rate, regular rhythm and No murmurs present (Cardio) RATE: regular rate RHYTHM: regular rhythm GI: COMMON NORMALS: Soft to palpation and No hepatosplenomegaly present AUSCULTATION: Yes normoactive bowel sounds PALPATION: Yes Soft to palpation, No Tenderness to palpation present (GI), No Guarding due to palpation present (GI) and Yes No hepatosplenomegaly present Extremity: COMMON NORMALS: normal to inspection, capillary refill normal and no calf tenderness GENERAL: Yes edema Neuro: SENSORIUM/ORIENTATION: Yes oriented to person, Yes oriented to place and Yes oriented to time Skin: OTHER: Course Vital Signs: Vital signs: Vital Signs Temperature 98.0 F 06/26/25 16:33 Pulse Rate 72 06/26/25 16:33 Respiratory Rate 20 H 06/26/25 16:33 Blood Pressure 158/66 06/26/25 16:33 Pulse Oximetry 93 06/26/25 16:33 Oxygen Delivery Me thod Room Air 06/26/25 16:33 MDM - General Adult Medical Decision Making Cellulitis right foot with open wound. There is a very foul-smelling. Gangrenous in appearance. No evidence of involvement of the bone on plain film. His white count is normal. Lactate slightly elevated discussed with Dr. Huizar. Will admit treat for cellulitis he plans to take the patient to the OR for debridement in the morning discussed with hospitalist orders written Lab Data 06/26/25 15:22 06/26/25 15:22 Radiology Impressions Chest X-Ray 06/26/25 14:34 Impression: Cardiomegaly. Foot X-Ray 06/26/25 14:39 Impression: 1. Absent right third toe. 2. Demineralization of the bones of the phalanges and metatarsals. 3. Internal fixation of old bimalleolar fracture. All radiology interpretation(s) finalized by discharge EKG Data EKG 1: Interpretation: EKG 06/26/2025 1515 sinus rhythm first-degree AV block rate of 86 AK interval [address]Tc [address] elevation. Similar in appearance to EKG noted on 03/23/2024. Computer generated interpretation: Chest X-Ray 06/26/25 14:34 Impression: Cardiomegaly. Foot X-Ray 06/26/25 14:39 Impression: 1. Absent right third toe. 2. Demineralization of the bones of the phalanges and metatarsals. 3. Internal fixation of old bimalleolar fracture. Discharge Plan Discharge Patient Disposition: Admitted As Inpatient Admit Provider: Skyla Estrella Clinical Impression: Non-pressure chronic ulcer of other part of right foot with necrosis of muscle, PAD (peripheral artery disease), Diabetes mellitus, Cellulitis of right lower extremity, CKD (chronic kidney disease) Condition: Stable Coding Level of Care Code ED Hydrostatic Tester for Yuval Kaiser
--- NOTE | 2025-06-26 14:34 | XR_ITS ---
WS: [id number] Portable AP upright chest, 06/26/2025 Clinical Data: dyspnea/cough Comparison: AP chest, 03/23/2024 Findings: No nodules, masses or effusions are seen. The heart is enlarged. The pulmonary vascularity is not increased. No pneumonia or pneumothorax is seen. Midline sternotomy sutures are present. There is an orthopedic anchor in the right humeral head. XR/XR chest 1V portable [id number] Impression: Cardiomegaly.
--- NOTE | 2025-06-26 14:39 | XR_ITS ---
WS: [id number] Right foot, 3 views, 06/26/2025 Clinical Data: diabetic foot ulcer Comparison: Right foot, 07/23/2022 Findings: The right third toe is absent. There is flexion deformity of the remaining toes. There are no new fractures or dislocations. The bones of the right foot show demineralization. 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 There are internal fixation devices for an old bimalleolar fracture. The soft tissues show no significant swelling. XR/XR foot RT min 3V* [id number] Impression: 1. Absent right third toe. 2. Demineralization of the bones of the phalanges and metatarsals. 3. Internal fixation of old bimalleolar fracture.
--- NOTE | 2025-06-26 14:47 | PM.CONSULT ---
Providers/Reason For Consult Consulting Physician/Specialty*: Eloy Huizar D.P.M./podiatry Reason for Consult*: Gangrene right foot Primary Care Provider: Terry Llanos MD History of Present Illness History of Present Illness Marcelino Díaz is a 79 year old male presents with gangrene to the right forefoot. Patient has extensive comorbidities with past medical history consisting of diabetes, coronary artery disease, peripheral arterial disease, history of revascularization of the left lower extremity in March 2020 for. He reports having been seen by a vascular surgeon in [place] last Monday, June 20, 2025 per his report no options were available for revascularization of the right lower extremity. He has had a wound of the right foot for greater than 1 year, reports being sent from his care home to the emergency department due to redness drainage and foul-smelling wound. Review of Systems General: Reports: 10 or more systems reviewed and unremarkable except in HPI and below Const: Denies: fever(s) or chills Eyes: Denies: change in vision Card: Denies: chest pain or palpitations Resp: Denies: dyspnea or productive cough GI: Denies: abdominal pain, nausea or vomiting : Denies: flank pain Musc: Reports: extremity swelling, joint stiffness and deformity Skin/Breast: Reports: erythema, sores, changes in skin color, dry skin, nail changes and change in hair Neuro: Reports: numbness in extremities, sensory changes and difficulty walking Psych: Denies: suicidal ideation Endo: Denies: change in body appearance Danny/Lymph: Denies: tender lymph nodes Medications/Allergies Home Medications ?Medication ?Instructions ?Recorded ?Confirmed ?Last Taken ?Type blood sugar diagnostic (OneTouch #100 ea 01/05/22 06/26/25 Unknown Rx Verio test strips) fluticasone propionate 50 2 spray intranasal DAILY #15.8 mL 01/05/22 06/26/25 06/26/25 Rx mcg/actuation nasal spray,suspension metformin 1,000 mg tablet 1,000 mg PO BID #180 tabs 01/05/22 06/26/25 06/26/25 Rx trandolapril 2 mg tablet 2 mg PO DAILY #90 tabs 01/05/22 06/26/25 06/26/25 Rx Diabetic shoes with inserts #1 ea 03/30/22 06/26/25 Unknown Rx Cam Boot to the Right #1 ea 06/20/22 06/26/25 Unknown Rx [place] Boot to the left #1 ea 06/20/22 06/26/25 Unknown Rx articulating AFO to the right #1 ea 06/20/22 06/26/25 Unknown Rx lower extremity multivitamin 1 tab PO DAILY 11/02/22 06/26/25 06/26/25 History acetaminophen 325 mg tablet 650 mg PO Q4H PRN Pain 07/05/23 06/26/25 01/07/25 History (Tylenol) calcium carbonate (Tums) 1,000 mg PO Q8H PRN upset stomach 07/05/23 06/26/25 02/02/25 History gabapentin 300 mg capsule 300 mg PO QID 07/05/23 06/26/25 06/26/25 History insulin glargine 100 unit/mL (3 45 unit SUBCUT BID 07/05/23 06/26/25 06/26/25 History mL) subcutaneous pen (Lantus Solostar U-100 Insulin) nitroglycerin 0.4 mg sublingual 0.4 mg sublingual Q5M PRN Chest 07/05/23 06/26/25 03/27/25 History tablet (Nitrostat) Pain bisacodyl 10 mg rectal suppository 10 mg [place] DAILY PRN Constipation 03/28/24 06/26/25 Unknown History (Dulcolax (bisacodyl)) diclofenac sodium 1 % topical gel 2 g topical QID 03/28/24 06/26/25 06/26/25 History docusate sodium 100 mg tablet 100 mg PO BID Constipation 03/28/24 06/26/25 06/26/25 History insulin aspart U-100 100 unit/mL See Rx Instructions .Route .COMPLEX 03/28/24 06/26/25 06/26/25 History (3 mL) subcutaneous pen (Novolog FlexPen U-100 Insulin aspart) magnesium hydroxide 400 mg/5 mL 2,000 mg PO DAILY PRN Constipation 03/28/24 06/26/25 Unknown History oral suspension (Milk of Magnesia) melatonin 3 mg tablet 3 mg PO DAILY PRN Insomnia 03/28/24 06/26/25 Unknown History primidone 50 mg tablet 50 mg PO DAILY 03/28/24 06/26/25 06/26/25 History sodium phosphates 19 gram-7 1 ml [place] DAILY PRN Constipation 03/28/24 06/26/25 Unknown History gram/118 mL enema (Fleet Enema) triamcinolone acetonide 0.1 % 1 applic topical BID PRN actinic 03/28/24 06/26/25 06/01/25 History topical cream keratosis clopidogrel 75 mg tablet 75 mg PO DAILY #30 tabs 03/30/24 06/26/25 06/26/25 Rx famotidine 20 mg tablet 20 mg PO BID 09/24/24 06/26/25 06/26/25 History pentoxifylline 400 mg 400 mg PO TID 09/24/24 06/26/25 06/26/25 History tablet,extended release Lactobacillus acidophilus 1 1,000 mmu cells PO DAILY 06/26/25 06/26/25 06/26/25 History billion cell tablet albuterol sulfate 2.5 mg/3 mL 2.5 mg continuous nebulization Q4H 06/26/25 06/26/25 05/02/25 History (0.083 %) solution for nebulization PRN Shortness Of Breath albuterol sulfate 90 mcg/actuation 2 puff inhalation Q6H PRN 06/26/25 06/26/25 Unknown History aerosol inhaler Shortness Of Breath apixaban 5 mg tablet (Eliquis) 5 mg PO BID 06/26/25 06/26/25 06/26/25 History finasteride 5 mg tablet 5 mg PO BEDTIME 06/26/25 06/26/25 06/25/25 History guaifenesin 100 mg/5 mL oral liquid 200 mg PO Q4H PRN Cough 06/26/25 06/26/25 05/25/25 History loperamide 2 mg tablet (Imodium 2 mg PO Q6H PRN Constipation 06/26/25 06/26/25 03/31/25 History A-D) loratadine 10 mg tablet (Claritin) 10 mg PO DAILY PRN allergies 06/26/25 06/26/25 04/09/25 History sitagliptin phosphate 100 mg 100 mg PO DAILY 06/26/25 06/26/25 06/26/25 History tablet (Januvia) tamsulosin 0.4 mg capsule 0.4 mg PO BEDTIME 06/26/25 06/26/25 06/25/25 History white petrolatum (Vaseline jelly, 1 applic topical Q12H PRN actinic 06/26/25 06/26/25 Unknown History topical) keratosis Allergies Allergy/AdvReac Type Severity Reaction Status Date / Time sertraline (From Zoloft) Allergy Intermediate Seizure Verified 02/06/25 15:22 Latex, Natural Rubber Allergy Unknown ALGY-Rash Verified 02/06/25 15:22 PFSH Acute PFSH: Medical History (Updated 06/27/25 @ 06:21 by Eloy Huizar DPM) HTN (hypertension) BPH (benign prostatic hyperplasia) Diabetes mellitus COPD (chronic obstructive pulmonary disease) CKD (chronic kidney disease) Fibromyalgia ASHD (arteriosclerotic heart disease) JOHAN (obstructive sleep apnea) Hyperlipidemia PAD (peripheral artery disease) Surgical History H/O vasectomy S/P rotator cuff repair S/P PTCA (percutaneous transluminal coronary angioplasty) S/P CABG (coronary artery bypass graft) Family History Other Cancer Denies family history of Diabetes Social History Smoking and tobacco/nicotine status: former use of tobacco/nicotine Second hand smoke exposure: No Alcohol intake: never Substance/Drug Use: never Caregiver/support person: Yes Lives independently: Yes Household members: spouse Marital status: Current occupational status: retired Current gender identity: Male Special aubree needs: No Agree to transfusion: Yes Vitals/I&O/Wt Last Vital Signs Temp 98.3 F 06/26/25 14:27 Pulse 83 06/26/25 14:27 Resp 20 H 06/26/25 14:27 BP 125/71 06/26/25 14:27 Pulse Ox 98 06/26/25 14:27 O2 Del Method Room Air 06/26/25 14:27 Physical Exam Narrative: GENERAL: Patient is alert and oriented ?3 and in no acute distress. The following is a focused bilateral lower extremity exam. VASCULAR: Dorsalis pedis diminished bilaterally, posterior tibial arteries diminished. With pedal Doppler bilateral dorsalis pedis artery is monophasic and posterior tibial artery is biphasic. Capillary refill time less than 5 seconds to the distal hallux bilaterally. Calf is supple and nontender proximally and distally. Decreased pedal hair growth bilaterally. Edema to the bilateral lower extremity. NEUROLOGICAL: Protective sensation intact 0/10 sites, tested with [place] monofilament to bilateral feet. DERMATOLOGICAL: Gangrenous changes to right 4th and 5th toes with black and sanchez macerated soft tissue with exposed bone, purulent drainage, foul-smelling odor and erythema to the right forefoot. House grade 2 wound to the dorsum of the left foot and dorsum of the left great toe without erythema warmth or purulent drainage. MUSCULOSKELETAL: History of right third toe amputation. Gross deformity of the right 4th and 5th toes due to soft tissue infection. Data 06/27/25 05:01 06/27/25 05:01 A&P Assessment and plan 1. PAD (peripheral artery disease): 2. 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 CKD (chronic kidney disease): 4. MIKEY (acute kidney injury): 5. Cellulitis of right lower extremity: 6. Gangrene of right foot: Plan: 79-year-old diabetic male with peripheral arterial disease presents with gangrene to the right forefoot. Patient examined evaluated, findings and treatment options discussed with patient at length. Recommended right transmetatarsal amputation for source control of infection and vascular workup to explore options of revascularization to optimize healing of the amputation site. Patient is in agreements. I reviewed at length with the patient, the risks, potential complications, benefits, alternatives, expectations, and typical outcomes associated with the surgery. The risks and potential complications were explained in detail, including but not limited to infection, wound dehiscence or soft tissue complications, bleeding and hematoma, chronic edema, neuritis or nerve damage producing numbness or chronic pain, CRPS, failure to relieve pain or worsening pain, thick / painful / unsightly scar, limited motion / stiffness, malposition, delayed union, malunion, or nonunion, fracture, reaction to implants, anesthetic complications, venous thromboembolism, and deformity recurrence. I discussed the notion of no regrets with the patient as it pertains to complications and outcomes. The patient seemed to understand the nature of the proposed care and required convalescence. They asked appropriate questions, answered to their satisfaction. They are aware no guarantees can be made as to a satisfactory outcome and they understand there may be other possible unforeseen complications or outcomes not listed here that will be treated accordingly if they arise. There were no written or implied guarantees given to the patient. They gave informed consent to proceed. N.p.o. at midnight Scheduled for right transmetatarsal amputation tomorrow morning Recommend vascular consult from cardiology. Obtain records from [place] vascular surgery visit last week. Nonweightbearing right foot. 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
[2025-06-26 15:14] VITALS: BP 96/62; PULSE 86; RESP 16; O2SAT 96
--- NOTE | 2025-06-26 15:15 | ECG_ITS ---
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
--- NOTE | 2025-06-26 15:19 | P.HP_ITS ---
Providers/Chief Complaint 2 Primary Care Provider: Terry Llanos MD Chief Complaint: r foot infection History of Present Illness Marcelino Díaz is a 79 year old male With past medical history of diabetes mellitus, peripheral vascular disease, malignant melanoma of skin, osteomyelitis, hyperlipidemia, hypertension, CAD status post CABG, urinary retention presented to the hospital today after being sent from the half-way for foot infection that is not getting better. Patient follows with wound care regularly. Is somewhat of a poor historian. He states he would like to be DNR/DNI. He saw vascular surgery last week on Monday at [facility]. He states they told him there is nothing that can be done for his leg. He has had peripheral vascular intervention in the past on left leg in 2023. He has never had intervention done for the right. He does not recall any imaging studies done at [facility]. Labs from today's arrival are still pending. Podiatry is consulted. Plan for transmetatarsal amputation in AM. Cardiology has been consulted for cardiac clearance. Does take Eliquis and Plavix at home. Per podiatry no need to hold. When patient was asked questions about his medications he does not recall what he takes on a daily basis. He does state that he is supposed to be wearing a CPAP at night however chooses not to. Denies chest pain shortness of breath abdominal pain nausea vomiting diarrhea at this time. Medications/Allergies Home Medications ?Medication ?Instructions ?Recorded ?Confirmed ?Last Taken ?Type blood sugar diagnostic (OneTouch #100 ea 01/05/2205/29 Unknown Rx Verio test strips) fluticasone propionate 50 2 spray intranasal DAILY #15 .8 mL 01/05/22 06/26/25 06/26/25 Rx mcg/actuation nasal spray,suspension metformin 1,000 mg tablet 1,000 mg PO BID #180 tabs 06/26/25 06/26/25 Rx trandolapril 2 mg tablet 2 mg PO DAILY #90 tabs 01/0506/26/25 06/26/25 Rx Diabetic shoes with inserts #1 ea 03/30/22 06/26/25 Un known Rx Cam Boot to the Right #1 ea 06/20/22 06/26/25 Unkn own Rx [place] Boot to the left #1 ea 06/20/22 06/26/25 Unkn own Rx articulating AFO to the right #1 ea 06/20/22 06/26/25 Unknown Rx lower extremity multivitamin 1 tab PO DAILY 11/02/22/12/2106/26/25 History acetaminophen 325 mg tablet 650 mg PO Q4H PRN Pain 08/1906/26/25 01/07/25 History (Tylenol) calcium carbonate (Tums) 1,000 mg PO Q8H PRN upset st omach 07/05/23 06/26/25 02/02/25 History gabapentin 300 mg capsule 300 mg PO QID 07/05/2306/2606/26/25 History insulin glargine 100 unit/mL (3 45 unit SUBCUT BID 08/1906/26/25 06/26/25 History mL) subcutaneous pen (Lantus Solostar U-100 Insulin) nitroglycerin 0.4 mg sublingual 0.4 mg sublingual Q5M PRN Chest 07/05/23 06/26/25 03/27/25 History tablet (Nitrostat) Pain bisacodyl 10 mg rectal suppository 10 mg [place] DAILY PRN Constipation 03/28/24 06/26/25 Unknown History (Dulcolax (bisacodyl)) diclofenac sodium 1 % topical gel 2 g topical QID 01/2006/26/25 06/26/25 History docusate sodium 100 mg tablet 100 mg PO BID Constipati on 03/28/24 06/26/25 06/26/25 History insulin aspart U-100 100 unit/mL See Rx Instructions . Route .COMPLEX 03/28/24 06/26/25 06/26/25 History (3 mL) subcutaneous pen (Novolog FlexPen U-100 Insulin aspart) magnesium hydroxide 400 mg/5 mL 2,000 mg PO DAILY PRN Constipation 03/28/24 06/26/25 Unknown History oral suspension (Milk of Magnesia) melatonin 3 mg tablet 3 mg PO DAILY PRN Insomnia 0 03/28/24 06/26/25 Unknown History primidone 50 mg tablet 50 mg PO DAILY 03/28/24 07/12/2106/26/25 History sodium phosphates 19 gram-7 1 ml IN DAILY PRN Constipa tion 03/28/24 06/26/25 Unknown History gram/118 mL enema (Fleet Enema) triamcinolone acetonide 0.1 % 1 applic topical BID PRN actinic 03/28/24 06/26/25 06/01/25 History topical cream keratosis clopidogrel 75 mg tablet 75 mg PO DAILY #30 tabs 05/0 03/2006/26/25 06/26/25 Rx famotidine 20 mg tablet 20 mg PO BID 09/24/2406/26/25 History pentoxifylline 400 mg 400 mg PO TID 09/24/2406/2606/26/25 History tablet,extended release Lactobacillus acidophilus 1 1,000 mmu cells PO DAILY 0 06/26/25 06/26/25 06/26/25 History billion cell tablet albuterol sulfate 2.5 mg/3 mL 2.5 mg continuous nebuli zation Q4H 06/26/25 06/26/25 05/02/25 History (0.083 %) solution for nebulization PRN Shortness Of B reath albuterol sulfate 90 mcg/actuation 2 puff inhalation Q 6H PRN 06/26/25 06/26/25 Unknown History aerosol inhaler Shortness Of Breath apixaban 5 mg tablet (Eliquis) 5 mg PO BID 06/26/2506/26/25 History finasteride 5 mg tablet 5 mg PO BEDTIME 06/26/2506/25/25 History guaifenesin 100 mg/5 mL oral liquid 200 mg PO Q4H PRN Cough 06/26/25 06/26/25 05/25/25 History loperamide 2 mg tablet (Imodium 2 mg PO Q6H PRN Consti pation 06/26/25 06/26/25 03/31/25 History A-D) loratadine 10 mg tablet (Claritin) 10 mg PO DAILY PRN allergies 06/26/25 06/26/25 04/09/25 History sitagliptin phosphate 100 mg 100 mg PO DAILY 06/26/25 06/26/25 06/26/25 History tablet (Januvia) tamsulosin 0.4 mg capsule 0.4 mg PO BEDTIME 06/26/25 0 06/26/25 06/25/25 History white petrolatum (Vaseline jelly, 1 applic topical Q12 H PRN actinic 06/26/25 06/26/25 Unknown History topical) keratosis Allergies Allergy/AdvReac Type Severity Reaction Status Date / Time sertraline (From Zoloft) Allergy Intermediate Seizure Verified 02/06/25 15:22 Latex, Natural Rubber Allergy Unknown ALGY-Rash Verified 02/06/25 15:22 PFSH Acute 2 PFSH: Medical History (Updated 06/26/25 @ 16:44 by Skyla Estrella MD) HTN (hypertension) BPH (benign prostatic hyperplasia) Diabetes mellitus COPD (chronic obstructive pulmonary disease) CKD (chronic kidney disease) Fibromyalgia ASHD (arteriosclerotic heart disease) JOHAN (obstructive sleep apnea) Hyperlipidemia PAD (peripheral artery disease) Surgical History H/O vasectomy S/P rotator cuff repair S/P PTCA (percutaneous transluminal coronary angioplasty) S/P CABG (coronary artery bypass graft) Family History Other Cancer Denies family history of Diabetes Social History Smoking and tobacco/nicotine status: former use of tobacco/nicotine Second hand smoke exposure: No Alcohol intake: never Substance/Drug Use: never Caregiver/support person: Yes Lives independently: Yes Household members: spouse Marital status: Current occupational status: retired Current gender identity: Male Special aubree needs: No Agree to transfusion: Yes Vitals/I&O/Wt Last Vital Signs Temp 98.3 F 06/26/25 14:27 Pulse 86 06/26/25 15:14 Resp 16 06/26/25 15:14 BP 96/62 06/26/25 15:14 Pulse Ox 96 06/26/25 15:14 O2 Del Method Room Air 06/26/25 15:14 Physical Exam 2 Narrative: General: Alert oriented x3, patient seen sitting up in bed appearing comfortable at this time. HEENT: Normocephalic, atraumatic, EOMI, breathing room air. Cardio: Regular rate rhythm, normal S1-S2, Respiratory: Mild crackles bilaterally at bases. GI: Abdomen soft, nontender, distended, obese rounded abdomen bowel sounds +, ventral abdominal hernia appreciated Extremities: 2+ pitting edema bilateral lower extremities, very faint poor pedal pulse. Very difficult to palpate. Patient states both feet are numb. Third toe amputation on left foot. Right toe necrotic ulcer plantar aspect, diabetic foot infection present. Data 06/26/25 15:22 06/26/25 15:22 A&P Assessment and plan 1. HTN (hypertension): 2. S/P CABG (coronary artery bypass graft): 3. S/P PTCA (percutaneous transluminal coronary angioplasty): 4. PAD (peripheral artery disease): 5. Diabetes mellitus: 6. Diabetic foot: 7. 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 CKD (chronic kidney disease): 9. Alzheimer disease: 10. COPD (chronic obstructive pulmonary disease): 11. JOHAN (obstructive sleep apnea): 12. CHF exacerbation: 13. Hyperkalemia: 14. MIKEY (acute kidney injury): Plan: #Diabetic foot infection #Hyperkalemia #MIKEY #Peripheral vascular disease #CAD status post CABG #COPD #CKD #Obstructive sleep apnea #Hypertension #BPH #Diabetes mellitus type 2 #Morbid obesity ? Continue Eliquis, Plavix ? Check preop EKG, nonspecific T wave changes. ? Patient denies chest pain or shortness of breath at this time ? Obtain cardiac clearance ? Check echocardiogram ? N.p.o. at midnight for transmetatarsal amputation in the a.m. if okay with cardiology ? Patient has had CT abdomen runoff in 2023 and had peripheral vascular intervention on left leg. Results are as follows:Severe multifocal atherosclerotic disease as above. Poorly evaluated three-vessel runoff bilaterally given extent of calcification and intermittent opacification. - Peripheral angiogram done March 2024 with following results: Severe proximal left common iliac artery stenosis s/p successful revascularization with 1 stent. Severe posterior tibial artery stenosis s/p revascularization with balloon angioplasty. There is significant left lower extremity disease. Left Common Iliac Artery was treated with two Balloon. Left Common Iliac Artery was treated with Stent. Left Mid-longitudinal Posterior Tibial Artery was treated with Balloon. - Patient states he saw vascular surgery in [facility] last Monday and was told there can be nothing done about this leg going forward. We will request records from [facility]. ? Labs are pending from today CBC CMP magnesium phosphorus, lactic acid ? Will obtain blood cultures, intraoperative wound cultures ? Placed on vancomycin and Zosyn ? Will order home medications once confirmed ? Check hemoglobin A1c ? Dietary consulted appreciate recommendations ? Foot x-ray reviewed from today. ? Chest x-ray does not show pulmonary vascular congestion however patient does have crackles bilaterally at bases. ? I will place on Lasix 40 IV x 1. ? Place Duncan catheter for accurate output ? Hold home metformin ? Sliding scale insulin moderate dose intensity ? Reduce home Lantus to 20 twice daily - Creatinine 1.5 today. Patient's baseline was 0.9 and August 2024. He does have CKD. Hyperkalemia potassium 5.2 anion gap 19.2. I will give Lasix 40 IV x 1. We will recheck BMP at 8 PM. Patient appears fluid overloaded to me. He had crackles on exam as well. ? Lactic acid 3.7. It has always been elevated for the patient. He is on metformin. I would stop that going forward. Recheck lactic acid at 8 PM. ? Blood pressure stable. MAP greater than 65. - Discussed with cardiology and podiatry. Check BNP check echo DNR/DNI PDMP PDMP Reviewed: Not Reviewed Attestations 2 Medical Necessity Statement*: Greater than 2 midnight stay for diabetic foot infection patient will be getting transmetatarsal amputation in AM. 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
--- NOTE | 2025-06-26 15:35 | USCV_ITS ---
Marcelino Díaz Age: 79 Gender: M : 1945 Exam Date: 06/26/2025 18:34 Ordering Phys: Skyla Estrella MD Technologist: ENEDINA Exam Location: [facility] [place] Indication: cardiac clearance T wave abnormalities, History of DM, PVC, HL, HTN, CAD s/p CABG 2000 BP: 158 / 66 HR: 76 Rhythm: Atrial fibrillation Technical Quality: technically difficult MEASUREMENTS (Male / Female) Normal Values 2D ECHO LV Diastolic Diameter PLAX 4.1 cm 4.2 - 5.9 / 3.9 - 5.3 cm IVS Diastolic Thickness 2.0 cm 0.6 - 1.0 / 0.6 - 0.9 cm IVS Systolic Thickness 2.3 cm LVPW Diastolic Thickness 1.5 cm 0.6 - 1.0 / 0.6 - 0.9 cm LVPW Systolic Thickness 1.9 cm LVOT Diameter 2.2 cm LV Ejection Fraction 2D Teich 39.6 % LV Ejection Fraction MOD 4C 31.2 % LV Ejection Fraction MOD 2C 60.0 % LV Ejection Fraction 2C AL 61.2 % LA Diameter 5.6 cm Aorta at Sinotubular Diameter 3.2 cm M-MODE LA Ao Ratio MM 1.6 AV Cusp Separation MM 1.9 cm DOPPLER AV Peak Velocity 230.0 cm/s LVOT Peak Velocity 63.0 cm/s AV Area Cont Eq vti 1.0 cm squared AV Area Cont Eq pk 1.0 cm squared MV Peak Velocity 188.0 cm/s MV Area PHT 5.9 cm squared Mitral E to A Ratio 353.2 TV Peak E Velocity 108.0 cm/s PV Peak Velocity 104.0 cm/s FINDINGS Left Ventricle Normal left ventricular cavity size. Moderately decreased left ventricular systolic function. In the presene of atrial fibrillation diastolic function cannot be assesed accurately .left ventricular ejection fraction is estimated at 45 %. There is global wall hypokinesis Right Ventricle The right ventricle is normal in size and function. Right Atrium The right atrium is normal in size. Left Atrium The left atrium is normal in size. Mitral Valve Structurally normal mitral valve without significant stenosis or prolapse. There is no mitral regurgitation. Aortic Valve Moderate aortic valve calcification. Moderte aortic valve stenosis, mean gradient 10.3 mmHg, NEMESIO 0.98 cm squared. Trace aortic valve regurgitation. Possible bioprosthetic valve . Tricuspid Valve Structurally normal tricuspid valve without significant stenosis or regurgitation. Pulmonary artery systolic pressure is normal. Pulmonic Valve Structurally normal pulmonic valve without significant stenosis. There is no pulmonic regurgitation. Pericardium Normal pericardium without effusion. Aorta Normal ascending aorta dimension. IVC The inferior vena cava appears normal. CONCLUSIONS Normal left ventricular cavity size. Moderately decreased left ventricular systolic function. In the presene of atrial fibrillation diastolic function cannot be assesed accurately .left ventricular ejection fraction is estimated at 45 %. There is global wall hypokinesis Moderate aortic valve calcification. Moderte aortic valve stenosis, mean gradient 10.3 mmHg, NEMESIO 0.98 cm squared. Trace aortic valve regurgitation. Possible bioprosthetic valve . Structurally normal mitral valve without significant stenosis or prolapse. There is no mitral regurgitation. There is no pericardial effusion. Right atrial pressure is around 5 mm of mercury. Gilberto Mahoney MD (Electronically Signed) Final Date: 26 June 2025 21:57 S
[2025-06-26 15:39] LABS: Hematocrit 41.8 % (37-53); Hemoglobin 13.10 g/dL (11.27-16.99); Mean Corpuscular HGB Conc 31.3 g/dL (30-55); Mean Corpuscular Hemoglobin 29.4 pg (27-33); Mean Corpuscular Volume 93.7 fl (82-101); Nucleated Red Blood Cells % 0 %; Platelet Count 238 10^3/cmm (157-399); Red Blood Count 4.46 10^6/uL (3.85-5.65); White Blood Count 10.55 10^3/uL (3.29-11.43)
[2025-06-26 15:46] VITALS: BP 133/78; PULSE 83; RESP 16; O2SAT 95
[2025-06-26 15:50] LABS: Lactic Sepsis W/Reflex 3.7 mmol/L (0.5-2.2)
[2025-06-26 16:01] LABS: NT Pro B Type Natriuretic Pept 384 pg/mL (0-450); Procalcitonin 0.07 ng/mL (0-0.5); Thyroid Stimulating Hormone 0.80 uIU/mL (0.27-4.20)
[2025-06-26 16:13] LABS: Alanine Aminotransferase 14 U/L (0-41); Albumin Level 3.7 g/dL (3.5-5.2); Alkaline Phosphatase 136 U/L (40-130); Aspartate Amino Transferase 12 U/L (0-40); Blood Urea Nitrogen 22 mg/dL (8-23); Calcium 9.2 mg/dL (8.5-10.5); Carbon Dioxide 25 mmol/L (22-29); Chloride 98 mmol/L (98-107); Globulin 4.3 g/dL (1.3-4.6); Glucose 129 mg/dL (65-115); Osmolality Calculated 289 mOsm/kg (285-295); Sodium 137 mmol/L (136-145); Total Protein 8.0 g/dL (6.6-8.7)
[2025-06-26 16:14] LABS: Estmated Average Glucose 203; Hemoglobin A1C 8.7 % (4.0-6.0)
[2025-06-26 16:19] LABS: Anion Gap 19.2 (5-19); Potassium 5.2 mmol/L (3.5-5.1)
[2025-06-26 16:33] VITALS: BP 158/66; PULSE 72; RESP 20; TEMP 36.7; O2SAT 93
[2025-06-26] MEDS: pantoprazole 40 mg SDV IVP (16:42)
--- NOTE | 2025-06-26 16:53 | P.CONIM_ITS ---
<Statement entered by Corwin Heck M.D - 07/01/25 07:47> Patient was evaluated and cared for in conjunction with an advanced practice practitioner.? I personally examined the patient and reviewed the chart and all pertinent data including imaging, telemetry, and laboratory results.? I discussed the patient in detail with the advanced practice practitioner.? Please see? their note for complete consult note, testing results and agreed upon plan of care for the patient. GENERAL: Patient is alert, awake and oriented x3. HEART: Regular S1 and S2, Grade 2/6 systolic murmur LUNGS: Clear to auscultate bilaterally. CENTRAL NERVOUS SYSTEM: Grossly nonfocal. EXTREMITIES: Lower extremities without edema bilaterally. Providers/Reason For Consult 2 Consulting Physician/Specialty*: Dr Heck, cardiology Reason for Consult*: risk assessment, PAD Requesting Physician: Skyla Estrella MD Attending Physician: Skyla Estrella MD Primary Care Provider: Terry Llanos MD History of Present Illness History of Present Illness Marcelino Díaz is a 79 year old male with past medical history of diabetes, CAD status post CABG, PAD (history of iliac stents and balloon angioplasty of the mid longitudinal posterior tibial May of last year). He presented to the emergency room from [facility] due to concerns regarding the right foot wound becoming foul-smelling and erythematous. He has been evaluated by Dr. Huizar, plan is for transmetatarsal amputation tomorrow. We have been asked to provide cardiac risk assessment. He uses a wheelchair to move around, is able to stand but according to patient has been told to not wear shoes. Patient has also visited a vascular surgeon in [place] this past Monday, patient cannot recall the surgeon's name, however he was told that there was no options for revascularization of the right leg. Review of Systems 2 Const: Denies: fever(s), chills, change in weight, fatigue or diaphoresis Eyes: Denies: change in vision ENMT: Denies: epistaxis Card: Denies: chest pain, palpitations, irregular heart rhythm, edema, syncope, pre-syncope, dyspnea on exertion or orthopnea Resp: Denies: dyspnea, productive cough or wheezing GI: Denies: nausea, vomiting, hematemesis, hematochezia or melena : Denies: hematuria Musc: Denies: extremity swelling Danny/Lymph: Denies: easy bruising or easy bleeding Medications/Allergies Home Medications ?Medication ?Instructions ?Recorded ?Confirmed ?Last Taken ?Type blood sugar diagnostic (OneTouch #100 ea 01/05/2205/29 Unknown Rx Verio test strips) fluticasone propionate 50 2 spray intranasal DAILY #15 .8 mL 01/05/22 06/26/25 06/26/25 Rx mcg/actuation nasal spray,suspension metformin 1,000 mg tablet 1,000 mg PO BID #180 tabs 06/26/25 06/26/25 Rx trandolapril 2 mg tablet 2 mg PO DAILY #90 tabs 01/0506/26/25 06/26/25 Rx Diabetic shoes with inserts #1 ea 03/30/22 06/26/25 Un known Rx [place] Boot to the Right #1 ea 06/20/22 06/26/25 Unkn own Rx [place] Boot to the left #1 ea 06/20/22 06/26/25 Unkn own Rx articulating AFO to the right #1 ea 06/20/22 06/26/25 Unknown Rx lower extremity multivitamin 1 tab PO DAILY 11/02/2205/2906/26/25 History acetaminophen 325 mg tablet 650 mg PO Q4H PRN Pain 08/1906/26/25 01/07/25 History (Tylenol) calcium carbonate (Tums) 1,000 mg PO Q8H PRN upset st omach 07/05/23 06/26/25 02/02/25 History gabapentin 300 mg capsule 300 mg PO QID 07/05/2306/2606/26/25 History insulin glargine 100 unit/mL (3 45 unit SUBCUT BID 08/1906/26/25 06/26/25 History mL) subcutaneous pen (Lantus Solostar U-100 Insulin) nitroglycerin 0.4 mg sublingual 0.4 mg sublingual Q5M PRN Chest 07/05/23 06/26/25 03/27/25 History tablet (Nitrostat) Pain bisacodyl 10 mg rectal suppository 10 mg MO DAILY PRN Constipation 03/28/24 06/26/25 Unknown History (Dulcolax (bisacodyl)) diclofenac sodium 1 % topical gel 2 g topical QID 05/0 01/2006/26/25 06/26/25 History docusate sodium 100 mg tablet 100 mg PO BID Constipati on 03/28/24 06/26/25 06/26/25 History insulin aspart U-100 100 unit/mL See Rx Instructions . Route .COMPLEX 03/28/24 06/26/25 06/26/25 History (3 mL) subcutaneous pen (Novolog FlexPen U-100 Insulin aspart) magnesium hydroxide 400 mg/5 mL 2,000 mg PO DAILY PRN Constipation 03/28/24 06/26/25 Unknown History oral suspension (Milk of Magnesia) melatonin 3 mg tablet 3 mg PO DAILY PRN Insomnia 0 03/28/24 06/26/25 Unknown History primidone 50 mg tablet 50 mg PO DAILY 03/28/24 07/12/2106/26/25 History sodium phosphates 19 gram-7 1 ml MO DAILY PRN Constipa tion 03/28/24 06/26/25 Unknown History gram/118 mL enema (Fleet Enema) triamcinolone acetonide 0.1 % 1 applic topical BID PRN actinic 03/28/24 06/26/25 06/01/25 History topical cream keratosis clopidogrel 75 mg tablet 75 mg PO DAILY #30 tabs 05/0 03/2006/26/25 06/26/25 Rx famotidine 20 mg tablet 20 mg PO BID 09/24/2406/26/25 History pentoxifylline 400 mg 400 mg PO TID 09/24/2406/2606/26/25 History tablet,extended release Lactobacillus acidophilus 1 1,000 mmu cells PO DAILY 0 06/26/25 06/26/25 06/26/25 History billion cell tablet albuterol sulfate 2.5 mg/3 mL 2.5 mg continuous nebuli zation Q4H 06/26/25 06/26/25 05/02/25 History (0.083 %) solution for nebulization PRN Shortness Of B reath albuterol sulfate 90 mcg/actuation 2 puff inhalation Q 6H PRN 06/26/25 06/26/25 Unknown History aerosol inhaler Shortness Of Breath apixaban 5 mg tablet (Eliquis) 5 mg PO BID 06/26/2506/26/25 History finasteride 5 mg tablet 5 mg PO BEDTIME 06/26/2506/25/25 History guaifenesin 100 mg/5 mL oral liquid 200 mg PO Q4H PRN Cough 06/26/25 06/26/25 05/25/25 History loperamide 2 mg tablet (Imodium 2 mg PO Q6H PRN Consti pation 06/26/25 06/26/25 03/31/25 History A-D) loratadine 10 mg tablet (Claritin) 10 mg PO DAILY PRN allergies 06/26/25 06/26/25 04/09/25 History sitagliptin phosphate 100 mg 100 mg PO DAILY 06/26/25 06/26/25 06/26/25 History tablet (Januvia) tamsulosin 0.4 mg capsule 0.4 mg PO BEDTIME 06/26/25 0 06/26/25 06/25/25 History white petrolatum (Vaseline jelly, 1 applic topical Q12 H PRN actinic 06/26/25 06/26/25 Unknown History topical) keratosis Allergies Allergy/AdvReac Type Severity Reaction Status Date / Time sertraline (From Zoloft) Allergy Intermediate Seizure Verified 02/06/25 15:22 Latex, Natural Rubber Allergy Unknown ALGY-Rash Verified 02/06/25 15:22 Current Medications Generic Name Dose Route Start Last Admin Trade Name Freq PRN Reason Stop Dose Admin Vancomycin HCl 1,000 mg/ 250 mls @ 250 mls/hr 06/26/25 17:00 06/26/25 16:46 Sodium Chloride IV 06/26/25 17:59 250 mls/hr ONCE ONE Administration Pantoprazole Sodium 40 mg 06/26/25 15:30 06/26/25 16:42 Pantoprazole 40 Mg Sdv IVP 40 mg Q24H FILIPPO Administration PFSH Acute 2 PFSH: Medical History HTN (hypertension) BPH (benign prostatic hyperplasia) Diabetes mellitus COPD (chronic obstructive pulmonary disease) CKD (chronic kidney disease) Fibromyalgia ASHD (arteriosclerotic heart disease) JOHAN (obstructive sleep apnea) Hyperlipidemia PAD (peripheral artery disease) Surgical History H/O vasectomy S/P rotator cuff repair S/P PTCA (percutaneous transluminal coronary angioplasty) S/P CABG (coronary artery bypass graft) Family History Other Cancer Denies family history of Diabetes Social History Smoking and tobacco/nicotine status: former use of tobacco/nicotine Second hand smoke exposure: No Alcohol intake: never Substance/Drug Use: never Caregiver/support person: Yes Lives independently: Yes Household members: spouse Marital status: Current occupational status: retired Current gender identity: Male Special aubree needs: No Agree to transfusion: Yes Vitals/I&O/Wt Last Vital Signs Temp 98.0 F 06/26/25 16:33 Pulse 72 06/26/25 16:33 Resp 20 H 06/26/25 16:33 BP 158/66 06/26/25 16:33 Pulse Ox 93 06/26/25 16:33 O2 Del Method Room Air 06/26/25 16:33 06/26/25 06/26/25 06/26/25 06:59 14:59 22:59 Intake Total 741.083 / 741.083 Balance 741.083 / 741.083 Weight last 48 hrs Weight 301 lb 8 oz Physical Exam 2 Const: COMMON NORMALS: no acute distress and patient oriented x3 GENERAL APPEARANCE: cooperative and comfortable ORIENTATION/CONSCIOUSNESS: Yes awake, Yes oriented to person, Yes oriented to place and Yes oriented to time Chest: COMMONS NORMALS: normal inspection of the chest and normal palpation of entire chest wall CHEST: Yes Symmetrical chest wall rise Resp: COMMON NORMALS: normal respiratory effort, No retractions, No use of accessory muscles and clear to auscultation bilaterally EFFORT & INSPECTION: Yes symmetric chest movement AUSCULTATION: clear to auscultation bilaterally and crackles (bases) Laterality: bilateral and posterior Cardio: COMMON NORMALS: regular rate, regular rhythm, S1 normal heart sound present, S2 normal heart sound present, No gallops present (Cardio), No clicks present (Cardio), No murmurs present (Cardio) and No rub (Cardio) RATE: r egular rate RHYTHM: regular rhythm HEART SOUNDS: S1 normal heart sound present and S2 normal heart sound present PERIPHERAL PULSES: radial pulses present Extremity: COMMON NORMALS: no pedal edema Neuro: COMMON NORMALS: patient oriented x3 and moves all extremities S ENSORIUM/ORIENTATION: Yes oriented to person, Yes oriented to place and Yes oriented to time Data 06/26/25 15:22 06/26/25 15:22 Micro: Microbiology 06/26/25 15:37 Blood Culture - Preliminary Blood SPECIMEN COLLECTED 06/26/25 15:37 Blood Culture - Preliminary Blood SPECIMEN COLLECTED A&P Assessment and plan 1. PAD (peripheral artery disease): 2. ASHD (arteriosclerotic heart disease): 3. S/P CABG (coronary artery bypass graft): 4. Hyperlipidemia: 5. HTN (hypertension): 6. Diabetes mellitus: 7. Diabetic foot: 8. CKD (chronic kidney disease): Plan: Patient has a history of CAD status post CABG many years ago. He has not had any chest pain in the recent months. He appears slightly volume overloaded, will plan to diurese. He is at acceptable moderate risk for anesthesia and transmetatarsal amputation planned for tomorrow. Will obtain echocardiogram to confirm LVEF remains normal and reassess previously mild aortic stenosis. PDMP PDMP Reviewed: Not Reviewed Coding Level of Care Code Acute Code for [facility] Fwd Diagnoses PAD (peripheral artery disease) I73.9 ASHD (arteriosclerotic heart disease) I25.10 S/P CABG (coronary artery bypass graft) Z95.1 Hyperlipidemia E78.5 HTN (hypertension) I10 Diabetes mellitus E11.9 Diabetic foot E11.8 CKD (chronic kidney disease) N18.9
--- NOTE | 2025-06-26 17:12 | PC.NURSE ---
Pt refusing catheter placement at this time.
--- NOTE | 2025-06-26 17:19 | PHA.VACGOAL ---
Vancomycin Goal - Goal Vancomycin Goal:: 15-20 mg/L Vancomycin Indication:: Osteo - Therapy Current therapy:: Pip/Tazo Day of therpy:: Day []of [] . Actual body weight (kg): 301 lb 8 oz - Data Labs: WBC 10.55 10^3/uL (3.29-11.43) 06/26/25 15:22 RBC 4.46 10^6/uL (3.85-5.65) 06/26/25 15:22 Hgb 13.10 g/dL (11.27-16.99) 06/26/25 15:22 Hct 41.8 % (37-53) 06/26/25 15:22 MCV 93.7 fl (82-101) 06/26/25 15:22 MCH 29.4 pg (27-33) 06/26/25 15:22 MCHC 31.3 g/dL (30-55) 06/26/25 15:22 RDW 14.7 % (12.1-15.1) 06/26/25 15:22 Sodium 137 mmol/L (136-145) 06/26/25 15:22 Potassium 5.2 mmol/L (3.5-5.1) H 06/26/25 15:22 Chloride 98 mmol/L (98-107) 06/26/25 15:22 Carbon Dioxide 25 mmol/L (22-29) 06/26/25 15:22 Anion Gap 19.2 (5-19) H 06/26/25 15:22 BUN 22 mg/dL (8-23) 06/26/25 15:22 Creatinine 1.5 mg/dL (0.7-1.2) H 06/26/25 15:22 GFR Calculation Not Reportable 06/26/25 15:22 Treatment plan:: new consult Regimen:: GAVE 2000MG LOADING DOSE, STARTING 1750MG Q18H PER PROTOCOL. WILL DRAW TROUGH BEFORE 4TH DOSE.
[2025-06-26 17:23] LABS: Reflex Lactate Order REFLEX LACTIC ORDERD
[2025-06-26] MEDS: FUROsemide 10 mg/mL SDV 4mL 40 MG IVP (17:32)
[2025-06-26] MEDS: piperacillin-tazobactam 3.375 GM in sodium chloride 0.9% (plus) 50 ML IV (17:33)
[2025-06-26] MEDS: insulin glargine 100 units/1 mL 20 UNIT SUBCUT (17:33)
[2025-06-26 18:04] LABS: Glucose Urine UA Negative (Normal); Nitrate Urine Negative (Negative); Specific Gravity, Urine 1.016 (1.005-1.030)
[2025-06-26 18:09] LABS: Add Urine Microscopic? YES
[2025-06-26 19:12] LABS: Lactic Acid level (Lactate) 2.6 mmol/L (0.5-2.2)
[2025-06-26 20:00] VITALS: BP 124/78; PULSE 84; RESP 16; TEMP 36.8; O2SAT 96
[2025-06-26 21:41] LABS: Blood Urea Nitrogen 23 mg/dL (8-23); Calcium 9.0 mg/dL (8.5-10.5); Carbon Dioxide 24 mmol/L (22-29); Chloride 97 mmol/L (98-107); Creatinine Clr Calc Pharmacy 51.4105; Glucose 227 mg/dL (65-115); Lactic Sepsis W/Reflex 2.3 mmol/L (0.5-2.2); Osmolality Calculated 291 mOsm/kg (285-295); Sodium 135 mmol/L (136-145)
[2025-06-26 21:42] LABS: Anion Gap 18.5 (5-19); Potassium 4.5 mmol/L (3.5-5.1)
[2025-06-26 23:09] LABS: Reflex Lactate Order REFLEX LACTIC ORDERD
[2025-06-26 23:57] VITALS: BP 145/84; PULSE 93; RESP 18; TEMP 36.4; O2SAT 96
[2025-06-27] VITALS (20 sets, daily range): BP systolic 102–163; BP diastolic 54–87; PULSE 64–89; RESP 15–22; TEMP 36.1–37.1; O2SAT 90–98
[2025-06-27 00:43] LABS: Lactic Acid level (Lactate) 1.5 mmol/L (0.5-2.2)
[2025-06-27] MEDS: piperacillin-tazobactam 3.375 GM in sodium chloride 0.9% (plus) 50 ML IV ×2 (01:39→16:52)
[2025-06-27 05:41] LABS: Hematocrit 40.9 % (37-53); Hemoglobin 12.80 g/dL (11.27-16.99); Mean Corpuscular HGB Conc 31.3 g/dL (30-55); Mean Corpuscular Hemoglobin 29.1 pg (27-33); Mean Corpuscular Volume 93.0 fl (82-101); Nucleated Red Blood Cells % 0 %; Platelet Count 206 10^3/cmm (157-399); Red Blood Count 4.40 10^6/uL (3.85-5.65); White Blood Count 9.69 10^3/uL (3.29-11.43)
[2025-06-27] MEDS: vancomycin 1,750 MG/350 ML PIGGYBACK 175 MG IV (05:44)
[2025-06-27 06:03] LABS: Alanine Aminotransferase 11 U/L (0-41); Albumin Level 3.2 g/dL (3.5-5.2); Alkaline Phosphatase 120 U/L (40-130); Anion Gap 19.1 (5-19); Aspartate Amino Transferase 9 U/L (0-40); Blood Urea Nitrogen 21 mg/dL (8-23); Calcium 8.9 mg/dL (8.5-10.5); Carbon Dioxide 24 mmol/L (22-29); Chloride 99 mmol/L (98-107); Creatinine Clr Calc Pharmacy 66.5940; Globulin 4.2 g/dL (1.3-4.6); Glucose 119 mg/dL (65-115); Magnesium 1.8 mg/dL (1.7-2.3); Osmolality Calculated 290 mOsm/kg (285-295); Potassium 4.1 mmol/L (3.5-5.1); Sodium 138 mmol/L (136-145); Total Protein 7.4 g/dL (6.6-8.7)
--- OUTSIDE RECORDS SUMMARY | 2025-06-27 06:32 | XMS_ITS | Patient Health Record ---
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 Name Role Phone Samuel Barron Primary Care Provider Bryanna Guerra Unavailable [phone] Allergies Allergen (clinical drug ingredient) Drug/Non Drug Allergy documented on EMR Reaction Allergy Type Onset Date Status Latex Latex Unknown Allergy Active Reason For Referral No Information Medications Medication SIG (Take, Route, Frequency, Duration) Notes Start Date End Date Status Trandolapril 2 MG 1 tablet Orally Once a day Active Primidone 50 MG 1 tablet in the morning, 3 or 4 tablets at supper Orally BID Active NovoLOG 100 UNIT/ML 10 % of what pt test , 45b Units tid is Max Subcutaneous tid Active Blood Glucose Test - as directed In Vitr o five times a day Active metFORMIN HCl 1000 MG 1 tablet with a me al Orally bid Active Famotidine 20 MG 1 tablet at bedtime as needed Orally Once a day Active Gabapentin 300 MG 2 capsule Orally TID Active Tamsulosin HCl 0.4 MG 1 capsule Orally O nce a day Active Atorvastatin Calcium 40 MG 1 tablet Orally qhs Active Metoprolol Succinate ER 25 MG 1 tablet Orally Once a day Active Clopidogrel Bisulfate 75 MG 1 tablet Orally Once a day Active Levemir 100 UNIT/ML 85 Units Subcutaneou s QD Active OneTouch Verio - as directed In Vitro TID for 33 days 10/18/2021 Active clonazePAM 0.5 MG 2 tablets at bedtime Orally qhs for 90 days Do not fill until due on 11/14/2021 10/18/2021 Active Social History Tobacco Use: Social History Observation Description Date Details (start date - stop date) Former Smoker NA - NA Tobacco Use/Smoking Question Answer Notes Are you a former smoker How long has it been since you last smoked? 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) Active confirmed Problem 54349439 Essential hypertension (I10) Active confirmed Problem 239751862 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) Active confirmed Plan Of Treatment No Information Insurance Providers Payer Name Payer Address Payer Phone Subscriber Number Group Number Insured Name Patient Relationship to Insured Coverage Start Date Coverage End Date [employer] PART B [address] [place] [address] [id number] Marcelino Díaz Self - patient is the insured [employer] PLANS [address] [place] [address] [id number] Marcelino Díaz Self - patient is the insured Medical (General) History Medical History History ICD Code CABG x 5 and stent; 2006 [place] 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
--- OUTSIDE RECORDS SUMMARY | 2025-06-27 06:32 | XMS_ITS | Clinical Summary ---
Author Organization [employer] Address [address] [facility] Attn: [place] [address] Care Team Providers Care Culinary Assistant Name Role Phone Jose Youssef NP Primary Care Provider Allergies Active Allergy Reactions Criticality Noted Date Comments Latex Unknown 12/04/2024 Sertraline Unknown 12/04/2024 Medications albuterol (PROVENTIL,GUILHERME CARROLL) 2.5 mg /3 mL (0.083 %) Solution for Nebulization Take 2.5 mg by inhalation every 4 hours as needed. Active albuterol sulfate HFA 90 mcg/actuation aerosol inhaler Take 2 Puffs by inhalation every 6 hours as needed. Active atorvastatin (LIPITOR) 40 mg tablet Take 40 mg by mouth daily. Active busPIRone (BUSPAR) 10 mg tablet Take 10 mg by mouth 3 times daily. Active clopidogreL (PLAVIX) 75 mg Tablet Take 75 mg by mouth daily. Active dapagliflozin-me tFORMIN 5-1,000 mg tablet, IR & ER, biphasic 24hr Take 2 Tablets by mouth daily. Active fluticasone furoate (ARNUITY) 100 mcg/actuation inhaler Administer 2 Sprays in each nostril daily. Active gabapentin (NEURONTIN) 300 mg capsule Take 300 mg by mouth 3 times daily. Active insulin detemir U-100 (LEVEMIR) 100 unit/mL vial Inject 1 Units by subcutaneous injection daily at bedtime. Active Lantus Solostar U-100 Insulin 100 unit/mL (3 mL) solution for injection Inject 1 Units by subcutaneous injection one time only. Active predniSONE (DELTASONE) 20 mg tablet Take 20 mg by mouth 2 times daily with meals. Active primidone (MYSOLINE) 50 mg tablet Take 2 Tablets by mouth daily. Active tamsulosin (FLOMAX) 0.4 mg capsule Take 0.4 mg by mouth daily. Active traMADoL (ULTRAM) 50 mg tablet Take 50 mg by mouth every 6 hours as needed. Active triamcinolone acetonide (KENALOG) 0.5 % Ointment by Other route 2 times daily. Active apixaban (ELIQUIS) 5 mg tabletIndication s:Atrial fibrillation, unspecified type (CMS/HCC) Take 1 Tablet (5 mg) by mouth 2 times daily. 180 Tablet 3 5 Active famotidine (PEPCID) 20 mg tablet Take 20 mg by mouth daily. 5 Active finasteride (PROSCAR) 5 mg tablet Take 5 mg by mouth daily. 5 Active fluticasone propionate (FLONASE) 50 mcg/spray [place], Suspension nasal inhaler 5 Active insulin aspart U-100 (NovoLOG) 100 unit/mL pen syringe 5 Active metFORMIN (GLUCOPHAGE) 1,000 mg tablet 5 Active AutoShield Duo Pen Needle 30 gauge x 3/16 Needle 5 Active pentoxifylline (TRENtal) 400 mg Extended Release tablet 5 Active Januvia 100 mg Tablet 5 Active trandolapriL (MAVIK) 2 mg Tablet daily. 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, with fat layer exposed 12/04/2024 Diabetic ulcer of right midf oot associated with type 2 diabetes mellitus, with fat layer exposed 12/04/2024 Essential hypertension 12/18/2018 Stage 2 chronic kidney disease 12/18/2018 Resolved Problems Problem Noted Date Diagnosed Date Resolved Date Acute osteomyelitis of right foot 12/07/2024 12/19/2024 Acute osteomyelitis of toe of right foot 12/07/2024 12/19/2024 Cellulitis of left foot 12/04/202411/28 Encounters Date Type Department Care Team Description 06/24/2025 External Device Data STL ABSTRACTION Provider, Abstract 06/24/2025 External Device Data STL ABSTRACTION Provider, Abstract 06/24/2025 External Device Data STL ABSTRACTION Provider, Abstract 06/19/2025 1:00 PM CDT Office Visit [facility] [address] [phone] Jeremy Gray MD Kull, David R, MD Peripheral artery disease (Primary Dx); Venous stasis ulcer of left midfoot limited to breakdown of skin without varicose veins (CMS/HCC); Venous stasis ulcer of right midfoot limited to breakdown of skin without varicose veins (CMS/HCC); Diabetic ulcer of toe associated with type 2 diabetes mellitus, limited to breakdown of skin, unspecified laterality (CMS/HCC) 06/19/2025 12:00 PM CDT Ancillary Procedure [facility] [address] [address] Jeremy Gray MD Peripheral arterial disease 06/11/2025 External Device Data STL ABSTRACTION Provider, Abstract 06/11/2025 External Device Data STL ABSTRACTION Provider, Abstract 06/10/2025 External Device Data STL ABSTRACTION Provider, Abstract 05/29/2025 Telephone [facility] [address] [address] Devin Blackman MD Referral 05/28/2025 Orders Only [facility] [address] [address] Jeremy Gray MD Peripheral arterial disease (Primary Dx) 05/28/2025 Abstract [facility] [address] [address] Provider, Abstract 05/14/2025 External Device Data STL ABSTRACTION Provider, Abstract 05/13/2025 External Device Data STL ABSTRACTION Provider, Abstract 04/17/2025 External Device Data STL ABSTRACTION Provider, Abstract 04/17/2025 External Device Data STL ABSTRACTION Provider, Abstract 04/16/2025 External Device Data STL ABSTRACTION Provider, Abstract 04/15/2025 External Device Data STL ABSTRACTION Provider, Abstract 04/02/2025 Telephone [facility] [address] [place] [address] Alex Becerra MD Other (Attempted to reach patient regarding missed appointment on 03/10/2025. Call went to patients intermediate with a busy line. ) from Last 3 Months Social History Tobacco Use Types Packs/Day Years Used Date Smoking Tobacco: Former Cigarettes Q uit: 02/09/2001 Pipe Quit: 02/10/20 Tobacco Cessation:Counseling Given: Not Answered Sex and Gender Information Value Date Recorded Sex Assigned at Not on file Legal Sex Male 4:07 AM PIECER UP Gender Identity Not on file Sexual Orientation Not on file Last Filed Vital Signs Vital Sign Reading Time Taken Comments Blood Pressure 122/72 06/19/2025 1:12 PM CDT Pulse 60 06/19/2025 1:12 PM CDT Temperature 36.6 C (97.8 F) 12/10/2024 9:09 AM PIECER UP Respiratory Rate 18 12/10/2024 9:09 AM PIECER UP Oxygen Saturation 98% 06/19/2025 1:12 PM CDT Inhaled Oxygen Concentration - - Weight 131.5 kg (290 lb) 06/19/2025 1:12 PM CDT Height 181.6 cm (5' 11.5 ) 06/19/2025 1:12 PM CD T Body Mass Index 39.88 06/19/2025 1:12 PM CDT Plan of Treatment Upcoming Encounters Date Type Department Care Team (Late st Contact Info) Description 07/03/2025 1:30 PM CDT [facility] Visit [facility]Audi Bass Emperatriz [address] [place] [address] Gerard Roberts DPM [address] [place] [address] Health Maintenance Due Date Last Done Comments DIABETES ANNUAL FOOT EXAM 1965 DIABETES ANNUAL RETINAL EXAM 1965 DIABETES MICROALBUMIN ANNUAL SCREEN 1965 LDL CHOLESTEROL ANNUAL 1965 PNEUMOCOCCAL VACCINE 50+ YEA RS (1 of 2 - PCV) 1966 Traditional Medicare (ACO) A nnual Wellness Visit 1966 ZOSTER VACCINE (1 of 2) 1997 DIABETES HBA1C Q 6 MONTHS 05/10/2018 11/09/2017 RSV VACCINE (60+ or ) (1 - 1-dose 75+ series) 2022 COVID-19 Vaccine (5 - 2023-2 5 season) 2024 12/05/2022, 04/01/2022, 02/16/2021, Additional history exists INFLUENZA VACCINE (#1) 2025 09/13/2021 DTAP/TDAP/TD VACCINES (2 - T d or Tdap) 03/25/2032 03/25/2022 Procedures Procedure Name Priority Date/Time Associated Diagnosis Comments US ANKLE PRESSURE INDEX Routine 06/19/2025 1:07 PM CDT Peripheral arterial disease from Last 3 Months Results * US ANKLE PRESSURE INDEX (06/19/2025 1:07 PM CDT) Anatomical Region Laterality Modality Lower Extremity Ultrasound 06/19/2025 12:2 8 PM CDT Narrative 06/20/2025 10:10 AM CDT [facility] [address] [place] [address] [place] [id number] Noninvasive Vascular Lab ERICH with PVR Arterial Physiologic Evaluation Patient: Marcelino Díaz Study ID: 1 Gender: M : 1945 Age: 79 Room: Height: 180.3cm Weight: 128.8kg BSA: 2.59m^2 Pt status: Outpatient Study Date: 06/19/2025 Study Time: 12:28:00 PM BSA: 2.59m^2 Ordering: Jeremy Gray Interpreting:Devin Blackman Rn Camp: Hawa Melissa RVT Indications: I73.9 PAD. History: [...] Lt Brachial: 122mm Hg Lt PT: 1.07 [facility] is accredited with the Intersocietal Commission for the Accreditation of Vascular Laboratories (ICAVL) Prepared and Electronically Authenticated Devin Blackman Confirmed 06/20/2025 10:10 Procedure Note Devin Blackman MD - 06/20/2025 [facility] [address] [place] [address] Noninvasive Vascular Lab ERICH with PVR Arterial Physiologic Evaluation Patient: Marcelino Díaz Study ID: 1 Gender: M : 1945 Age: 79 Room: Height: 180.3cm Weight: 128.8kg BSA: 2.59m^2 Pt status: Outpatient Study Date: 06/19/2025 Study Time: 12:28:00 PM BSA: 2.59m^2 Ordering: Jeremy Gray Interpreting:Devin Blackman Rn Camp: Hawa Melissa RVT Indications: I73.9 PAD. History: [...] Hg Lt Brachial: 122mmHg Lt PT: 1.07 [facility] is accredited withthe [facility] Commission for the Accreditation of Vascular Laboratories (ICAVL) Prepared and Electronically Authenticated Devin Blackman Stewart 06/20/2025 10:10 Jeremy Gray MD ORDERABLES Final Result from Last 3 Months Insurance MEDICARE PART A AND B [place] [facility] Medicare Part D Advance Directives For more information, please contact: [phone] * NO CPR (In Event of Cardiopulmonary Arrest) (Latest Code Status on File) Date Activated Date Inactivated Comments 12/05/2024 7:36 AM 12/10/2024 3:22 PM Question Answer Comments Mechanical Ventilation (for respiratory distress) - Invasive (i.e. intubation): No Mechanical Ventilation (for respiratory distress) - Non-Invasive (i.e. BiPAP, CPAP): Yes * Default Full Code - Needs Discussion Date Activated Date Inactivated Comments 12/04/2024 2:36 PM 12/05/2024 7:36 AM Care Teams Culinary Assistant Relationship Specialty Start Date End Date Jose Youssef NP [address] [place] [phone] PCP - General NURSE PRACTITIONER 07/10/14
--- OUTSIDE RECORDS SUMMARY | 2025-06-27 06:32 | XMS_ITS | Encounter Summary ---
Author Organization [facility] Address [address] [place] [address] Care Team Providers Care Speech Teacher Name Role Phone Jose Youssef NP Primary Care Provider Reason for Visit * Reason Onset Date Comments Appointment Notification 03/03/2025 Encounter Details Date Type Department Care Team (Late st Contact Info) Description 03/03/2025 Telephone [facility] [address] [facility] [address] [place] [phone] Alex Becerra MD [address] [facility] [address] [place] [phone] Appointment Notification Social History Tobacco Use Types Packs/Day Years Used Date Smoking Tobacco: Never Sex and Gender Information Value Date Recorded Sex Assigned at Not on file Legal Sex Male 4:07 AM SALES REPRESENTATIVE DOOR TO DOOR Gender Identity Not on file Sexual Orientation Not on file documented as of this encounter Miscellaneous Notes * Telephone Encounter - Kelly Avilez - 03/03/2025 2:03 PM CDT Provider: Mariam / [facility] MESSAGE Pt has an appt on 03/10/25 w / Dr Becerra and pt is wanting to see a Hot Repairman in [place], needing to cancel the appt and get pt set up with a Hot Repairman in [place] if possible, please advise. Kelly Avilez [facility], [facility] PSR documented in this encounter Plan of Treatment Upcoming Encounters Date Type Department Care Team (Late st Contact Info) Description 07/03/2025 1:30 PM CDT Office Visit [facility] Podiatry-Audi Awan [address] [place] [address] Gerard Roberts, DPMichael [address] [place] [address] documented as of this encounter Visit Diagnoses Not on filedocumented in this encounter Care Teams Speech Teacher Relationship Specialty Start Date End Date Jose Youssef, BILINGUAL SALES ASSISTANT [address] [place] [phone] PCP - General NURSE PRACTITIONER 07/10/14 documented as of this encounter
--- OUTSIDE RECORDS SUMMARY | 2025-06-27 06:32 | XMS_ITS | Encounter Summary ---
Author Organization [facility] Address [address] [place] [address] Care Team Providers Care Hurl Shaker Name Role Phone Jose Youssef DOOR CUTTER Primary Care Provider Encounter Details Date Type Department Care Team (Late st Contact Info) Description 06/24/2025 External Device Data STL ABSTRACTION Provider, Abstract NO ADDRESS ON FILE Social History Tobacco Use Types Packs/Day Years Used Date Smoking Tobacco: Former Cigarettes Q uit: 02/09/2001 Pipe Quit: 02/10/20 01 Sex and Gender Information Value Date Recorded Sex Assigned at Not on file Legal Sex Male 4:07 AM APPLICATIONS ARCHITECT Gender Identity Not on file Sexual Orientation Not on file documented as of this encounter Plan of Treatment Upcoming Encounters Date Type Department Care Team (Late st Contact Info) Description 07/03/2025 1:30 PM CDT Office Visit [facility] Podiatry-Audi Awan [address] [place] [address] Gerard Roberts DPM [address] [place] [phone] documented as of this encounter Visit Diagnoses Not on filedocumented in this encounter Care Teams Hurl Shaker Relationship Specialty Start Date End Date Jose Youssef, DONYA [facility] [place] [phone] PCP - General NURSE PRACTITIONER 07/10/14 documented as of this encounter
--- OUTSIDE RECORDS SUMMARY | 2025-06-27 06:32 | XMS_ITS | Encounter Summary ---
Author Organization [facility] Address [address] [place] [address] Care Team Providers Care Crate Builder Name Role Phone Jose Youssef OPERATIONS LABEL CLERK Primary Care Provider Encounter Details Date Type [...] on file Legal Sex Male 4:07 AM REPRODUCTION PRODUCTION MANAGER Gender Identity Not on file Sexual Orientation Not on file documented as of this encounter Plan of Treatment Upcoming Encounters Date Type Department Care Team (Late st Contact Info) Description 07/03/2025 1:30 PM CDT Office Visit [facility] Podiatry-Audi Awan [address] [place] [address] Gerard Roberts DPM [address] [place] [phone] documented as of this encounter Visit Diagnoses Not on filedocumented in this encounter Care Teams Crate Builder Relationship Specialty Start Date End Date Jose Youssef, DONYA [facility] [place] [phone] PCP - General NURSE PRACTITIONER 07/10/14 documented as of this encounter
--- OUTSIDE RECORDS SUMMARY | 2025-06-27 06:32 | XMS_ITS | Encounter Summary ---
Author Organization [facility] Address [address] [place] [address] Care Team Providers Care Staff Internist Office Based Only Name Role Phone Jose Youssef INSURANCE DEFENSE PARALEGAL Primary Care Provider [phone] Encounter Details Date Type Department Care Team (Late st Contact Info) Description 06/24/2025 External Device Data STL ABSTRACTION Provider, Abstract NO ADDRESS ON FILE Social History Tobacco Use Types Packs/Day Years Used Date Smoking Tobacco: Former Cigarettes Q uit: 02/09/2001 Pipe Quit: 02/10/20 01 Sex and Gender Information Value Date Recorded Sex Assigned at Not on file Legal Sex Male 4:07 AM JOINT SPECIAL OPERATIONS Gender Identity Not on file Sexual Orientation Not on file documented as of this encounter Plan of Treatment Upcoming Encounters Date Type Department Care Team (Late st Contact Info) Description 07/03/2025 1:30 PM CDT Office Visit [facility] Podiatry-Audi Awan [address] [place] [address] Gerard Roberts DPM [address] [place] [phone] documented as of this encounter Visit Diagnoses Not on filedocumented in this encounter Care Teams Staff Internist Office Based Only Relationship Specialty Start Date End Date Jose Youssef, DONYA [facility] [place] [phone] PCP - General NURSE PRACTITIONER 07/10/14 documented as of this encounter
[2025-06-27] MEDS: FUROsemide 10 mg/mL SDV 4mL 40 MG IVP (08:21)
[2025-06-27] MEDS: multivitamin therapeutic Tablet 1 TAB PO (08:22)
--- NOTE | 2025-06-27 09:27 | W.PM.OPSUD ---
Surgery/Procedure H&P Update DATE OF PROCEDURE: June 27, 2025 DATE H&P PERFORMED: 06/26/25 H&P UPDATE INFORMATION: I have reviewed H&P completed within last 30 days, I have examined patient prior to procedure, No changes to prior documentation and Risks and benefits of the procedure reviewed PREOP DIAGNOSIS: Gangrene right foot PLANNED PROCEDURE: Operation Date: 06/27/25 10:25 Proposed Procedures p Right Transmetatarsal amputation with achilles lengthening(Right) - Eloy Huizar DPM
--- NOTE | 2025-06-27 09:42 | PC.NURSE ---
pt to or at approx. 0940
--- NOTE | 2025-06-27 09:55 | ANES.PREANE2 ---
Pre-Anesthetic Assessment Height/Weight: Height 1.8 m Weight 134.399 kg Temp Pulse Resp BP Pulse Ox O2 Del Method 97.8 F 89 16 132/74 98 Room Air 06/27/25 09:50 06/27/25 09:50 06/27/25 09:50 06/27/25 09:50 06/27/25 09:50 06/27/25 09:50 Preop Diagnosis: Gangrene right foot Operation Date: 06/27/25 10:25 Proposed Procedures p Right Transmetatarsal amputation with achilles lengthening(Right) - Eloy Huizar DPM Familial anesthetic complications: none Was Beta Juan taken within 24 hours: N/A Was Clonidine taken within 24 hours: N/A Last intake: > 8 hr Social No alcohol and No tobacco Exam alert, oriented x 3, clear to auscultation bilaterally and regular rate & rhythm Airway Mallampati: Class III Dentition: other (loose filling) Comments: Comments: receding mandible, excess submanidbular tissue, large neck circumference Pulmonary Chronic Obstructive Pulmonary Disease and Sleep Apnea CV/HEM Coronary Artery Disease (CABG), Congestive Heart Failure, Hypertension, Myocardial Infarction and Peripheral Vascular Disease (multiple stents) 06/26 echo CONCLUSIONS Normal left ventricular cavity size. Moderately decreased left ventricular systolic function. In the presene of atrial fibrillation diastolic function cannot be assesed accurately .left ventricular ejection fraction is estimated at 45 %. There is global wall hypokinesis Moderate aortic valve calcification. Moderte aortic valve stenosis, mean gradient 10.3 mmHg, NEMESIO 0.98 cm squared. Trace aortic valve regurgitation. Possible bioprosthetic valve . Structurally normal mitral valve without significant stenosis or prolapse. There is no mitral regurgitation. There is no pericardial effusion. Right atrial pressure is around 5 mm of mercury. Chronic Renal Insufficiency GI Gastroesophageal Reflux Disease Metabolic Diabetes Mellitus and Morbid Obesity [facility] [place] Fibromyalgia Anesthetic Plan ASA status: 4 Anesthesia: General Risk of > 500 ml blood loss (7ml/kg in children): No Medications/Allergies Home Medications ?Medication ?Instructions ?Recorded ?Confirmed ?Last Taken ?Type blood sugar diagnostic (OneTouch #100 ea 01/05/22 06/26/25 Unknown Rx Verio test strips) fluticasone propionate 50 2 spray intranasal DAILY #15.8 mL 01/05/22 06/26/25 06/26/25 Rx mcg/actuation nasal spray,suspension metformin 1,000 mg tablet 1,000 mg PO BID #180 tabs 01/05/22 06/26/25 06/26/25 Rx trandolapril 2 mg tablet 2 mg PO DAILY #90 tabs 01/05/22 06/26/25 06/26/25 Rx Diabetic shoes with inserts #1 ea 03/30/22 06/26/25 Unknown Rx Cam Boot to the Right #1 ea 06/20/22 06/26/25 Unknown Rx [place] Boot to the left #1 ea 06/20/22 06/26/25 Unknown Rx articulating AFO to the right #1 ea 06/20/22 06/26/25 Unknown Rx lower extremity multivitamin 1 tab PO DAILY 11/02/22 06/26/25 06/26/25 History acetaminophen 325 mg tablet 650 mg PO Q4H PRN Pain 07/05/23 06/26/25 01/07/25 History (Tylenol) calcium carbonate (Tums) 1,000 mg PO Q8H PRN upset stomach 07/05/23 06/26/25 02/02/25 History gabapentin 300 mg capsule 300 mg PO QID 07/05/23 06/26/25 06/26/25 History insulin glargine 100 unit/mL (3 45 unit SUBCUT BID 07/05/23 06/26/25 06/26/25 History mL) subcutaneous pen (Lantus Solostar U-100 Insulin) nitroglycerin 0.4 mg sublingual 0.4 mg sublingual Q5M PRN Chest 07/05/23 06/26/25 03/27/25 History tablet (Nitrostat) Pain bisacodyl 10 mg rectal suppository 10 mg NV DAILY PRN Constipation 03/28/24 06/26/25 Unknown History (Dulcolax (bisacodyl)) diclofenac sodium 1 % topical gel 2 g topical QID 03/28/24 06/26/25 06/26/25 History docusate sodium 100 mg tablet 100 mg PO BID Constipation 03/28/24 06/26/25 06/26/25 History insulin aspart U-100 100 unit/mL See Rx Instructions .Route .COMPLEX 03/28/24 06/26/25 06/26/25 History (3 mL) subcutaneous pen (Novolog FlexPen U-100 Insulin aspart) magnesium hydroxide 400 mg/5 mL 2,000 mg PO DAILY PRN Constipation 03/28/24 06/26/25 Unknown History oral suspension (Milk of Magnesia) melatonin 3 mg tablet 3 mg PO DAILY PRN Insomnia 03/28/24 06/26/25 Unknown History primidone 50 mg tablet 50 mg PO DAILY 03/28/24 06/26/25 06/26/25 History sodium phosphates 19 gram-7 1 ml NV DAILY PRN Constipation 03/28/24 06/26/25 Unknown History gram/118 mL enema (Fleet Enema) triamcinolone acetonide 0.1 % 1 applic topical BID PRN actinic 03/28/24 06/26/25 06/01/25 History topical cream keratosis clopidogrel 75 mg tablet 75 mg PO DAILY #30 tabs 03/30/24 06/26/25 06/26/25 Rx famotidine 20 mg tablet 20 mg PO BID 09/24/24 06/26/25 06/26/25 History pentoxifylline 400 mg 400 mg PO TID 09/24/24 06/26/25 06/26/25 History tablet,extended release Lactobacillus acidophilus 1 1,000 mmu cells PO DAILY 06/26/25 06/26/25 06/26/25 History billion cell tablet albuterol sulfate 2.5 mg/3 mL 2.5 mg continuous nebulization Q4H 06/26/25 06/26/25 05/02/25 History (0.083 %) solution for nebulization PRN Shortness Of Breath albuterol sulfate 90 mcg/actuation 2 puff inhalation Q6H PRN 06/26/25 06/26/25 Unknown History aerosol inhaler Shortness Of Breath apixaban 5 mg tablet (Eliquis) 5 mg PO BID 06/26/25 06/26/25 06/26/25 History finasteride 5 mg tablet 5 mg PO BEDTIME 06/26/25 06/26/25 06/25/25 History guaifenesin 100 mg/5 mL oral liquid 200 mg PO Q4H PRN Cough 06/26/25 06/26/25 05/25/25 History loperamide 2 mg tablet (Imodium 2 mg PO Q6H PRN Constipation 06/26/25 06/26/25 03/31/25 History A-D) loratadine 10 mg tablet (Claritin) 10 mg PO DAILY PRN allergies 06/26/25 06/26/25 04/09/25 History sitagliptin phosphate 100 mg 100 mg PO DAILY 06/26/25 06/26/25 06/26/25 History tablet (Januvia) tamsulosin 0.4 mg capsule 0.4 mg PO BEDTIME 06/26/25 06/26/25 06/25/25 History white petrolatum (Vaseline jelly, 1 applic topical Q12H PRN actinic 06/26/25 06/26/25 Unknown History topical) keratosis Allergies Allergy/AdvReac Type Severity Reaction Status Date / Time sertraline (From Zoloft) Allergy Intermediate Seizure Verified 02/06/25 15:22 Latex, Natural Rubber Allergy Unknown ALGY-Rash Verified 02/06/25 15:22 Current Medications Generic Name Dose Route Start Last Admin Trade Name Freq PRN Reason Stop Dose Admin Apixaban 5 mg 06/26/25 17:00 06/27/25 05:59 Apixaban 5 Mg Tablet PO Not Given On Hold: 06/27/25 09:46 BID@0500,1700 FILIPPO Comment: Order held by Process Transfer Clopidogrel Bisulfate 75 mg 06/27/25 09:00 06/27/25 08:22 Clopidogrel 75 Mg Tablet PO 75 mg On Hold: 06/27/25 09:46 DAILY FILIPPO Administration Comment: Order held by Process Transfer Finasteride 5 mg 06/26/25 21:00 06/26/25 20:57 Finasteride 5 Mg Tablet PO 5 mg On Hold: 06/27/25 09:46 BEDTIME FILIPPO Administration Comment: Order held by Process Transfer Gabapentin 300 mg 06/26/25 21:00 06/27/25 08:22 Gabapentin 300 Mg Capsule PO 300 mg On Hold: 06/27/25 09:46 TID FILIPPO Administration Comment: Order held by Process Transfer Piperacillin Sod/Tazobactam 50 mls @ 12.5 mls/hr 06/26/25 18:00 06/27/25 06:01 Sod 3.375 gm/ Sodium Chloride IV Infused On Hold: 06/27/25 09:46 Q8H FILIPPO Infusion Comment: Order held by Process Transfer Vancomycin HCl 1,750 mg in 350 mls @ 175 mls/hr 06/26/25 11:30 06/27/25 08:07 Vancocin IV Infused On Hold: 06/27/25 09:46 Q18H FILIPPO Infusion Comment: Order held by Process Transfer Sodium Chloride 1,000 mls @ 30 mls/hr 06/27/25 10:00 06/27/25 09:51 Sodium Chloride 0.9% IV 06/28/25 09:59 30 mls/hr .Q24H FILIPPO Administration Insulin Glargine 20 unit 06/26/25 18:00 06/27/25 08:22 Insulin Glargine 100 Units/1 Ml SUBCUT Not Given On Hold: 06/27/25 09:46 BID FILIPPO Comment: Order held by Process Transfer Insulin Human Lispro 0 unit 06/26/25 18:00 06/27/25 06:58 Insulin Lispro 100 Unit/1 Ml SUBCUT Not Given On Hold: 06/27/25 09:46 WM&BEDTIME FILIPPO Comment: Order held by Process Protocol Transfer Multivitamins Therapeutic 1 tab 06/27/25 09:00 06/27/25 08:22 Multivitamin Therapeutic Tablet PO 1 tab On Hold: 06/27/25 09:46 DAILY FILIPPO Administration Comment: Order held by Process Transfer Pantoprazole Sodium 40 mg 06/26/25 15:30 06/26/25 16:42 Pantoprazole 40 Mg Sdv IVP 40 mg On Hold: 06/27/25 09:46 Q24H FILIPPO Administration Comment: Order held by Process Transfer Tamsulosin HCl 0.4 mg 06/26/25 21:00 06/26/25 20:57 Tamsulosin 0.4 Mg Capsule PO 0.4 mg On Hold: 06/27/25 09:46 BEDTIME FILIPPO Administration Comment: Order held by Process Transfer [facility] Anesthesia Medical History (Updated 06/27/25 @ 06:21 by Eloy Huizar DPM) HTN (hypertension) BPH (benign prostatic hyperplasia) Diabetes mellitus COPD (chronic obstructive pulmonary disease) CKD (chronic kidney disease) Fibromyalgia ASHD (arteriosclerotic heart disease) JOHAN (obstructive sleep apnea) Hyperlipidemia PAD (peripheral artery disease) Surgical History H/O vasectomy S/P rotator cuff repair S/P PTCA (percutaneous transluminal coronary angioplasty) S/P CABG (coronary artery bypass graft) Family History Other Cancer Denies family history of Diabetes Social History Smoking and tobacco/nicotine status: former use of tobacco/nicotine Second hand smoke exposure: No Alcohol intake: never Substance/Drug Use: never Caregiver/support person: Yes Lives independently: Yes Household members: spouse Marital status: Current occupational status: retired Current gender identity: Male Special aubree needs: No Agree to transfusion: Yes Data Anesthesia 06/27/25 05:01 06/27/25 05:01 Short CBC 06/26/25 06/27/25 Range/Units 15:22 05:01 WBC 10.55 9.69 (3.29-11.43) 10^3/uL Hgb 13.10 12.80 (11.27-16.99) g/dL Hct 41.8 40.9 (37-53) % MCV 93.7 93.0 (82-101) fl Plt Count 238 206 (157-399) 10^3/cmm Neut % (Auto) 70.5 68.7 % Neut # (Auto) 7.45 6.65 (1.8-7.7) 10^3/uL BMP 06/26/25 06/26/25 06/27/25 15:22 21:16 05:01 Sodium 137 135 L 138 Potassium 5.2 H 4.5 4.1 Chloride 98 97 L 99 Carbon Dioxide 25 24 24 BUN 22 23 21 Creatinine 1.5 H 1.7 H 1.3 H Glucose 129 H 227 H 119 H Calcium 9.2 9.0 8.9 Cardiac Enzymes 06/26/25 Range/Units 15:22 NT-Pro-B Natriuret Pep 384 (0-450) pg/mL Liver Function 06/26/25 06/27/25 Range/Units 15:22 05:01 Total Bilirubin 0.2 0.2 (0.15-1.2) mg/dL AST 12 9 (0-40) U/L ALT 14 11 (0-41) U/L Alkaline Phosphatase 136 H 120 (40-130) U/L Albumin 3.7 3.2 L (3.5-5.2) g/dL Urine 06/26/25 Range/Units 17:55 Urine Color Yellow (Yellow) Urine Appearance Clear (CLEAR) Urine pH 5.0 (5-7) Ur Specific [place] 1.016 (1.005-1.030) Urine Protein Trace A (Negative) Urine Glucose (UA) Negative (Normal) Urine Ketones Negative (Negative) Urine Nitrate Negative (Negative) Urine Bilirubin Negative (Negative) Ur Leukocyte Esterase Negative (Negative) Urine RBC 0-2 (0-2) /hpf Urine WBC 0-5 (0-5) /hpf Microbiology 06/26/25 15:37 Blood Culture - Preliminary Blood SPECIMEN COLLECTED 06/26/25 15:37 Blood Culture - Preliminary Blood SPECIMEN COLLECTED Cardiac Studies: Echocardiogram 06/26/25
--- NOTE | 2025-06-27 10:03 | W.PM.BPON ---
Date of Procedure: 02/09/24 Surgeon: Eloy Huizar DPM [employer] Operations Supervisor(s): Kishore Procedure(s) performed: Right Achilles tendon lengthening. Right transmetatarsal amputation. Findings of the procedure(s): Equinus right ankle. Gangrene right distal lateral forefoot. Estimated blood loss: 25ml Specimen(s) removed: Right forefoot sent to pathology for permanent. Equinus right lower extremity. Post-operative diagnosis: Gangrene right distal lateral forefoot.
[2025-06-27] MEDS: BUPivacaine 0.5% INJ 30 mL 15 ML INJECTION (10:15)
--- NOTE | 2025-06-27 11:32 | P.OP_ITS ---
Operative Report Date of procedure: June 27, 2025 Pre-op diagnosis: Right ankle equinus. Diabetic foot ulcer with necrosis of bone right foot. Gangrene right forefoot. Post-op diagnosis: Same Procedure done: 1) Right transmetatarsal amputation. CPT code 05241 2) Right Achilles tendon lengthening. CPT code 08288 Implants: 2-0 Vicryl, 3-0 Vicryl, skin corrine, 4-0 nylon. Pathology: Right forefoot sent to pathology for gross anatomical review. Surgeon: Eloy Huizar DPM [employer] Laborer: Kishore Estimated blood loss: 25 44 IV fluids: See intraoperative documentation Urine output: None Complications: None Brief History: Marcelino Díaz is a 79 year old male presents with gangrene to the right forefoot. Patient has extensive comorbidities with past medical history consisting of diabetes, coronary artery disease, peripheral arterial disease, history of revascularization of the left lower extremity in March 2020 for. He reports having been seen by a vascular surgeon in [place] last Monday, June 20, 2025 per his report no options were available for revascularization of the right lower extremity. He has had a wound of the right foot for greater than 1 year, reports being sent from his [facility] to the emergency department due to redness drainage and foul-smelling wound. Patient examined evaluated, findings and treatment options discussed with patient at length. Recommended right transmetatarsal amputation for source control of infection and vascular workup to explore options of revascularization to optimize healing of the amputation site. Patient is in agreements. I reviewed at length with the patient, the risks, potential complications, benefits, alternatives, expectations, and typical outcomes associated with the surgery. The risks and potential complications were explained in detail, including but not limited to infection, wound dehiscence or soft tissue complications, bleeding and hematoma, chronic edema, neuritis or nerve damage producing numbness or chronic pain, CRPS, failure to relieve pain or worsening pain, thick / painful / unsightly scar, limited motion / stiffness, malposition, delayed union, malunion, or nonunion, fracture, reaction to implants, anesthetic complications, venous thromboembolism, and deformity recurrence. I discussed the notion of no regrets with the patient as it pertains to complications and outcomes. The patient seemed to understand the nature of the proposed care and required convalescence. They asked appropriate questions, answered to their satisfaction. They are aware no guarantees can be made as to a satisfactory outcome and they understand there may be other possible unforeseen complications or outcomes not listed here that will be treated accordingly if they arise. There were no written or implied guarantees given to the patient. They gave informed consent to proceed. Procedure: Under mild sedation the patient was brought to the operating room and remained on the hospital bed in supine position. A timeout was performed. Anesthesia was then administered by the anesthesia service. Local anesthesia injected by myself consisting of 30 cc of one-to-one mixture of 1% lidocaine and 0.5 and Marcaine plain approximately 10 cc utilized for a V-block of the posterior leg proximal to the watershed zone of the Achilles tendon right lower extremity and an additional 20 cc utilized in a 5 point ankle block to the right ankle. Well- padded pneumatic tourniquet applied to the right high calf. The right lower extremity was scrubbed, prepped and draped utilizing normal aseptic technique. Right foot lower extremity was elevated and tourniquet inflated to 250 mmHg. Attention was directed to the right ankle equinus contracture where 3 Will sections were performed of the Achilles tendon 2 medial and 1 lateral spaced out 1.5 cm apart starting 3 cm from insertion of the Achilles tendon performed with a #15 blade a triple hemisection was carried out and the ankle equinus was improved with intraoperative loading able to dorsiflex approximately 8 degrees beyond neutral with knee extended with palpable intact Achilles tendon remaining. The incisions were irrigated and closed with 4-0 nylon and covered with an OpSite. Attention was directed to the gangrenous right lateral forefoot where a fishmouth incision was performed full-thickness encompassing the right forefoot down to bone, sagittal saw utilized to transect metatarsals 1234 and 5 beveling the 1st and 5th maintaining a metatarsal parabola and reducing all rough edges with a hand rasp. The right forefoot was then sharply excised and passed from the operative field to be sent to pathology for gross anatomical review. The incision was irrigated with copious amounts of sterile skin solution. All bleeders were ligated and cauterized as necessary. Extensor flexor tendons transected under traction at the most proximal margin. All redundant tissue remodeled for excellent approximation of dorsal and plantar flap maintaining along plantar flap this was then closed in a layered fashion with deep myofascial layer reapproximated with 2-0 Vicryl, subcutaneous tissue with 3-0 Vicryl and skin with skin corrine. Clean margin at the level of amputation appreciated intraoperatively, some bleeding was encountered this was encouraging that he may have adequate blood flow to heal. The incision was dressed with Xeroform, sterile 4 x 4 gauze, Kerlix and a posterior splint. Tourniquet was then deflated and a hyperemic response is noted to the TMA stump. Patient tolerated the procedure and anesthesia well and was transferred to the PACU with vital signs stable and vascular status intact. Following a period of postoperative monitoring he will be transferred back to the floor to continue IV antibiotics during his hospitalization and anticipating transfer to nursing home facility/mcc once stable.
[2025-06-27] MEDS: fentaNYL 50 mcg/mL INJ 2mL IVP (11:40)
--- NOTE | 2025-06-27 11:55 | ANE.PACU2 ---
Inpatient post-anesthesia follow up: Airway intact: Yes Vital signs: Temperature 98.8 F Pulse Rate 83 Respiratory Rate 17 Blood Pressure 125/67 Pulse Oximetry 96 Oxygen Delivery Me thod Room Air Oxygen Flow Rate 2 Fraction of Inspir ed Oxygen Hydration adequate: Yes Nausea and vomiting: No Pain level: 1 Mental status: Baseline
--- NOTE | 2025-06-27 12:39 | P.PN_ITS ---
Subjective 2 Subjective: seen today post op TMA right foot cr 1.3 this morning vitals stable Vitals/I&O/Wt Last Vital Signs Temp 97.4 F L 06/27/25 12:11 Pulse 83 06/27/25 12:11 Resp 16 06/27/25 12:11 BP 115/67 06/27/25 12:11 Pulse Ox 95 06/27/25 12:11 O2 Del Method Nasal Cannula 06/27/25 12:11 O2 Flow Rate 2 06/27/25 11:56 06/26/25 06/27/25 06/27/25 22:59 06:59 14:59 Intake Total 1161.083 / 1161.083 50 / 1211.083 350 / 350 Output Total 1300 / 1300 200 / 1500 Balance -138.917 / -138.917 -150 / -288.917 325 / 325 Weight last 48 hrs Weight 134.399 kg Weight 136.758 kg Physical Exam 2 Narrative: General: Alert oriented x3, patient seen sitting up in bed appearing comfortable at this time. HEENT: Normocephalic, atraumatic, EOMI, breathing room air. Cardio: Regular rate rhythm, normal S1-S2, Respiratory:clear to auscultation, diminished at bases. GI: Abdomen soft, nontender, distended, obese rounded abdomen bowel sounds +, ventral abdominal hernia appreciated Extremities: 2+ pitting edema bilateral lower extremities Data 06/27/25 05:01 06/27/25 05:01 Micro: Microbiology 06/26/25 15:37 Blood Culture - Preliminary Blood SPECIMEN COLLECTED 06/26/25 15:37 Blood Culture - Preliminary Blood SPECIMEN COLLECTED A&P Assessment and plan 1. HTN (hypertension): 2. S/P CABG (coronary artery bypass graft): 3. S/P PTCA (percutaneous transluminal coronary angioplasty): 4. PAD (peripheral artery disease): 5. Diabetes mellitus: 6. Diabetic foot: 7. 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 CKD (chronic kidney disease): 9. Alzheimer disease: 10. COPD (chronic obstructive pulmonary disease): 11. JOHAN (obstructive sleep apnea): 12. CHF exacerbation: 13. Hyperkalemia: 14. MIKEY (acute kidney injury): Plan: #Diabetic foot infection #Hyperkalemia #MIKEY #Peripheral vascular disease #CAD status post CABG #COPD #CKD #Obstructive sleep apnea #Hypertension #BPH #Diabetes mellitus type 2 #Morbid obesity ? Continue Eliquis, Plavix ? Check preop EKG, nonspecific T wave changes. ? Patient denies chest pain or shortness of breath at this time ? Obtain cardiac clearance ? Check echocardiogram ? N.p.o. at midnight for transmetatarsal amputation in the a.m. if okay with cardiology ? Patient has had CT abdomen runoff in 2023 and had peripheral vascular intervention on left leg. Results are as follows:Severe multifocal atherosclerotic disease as above. Poorly evaluated three-vessel runoff bilaterally given extent of calcification and intermittent opacification. - Peripheral angiogram done March 2024 with following results: Severe proximal left common iliac artery stenosis s/p successful revascularization with 1 stent. Severe posterior tibial artery stenosis s/p revascularization with balloon angioplasty. There is significant left lower extremity disease. Left Common Iliac Artery was treated with two Balloon. Left Common Iliac Artery was treated with Stent. Left Mid-longitudinal Posterior Tibial Artery was treated with Balloon. - Patient states he saw vascular surgery in [facility] last Monday and was told there can be nothing done about this leg going forward. We will request records from [facility]. ? Labs are pending from today CBC CMP magnesium phosphorus, lactic acid ? Will obtain blood cultures, intraoperative wound cultures ? Placed on vancomycin and Zosyn ? Will order home medications once confirmed ? Check hemoglobin A1c ? Dietary consulted appreciate recommendations ? Foot x-ray reviewed from today. ? Chest x-ray does not show pulmonary vascular congestion however patient does have crackles bilaterally at bases. ? I will place on Lasix 40 IV x 1. ? Place Duncan catheter for accurate output ? Hold home metformin ? Sliding scale insulin moderate dose intensity ? Reduce home Lantus to 20 twice daily - Creatinine 1.5 today. Patient's baseline was 0.9 and August 2024. He does have CKD. Hyperkalemia potassium 5.2 anion gap 19.2. I will give Lasix 40 IV x 1. We will recheck BMP at 8 PM. Patient appears fluid overloaded to me. He had crackles on exam as well. ? Lactic acid 3.7. It has always been elevated for the patient. He is on metformin. I would stop that going forward. Recheck lactic acid at 8 PM. ? Blood pressure stable. MAP greater than 65. - Discussed with cardiology and podiatry. Check BNP check echo DNR/DNI 06/27/2025 Left ventricular ejection fraction of 45%. Global wall hypokinesis Patient s/p surgery today. Cardiology following Creatinine 1.3. He is s/p Lasix 40 IV in the ER. On Lasix 40 IV daily at this time Continue vancomycin and Zosyn Bilateral lower extremity edema still present Can benefit from further diuresis. Cardiology following. Once creatinine has improved may consider CT abdomen runoff Still awaiting records from vascular surgery from [place]. Continue Lantus, sliding scale insulin Continue Eliquis, Plavix Hemoglobin stable. PDMP PDMP Reviewed: Not Reviewed Attestations 2 Medical Necessity Statement*: Greater than 2 midnight stay for diabetic foot infection patient will be getting transmetatarsal amputation in AM. 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
--- NOTE | 2025-06-27 13:09 | PC.SOCIAL ---
IMM UPDATED IMM dated and initialed, copy given to patient and copy placed in chart.
[2025-06-27] MEDS: pantoprazole 40 mg SDV IVP (16:06)
--- NOTE | 2025-06-27 16:17 | P.PN_ITS ---
<Statement entered by Corwin Heck M.D - 07/01/25 08:19> Patient was cared for in conjunction with an advanced practice practitioner.? I reviewed the chart and all pertinent data including imaging, telemetry, and laboratory results.? I discussed the patient in detail with the advanced practice practitioner.? Please see?their note for progress note, testing results and agreed upon plan of care for the patient. Subjective 2 Subjective: He underwent surgery today, reports pain in his right foot. No chest pain or shortness of breath. Vitals/I&O/Wt Last Vital Signs Temp 98.8 F 06/27/25 15:32 Pulse 83 06/27/25 15:32 Resp 17 06/27/25 15:32 BP 125/67 06/27/25 15:32 Pulse Ox 96 06/27/25 15:32 O2 Del Method Room Air 06/27/25 15:32 O2 Flow Rate 2 06/27/25 11:56 06/27/25 06/27/25 06/27/25 06:59 14:59 22:59 Intake Total 50 / 1211.083 702.5 / 702.5 Output Total 200 / 1500 Balance -150 / -288.917 677.5 / 677.5 Weight last 48 hrs Weight 296 lb 4.8 oz Weight 301 lb 8 oz Physical Exam 2 Resp: COMMON NORMALS: normal respiratory effort, No retractions, No use of accessory muscles and clear to auscultation bilaterally AUSCULTATION: clear to auscultation bilaterally Cardio: COMMON NORMALS: regular rate, regular rhythm, S1 normal heart sound present, S2 normal heart sound present and No murmurs present (Cardio) RATE: regular rate RHYTHM: regular rhythm HEART SOUNDS: S1 normal heart sound present and S2 normal heart sound present Extremity: GENERAL: No edema Data 06/27/25 05:01 06/27/25 05:01 Micro: Microbiology 06/26/25 15:37 Blood Culture - Preliminary Blood NEGATIVE TO DATE 06/26/25 15:37 Blood Culture - Preliminary Blood NEGATIVE TO DATE A&P Assessment and plan 1. S/P CABG (coronary artery bypass graft): 2. PAD (peripheral artery disease): 3. HTN (hypertension): 4. Diabetes mellitus: 5. CKD (chronic kidney disease): Plan: He has done well with surgery. Appears to be stable from a cardiovascular perspective. Will request records from [facility] regarding vascular studies of the right leg. PDMP PDMP Reviewed: Not Reviewed Attestations 2 Medical Necessity Statement*: per primary team Coding Level of Care Code Acute Code for [facility] Fwd Diagnoses S/P CABG (coronary artery bypass graft) Z95.1 PAD (peripheral artery disease) I73.9 HTN (hypertension) I10 Diabetes mellitus E11.9 CKD (chronic kidney disease) N18.9
[2025-06-27] MEDS: insulin glargine 100 units/1 mL 20 UNIT SUBCUT (16:53)
[2025-06-27] MEDS: morphine 4 mg/mL SDV 1 mL IVP (20:26)
--- NOTE | 2025-06-27 22:37 | PC.NURSE ---
around 830pm patient was sitting on side of bed using urinal, we noticed his foot bleeding. per dayhift orders Dr. Huizar will be out till monday and not to open bandage so nurse wrapped with 2 ABD and curlex not bleed since
[2025-06-28] VITALS (12 sets, daily range): BP systolic 109–128; BP diastolic 52–70; PULSE 64–84; RESP 14–20; TEMP 36.5–37; O2SAT 91–95
[2025-06-28] MEDS: vancomycin 1,750 MG/350 ML PIGGYBACK 175 MG IV ×2 (00:27→17:37)
[2025-06-28] MEDS: piperacillin-tazobactam 3.375 GM in sodium chloride 0.9% (plus) 50 ML IV ×3 (02:08→18:51)
[2025-06-28 04:35] LABS: Blood Urea Nitrogen 22 mg/dL (8-23); Calcium 9.0 mg/dL (8.5-10.5); Carbon Dioxide 24 mmol/L (22-29); Chloride 100 mmol/L (98-107); Creatinine Clr Calc Pharmacy 78.7020; Glucose 176 mg/dL (65-115); Magnesium 2.0 mg/dL (1.7-2.3); Osmolality Calculated 292 mOsm/kg (285-295); Sodium 137 mmol/L (136-145)
[2025-06-28 04:37] LABS: Anion Gap 17.6 (5-19); Potassium 4.6 mmol/L (3.5-5.1)
[2025-06-28 04:45] LABS: Hematocrit 39.4 % (37-53); Hemoglobin 12.30 g/dL (11.27-16.99); Mean Corpuscular HGB Conc 31.2 g/dL (30-55); Mean Corpuscular Hemoglobin 29.3 pg (27-33); Mean Corpuscular Volume 93.8 fl (82-101); Nucleated Red Blood Cells % 0 %; Platelet Count 192 10^3/cmm (157-399); Red Blood Count 4.20 10^6/uL (3.85-5.65); White Blood Count 10.65 10^3/uL (3.29-11.43)
[2025-06-28] MEDS: morphine 4 mg/mL SDV 1 mL IVP ×3 (05:04→21:45)
[2025-06-28] MEDS: insulin glargine 100 units/1 mL 20 UNIT SUBCUT ×2 (08:39→17:35)
[2025-06-28] MEDS: multivitamin therapeutic Tablet 1 TAB PO (08:39)
--- NOTE | 2025-06-28 12:01 | CTR_ITS ---
PROCEDURE INFORMATION: Exam: CTA Abdominal Aorta and Bilateral Lower Extremities (Run-off) With Contrast Exam date and time: 06/28/2025 12:53 PM Age: 79 years old Clinical indication: Discoloration or erythema and numbness; Foot and lower extremity and toe; Bilateral; Prior surgery; Surgery date: 3-7 days post-operative; Surgery type: Toe amputations; Additional info: Pad TECHNIQUE: Imaging protocol: Computed tomographic angiography of the of the abdominal aorta, pelvis and bilateral lower extremities with contrast. 3D rendering (Not supervised by radiologist): MIP and/or 3D reconstructed images were created by the technologist. Radiation optimization: All CT scans at this facility use at least one of these dose optimization techniques: automated exposure control; mA and/or kV adjustment per patient size (includes targeted exams where dose is matched to clinical indication); or iterative reconstruction. Contrast material: OMNIPAQUE 350; Contrast volume: 120 ml; Contrast route: INTRAVENOUS (IV); COMPARISON: CT angio abd aorta runof [id number] 02/02/2024 1:35 PM RADIATION DOSE METRICS: Total DLP (mGy-cm): 1305.96 FINDINGS: Aorta: No aortic aneurysm. No aortic dissection. Celiac trunk and mesenteric arteries: No occlusion or significant stenosis. Renal arteries: No occlusion or significant stenosis. Right iliac arteries: No occlusion or significant stenosis. Right femoral/popliteal arteries: No occlusion or significant stenosis. Right infrapopliteal arteries: Long segment occlusion involving the posterior tibial artery. The anterior tibial and peroneal arteries are widely patent down to the foot. Metallic hardware transfixes old ankle fractures. Diffuse skin thickening involves the lower leg and there is a focal subcutaneous collection of air noted in the medial aspect of the lower leg with ulceration. There is severe atrophy of the calf musculature. Left iliac arteries: No occlusion or significant stenosis. Left femoral/popliteal arteries: No occlusion or significant stenosis. Left infrapopliteal arteries: Multiple stenoses involve the anterior and posterior tibial arteries and there is a focal occlusion involving the proximal aspect of the anterior tibial artery. The posterior tibial and peroneal arteries are patent down into the foot. There is diffuse chronic skin thickening with severe muscle atrophy. Bypass grafts: None. Liver: No mass. Gallbladder and biliary ducts: Unremarkable. No calcified stones. No ductal dilation. Pancreas: Unremarkable. No mass. No ductal dilation. Spleen: Normal. No splenomegaly. Adrenal glands: Normal. No mass. Kidneys and ureters: Multiple cysts involve both kidneys. Stomach and bowel: Multiple diverticula involve the sigmoid colon. There is no sign of diverticulitis. Appendix: No evidence of appendicitis. Urinary bladder: Unremarkable. No mass. Reproductive: Unremarkable as visualized. Intraperitoneal space: Unremarkable. No free air. No significant fluid collection. Lymph nodes: No lymphadenopathy. Bones/joints: No acute fracture. No dislocation. Soft tissues: Unremarkable. CT/CT angio abd aorta runof [id number] IMPRESSION: 1. Bilateral calf vessel disease as detailed above 2. A benign renal cyst or cysts have been detected. No further follow-up imaging is required. 3. Sigmoid diverticulosis 4. Chronic skin thickening involving both lower legs with severe muscle atrophy 5. Focal ulceration involving the medial aspect of the right lower leg
[2025-06-28] MEDS: FUROsemide 10 mg/mL SDV 2mL 20 MG IVP (12:15)
[2025-06-28] MEDS: iohexol 350 mg/mL 500 mL Btl (per mL) IV (13:11)
[2025-06-28] MEDS: pantoprazole 40 mg SDV IVP (15:16)
--- NOTE | 2025-06-28 15:59 | P.PN_ITS ---
Subjective 2 Subjective: Seen this morning. Euvolemic today Confused. Alert oriented to self only. Denies being in pain at this time. Vitals/I&O/Wt Last Vital Signs Temp 98.4 F 06/28/25 11:02 Pulse 64 06/28/25 11:02 Resp 18 06/28/25 15:22 BP 117/70 06/28/25 11:02 Pulse Ox 95 06/28/25 11:02 O2 Del Method Room Air 06/28/25 11:02 O2 Flow Rate 2 06/27/25 11:56 06/28/25 06/28/25 06/28/25 06:59 14:59 22:59 Intake Total 880 / 1872.5 600 / 600 50 / 650 Output Total 775 / 775 Balance 880 / 1847.5 -175 / -175 50 / -125 Weight last 48 hrs Weight 134.263 kg Weight 134.399 kg Weight 136.758 kg Physical Exam 2 Narrative: General: Alert oriented x3, HEENT: Normocephalic, atraumatic, EOMI, breathing room air. Cardio: Regular rate rhythm, normal S1-S2, Respiratory:clear to auscultation, diminished at bases. GI: Abdomen soft, nontender, distended, obese rounded abdomen bowel sounds +, ventral abdominal hernia appreciated Extremities: 2+ pitting edema bilateral lower extremities Data 06/28/25 04:10 06/28/25 04:10 Micro: Microbiology 06/26/25 15:37 Blood Culture - Preliminary Blood NEGATIVE TO DATE 06/26/25 15:37 Blood Culture - Preliminary Blood NEGATIVE TO DATE A&P Assessment and plan 1. HTN (hypertension): 2. S/P CABG (coronary artery bypass graft): 3. S/P PTCA (percutaneous transluminal coronary angioplasty): 4. PAD (peripheral artery disease): 5. Diabetes mellitus: 6. Diabetic foot: 7. 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 CKD (chronic kidney disease): 9. Alzheimer disease: 10. COPD (chronic obstructive pulmonary disease): 11. JOHAN (obstructive sleep apnea): 12. CHF exacerbation: 13. Hyperkalemia: 14. MIKEY (acute kidney injury): Plan: #Diabetic foot infection #Hyperkalemia #MIKEY #Peripheral vascular disease #CAD status post CABG #COPD #CKD #Obstructive sleep apnea #Hypertension #BPH #Diabetes mellitus type 2 #Morbid obesity ? Continue Eliquis, Plavix ? Check preop EKG, nonspecific T wave changes. ? Patient denies chest pain or shortness of breath at this time ? Obtain cardiac clearance ? Check echocardiogram ? N.p.o. at midnight for transmetatarsal amputation in the a.m. if okay with cardiology ? Patient has had CT abdomen runoff in 2023 and had peripheral vascular intervention on left leg. Results are as follows:Severe multifocal atherosclerotic disease as above. Poorly evaluated three-vessel runoff bilaterally given extent of calcification and intermittent opacification. - Peripheral angiogram done March 2024 with following results: Severe proximal left common iliac artery stenosis s/p successful revascularization with 1 stent. Severe posterior tibial artery stenosis s/p revascularization with balloon angioplasty. There is significant left lower extremity disease. Left Common Iliac Artery was treated with two Balloon. Left Common Iliac Artery was treated with Stent. Left Mid-longitudinal Posterior Tibial Artery was treated with Balloon. - Patient states he saw vascular surgery in [facility] last Monday and was told there can be nothing done about this leg going forward. We will request records from [facility]. ? Labs are pending from today CBC CMP magnesium phosphorus, lactic acid ? Will obtain blood cultures, intraoperative wound cultures ? Placed on vancomycin and Zosyn ? Will order home medications once confirmed ? Check hemoglobin A1c ? Dietary consulted appreciate recommendations ? Foot x-ray reviewed from today. ? Chest x-ray does not show pulmonary vascular congestion however patient does have crackles bilaterally at bases. ? I will place on Lasix 40 IV x 1. ? Place Duncan catheter for accurate output ? Hold home metformin ? Sliding scale insulin moderate dose intensity ? Reduce home Lantus to 20 twice daily - Creatinine 1.5 today. Patient's baseline was 0.9 and August 2024. He does have CKD. Hyperkalemia potassium 5.2 anion gap 19.2. I will give Lasix 40 IV x 1. We will recheck BMP at 8 PM. Patient appears fluid overloaded to me. He had crackles on exam as well. ? Lactic acid 3.7. It has always been elevated for the patient. He is on metformin. I would stop that going forward. Recheck lactic acid at 8 PM. ? Blood pressure stable. MAP greater than 65. - Discussed with cardiology and podiatry. Check BNP check echo DNR/DNI 06/27/2025 Left ventricular ejection fraction of 45%. Global wall hypokinesis Patient s/p surgery today. Cardiology following Creatinine 1.3. He is s/p Lasix 40 IV in the ER. On Lasix 40 IV daily at this time Continue vancomycin and Zosyn Bilateral lower extremity edema still present Can benefit from further diuresis. Cardiology following. Once creatinine has improved may consider CT abdomen runoff Still awaiting records from vascular surgery from [place]. Continue Lantus, sliding scale insulin Continue Eliquis, Plavix Hemoglobin stable. 06/28/2025 Creatinine 1.[address] a runoff. Records not available from [facility] yet. Continue vancomycin and Zosyn Appreciate podiatry recommendations Continue Eliquis, Plavix, Lantus, sliding scale insulin. Will switch to Lasix 20 IV daily Hold metformin Cardiology following. PDMP PDMP Reviewed: Not Reviewed Attestations 2 Medical Necessity Statement*: Greater than 2 midnight stay for diabetic foot infection Patient will need peripheral vascular disease workup. Continue to hospital at this time. 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
[2025-06-29] VITALS (12 sets, daily range): BP systolic 99–130; BP diastolic 50–70; PULSE 75–94; RESP 14–24; TEMP 36.7–37; O2SAT 91–97
[2025-06-29] MEDS: piperacillin-tazobactam 3.375 GM in sodium chloride 0.9% (plus) 50 ML IV ×2 (01:13→10:36)
[2025-06-29 02:19] LABS: Hematocrit 36.8 % (37-53); Hemoglobin 11.90 g/dL (11.27-16.99); Mean Corpuscular HGB Conc 32.3 g/dL (30-55); Mean Corpuscular Hemoglobin 30.1 pg (27-33); Mean Corpuscular Volume 92.9 fl (82-101); Nucleated Red Blood Cells % 0 %; Platelet Count 244 10^3/cmm (157-399); Red Blood Count 3.96 10^6/uL (3.85-5.65); White Blood Count 8.82 10^3/uL (3.29-11.43)
[2025-06-29 02:43] LABS: Alanine Aminotransferase 9 U/L (0-41); Albumin Level 3.4 g/dL (3.5-5.2); Alkaline Phosphatase 106 U/L (40-130); Anion Gap 16.0 (5-19); Aspartate Amino Transferase 9 U/L (0-40); Blood Urea Nitrogen 19 mg/dL (8-23); Calcium 8.6 mg/dL (8.5-10.5); Carbon Dioxide 26 mmol/L (22-29); Chloride 98 mmol/L (98-107); Creatinine Clr Calc Pharmacy 78.6587; Globulin 4.0 g/dL (1.3-4.6); Glucose 135 mg/dL (65-115); Magnesium 2.0 mg/dL (1.7-2.3); Osmolality Calculated 286 mOsm/kg (285-295); Potassium 4.0 mmol/L (3.5-5.1); Sodium 136 mmol/L (136-145); Total Protein 7.4 g/dL (6.6-8.7)
[2025-06-29] MEDS: morphine 4 mg/mL SDV 1 mL IVP (05:18)
[2025-06-29] MEDS: insulin glargine 100 units/1 mL 20 UNIT SUBCUT (08:29)
[2025-06-29] MEDS: multivitamin therapeutic Tablet 1 TAB PO (08:29)
[2025-06-29] MEDS: vancomycin 1,750 MG/350 ML PIGGYBACK 175 MG IV (12:30)
[2025-06-29] MEDS: FUROsemide 10 mg/mL SDV 2mL 20 MG IVP (12:34)
--- NOTE | 2025-06-29 12:51 | PM.PN ---
Subjective Subjective: seen this am no acute events overnight resting comfortably in bed Vitals/I&O/Wt Last Vital Signs Temp 98.4 F 06/29/25 11:52 Pulse 75 06/29/25 11:52 Resp 18 06/29/25 11:52 BP 126/67 06/29/25 11:52 Pulse Ox 97 06/29/25 11:52 O2 Del Method Room Air 06/29/25 11:52 O2 Flow Rate 2 06/27/25 11:56 06/28/25 06/29/25 06/29/25 22:59 06:59 14:59 Intake Total 640 / 1240 340 / 1580 240 / 240 Output Total 2350 / 3125 500 / 3625 125 / 125 Balance -1710 / -1885 -160 / -2045 115 / 115 Weight last 48 hrs Weight 133.356 kg Weight 134.263 kg Physical Exam Narrative: General: Alert oriented x3, HEENT: Normocephalic, atraumatic, EOMI, breathing room air. Cardio: Regular rate rhythm, normal S1-S2, Respiratory:clear to auscultation, diminished at bases. GI: Abdomen soft, nontender, distended, obese rounded abdomen bowel sounds +, ventral abdominal hernia appreciated Extremities: 1+ pitting edema bilateral lower extremities, improved compared to admission Data 06/29/25 01:48 06/29/25 01:48 A&P Assessment and plan 1. HTN (hypertension): 2. S/P CABG (coronary artery bypass graft): 3. S/P PTCA (percutaneous transluminal coronary angioplasty): 4. PAD (peripheral artery disease): 5. Diabetes mellitus: 6. Diabetic foot: 7. 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 CKD (chronic kidney disease): 9. Alzheimer disease: 10. COPD (chronic obstructive pulmonary disease): 11. JOHAN (obstructive sleep apnea): 12. CHF exacerbation: 13. Hyperkalemia: 14. MIKEY (acute kidney injury): Plan: #Diabetic foot infection #Hyperkalemia #MIKEY #Peripheral vascular disease #CAD status post CABG #COPD #CKD #Obstructive sleep apnea #Hypertension #BPH #Diabetes mellitus type 2 #Morbid obesity ? Continue Eliquis, Plavix ? Check preop EKG, nonspecific T wave changes. ? Patient denies chest pain or shortness of breath at this time ? Obtain cardiac clearance ? Check echocardiogram ? N.p.o. at midnight for transmetatarsal amputation in the a.m. if okay with cardiology ? Patient has had CT abdomen runoff in 2023 and had peripheral vascular intervention on left leg. Results are as follows:Severe multifocal atherosclerotic disease as above. Poorly evaluated three-vessel runoff bilaterally given extent of calcification and intermittent opacification. - Peripheral angiogram done March 2024 with following results: Severe proximal left common iliac artery stenosis s/p successful revascularization with 1 stent. Severe posterior tibial artery stenosis s/p revascularization with balloon angioplasty. There is significant left lower extremity disease. Left Common Iliac Artery was treated with two Balloon. Left Common Iliac Artery was treated with Stent. Left Mid-longitudinal Posterior Tibial Artery was treated with Balloon. - Patient states he saw vascular surgery in [facility] last Monday and was told there can be nothing done about this leg going forward. We will request records from [facility]. ? Labs are pending from today CBC CMP magnesium phosphorus, lactic acid ? Will obtain blood cultures, intraoperative wound cultures ? Placed on vancomycin and Zosyn ? Will order home medications once confirmed ? Check hemoglobin A1c ? Dietary consulted appreciate recommendations ? Foot x-ray reviewed from today. ? Chest x-ray does not show pulmonary vascular congestion however patient does have crackles bilaterally at bases. ? I will place on Lasix 40 IV x 1. ? Place Duncan catheter for accurate output ? Hold home metformin ? Sliding scale insulin moderate dose intensity ? Reduce home Lantus to 20 twice daily - Creatinine 1.5 today. Patient's baseline was 0.9 and August 2024. He does have CKD. Hyperkalemia potassium 5.2 anion gap 19.2. I will give Lasix 40 IV x 1. We will recheck BMP at 8 PM. Patient appears fluid overloaded to me. He had crackles on exam as well. ? Lactic acid 3.7. It has always been elevated for the patient. He is on metformin. I would stop that going forward. Recheck lactic acid at 8 PM. ? Blood pressure stable. MAP greater than 65. - Discussed with cardiology and podiatry. Check BNP check echo DNR/DNI 06/27/2025 Left ventricular ejection fraction of 45%. Global wall hypokinesis Patient s/p surgery today. Cardiology following Creatinine 1.3. He is s/p Lasix 40 IV in the ER. On Lasix 40 IV daily at this time Continue vancomycin and Zosyn Bilateral lower extremity edema still present Can benefit from further diuresis. Cardiology following. Once creatinine has improved may consider CT abdomen runoff Still awaiting records from vascular surgery from [place]. Continue Lantus, sliding scale insulin Continue Eliquis, Plavix Hemoglobin stable. 06/28/2025 Creatinine 1.[address] a runoff. Records not available from [facility] yet. Continue vancomycin and Zosyn Appreciate podiatry recommendations Continue Eliquis, Plavix, Lantus, sliding scale insulin. Will switch to Lasix 20 IV daily Hold metformin Cardiology following. 06/29/2025 cr at [facility] he is euvolemic today will switch to oral linezolid BID and levaquin x 2 weeks. plan to dc [facility] if [facility] will accept today leave dressing on per podiatry, see in clinic will need wound care follow up outpatient ready for dc to [facility] Continue Eliquis, Plavix, Lantus, sliding scale insulin. 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
[2025-06-29] MEDS: insulin glargine 100 units/1 mL 35 UNIT SUBCUT (17:18)
[2025-06-30] VITALS (7 sets, daily range): BP systolic 104–121; BP diastolic 57–72; PULSE 61–79; RESP 16–22; TEMP 36.6–36.7; O2SAT 90–95
[2025-06-30] MEDS: morphine 4 mg/mL SDV 1 mL IVP (05:53)
[2025-06-30] MEDS: multivitamin therapeutic Tablet 1 TAB PO (08:34)
[2025-06-30] MEDS: insulin glargine 100 units/1 mL 35 UNIT SUBCUT (08:35)
--- NOTE | 2025-06-30 10:56 | PC.NURSE ---
This patient is awaiting Dr. Huizar to change is dressing before he discharges.
[2025-06-30] MEDS: FUROsemide 10 mg/mL SDV 2mL 20 MG IVP (11:41)
--- NOTE | 2025-06-30 12:52 | PC.NURSE ---
Dr. Huizar at bedside to change the dressing and when he is done the patient is good to be discharged.
--- NOTE | 2025-06-30 13:17 | P.PN_ITS ---
<Statement entered by Corwin Heck M.D - 07/01/25 10:11> Patient was cared for in conjunction with an advanced practice practitioner.? I reviewed the chart and all pertinent data including imaging, telemetry, and laboratory results.? I discussed the patient in detail with the advanced practice practitioner.? Please see?their note for progress note, testing results and agreed upon plan of care for the patient. Subjective 2 Subjective: He is resting well this morning. We have not received records from vascular surgery regarding their appointment with him. Will check on this again. Vitals/I&O/Wt Last Vital Signs Temp 98 F 06/30/25 11:17 Pulse 79 06/30/25 11:17 Resp 16 06/30/25 11:17 BP 114/57 06/30/25 11:17 Pulse Ox 91 06/30/25 11:17 O2 Del Method Room Air 06/30/25 11:17 O2 Flow Rate 2 06/27/25 11:56 06/29/25 06/30/25 06/30/25 22:59 06:59 14:59 Intake Total 660 / 1780 840 / 840 Output Total 350 / 2775 1000 / 2775 500 / 500 Balance 310 / -995 -1000 / -995 340 / 340 Weight last 48 hrs Weight 297 lb 6.4 oz Weight 294 lb Physical Exam 2 Const: COMMON NORMALS: no acute distress and patient oriented x3 GENERAL APPEARANCE: cooperative and comfortable ORIENTATION/CONSCIOUSNESS: Yes awake, Yes oriented to person, Yes oriented to place and Yes oriented to time Chest: COMMONS NORMALS: normal inspection of the chest and normal palpation of entire chest wall CHEST: Yes Symmetrical chest wall rise Resp: COMMON NORMALS: normal respiratory effort, No retractions, No use of accessory muscles and clear to auscultation bilaterally EFFORT & INSPECTION: Yes symmetric chest movement AUSCULTATION: clear to auscultation bilaterally Cardio: COMMON NORMALS: regular rate, regular rhythm, S1 normal heart sound present, S2 normal heart sound present, No gallops present (Cardio), No clicks present (Cardio), No murmurs present (Cardio) and No rub (Cardio) RATE: r egular rate RHYTHM: regular rhythm HEART SOUNDS: S1 normal heart sound present and S2 normal heart sound present PERIPHERAL PULSES: radial pulses present Extremity: COMMON NORMALS: no pedal edema Neuro: COMMON NORMALS: patient oriented x3 and moves all extremities S ENSORIUM/ORIENTATION: Yes oriented to person, Yes oriented to place and Yes oriented to time Data 06/29/25 01:48 06/29/25 01:48 A&P Assessment and plan 1. ASHD (arteriosclerotic heart disease): 2. S/P CABG (coronary artery bypass graft): 3. PAD (peripheral artery disease): 4. HTN (hypertension): 5. Diabetes mellitus: 6. CKD (chronic kidney disease): Plan: CTA of the aorta with runoff performed 06/28/25: No significant stenosis of the right femoral/popliteal, long segment occlusion of the posterior tibial, anterior tibial and peroneal patent to the foot. Plan is for medical management this time. PDMP PDMP Reviewed: Not Reviewed Attestations 2 Medical Necessity Statement*: Per hospitalist Coding Level of Care Code Acute Code for [facility] Fwd Diagnoses ASHD (arteriosclerotic heart disease) I25.10 S/P CABG (coronary artery bypass graft) Z95.1 PAD (peripheral artery disease) I73.9 HTN (hypertension) I10 Diabetes mellitus E11.9 CKD (chronic kidney disease) N18.9
--- NOTE | 2025-06-30 13:27 | PC.SOCIAL ---
IMM Updated Updated pt on IMM. No questions voiced. Provided pt a copy. Initialed, dated, & timed copy in chart.
--- NOTE | 2025-06-30 14:27 | PC.NURSE ---
Report called to [facility] and ready transport transported pt to facility. All questions answered and IVs removed prior to discharge.
--- NOTE | 2025-06-30 17:06 | PM.DCS ---
Discharge Providers Date of Admission: 06/26/25 14:51 Date of Discharge: June 30, 2025 Attending Provider at Admission: Skyla Estrella MD Attending Provider at Discharge: Vicki Perez MD Primary Care Provider: Terry Llanos MD Diagnoses at Discharge Discharge Diagnosis 1. ASHD (arteriosclerotic heart disease): 2. S/P CABG (coronary artery bypass graft): 3. PAD (peripheral artery disease): 4. Primary hypertension: 5. Type 2 diabetes mellitus with hyperglycemia, with long-term current use of insulin: 6. Chronic kidney disease, unspecified CKD stage: Reason for Visit Reason for Visit: r foot infection Hospital Course Hospital Course Marcelino Díaz is a 79 year old male With past medical history of diabetes mellitus, peripheral vascular disease, malignant melanoma of skin, osteomyelitis, hyperlipidemia, hypertension, peripheral artery disease, CAD status post CABG, urinary retention who was admitted to the hospital on June 26, 2025 due to worsening right lower extremity wound. Patient had previously been followed by vascular surgery at [facility] where reportedly there were no options for revascularization of the right lower extremity. Patient was evaluated by podiatry for gangrene of the right foot and underwent a transmetatarsal amputation of the right side along with lengthening of the right Achilles tendon on 06/27/25. Patient underwent a CTA with runoff which showed no significant occlusion or stenosis of the iliac femoral or popliteal arteries. There was noted to be long segment occlusion involving the posterior tibial artery. The anterior tibial and peroneal arteries were widely patent. There was atrophy of the calf musculature. On the left side multiple stenosis were noted involving the anterior and posterior tibial arteries and focal occlusion involving the proximal aspect of the anterior tibial arteries. Medical management was recommended per cardiology service. Patient is currently on Plavix and Eliquis as an outpatient which has been continued at the time of discharge. Hospital course was notable for fluid overload for which patient received IV diuresis with Lasix. This has been transitioned to oral Lasix at the time of discharge. He is noted to be euvolemic on the day of discharge today. During the course of his admission he received empiric antibiotics with vancomycin and piperacillin/tazobactam.. This has been transitioned to oral levofloxacin and linezolid for 10 days at the time of discharge as he has had an amputation at this time. He is being discharged back to senior living today with recommendations to continue wound care. Physical Exam Narrative: General: No acute distress, AO x3 HEENT: PERRLA, pupils bilaterally equal and reactive, pallors not present Chest: Normal vesicular breath sounds, no added sounds, equal good air entry bilaterally CVS: S1-S2 regular, no murmurs, no tachycardia, no gallops, no rubs Abdomen: Soft, nontender, no organomegaly, bowel sounds present Neuro: No focal deficits, no facial deformity, AO x3, power 5/5 in all limbs Discharge Data Studies Completed and Pending Completed Studies During Hospitalization Category Date Time Status CT angio abd aorta runof 08902 Urgent Cat Scan 06/28/25 12:01 Completed XR chest 1V portable [id number] Stat Exams 06/26/25 14:34 Completed XR foot RT min 3V* [id number] Stat Exams 06/26/25 14:39 Completed CV. echo complete* [id number] Stat Ultrasound 06/26/25 15:35 Completed Pending at discharge Category Date Time Status Blood Culture Stat Lab 06/26/25 15:37 Results Pathology: Surgical [PTH] Routine Pth 06/27/25 10:47 Received Radiology Impressions Chest X-Ray 06/26/25 14:34 Impression: Cardiomegaly. Foot X-Ray 06/26/25 14:39 Impression: 1. Absent right third toe. 2. Demineralization of the bones of the phalanges and metatarsals. 3. Internal fixation of old bimalleolar fracture. Aorta w/Runoff CTA 06/28/25 12:01 IMPRESSION: 1. Bilateral calf vessel disease as detailed above 2. A benign renal cyst or cysts have been detected. No further follow-up imaging is required. 3. Sigmoid diverticulosis 4. Chronic skin thickening involving both lower legs with severe muscle atrophy 5. Focal ulceration involving the medial aspect of the right lower leg Laboratory Results WBC 8.82 10^3/uL (3.29-11.43) 06/29/25 01:48 RBC 3.96 10^6/uL (3.85-5.65) 06/29/25 01:48 Hgb 11.90 g/dL (11.27-16.99) 06/29/25 01:48 Hct 36.8 % (37-53) L 06/29/25 01:48 MCV 92.9 fl (82-101) 06/29/25 01:48 MCH 30.1 pg (27-33) 06/29/25 01:48 MCHC 32.3 g/dL (30-55) 06/29/25 01:48 RDW 14.8 % (12.1-15.1) 06/29/25 01:48 Plt Count 244 10^3/cmm (157-399) 06/29/25 01:48 MPV 10.2 fL (7.4-10.4) 06/29/25 01:48 Neut % (Auto) 62.4 % 06/29/25 01:48 Lymph % (Auto) 20.9 % 06/29/25 01:48 Humphreys % (Auto) 10.0 % 06/29/25 01:48 Eos % (Auto) 5.3 % 06/29/25 01:48 Baso % (Auto) 0.7 % 06/29/25 01:48 Neut # (Auto) 5.51 10^3/uL (1.8-7.7) 06/29/25 01:48 Lymph # (Auto) 1.8 10^3/uL (0.8-4.8) 06/29/25 01:48 Humphreys # (Auto) 0.9 10^3/uL (0.2-0.9) 06/29/25 01:48 Eos # (Auto) 0.5 10^3/uL (0.0-0.8) 06/29/25 01:48 Baso # (Auto) 0.1 10^3/uL (0.0-0.1) 06/29/25 01:48 Nucleated RBC % (auto) 0 % 06/29/25 01:48 Nucleated RBCs # 0.0 /100WBC 06/29/25 01:48 Sodium 136 mmol/L (136-145) 06/29/25 01:48 Potassium 4.0 mmol/L (3.5-5.1) 06/29/25 01:48 Chloride 98 mmol/L (98-107) 06/29/25 01:48 Carbon Dioxide 26 mmol/L (22-29) 06/29/25 01:48 Anion Gap 16.0 (5-19) 06/29/25 01:48 BUN 19 mg/dL (8-23) 06/29/25 01:48 Creatinine 1.1 mg/dL (0.7-1.2) 06/29/25 01:48 GFR Calculation Not Reportable 06/29/25 01:48 Glucose 135 mg/dL (65-115) H 06/29/25 01:48 POC Glucose 243 mg/dL (70-110) H 06/30/25 10:52 Estimat Average Glucose 203 06/26/25 15:22 Hemoglobin A1c 8.7 % (4.0-6.0) H 06/26/25 15:22 Calculated Osmolality 286 mOsm/kg (285-295) 06/29/25 01:48 Lactic Acid 2.3 mmol/L (0.5-2.2) H 06/26/25 21:16 Lactic Acid (Sepsis) 1.5 mmol/L (0.5-2.2) 06/27/25 00:15 Calcium 8.6 mg/dL (8.5-10.5) 06/29/25 01:48 Magnesium 2.0 mg/dL (1.7-2.3) 06/29/25 01:48 Total Bilirubin 0.3 mg/dL (0.15-1.2) 06/29/25 01:48 AST 9 U/L (0-40) 06/29/25 01:48 ALT 9 U/L (0-41) 06/29/25 01:48 Alkaline Phosphatase 106 U/L (40-130) 06/29/25 01:48 NT-Pro-B Natriuret Pep 384 pg/mL (0-450) 06/26/25 15:22 Total Protein 7.4 g/dL (6.6-8.7) 06/29/25 01:48 Albumin 3.4 g/dL (3.5-5.2) L 06/29/25 01:48 Globulin 4.0 g/dL (1.3-4.6) 06/29/25 01:48 Procalcitonin 0.07 ng/mL (0-0.5) 06/26/25 15:22 TSH 0.80 uIU/mL (0.27-4.20) 06/26/25 15:22 Urine Color Yellow (Yellow) 06/26/25 17:55 Urine Appearance Clear (CLEAR) 06/26/25 17:55 Urine pH 5.0 (5-7) 06/26/25 17:55 Ur Specific [place] 1.016 (1.005-1.030) 06/26/25 17:55 Urine Protein Trace (Negative) A 06/26/25 17:55 Urine Glucose (UA) Negative (Normal) 06/26/25 17:55 Urine Ketones Negative (Negative) 06/26/25 17:55 Urine Blood Negative (Negative) 06/26/25 17:55 Urine Nitrate Negative (Negative) 06/26/25 17:55 Urine Bilirubin Negative (Negative) 06/26/25 17:55 Urine Urobilinogen 1.0 mg/dL (Negative) 06/26/25 17:55 Ur Leukocyte Esterase Negative (Negative) 06/26/25 17:55 Urine RBC 0-2 /hpf (0-2) 06/26/25 17:55 Urine WBC 0-5 /hpf (0-5) 06/26/25 17:55 Ur Squamous Epith Cells 0-5 /hpf (0-5) 06/26/25 17:55 Amorphous Sediment Not Reportable 06/26/25 17:55 Urine Bacteria None seen /hpf (NONE) 06/26/25 17:55 Hyaline Casts 0.40 /lpf 06/26/25 17:55 Vancomycin Trough 18.4 ug/mL (10-15) H 06/28/25 16:16 Vitals Last Vital Signs Temp 98 F 06/30/25 14:28 Pulse 79 06/30/25 14:28 Resp 16 06/30/25 14:28 BP 114/57 06/30/25 14:28 Pulse Ox 91 06/30/25 14:28 O2 Del Method Room Air 06/30/25 11:17 O2 Flow Rate 2 06/27/25 11:56 Discharge Plan Discharge Patient Disposition: Xfer SNF Condition: Stable Prescriptions: New linezolid 600 mg Tablet 600 mg PO Q12H 10 Days Qty: 20 0RF levofloxacin 750 mg Tablet 750 mg PO DAILY@0600 10 Days Qty: 10 0RF furosemide [Lasix] 20 mg tablet 40 mg PO DAILY 5 Days Qty: 10 0RF Continued (DME) OneTouch Verio test strips Strip See Rx Instructions .Route Qty: 100 2RF Rx Instructions: test Blood sugar three times daily fluticasone propionate 50 mcg/actuation spray,suspension 2 spray INTRANASAL DAILY Qty: 15.8 2RF Rx Instructions: administer into each nostril metformin 1,000 mg tablet 1,000 mg PO BID Qty: 180 1RF trandolapril 2 mg tablet 2 mg PO DAILY Qty: 90 1RF (DME) Diabetic shoes with inserts See Rx Instructions .Route .MEDSUPPLY Qty: 1 0RF Rx Instructions: As directed multivitamin Tablet 1 tab PO DAILY (DME) [place] Boot to the Right See Rx Instructions .Route .MEDSUPPLY Qty: 1 0RF Rx Instructions: As directed (DME) [place] Boot to the left See Rx Instructions .Route .MEDSUPPLY Qty: 1 0RF Rx Instructions: As directed by [facility] ([facility] [place] articulating AFO to the right lower extremity See Rx Instructions .Route .MEDSUPPLY Qty: 1 0RF Rx Instructions: As directed calcium carbonate [Tums] 200 mg calcium (500 mg) tablet,chewable 1,000 mg PO Q8H PRN (Reason: upset stomach) gabapentin 300 mg capsule 300 mg PO QID acetaminophen [Tylenol] 325 mg tablet 650 mg PO Q4H PRN (Reason: Pain) nitroglycerin [Nitrostat] 0.4 mg tablet, sublingual 0.4 mg sublingual Q5M PRN (Reason: Chest Pain) Rx Instructions: do not exceed 3 doses per episode insulin glargine [Lantus Solostar U-100 Insulin] 100 unit/mL (3 mL) insulin pen 45 unit SUBCUT BID pentoxifylline 400 mg tablet extended release 400 mg PO TID famotidine 20 mg tablet 20 mg PO BID albuterol sulfate 90 mcg/actuation Hfa Aerosol Inhaler 2 puff INHALATION Q6H PRN (Reason: Shortness Of Breath) Januvia 100 mg tablet 100 mg PO DAILY Lactobacillus acidophilus 1 billion cell Tablet 1,000 mmu cells PO DAILY Eliquis 5 mg tablet 5 mg PO BID albuterol sulfate 2.5 mg /3 mL (0.083 %) solution for nebulization 2.5 mg continuous nebulization Q4H PRN (Reason: Shortness Of Breath) loperamide [Imodium A-D] 2 mg Tablet 2 mg PO Q6H PRN (Reason: Constipation) guaifenesin 100 mg/5 mL Liquid 200 mg PO Q4H PRN (Reason: Cough) finasteride 5 mg tablet 5 mg PO BEDTIME white petrolatum [Vaseline] Gel 1 applic TOPICAL Q12H PRN (Reason: actinic keratosis) Rx Instructions: while awake loratadine [Claritin] 10 mg Tablet 10 mg PO DAILY PRN (Reason: allergies) tamsulosin 0.4 mg capsule 0.4 mg PO BEDTIME primidone 50 mg Tablet 50 mg PO DAILY docusate sodium 100 mg Tablet 100 mg PO BID bisacodyl [Dulcolax (bisacodyl)] 10 mg Suppository [address] DAILY PRN (Reason: Constipation) Fleet Enema 19-7 gram/118 mL Enema [address] DAILY PRN (Reason: Constipation) melatonin 3 mg Tablet 3 mg PO DAILY PRN (Reason: Insomnia) magnesium hydroxide [Milk of Magnesia] 400 mg/5 mL Suspension 2,000 mg PO DAILY PRN (Reason: Constipation) insulin aspart U-100 [Novolog FlexPen U-100 Insulin] 100 unit/mL (3 mL) Insulin Pen See Rx Instructions .ROUTE .COMPLEX Rx Instructions: Give 14 unit subcutaneously 3 times daily plus sliding scale: bs 141-180=2 units, 181-220=4 units, 221-260=6 units,261-300=8 units, 301-350=10 units, 351-400=12 units, 401 and above=14 units. diclofenac sodium 1 % Gel 2 g TOPICAL QID Rx Instructions: apply to single elbow, wrist or hand; for hand includes palm/fingers/back of hand triamcinolone acetonide 0.1 % Cream 1 applic TOPICAL BID PRN (Reason: actinic keratosis) clopidogrel 75 mg Tablet 75 mg PO DAILY Qty: 30 0RF Discharge Order = DC NOW: Discharge Order (Routine); Ordered 06/30/25 Ordered By: Vicki Perez Referrals: [facility] [Outside] Terry Llanos MD [Primary Care Provider, Hospitalist] Eloy Huizar DPM [Physician, Podiatry] - 07/02/25 10:45 am Referral Note: Patient Instructions: Furosemide (By mouth) (Lasix), Levofloxacin (By mouth), Linezolid (By mouth), Transmetatarsal Amputation (DC), Acute Wounds (DC), Opioid Safety, Post Anesthesia Care, Patient Portal & Emily Instructions Discharge Attestations Time Spent in Discharge Care*: greater than 30 min Quality Metrics Clinical Quality Measures [ No reported AMI, CVA or VTE this stay] Coding Level of Care Code Acute Code for Chg Fwd Diagnoses ASHD (arteriosclerotic heart disease) I25.10 S/P CABG (coronary artery bypass graft) Z95.1 PAD (peripheral artery disease) I73.9 Primary hypertension I10 Hypertension type: primary hypertension Type 2 diabetes mellitus with hyperglycemia, with long-term current use of insulin E11.65; Z79.4 Diabetes mellitus type: type 2 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
== END 2025-06-30 14:28 | disposition skilled nursing facility (03) | DRG 617 ==
LOC: ER 15:25 → MEDSURG 15:41
PROVIDERS: Podiatrist Foot & Ankle Surgery; Admitting Provider Internal Medicine; Emergency Provider Family Medicine; PCP Internal Medicine; Visit Provider Student in an Organized Health Care Education/Training Program
PROC: 0Y6M0Z9 Detachment at Right Foot, Partial 1st Ray, Open Approach (ICD-10-PCS; principal; 2025-06-27 10:15)
DX: E11.621 Type 2 diabetes mellitus with foot ulcer (principal); E11.52 Type 2 diabetes mellitus with diabetic peripheral angiopathy with gangrene; I96 Gangrene, not elsewhere classified; I13.0 Hypertensive heart and chronic kidney disease with heart failure and stage 1 through stage 4 chronic kidney disease, or unspecified chronic kidney disease; L03.115 Cellulitis of right lower limb; Z68.41 Body mass index [BMI] 40.0-44.9, adult; L97.519 Non-pressure chronic ulcer of other part of right foot with unspecified severity; E11.22 Type 2 diabetes mellitus with diabetic chronic kidney disease; E11.628 Type 2 diabetes mellitus with other skin complications; N18.9 Chronic kidney disease, unspecified; I50.9 Heart failure, unspecified; N17.9 Acute kidney failure, unspecified; Z79.4 Long term (current) use of insulin; Z79.84 Long term (current) use of oral hypoglycemic drugs; I25.10 Atherosclerotic heart disease of native coronary artery without angina pectoris; Z66 Do not resuscitate; G30.9 Alzheimer's disease, unspecified; F02.80 Dementia in other diseases classified elsewhere, unspecified severity, without behavioral disturbance, psychotic disturbance, mood disturbance, and anxiety; E11.610 Type 2 diabetes mellitus with diabetic neuropathic arthropathy; J44.9 Chronic obstructive pulmonary disease, unspecified; G47.33 Obstructive sleep apnea (adult) (pediatric); E87.5 Hyperkalemia; E66.01 Morbid (severe) obesity due to excess calories; M67.01 Short Achilles tendon (acquired), right ankle; N40.0 Benign prostatic hyperplasia without lower urinary tract symptoms; Z95.1 Presence of aortocoronary bypass graft; Z85.820 Personal history of malignant melanoma of skin; Z79.02 Long term (current) use of antithrombotics/antiplatelets; Z79.01 Long term (current) use of anticoagulants; Z89.422 Acquired absence of other left toe(s)
CPT/HCPCS: 36415; 36416; 71045; 73630; 75635; 80048; 80053; 80202; 81001; 82962; 83036; 83605; 83735; 83880; 84145; 84443; 85025; 87040; 88307; 88311; 93005; 93306; 94664; 96365; 96372; 99285; J1100; J1815; J1938; J2270; J2405; J2470; J2543; J2704; J3010; J3372; J3373; J3490; J7030; J7050; J9999

== ENCOUNTER → 2025-07-02 10:32 | Outpatient (BNVA) | payer MEDICARE, OTHER, MEDICAID, SELFPAY | PROVIDERS: PCP Internal Medicine; Visit Provider Podiatrist Foot & Ankle Surgery | DX: I73.9 Peripheral vascular disease, unspecified (principal); E11.610 Type 2 diabetes mellitus with diabetic neuropathic arthropathy; N18.9 Chronic kidney disease, unspecified; L97.522 Non-pressure chronic ulcer of other part of left foot with fat layer exposed; Z89.431 Acquired absence of right foot; E11.621 Type 2 diabetes mellitus with foot ulcer; Z79.4 Long term (current) use of insulin; Z79.84 Long term (current) use of oral hypoglycemic drugs | CPT/HCPCS: 99213 ==

== ENCOUNTER → 2025-07-08 08:27 | Outpatient (BNVA) | payer MEDICARE, OTHER, MEDICAID, SELFPAY | PROVIDERS: PCP Internal Medicine; Visit Provider Podiatrist Foot & Ankle Surgery | DX: E11.621 Type 2 diabetes mellitus with foot ulcer (principal); L97.522 Non-pressure chronic ulcer of other part of left foot with fat layer exposed; Z98.890 Other specified postprocedural states; I73.9 Peripheral vascular disease, unspecified; E11.610 Type 2 diabetes mellitus with diabetic neuropathic arthropathy; N18.9 Chronic kidney disease, unspecified; Z89.431 Acquired absence of right foot; Z79.84 Long term (current) use of oral hypoglycemic drugs; Z79.4 Long term (current) use of insulin | CPT/HCPCS: 99213 ==

== ENCOUNTER → 2025-07-15 08:31 | Outpatient (BNVA) | payer MEDICARE, OTHER, MEDICAID, SELFPAY | PROVIDERS: PCP Internal Medicine; Visit Provider Podiatrist Foot & Ankle Surgery | DX: E11.621 Type 2 diabetes mellitus with foot ulcer (principal); L97.522 Non-pressure chronic ulcer of other part of left foot with fat layer exposed; Z98.890 Other specified postprocedural states; I73.9 Peripheral vascular disease, unspecified; E11.610 Type 2 diabetes mellitus with diabetic neuropathic arthropathy; N18.9 Chronic kidney disease, unspecified; Z89.431 Acquired absence of right foot; Z79.4 Long term (current) use of insulin; Z79.84 Long term (current) use of oral hypoglycemic drugs | CPT/HCPCS: 99213 ==

== ENCOUNTER → 2025-07-22 13:43 | Outpatient (BNVA) | payer MEDICARE, OTHER, MEDICAID, SELFPAY | PROVIDERS: PCP Internal Medicine; Visit Provider Podiatrist Foot & Ankle Surgery | DX: Z98.890 Other specified postprocedural states (principal); I73.9 Peripheral vascular disease, unspecified; E11.610 Type 2 diabetes mellitus with diabetic neuropathic arthropathy; N18.9 Chronic kidney disease, unspecified; L97.522 Non-pressure chronic ulcer of other part of left foot with fat layer exposed; Z89.431 Acquired absence of right foot; E11.621 Type 2 diabetes mellitus with foot ulcer; E11.8 Type 2 diabetes mellitus with unspecified complications; E11.65 Type 2 diabetes mellitus with hyperglycemia; Z79.4 Long term (current) use of insulin; Z79.84 Long term (current) use of oral hypoglycemic drugs | CPT/HCPCS: 99214 ==

== ENCOUNTER 2025-07-22 15:22 | Outpatient (CLI) | payer MEDICARE, OTHER, MEDICAID, SELFPAY | END 2025-07-22 15:23 | disposition home or self-care (01) | LOC: SPT 15:22 | PROVIDERS: PCP Internal Medicine; Visit Provider Podiatrist Foot & Ankle Surgery | DX: Z47.89 Encounter for other orthopedic aftercare (principal); Z89.431 Acquired absence of right foot | CPT/HCPCS: 97760; L4361 ==

== ENCOUNTER → 2025-07-29 14:08 | Outpatient (BNVA) | payer MEDICARE, OTHER, MEDICAID, SELFPAY | PROVIDERS: PCP Internal Medicine; Visit Provider Podiatrist Foot & Ankle Surgery | DX: Z98.890 Other specified postprocedural states (principal); I73.9 Peripheral vascular disease, unspecified; E11.610 Type 2 diabetes mellitus with diabetic neuropathic arthropathy; N18.9 Chronic kidney disease, unspecified; E11.621 Type 2 diabetes mellitus with foot ulcer; L97.522 Non-pressure chronic ulcer of other part of left foot with fat layer exposed; Z89.431 Acquired absence of right foot; Z79.84 Long term (current) use of oral hypoglycemic drugs; Z79.4 Long term (current) use of insulin | CPT/HCPCS: 99213 ==

== ENCOUNTER → 2025-08-01 10:58 | Outpatient (BNVA) | payer MEDICARE, OTHER, MEDICAID, SELFPAY | PROVIDERS: PCP Internal Medicine; Visit Provider Podiatrist Foot & Ankle Surgery | DX: I73.9 Peripheral vascular disease, unspecified (principal); E11.610 Type 2 diabetes mellitus with diabetic neuropathic arthropathy; N18.9 Chronic kidney disease, unspecified; L97.522 Non-pressure chronic ulcer of other part of left foot with fat layer exposed; Z89.431 Acquired absence of right foot; L03.116 Cellulitis of left lower limb | CPT/HCPCS: 99214 ==

== ENCOUNTER → 2025-08-26 07:14 | Outpatient (BNVA) | payer MEDICARE, OTHER, MEDICAID, SELFPAY | PROVIDERS: PCP Internal Medicine; Visit Provider Podiatrist Foot & Ankle Surgery | DX: I73.9 Peripheral vascular disease, unspecified (principal); E11.610 Type 2 diabetes mellitus with diabetic neuropathic arthropathy; N18.9 Chronic kidney disease, unspecified; L97.522 Non-pressure chronic ulcer of other part of left foot with fat layer exposed; Z89.431 Acquired absence of right foot; L03.116 Cellulitis of left lower limb; T87.81 Dehiscence of amputation stump; Y83.8 Other surgical procedures as the cause of abnormal reaction of the patient, or of later complication, without mention of misadventure at the time of the procedure; Z79.4 Long term (current) use of insulin; Z79.84 Long term (current) use of oral hypoglycemic drugs | CPT/HCPCS: 99214 ==

== ENCOUNTER → 2025-09-08 09:15 | Outpatient (BNVA) | payer MEDICARE, OTHER, MEDICAID, SELFPAY | PROVIDERS: PCP Internal Medicine; Visit Provider Podiatrist Foot & Ankle Surgery | DX: T87.81 Dehiscence of amputation stump (principal); I73.9 Peripheral vascular disease, unspecified; E11.610 Type 2 diabetes mellitus with diabetic neuropathic arthropathy; N18.9 Chronic kidney disease, unspecified; Z89.431 Acquired absence of right foot; L03.115 Cellulitis of right lower limb; L97.513 Non-pressure chronic ulcer of other part of right foot with necrosis of muscle; Y83.8 Other surgical procedures as the cause of abnormal reaction of the patient, or of later complication, without mention of misadventure at the time of the procedure; Z79.4 Long term (current) use of insulin; Z79.84 Long term (current) use of oral hypoglycemic drugs | CPT/HCPCS: 11043; 99214 ==

== ENCOUNTER → 2025-09-22 09:17 | Outpatient (BNVA) | payer MEDICARE, OTHER, MEDICAID, SELFPAY | PROVIDERS: PCP Internal Medicine; Visit Provider Podiatrist Foot & Ankle Surgery | DX: E11.610 Type 2 diabetes mellitus with diabetic neuropathic arthropathy (principal); I73.9 Peripheral vascular disease, unspecified; N18.9 Chronic kidney disease, unspecified; Z89.431 Acquired absence of right foot; T87.81 Dehiscence of amputation stump; L03.115 Cellulitis of right lower limb; L97.513 Non-pressure chronic ulcer of other part of right foot with necrosis of muscle; Y83.8 Other surgical procedures as the cause of abnormal reaction of the patient, or of later complication, without mention of misadventure at the time of the procedure | CPT/HCPCS: 99213 ==

== ENCOUNTER → 2025-10-07 09:53 | Outpatient (BNVA) | payer MEDICARE, OTHER, MEDICAID, SELFPAY | PROVIDERS: PCP Internal Medicine; Visit Provider Podiatrist Foot & Ankle Surgery | DX: I73.9 Peripheral vascular disease, unspecified (principal); E11.610 Type 2 diabetes mellitus with diabetic neuropathic arthropathy; N18.9 Chronic kidney disease, unspecified; Z89.431 Acquired absence of right foot; T87.81 Dehiscence of amputation stump; E11.621 Type 2 diabetes mellitus with foot ulcer; L97.513 Non-pressure chronic ulcer of other part of right foot with necrosis of muscle; Y83.8 Other surgical procedures as the cause of abnormal reaction of the patient, or of later complication, without mention of misadventure at the time of the procedure | CPT/HCPCS: 99213 ==

== ENCOUNTER → 2025-10-28 13:30 | Outpatient (BNVA) | payer MEDICARE, OTHER, MEDICAID, SELFPAY | PROVIDERS: PCP Internal Medicine; Visit Provider Podiatrist Foot & Ankle Surgery | DX: I73.9 Peripheral vascular disease, unspecified (principal); E11.610 Type 2 diabetes mellitus with diabetic neuropathic arthropathy; N18.9 Chronic kidney disease, unspecified; Z89.431 Acquired absence of right foot; T87.81 Dehiscence of amputation stump; E11.621 Type 2 diabetes mellitus with foot ulcer; L97.513 Non-pressure chronic ulcer of other part of right foot with necrosis of muscle; Y83.8 Other surgical procedures as the cause of abnormal reaction of the patient, or of later complication, without mention of misadventure at the time of the procedure | CPT/HCPCS: 99213 ==

== ENCOUNTER 2025-11-02 10:23 | Inpatient (IN) | payer MEDICARE, OTHER, MEDICAID, SELFPAY ==
[2025-11-02] VITALS (17 sets, daily range): BP systolic 106–147; BP diastolic 61–74; PULSE 74–104; RESP 16–28; TEMP 36.3–37.1; O2SAT 89–96; BMI 44.1
--- NOTE | 2025-11-02 10:26 | XRR_ITS ---
PROCEDURE INFORMATION: Exam: XR Chest Exam date and time: 11/02/2025 11:03 AM Age: 80 years old Clinical indication: Shortness of breath; Prior surgery; Surgery date: 6+ months; Surgery type: Cabg; Additional info: SOB x 2 weeks; Cough; Hypoxia TECHNIQUE: Imaging protocol: Radiologic exam of the chest. Views: 1 view. COMPARISON: CR XR chest 1V portable [id number] 06/26/2025 2:47 PM FINDINGS: Lungs: Pulmonary edema present with small to moderate-sized pleural effusions. There are opacities lower lung zones atelectasis or pneumonia could be considered nonspecific finding. Pleural spaces: See Lungs finding. Heart/Mediastinum: Patient is status post open heart. Heart is enlarged Bones/joints: Unremarkable. XR/XR chest 1V portable [id number] IMPRESSION: Findings of decompensated congestive heart failure pulmonary edema pleural effusions Hyperinflation suggestive of COPD
--- OUTSIDE RECORDS SUMMARY | 2025-11-02 10:29 | XMS_ITS | Continuity of Care Document ---
Author Organization [facility] Nena Chavis, [facility] ([facility]) Address [address] [place] [address] Assessment No assessment recorded. Plan of Treatment Reminders Order Date Submit Date Provider Last Modified By Organization Details Last Modified Time Details Appointments None record ed. Lab None record ed. Referral None record ed. Procedures None record ed. Surgeries None record ed. Imaging None record ed. Medication Orders None record ed. Patient TargetsNo targets recorded. Patient Instructions Encounter Date Encounter Id Patient Instructions Last Modified By Organization Details Last Modified Time 09/24/2025 [id number] staff reports patient complains of an invisible plant growing out of his left shoulder. Will get CBC,CMP,CRP, TSH, and UA. Sugars too low, decrease lantus to 35. [email or web address] Not available 09/24/2025 14:40:11 Reason for Referral None Reported. Problems Name Problem SNOMED Code Status Onset Date Resolution Date Notes Provider Name and Address Organization Details Recorded Time Vertigo 615734199 Active 2021 Vertigo ; 022 12:17PM by ASHLEY Vargas, Office Visit; Promote d; acuity set as *; Not Available [employer] 3 03:18:12 Acute bronchitis 11549527 Active 2024 [facility] 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 372477674082 109 Active 2024 [facility] 16:36:41 Essential hypertensi on 69331808 Active 2024 [facility] 16:36:47 Acute laryngitis 3353044 Active 2024 [facility] 16:37:23 Benign prostatic hyperplasi a with outflow obstructio n 943895325 Active 2024 [facility]K santamaria [facility] 5 10:49:14 Post-disch arge follow-up 521823048 Active 2024 [facility] 13:50:42 History of amputation of right foot 753924967422 72133 Active 2024 [facility] 13:50:43 Problem Notes None recorded. Medical Equipment None Reported. Allergies Allergen ID Allergen Name Allergen Category Reaction Reaction Severity Criticality Documentation Date Start Date Code Code System Note Provider Name and Address Organization Details Recorded Time 34454 latex environme nt,medica tion other Not available Not available 10/20/20252018 47706 91 RxNorm Not Available [employer] - prod 5 13:02:11 84108 sertralin e medicatio n Not available Not available high 10/20/20252019 17418 RxNorm psyco tic episo gamal Not Available [employer] - prod 5 13:02:11 Medications Name Sig Start Date Stop Date Status Note LastModified by Organization Details LastModified Time primidone 50 mg tablet active Not Available Not Available Not Available albuterol sulfate 2.5 mg/3 mL (0.083 %) solution for nebulizati on active Not Available Not Available Not Available trandolapr il 2 mg tablet active Not Available Not Available Not Available atorvastat in 10 mg tablet active Not Available Not Available Not Available valacyclov ir 1 gram tablet every eight hours 2021 active Recorded 2 11:53AM by ASHLEY Vargas, Office Visit; Refill Quantity: 0; Not Available Not Available Not Available prednisone 20 mg tablet see instructi ons active Not Available Not Available No t Available galantamin e 4 mg tablet active Not Available Not Available Not Available clopidogre l 75 mg tablet active Not Available Not Available Not Available pentoxifyl line ER 400 mg tablet,ext ended release active Not Available Not Available Not Available famotidine 20 mg tablet active Not Available Not Available Not Available tamsulosin 0.4 mg capsule active Not Available Not Available Not Available metformin 1,000 mg tablet active Not Available Not Available Not Available gabapentin 300 mg capsule active Not Available Not Available Not Available finasterid e 5 mg tablet active Not Available Not Available Not Available insulin aspart (U-100) 100 unit/mL (3 mL) subcutaneo us pen active Not Available Not Available Not Available meclizine every 6-8 hours PRN/VERTI GO 2021 active Recorded 2 12:07PM by ASHLEY Vargas, Office Visit; Refill Quantity: 0; Not Available Not Available Not Available Januvia 100 mg tablet active Not Available Not Available Not Available Lantus Solostar U-100 Insulin 100 unit/mL (3 mL) subcutaneo us pen active Not Available Not Available Not Available BD AutoShield Duo Pen Needle 30 gauge x 3/16 active Not Available Not Available Not Available Eliquis 5 mg tablet active Not Available Not Available No t Available Vitals Date Recorded Body weight Heart rate Respiratory rate Body temperature Oxygen saturation Systolic And Diastolic Provider Name and Address Organization Details Last Updated DateTime 5 449407. 42 g 100 /min 20 /min 98.1 [degF] 97 % 138/74 mm[Hg] PRATEEK MATTHEWS [facility], [facility] 5 14:37:41 Social History None recorded. Functional Status None recorded. Mental Status None recorded. Family History Nothing Reported. Medical History No medical history recorded. Immunizations Vaccine Type Date Status Note Provider Nam e and Address Organization Details Recorded Time COVID-19, mRNA, LNP-S, PF, 100 mcg/0.5mL dose or 50 mcg/0.25mL dose 01/15/2021 completed Not Available [facility] 5 13:01:20 COVID-19, mRNA, LNP-S, PF, 100 mcg/0.5mL dose or 50 mcg/0.25mL dose 02/16/2021 completed Not Available [facility] 13:01:20 Influenza, split virus, quadrivalent, PF 09/13/2021 completed Not Available [facility] 13:01:20 Tdap 03/25/2022 completed Not Available [facility] 10/20/2025 13:01:20 COVID-19, mRNA, LNP-S, PF, 100 mcg/0.5mL dose or 50 mcg/0.25mL dose 04/01/2022 completed Not Available [facility] 13:01:20 COVID-19, mRNA, LNP-S, bivalent, PF, 50 mcg/0.5 mL or 25mcg/0.25 mL dose 12/05/2022 completed Not Available [facility] 13:01:20 Past Encounters Encounter ID Performer Location Encounter Start Date Encounter Closed Date Diagnosis/Indication Diagnosis SNOMED-CT Code Diagnosis ICD10 Code Diagnosis IMO Codes Diagnosis Note [id number] Adonay Zhang DO [facility] ([facility]) [address] [place] [id number] 09/24/2025 12:32:52 09/30/2025 09:46:36 [facility] 86666481 R44.2 46539 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 1325237304 94951 E11.65 Health Concerns Section Related Observation LastModified by Organization Detai ls LastModified Time None Recorded Concern Status LastModified by Organization Details LastModified Time None Recorded Payers Encounter Date Sequence Insurance Name Policy Number Policy Shannon Covered Member ID Shannon Member ID Guarantor Name 09/24/2025 1 [place] Marcelino Díaz [id number] Marcelino Díaz 09/24/2025 2 [place] Marcelino Díaz [id number] Marcelino Díaz Notes Date Note Type Note Provider Name and Address Organization Details Recorded Time 09/24/2025 text/html DiabetesReported by PatientHPIFor control, patient reportsusually poorly controlled. For duration, patient reportschronic.Complic ations and Co-morbiditiesFor chronic complications, patient reportshistory of amputation: __.ROS as noted in the HPI staff reports patient complains of an invisible plant growing out of his left shoulder. Adonay Zhang, [address], [address], [facility] 09/26/2025 17:14:31
--- OUTSIDE RECORDS SUMMARY | 2025-11-02 10:29 | XMS_ITS | Continuity of Care Document ---
Author Organization [facility] Nena Chavis, [facility] ([facility]) Address [address] [place] [address] Assessment No assessment recorded. Plan of Treatment [...] Modified By Organization Details Last Modified Time 08/11/2025 [id number] sugars controlled, feeling well. [email or web address] Not available 08/11/2025 14:32:31 Reason for Referral None Reported. Problems Name Problem SNOMED Code Status Onset Date Resolution Date Notes Provider Name and Address Organization Details Recorded Time Vertigo 817520019 Active 2021 Vertigo ; 022 12:17PM by ASHLEY Vargas, Office Visit; Promote d; acuity set as *; Not Available [facility] 3 03:18:12 Acute bronchitis 37998271 Active 2024 [facility] 5 16:36:21 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 214635790481 109 Active 2024 [facility] 5 16:36:41 Essential hypertensi on 34658446 Active 2024 [facility] 5 16:36:47 Acute laryngitis 6867715 [facility] 5 16:37:23 Benign prostatic hyperplasi a with outflow obstructio n 177206041 Active 2024 [facility] 5 10:49:14 Post-disch arge follow-up 926151187 Active 2024 [facility] 5 13:50:42 History of amputation of right foot 695322946517 54114 Active 2024 [facility] 5 13:50:43 Problem Notes None recorded. Medical Equipment None Reported. Allergies Allergen ID Allergen Name Allergen Category Reaction Reaction Severity Criticality Documentation Date Start Date Code Code System Note Provider Name and Address Organization Details Recorded Time 27554 latex environme nt,medica tion other Not available Not available 10/20/20252018 12847 91 RxNorm Not Available [employer] prod 5 13:02:11 79647 sertralin e medicatio n Not available Not available high 10/20/20252019 32666 RxNorm psyco tic episo gamal Not Available [employer] - prod 5 13:02:11 Medications [...] Address Organization Details Last Updated DateTime 5 900233. 09 g 85 /min 18 /min 97.5 [degF] 97 % 118/62 mm[Hg] PRATEEK MATTHEWS [facility] 5 14:30:51 Social History None recorded. Functional Status None recorded. Mental Status None recorded. Family History Nothing Reported. Medical History No medical history recorded. Immunizations Vaccine Type Date Status Note Provider Nam e and Address Organization Details Recorded Time COVID-19, mRNA, LNP-S, PF, 100 mcg/0.5mL dose or 50 mcg/0.25mL dose 01/15/2021 completed Not Available [facility] 5 13:01:20 COVID-19, mRNA, LNP-S, PF, 100 mcg/0.5mL dose or 50 mcg/0.25mL dose 02/16/2021 completed Not Available [facility] 13:01:20 Influenza, split virus, quadrivalent, PF 09/13/2021 completed Not Available [facility] 13:01:20 Tdap 03/25/2022 completed Not Available [facility] 10/20/2025 13:01:20 COVID-19, mRNA, LNP-S, PF, 100 mcg/0.5mL dose or 50 mcg/0.25mL dose 04/01/2022 completed Not Available [facility] 13:01:20 COVID-19, mRNA, LNP-S, bivalent, PF, 50 mcg/0.5 mL or 25mcg/0.25 mL dose 12/05/2022 completed Not Available [facility] 13:01:20 Past Encounters Encounter ID Performer Location Encounter Start Date Encounter Closed Date Diagnosis/Indication Diagnosis SNOMED-CT Code Diagnosis ICD10 Code Diagnosis IMO Codes Diagnosis Note [id number] Adonay Zhang DO [facility]) [address] [place] [address] 08/11/2025 13:11:53 08/13/2025 08:36:02 Benign prostatic hyperplasia with outflow obstruction 490921000 N13.8 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 8553622591 57165 E11.65 Essential hypertension 16863608 I10 Health Concerns Section Related Observation LastModified by Organization Detai ls LastModified Time None Recorded Concern Status LastModified by Organization Details LastModified Time None Recorded Payers Encounter Date Sequence Insurance Name Policy Number Policy Shannon Covered Member ID Shannon Member ID Guarantor Name 08/11/2025 1 [place] [employer] Marcelino Díaz [id number] Marcelino Díaz 08/11/2025 2 [place] Marcelino Díaz [id number] Marcelino Díaz Notes Date Note Type Note Provider Name and Address Organization Details Recorded Time 08/11/2025 text/html DiabetesReported by PatientHPIFor control, patient reportsusually poorly controlled. For duration, patient reportschronic.Complic ations and Co-morbiditiesFor chronic complications, patient reportshistory of amputation: __.ROS as noted in the HPI no complaints per staff or patient. Adonay Zhang, DO [address] [place] [address], [phone], [facility] 08/11/2025 15:02:55
--- OUTSIDE RECORDS SUMMARY | 2025-11-02 10:29 | XMS_ITS | Data Portability ---
Author Organization [facility] Nena Chavis [facility] Address [address] [address] Assessment No assessment recorded. Plan of Treatment [...] Modified By Organization Details Last Modified Time 07/07/2025 [id number] Admitted for worsening gangrene of right foot. S/p transmetatarsal amputation. Underwent CTA with runoff which revealed no significant occlusion. TX with IV diuresis. Sugars too low, will decrease novolog to 11 units. Labs Monday. [email or web address] Not available 07/09/2025 13:53:07 08/11/2025 [id number] sugars controlle d, feeling well. Not available 08/11/2025 14:32:31 09/24/2025 [id number] staff reports patient complains of an invisible plant growing out of his left shoulder. Will get CBC,CMP,CRP, TSH, and UA. Sugars too low, decrease lantus to 35. [email or web address] Not available 09/24/2025 14:40:11 10/20/2025 [id number] tx with predniso ne 20mg x 3 days. Not available 10/20/2025 15:04:42 Reason for Referral None Reported. Problems Name Problem SNOMED Code Status Onset Date Resolution Date Notes Provider Name and Address Organization Details Recorded Time Vertigo 059290367 Active 2021 Vertigo ; 022 12:17PM by Kourtney Luda, PHOTOGRAPHY PROFESSOR, Office Visit; Promote d; acuity set as *; Not Available [facility] 3 03:18:12 Acute bronchitis 42795863 [facility] 5 16:36:21 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 814921345372 109 Active 2024 [facility] 5 16:36:41 Essential hypertensi on 47969007 Active 2024 [facility] 5 16:36:47 Acute laryngitis 7109803 Active 2024 [facility] 5 16:37:23 Benign prostatic hyperplasi a with outflow obstructio n 809952062 Active 2024 [facility] 5 10:49:14 Post-disch arge follow-up 398555476 Active 2024 [facility] 5 13:50:42 History of amputation of right foot 823773632904 33880 Active 2024 PRATEEK MATTHEWS [facility] 5 13:50:43 Problem Notes None recorded. Medical Equipment None Reported. Allergies Allergen ID Allergen Name Allergen Category Reaction Reaction Severity Criticality Documentation Date Start Date Code Code System Note Provider Name and Address Organization Details Recorded Time 82531 latex environme nt,medica tion other Not available Not available 10/20/20252018 38316 91 RxNorm Not Available [place] [facility] [employer] - prod 13:02:11 79911 sertralin e medicatio n Not available Not available high 10/20/20252019 28557 RxNorm psyco tic episo gamal Not Available [employer] - prod 5 13:02:11 Medications [...] Address Organization Details Last Updated DateTime 5 006665. 19 g 94 /min 18 /min 97.7 [degF] 96 % 114/63 mm[Hg] [facility] 5 13:48:23 Date Recorded Body weight Heart rate Respiratory rate Body temperature Oxygen saturation Systolic And Diastolic Provider Name and Address Organization Details Last Updated DateTime 5 169692. 09 g 85 /min 18 /min 97.5 [degF] 97 % 118/62 mm[Hg] [facility] 5 14:30:51 Date Recorded Body weight Heart rate Respiratory rate Body temperature Oxygen saturation Systolic And Diastolic Provider Name and Address Organization Details Last Updated DateTime 5 927499. 42 g 100 /min 20 /min 98.1 [degF] 97 % 138/74 mm[Hg] [facility] 5 14:37:41 Date Recorded Body weight Heart rate Respiratory rate Body temperature Oxygen saturation Systolic And Diastolic Provider Name and Address Organization Details Last Updated DateTime 5 214214. 42 g 87 /min 17 /min 97.3 [degF] 94 % 128/66 mm[Hg] [facility] 5 15:02:09 Social History None recorded. Functional Status None recorded. Mental Status None recorded. Family History Nothing Reported. Medical History No medical history recorded. Immunizations Vaccine Type Date Status Note Provider Nam e and Address Organization Details Recorded Time COVID-19, mRNA, LNP-S, PF, 100 mcg/0.5mL dose or 50 mcg/0.25mL dose 01/15/2021 completed Not Available [facility] 13:01:20 COVID-19, mRNA, LNP-S, PF, 100 mcg/0.5mL dose or 50 mcg/0.25mL dose 02/16/2021 completed Not Available [facility] 5 13:01:20 Influenza, split virus, quadrivalent, PF 09/13/2021 completed Not Available [facility] 5 13:01:20 Tdap 03/25/2022 completed Not Available [facility] 10/20/2025 13:01:20 COVID-19, mRNA, LNP-S, PF, 100 mcg/0.5mL dose or 50 mcg/0.25mL dose 04/01/2022 completed Not Available [facility] 5 13:01:20 COVID-19, mRNA, LNP-S, bivalent, PF, 50 mcg/0.5 mL or 25mcg/0.25 mL dose 12/05/2022 completed Not Available [facility] 5 13:01:20 Past Encounters Encounter ID Performer Location Encounter Start Date Encounter Closed Date Diagnosis/Indication Diagnosis SNOMED-CT Code Diagnosis ICD10 Code Diagnosis IMO Codes Diagnosis Note [id number] Adonay Zhang DO [facility] ([facility]) [address] [place] [address] 12/02/2024 15:56:05 12/03/2024 14:00:32 Acute bronchitis 22853015 J20.9 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 1656177747 50811 E11.65 Essential hypertension 56579044 I10 Acute laryngitis 2240932 J04.0 [id number] Adonay Zhang DO [facility]) [address] [place] [address] 5 12/11/2024 08:26:08 12/14/2024 23:17:29 Hyperglycemia due to type 2 diabetes mellitus 4186856041 92949 E11.65 Hospital i npatient stay within past 30 days 1830878652 106 Z76.89 History of amputation of right lesser toe 6184389576 2434964 Z89.421 right 3rd toe. [id number] Adonay Zhang DO [facility] ([facility]) [address] [place] [address] 5 12/30/2024 14:18:54 01/05/2025 18:33:39 Hyperglycemia due to type 2 diabetes mellitus 8872403328 94483 E11.65 Essential hypertension 91984591 I10 [id number] Adonay Zhang DO [facility] ([facility]) [address] [place] [address] 5 01/29/2025 08:51:19 02/04/2025 22:37:12 Hyperglycemia due to type 2 diabetes mellitus 4515083602 03563 E11.65 Essential hypertension 37755533 I10 Benign pro static hyperplasia with outflow obstruction 141197147 N13.8 [id number] Adonay Zhang DO [facility] ([facility]) [address] [place], [place] [address] 02/10/2025 14:54:09 02/12/2025 06:55:24 Hyperglycemia due to type 2 diabetes mellitus 5168807911 27086 E11.65 Essential hypertension 83228544 I10 [id number] Adonay Zhang DO [facility] ([facility]) [address] [place] [address] 5 02/12/2025 13:21:24 02/17/2025 11:15:44 Lesion of skin of face 0230884317 06 L98.9 [id number] Adonay Zhang DO [facility] ([facility]) [address] [place] [address] 5 02/19/2025 12:07:06 02/25/2025 06:35:17 Allergic cough 063021809 R05.9 [id number] Adonay Zhang [facility] ([facility]) [address] [place] [address] 5 03/10/2025 08:06:11 03/19/2025 07:50:13 Hyperglycemia due to type 2 diabetes mellitus 1243509401 14004 E11.65 Essential hypertension 21347048 I10 Benign pro static hyperplasia with outflow obstruction 535931967 N13.8 [id number] Adonay Zhang [facility] ([facility]) [address] [place], [place] [address] 04/02/2025 08:25:57 04/07/2025 16:44:07 Seasonal allergy 346511795 J30.2 58422 [id number] Adonay Zhang [facility] ([facility]) [address] [place] [address] 5 04/28/2025 16:50:59 04/29/2025 16:03:10 Benign prostatic hyperplasia with outflow obstruction 207564576 N13.8 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 2852865663 79249 E11.65 [id number] Adonay Zhang DO [facility] ([facility]) [address] [place] [address] 05/05/2025 10:37:02 05/13/2025 15:30:18 Hyperglycemia due to type 2 diabetes mellitus 4599562431 77864 E11.65 Benign pro static hyperplasia with outflow obstruction 067606915 N13.8 Essential hypertension 55256572 I10 Acute cough 3258519020 58078404 R05.7 9297453869 [id number] Adonay Zhang DO [facility] ([facility]) [address] [place] [address] 05/26/2025 14:21:14 05/28/2025 11:43:30 Benign prostatic hyperplasia with outflow obstruction 763358321 N13.8 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 3048179994 84375 E11.65 Essential hypertension 59927464 I10 [id number] Adonay Zhang DO [facility] ([facility]) [address] [place] [address] 5 07/02/2025 12:51:07 07/04/2025 13:55:06 [id number] Adonay Zhang DO [facility] ([facility]) [address] [place] [address] 07/09/2025 11:07:44 07/14/2025 16:01:37 Benign prostatic hyperplasia with outflow obstruction 149304594 N13.8 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 2861690262 04181 E11.65 Post-disch arge follow-up 966441393 Z09 541888 History of amputation of right foot 3103179062 6646909 Z89.431 [id number] [id number] Adonay Zhang DO [facility] ([facility]) [address] [place] [address] 08/11/2025 13:11:53 08/13/2025 08:36:02 Benign prostatic hyperplasia with outflow obstruction 040180858 N13.8 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 5111400592 80050 E11.65 Essential hypertension 32813692 I10 [id number] Adonay Zhang DO [facility] ([facility]) [address] [place] [address] 09/24/2025 12:32:52 09/30/2025 09:46:36 [facility] 39921864 R44.2 [id number] 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 5400294719 86638 E11.65 [id number] Adonay Zhang DO [facility] ([facility]) [address] [place] [address] 10/20/2025 13:00:56 10/28/2025 13:55:04 Acute bronchitis 00920121 J20.9 Health Concerns Section Related Observation LastModified by Organization Detai ls LastModified Time None Recorded Concern Status LastModified by Organization Details LastModified Time None Recorded Advance Directives Directive None Recorded Payers Insurance Date Sequence Insurance Name Policy Number Policy Shannon Covered Member ID Shannon Member ID Guarantor Name 10/20/2025 1 [place] [facility] Marcelino Díaz [id number] Marcelino Díaz 10/20/2025 [place] - [facility] (MEDICARE) Marcelino Díaz [id number] Marcelino Díaz 10/28/2025 [place] [facility] Marcelino Díaz [id number] Marcelino Díaz 10/28/2025 3 [facility] BENEFITS PLAN - OPEN ACCESS PLUS 77 Marcelino Díaz [id number] Marcelino Díaz 10/20/2025 2 [place] Marcelino Díaz [id number] Marcelino Díaz 12/02/2024 3 [facility] Marcelino Díaz [id number] Marcelino Díaz 06/11/2025 2 UNSPECIFIED REMIT PAYOR Marcelino Díaz Notes Date Note Type Note Provider Name and Address Organization Details Recorded Time 07/07/2025 text/html DiabetesReported by PatientHPIFor control, patient reportsusually poorly controlled. For duration, patient reportschronic.Complic ations and Co-morbiditiesFor chronic complications, patient reportshistory of amputation: __.ROS as noted in the HPI re-admit after hospital stay for partial amputation of right foot. Adonay Zhang DO [address] [place] [address], [phone], [facility] 07/13/2025 15:07:19 08/11/2025 text/html DiabetesReported by PatientHPIFor control, patient reportsusually poorly controlled. For duration, patient reportschronic.Complic ations and Co-morbiditiesFor chronic complications, patient reportshistory of amputation: __.ROS as noted in the HPI no complaints per staff or patient. Adonay ZhangDO [address] [place] [address], [phone], [facility] 08/11/2025 15:02:55 09/24/2025 text/html DiabetesReported by PatientHPIFor control, patient reportsusually poorly controlled. For duration, patient reportschronic.Complic ations and Co-morbiditiesFor chronic complications, patient reportshistory of amputation: __.ROS as noted in the HPI staff reports patient complains of an invisible plant growing out of his left shoulder. Adonay ZhangDO [address] [place] [address], [phone], [facility] 09/26/2025 17:14:31 10/20/2025 text/html DiabetesReported by PatientHPIFor control, patient reportsusually poorly controlled. For duration, patient reportschronic.Complic ations and Co-morbiditiesFor chronic complications, patient reportshistory of amputation: __.ROS as noted in the HPI c/o cough. Adonay ZhangDO [address] [place] [address], [phone], [facility] 10/26/2025 16:02:15
--- OUTSIDE RECORDS SUMMARY | 2025-11-02 10:29 | XMS_ITS | Patient Health Record ---
Author Organization [facility] Address [address] [place] [address] Care Team Providers Care Computer Systems Security Administrator Name Role Phone GreggSamuel siegel Primary Care Provider Bryanna Guerra Unavailable [phone] Allergies Allergen (clinical drug ingredient) Drug/Non Drug Allergy documented on EMR Reaction Allergy Type Onset Date Status Latex Latex Unknown Allergy Active Reason For Referral No Information Medications Medication SIG (Take, Route, Frequency, Duration) Notes Start Date End Date Status Trandolapril 2 MG Tablet 1 tablet Orally Once a day Active Primidone 50 MG Tablet 1 tablet in the morning, 3 or 4 tablets at supper Orally BID Active NovoLOG 100 UNIT/ML Solution 10 % of what pt test, 45b Units tid is Max Subcutaneous tid Active Blood Glucose Test - Strip as directed In Vitro five times a day Active metFORMIN HCl 1000 MG Tablet 1 tablet with a meal Orally bid Active Famotidine 20 MG Tablet 1 tablet at bedtime as needed Orally Once a day Active Gabapentin 300 MG Capsule 2 capsule Orally TID Active Tamsulosin HCl 0.4 MG Capsule 1 capsule Orally Once a day Active Atorvastatin Calcium 40 MG Tablet 1 tablet Orally qhs Active Metoprolol Succinate ER 25 MG Tablet Extended Release 24 Hour 1 tablet Orally Once a day Active Clopidogrel Bisulfate 75 MG Tablet 1 tablet Orally Once a day Active Levemir 100 UNIT/ML Solution 85 Units Subcutaneous QD Active OneTouch Verio - Strip as directed In Vi tro TID; Duration: 33 days 10/18/2021 Active clonazePAM 0.5 MG Tablet 2 tablets at bedtime Orally qhs; Duration: 90 days Do not fill until due on 11/14/2021 10/18/2021 Active Social History Tobacco Use: Social History Observation Description Date Details (start date - stop date) Former Smoker NA - NA Social History Tobacco Use: Social Info Question Answer Notes Tobacco Use/Smoking Are you a former smoker How long has it been since you last smoked? 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) Active confirmed Problem Long-term current use of insulin (654833524) longterm (current) use of insulin (Z79.4) Active confirmed Problem Essential hypertension (91416134) Essential hypertension (I10) Active confirmed Problem 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) Iaeigli-Rtlih-Vc oth disease (G60.0) Active confirmed Plan Of Treatment No Information Insurance Providers Payer Name Payer Address Payer Phone Subscriber Number Group Number Insured Name Patient Relationship to Insured Coverage Start Date Coverage End Date [employer] MEDICARE PART B [address] [place] [address] [id number] Marcelino Díaz Self - patient is the insured [employer] PL[employer] [address] [place] [address] [phone] [id number] Marcelino íDaz Self - patient is the insured Medical (General) History Medical History History ICD Code CABG x 5 and stent; 2006 [place] 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
--- OUTSIDE RECORDS SUMMARY | 2025-11-02 10:30 | XMS_ITS | Clinical Summary ---
Author Organization [place] Address [address] [place]: [place] [address] Care Team Providers Care Interventional Cardiologist Name Role Phone Jose Youssef NP Primary [...] 5 Active fluticasone propionate (FLONASE) 50 mcg/spray [place], Suspension nasal inhaler 5 Active insulin aspart [...] Encounters Date Type Department Care Team Description 10/14/2025 External Device Data [facility] ABSTRACTION Provider, Abstract from Last 3 Months Social History Tobacco Use Types Packs/Day Years Used Date Smoking Tobacco: Former Cigarettes 0 Q uit: 02/09/2001 Pipe Quit: 02/10/20 Tobacco Cessation:Counseling Given: Not Answered Feeling Safe Answer Date Recorded Are you in a relationship wi th someone who hurts you emotionally and/or physically? No 12/04/2024 Food Insecurity Answer Date Recorded Patient needs follow up regardin 03/19/2025 Transportation Needs Answer Date Record ed Patient needs follow up regardin 03/19/2025 Housing Stability Answer Date Recorded Social/Environmental Concerns No concerns Utility Needs Answer Date Recorded Patient needs follow up regardin 03/19/2025 Sex and Gender Information Value Date Recorded Sex Assigned at Not on file Legal Sex Male 4:07 AM [employer] Gender Identity Not on file Sexual Orientation Not on file Last Filed Vital Signs Vital Sign Reading Time Taken Comments Blood Pressure 122/72 06/19/2025 1:12 PM CDT Pulse 60 06/19/2025 1:12 PM CDT Temperature 36.6 C (97.8 F) 12/10/2024 9:09 AM [employer] Respiratory Rate 18 12/10/2024 9:09 AM [employer]IST Oxygen Saturation 98% 06/19/2025 1:12 PM CDT Inhaled Oxygen Concentration - - Weight 131.5 kg (290 lb) 06/19/2025 1:12 PM CDT Height 181.6 cm (5' 11.5 ) 06/19/2025 1:12 PM CD T Body Mass Index 39.88 06/19/2025 1:12 PM CDT Plan of Treatment Health Maintenance Due Date Last Done Comments DIABETES ANNUAL FOOT EXAM 1965 DIABETES ANNUAL RETINAL EXAM 1965 DIABETES MICROALBUMIN ANNUAL SCREEN 1965 LDL CHOLESTEROL ANNUAL 1965 PNEUMOCOCCAL VACCINE 50+ YEA RS (1 of 2 - PCV) 1966 ZOSTER VACCINE (1 of 2) 1997 DIABETES HBA1C Q 6 MONTHS 05/10/2018 11/09/2017 RSV VACCINE (60+ or ) (1 - 1-dose 75+ series) 2022 INFLUENZA VACCINE (#1) 2025 09/13/2021 COVID-19 Vaccine (2024-2 6 season) 2025 12/05/2022, 04/01/2022, 02/16/2021, Additional history exists DTAP/TDAP/TD VACCINES (2 - T d or Tdap) 03/25/2032 03/25/2022 Insurance MEDICARE PART A AND B [place] [facility] Medicare Part D Advance Directives For more information, please contact: [phone] * NO CPR (In Event of Cardiopulmonary [...] 2:36 PM 12/05/2024 7:36 AM Care Teams Interventional Cardiologist Relationship Specialty Start Date End Date Jose Youssef NP [address] [place] [id number] PCP - General NURSE PRACTITIONER 07/10/14
--- OUTSIDE RECORDS SUMMARY | 2025-11-02 10:30 | XMS_ITS | Continuity of Care Document ---
Author Organization [facility] Nena Chavis, [facility] ([facility]) Address [address] [place] [address] Assessment No assessment recorded. Plan of Treatment [...] Modified By Organization Details Last Modified Time 10/20/2025 [id number] tx with prednisone 20mg x 3 days. [email or web address] Not available 10/20/2025 15:04:42 Reason for Referral None Reported. 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 16:37:23 Benign prostatic hyperplasi a with outflow obstructio n 219642286 [facility] 10:49:14 Post-disch arge follow-up 895087589 Active 20[facility] 13:50:42 History of amputation of right foot 016979587462 22368 Active 2024 [facility] 13:50:43 Problem Notes None recorded. Medical Equipment None Reported. Allergies Allergen ID Allergen Name Allergen Category Reaction Reaction Severity Criticality Documentation Date Start Date Code Code System Note Provider Name and Address Organization Details Recorded Time 45880 latex environme nt,medica tion other Not available Not available 10/20/20252018 70317 91 RxNorm Not Available [employer] - prod 5 13:02:11 29276 sertralin e medicatio n Not available Not available high 10/20/20252019 26228 RxNorm psyco tic episo gamal Not Available [employer] - prod 5 13:02:11 Medications [...] Address Organization Details Last Updated DateTime 5 618273. 42 g 87 /min 17 /min 97.3 [degF] 94 % 128/66 mm[Hg] PRATEEK MATTHEWS [facility] 5 15:02:09 Social History None recorded. Functional Status None recorded. Mental Status None recorded. Family History Nothing Reported. Medical History No medical history recorded. Immunizations Vaccine Type Date Status Note Provider Nam e and Address Organization Details Recorded Time COVID-19, mRNA, LNP-S, PF, 100 mcg/0.5mL dose or 50 mcg/0.25mL dose 01/15/2021 completed Not Available [facility] 5 13:01:20 COVID-19, mRNA, LNP-S, PF, 100 mcg/0.5mL dose or 50 mcg/0.25mL dose 02/16/2021 completed Not Available [facility] 13:01:20 Influenza, split virus, quadrivalent, PF 09/13/2021 completed Not Available [facility] 13:01:20 Tdap 03/25/2022 completed Not Available [facility] 10/20/2025 13:01:20 COVID-19, mRNA, LNP-S, PF, 100 mcg/0.5mL dose or 50 mcg/0.25mL dose 04/01/2022 completed Not Available [facility] 13:01:20 COVID-19, mRNA, LNP-S, bivalent, PF, 50 mcg/0.5 mL or 25mcg/0.25 mL dose 12/05/2022 completed Not Available [facility] 13:01:20 Past Encounters Encounter ID Performer Location Encounter Start Date Encounter Closed Date Diagnosis/Indication Diagnosis SNOMED-CT Code Diagnosis ICD10 Code Diagnosis IMO Codes Diagnosis Note [id number] Adonay Zhang DO [facility] ([facility]) [address] [place] [address] 09/24/2025 12:32:52 09/30/2025 09:46:36 [facility] 05261070 R44.2 45725 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 4096139120 08439 E11.65 [id number] Adonay Zhang DO [facility] ([facility]) [address] [place] [address] 10/20/2025 13:00:56 10/28/2025 13:55:04 Acute bronchitis 25634463 J20.9 Health Concerns Section Related Observation LastModified by Organization Detai ls LastModified Time None Recorded Concern Status LastModified by Organization Details LastModified Time None Recorded Payers Encounter Date Sequence Insurance Name Policy Number Policy Shannon Covered Member ID Shannon Member ID Guarantor Name 10/20/2025 1 [place] Marcelino Díaz [id number] Marcelino Díaz 10/20/2025 2 [place] Marcelino Díaz [id number] Marcelino Díaz Notes Date Note Type Note Provider Name and Address Organization Details Recorded Time 10/20/2025 text/html DiabetesReported by PatientHPIFor control, patient reportsusually poorly controlled. For duration, patient reportschronic.Complic ations and Co-morbiditiesFor chronic complications, patient reportshistory of amputation: __.ROS as noted in the HPI c/o cough. Adonay Zhang DO [address] [place] [address], [id number], [facility] [facility] [place] 10/26/2025 16:02:15
[2025-11-02 10:33] LABS: Hematocrit 37.0 % (37-53); Hemoglobin 11.40 g/dL (11.27-16.99); Mean Corpuscular HGB Conc 30.8 g/dL (30-55); Mean Corpuscular Hemoglobin 27.1 pg (27-33); Mean Corpuscular Volume 88.1 fl (82-101); Nucleated Red Blood Cells % 0 %; Platelet Count 261 10^3/cmm (157-399); Red Blood Count 4.20 10^6/uL (3.85-5.65); White Blood Count 10.40 10^3/uL (3.29-11.43)
--- NOTE | 2025-11-02 10:34 | W.ED.SOB ---
HPI - SOB/Dyspnea General: Chief Complaint: Shortness of Breath/Dyspnea Stated Complaint: resp distress Time Seen by Provider: 11/02/25 10:25 History of Present Illness: HPI Narrative: 80-year-old man with a history of COPD, BPH, hypertension, diabetes, obesity, cyst chronic kidney disease, coronary artery disease, obstructive sleep apnea, hyperlipidemia, peripheral vascular disease and fibromyalgia who presents to the emergency room by ambulance from group home with shortness of breath with oxygen requirements. He is not normally on oxygen at home. He says he is quite short of breath. He denies any swelling in his legs. No orthopnea. He says he still sleeps on his left side like he always does. He says he is had very frequent cough. No altered mental status. No focal motor deficits. No nausea or vomiting. Related Data Home Medications ?Medication ?Instructions ?Recorded ?Confirmed multivitamin 1 tab PO DAILY 11/02/22 10/28/25 acetaminophen 325 mg tablet 650 mg PO Q4H PRN Pain 07/05/23 10/28/25 (Tylenol) calcium carbonate (Tums) 1,000 mg PO Q8H PRN upset stomach 07/05/23 10/28/25 gabapentin 300 mg capsule 300 mg PO QID 07/05/23 10/28/25 insulin glargine 100 unit/mL (3 45 unit SUBCUT BID 07/05/23 10/28/25 mL) subcutaneous pen (Lantus Solostar U-100 Insulin) nitroglycerin 0.4 mg sublingual 0.4 mg sublingual Q5M PRN Chest 07/05/23 10/28/25 tablet (Nitrostat) Pain bisacodyl 10 mg rectal suppository 10 mg TN DAILY PRN Constipation 03/28/24 10/28/25 (Dulcolax (bisacodyl)) diclofenac sodium 1 % topical gel 2 g topical QID 03/28/24 10/28/25 docusate sodium 100 mg tablet 100 mg PO BID Constipation 03/28/24 10/28/25 insulin aspart U-100 100 unit/mL See Rx Instructions .Route .COMPLEX 03/28/24 10/28/25 (3 mL) subcutaneous pen (Novolog FlexPen U-100 Insulin aspart) magnesium hydroxide 400 mg/5 mL 2,000 mg PO DAILY PRN Constipation 03/28/24 10/28/25 oral suspension (Milk of Magnesia) melatonin 3 mg tablet 3 mg PO DAILY PRN Insomnia 03/28/24 10/28/25 primidone 50 mg tablet 50 mg PO DAILY 03/28/24 10/28/25 sodium phosphates 19 gram-7 1 ml TN DAILY PRN Constipation 03/28/24 10/28/25 gram/118 mL enema (Fleet Enema) triamcinolone acetonide 0.1 % 1 applic topical BID PRN actinic 03/28/24 10/28/25 topical cream keratosis famotidine 20 mg tablet 20 mg PO BID 09/24/24 10/28/25 pentoxifylline 400 mg 400 mg PO TID 09/24/24 10/28/25 tablet,extended release Lactobacillus acidophilus 1 1,000 mmu cells PO DAILY 06/26/25 10/28/25 billion cell tablet albuterol sulfate 2.5 mg/3 mL 2.5 mg continuous nebulization Q4H 06/26/25 10/28/25 (0.083 %) solution for nebulization PRN Shortness Of Breath albuterol sulfate 90 mcg/actuation 2 puff inhalation Q6H PRN 06/26/25 10/28/25 aerosol inhaler Shortness Of Breath apixaban 5 mg tablet (Eliquis) 5 mg PO BID 06/26/25 10/28/25 finasteride 5 mg tablet 5 mg PO BEDTIME 06/26/25 10/28/25 guaifenesin 100 mg/5 mL oral liquid 200 mg PO Q4H PRN Cough 06/26/25 10/28/25 loperamide 2 mg tablet (Imodium 2 mg PO Q6H PRN Constipation 06/26/25 10/28/25 A-D) loratadine 10 mg tablet (Claritin) 10 mg PO DAILY PRN allergies 06/26/25 10/28/25 sitagliptin phosphate 100 mg 100 mg PO DAILY 06/26/25 10/28/25 tablet (Januvia) tamsulosin 0.4 mg capsule 0.4 mg PO BEDTIME 06/26/25 10/28/25 white petrolatum (Vaseline jelly, 1 applic topical Q12H PRN actinic 06/26/25 10/28/25 topical) keratosis Previous Rx's ?Medication ?Instructions ?Recorded blood sugar diagnostic (OneTouch #100 ea 01/05/22 Verio test strips) fluticasone propionate 50 2 spray intranasal DAILY #15.8 mL 01/05/22 mcg/actuation nasal spray,suspension metformin 1,000 mg tablet 1,000 mg PO BID #180 tabs 01/05/22 trandolapril 2 mg tablet 2 mg PO DAILY #90 tabs 01/05/22 Diabetic shoes with inserts #1 ea 03/30/22 Cam Boot to the Right #1 ea 06/20/22 [place] Boot to the left #1 ea 06/20/22 articulating AFO to the right #1 ea 06/20/22 lower extremity clopidogrel 75 mg tablet 75 mg PO DAILY #30 tabs 03/30/24 CAM walker #1 ea 07/22/25 Diabetic shoes #1 ea 07/22/25 doxycycline hyclate 100 mg capsule 100 mg PO BID 14 days #28 caps 08/26/25 Saccharomyces boulardii 250 mg 250 mg PO BID #28 caps 09/10/25 capsule linezolid 600 mg tablet 600 mg PO BID 2 weeks #28 tabs 09/10/25 metronidazole 500 mg tablet 500 mg PO BID 2 weeks #28 tabs 09/10/25 Allergies Allergy/AdvReac Type Severity Reaction Status Date / Time sertraline (From Zoloft) Allergy Intermediate Seizure Verified 11/02/25 10:41 Latex, Natural Rubber Allergy Unknown ALGY-Rash Verified 11/02/25 10:41 Review of Systems Narrative: Constitutional symptoms: Negative except as documented in HPI. Skin symptoms: Negative except as documented in HPI. Eye symptoms: Negative except as documented in HPI. ENMT symptoms: Negative except as documented in HPI. Respiratory symptoms: Negative except as documented in HPI. Cardiovascular symptoms: Negative except as documented in HPI. Gastrointestinal symptoms: Negative except as documented in HPI. Genitourinary symptoms: Negative except as documented in HPI. Musculoskeletal symptoms: Negative except as documented in HPI. Neurologic symptoms: Negative except as documented in HPI. Psychiatric symptoms: Negative except as documented in HPI. Endocrine symptoms: Negative except as documented in HPI. PFS ED PFSH: Medical History (Updated 11/02/25 @ 12:28 by Lilia Tan MD) Cellulitis of left foot HTN (hypertension) BPH (benign prostatic hyperplasia) Diabetes mellitus COPD (chronic obstructive pulmonary disease) CKD (chronic kidney disease) Fibromyalgia ASHD (arteriosclerotic heart disease) JOHAN (obstructive sleep apnea) Hyperlipidemia PAD (peripheral artery disease) Surgical History H/O vasectomy S/P rotator cuff repair S/P PTCA (percutaneous transluminal coronary angioplasty) S/P CABG (coronary artery bypass graft) Family History Other Cancer Denies family history of Diabetes Social History Smoking and tobacco/nicotine status: unknown if used tobacco/nicotine Second hand smoke exposure: No Alcohol intake: never Substance/Drug Use: never Caregiver/support person: Yes Lives independently: Yes Household members: spouse Marital status: Current occupational status: retired Current gender identity: Male Special aubree needs: No Agree to transfusion: Yes Physical Exam Narrative: EXAM NARRATIVE: General: Alert, no acute distress. Skin: Warm, dry. Head: Normocephalic, atraumatic. Neck: Supple, trachea midline. Eye: Extraocular movements are intact. Ears, nose, mouth and throat: mucosa moist. Cardiovascular: Regular, Normal peripheral perfusion. No edema Respiratory: Mild tachypnea. Coarse breath sounds with some scattered wheeze. Mild increased work of breathing. Gastrointestinal: Soft, Nontender, Non distended Musculoskeletal: Normal ROM, no deformity. Neurological: Alert and oriented, No focal neurological deficit observed. Psychiatric: Cooperative, appropriate mood & affect. Course Vital Signs: Vital signs: Vital Signs Temperature 97.3 F L 11/02/25 10:26 Pulse Rate 78 11/02/25 10:59 Respiratory Rate 28 H 11/02/25 10:59 Blood Pressure 139/74 11/02/25 10:26 Pulse Oximetry 91 11/02/25 10:59 Oxygen Delivery Me thod Nasal Cannula 11/02/25 10:59 Oxygen Flow Rate 3 11/02/25 10:59 MDM - SOB/Dyspnea Medical Decision Making Medical decision making Patient's reason for coming to the emergency room: Shortness of breath and hypoxemia. Social determinants: [facility] resident. I reviewed the patient's medical record. 80-year-old man with a history of COPD, BPH, hypertension, diabetes, obesity, cyst chronic kidney disease, coronary artery disease, obstructive sleep apnea, hyperlipidemia, peripheral vascular disease and fibromyalgia I reviewed the patient's current home meds Patient is on Plavix and Eliquis. Alternate historians: None Differential diagnosis for patient with shortness of breath includes but is not limited to and based on the above HPI, review of systems and physical exam: Pneumonia. Bronchitis. Asthma or COPD with acute exacerbation. Acute coronary syndrome / OH. Pulmonary embolism. Anxiety. Congestive heart failure. Viral infections including influenza and Covid-19. Atrial fibrillation. Anxiety. Pleural effusion. Pneumothorax. Orders placed to evaluate differential diagnosis based on the above differential, HPI and physical exam EKG: Time 10:36 AM. Rate 79. Normal sinus rhythm, nonspecific ST changes, no ectopy, first degree AV Block, EP Interpretation. This was reviewed and interpreted by myself the ER physician at 10:40 AM Chest x-ray: Findings of decompensated CHF with pulmonary edema and pleural effusions. However patient's presentation seems more infectious so I am ordering a CT scan to further evaluate. Holding on fluids for the moment. Broad-spectrum antibiotics were given. This was reviewed and interpreted by myself the emergency room physician. I also reviewed the radiology report. CT chest without contrast ordered to further evaluate whether this is a pneumonia or heart failure. CT shows again signs of decompensated heart failure with pleural effusions and pulmonary edema. This was reviewed and interpreted by myself the emergency room physician. I also reviewed the radiology report. Lab Review: Laboratory results were reviewed and interpreted by myself the emergency room physician. ABG shows hypoxemia. pH is 7.37 with a pCO2 of 45 and an O2 of 57 with an O2 sat of 87% on 3 L nasal cannula. Mild leukocytosis. No anemia. BUN is elevated over his baseline at 35 with a creatinine at baseline of 1.1. Sodium is a low at 130. Potassium is little high at 5.8. Glucose is elevated at 257. Procalcitonin is negative. Lactic acid is mildly elevated at 2.6. Patient is on Eliquis and is not tachycardic so I do not suspect pulmonary embolism at this time. Assessment of risk: Level of risk: High risk patient. Obese, group home patient with hypoxemia and multiple comorbidities. Hospitalization considerations: Patient is being admitted. Reexamination: Patient still requiring 3 L nasal cannula with some wheeze and increased work of breathing. Mild tachypnea. I discussed I think this is a combination of a COPD exacerbation now with congestive heart failure. Patient received antibiotics, steroids and Lasix. Assessment and plan: COPD with acute exacerbation Congestive heart failure with acute exacerbation Hypoxemia Mild hyperkalemia ?Patient currently requiring 3 L nasal cannula. Not on oxygen at home. ?40 mg IV Lasix. ?Antibiotics, steroids and updrafts for COPD. Patient does have some leukocytosis and a mild elevation in his lactate. I do not believe he is septic at this time but treating empirically initially. - only 50 cc fluid as patient appears to be in heart failure. -Broad-spectrum antibiotics were administered. -Sepsis quality measures. -Lactic acid with a reflex was ordered. -Blood cultures were ordered. ?I reevaluated the patient's volume status after sepsis fluids were given. -I discussed the patient with the hospitalist on-call who is admitting the patient. - Discussed findings and plan with patient. Answered any questions. - All laboratory values were reviewed and interpreted personally by myself, the ER physician - All imaging was reviewed and interpreted personally by myself, the ER physician. - Evaluation and treatment of this problem were appropriate in the emergency setting Critical Care: -I spent a total of 48 minutes of critical care time managing the patient, independent of any other practitioner. -The time involved in the performance of separately reportable procedures was not counted towards critical care time. Lab Data 11/02/25 10:10 11/02/25 10:10 Labs/Radiology: Radiology Impressions Chest X-Ray 11/02/25 10:26 IMPRESSION: Findings of decompensated congestive heart failure pulmonary edema pleural effusions Hyperinflation suggestive of COPD Chest CT 11/02/25 11:41 IMPRESSION: Findings consistent with decompensated congestive heart failure pulmonary edema pleural effusions Nonspecific consolidation lower lobes as above Hypodensities in the kidneys compatible with cysts. COMMENTS: Consistent with the [employer]'s Incidental Findings Committee white paper (J Am Sonali Radiol 2018): Any incidental renal lesion less than 1 cm or classified as too small to characterize, or any incidental cystic renal lesion characterized as simple-appearing, is likely benign. No follow-up imaging is recommended for these lesions per consensus recommendations based on imaging criteria. Laboratory Results WBC 10.40 10^3/uL (3.29-11.43) 11/02/25 10:10 RBC 4.20 10^6/uL (3.85-5.65) 11/02/25 10:10 Hgb 11.40 g/dL (11.27-16.99) 11/02/25 10:10 Hct 37.0 % (37-53) 11/02/25 10:10 MCV 88.1 fl (82-101) 11/02/25 10:10 MCH 27.1 pg (27-33) 11/02/25 10:10 MCHC 30.8 g/dL (30-55) 11/02/25 10:10 RDW 16.7 % (12.1-15.1) H 11/02/25 10:10 Plt Count 261 10^3/cmm (157-399) 11/02/25 10:10 MPV 10.2 fL (7.4-10.4) 11/02/25 10:10 Neut % (Auto) 84.2 % 11/02/25 10:10 Lymph % (Auto) 8.7 % 11/02/25 10:10 Vance % (Auto) 5.9 % 11/02/25 10:10 Eos % (Auto) 0.3 % 11/02/25 10:10 Baso % (Auto) 0.4 % 11/02/25 10:10 Neut # (Auto) 8.77 10^3/uL (1.8-7.7) H 11/02/25 10:10 Lymph # (Auto) 0.9 10^3/uL (0.8-4.8) 11/02/25 10:10 Vance # (Auto) 0.6 10^3/uL (0.2-0.9) 11/02/25 10:10 Eos # (Auto) 0.0 10^3/uL (0.0-0.8) 11/02/25 10:10 Baso # (Auto) 0.0 10^3/uL (0.0-0.1) 11/02/25 10:10 Nucleated RBC % (auto) 0 % 11/02/25 10:10 Nucleated RBCs # 0.0 /100WBC 11/02/25 10:10 Specimen Type Arterial 11/02/25 10:31 Sample Site Radial, right 11/02/25 10:31 ABG pH 7.37 (7.35-7.45) 11/02/25 10:31 ABG pCO2 45.3 mmHg (35-45) H 11/02/25 10:31 ABG pO2 57.3 mmHg (80.0-100.0) L 11/02/25 10:31 ABG PO2/FiO2 Ratio 204 11/02/25 10:31 ABG HCO3 26.0 mmol/L (22-26) 11/02/25 10:31 ABG O2 Saturation 89.1 11/02/25 10:31 ABG Base Excess 0.4 mmol/L (-2.0-2.0) 11/02/25 10:31 Song Test Pos 11/02/25 10:31 A-a O2 Gradient 11.3 mmHg (5-10) H 11/02/25 10:31 Hematocrit 34.7 % (42-52) L 11/02/25 10:31 Hgb O2 Saturation 87.0 % (95-100) L 11/02/25 10:31 Carboxyhemoglobin 1.9 %THgb (0.4-20.1) 11/02/25 10:31 Methemoglobin 0.3 % (0.4-1.5) L 11/02/25 10:31 Total Hemoglobin 11.3 g/dL (14-18) L 11/02/25 10:31 Sodium 131.0 mmol/L (131-143) 11/02/25 10:31 Potassium 5.4 mmol/L (3.5-5.0) H 11/02/25 10:31 Glucose 234.0 mg/dL (70-115) H 11/02/25 10:31 Ionized Calcium 1.2 mmol/L (1.1-1.4) 11/02/25 10:31 O2 Delivery Device Nc 11/02/25 10:31 O2 Liters/Min 2.0 % 11/02/25 10:31 FiO2 28.0 % 11/02/25 10:31 Refrigerator Tester ID Amh 11/02/25 10:31 Sodium 130 mmol/L (136-145) L 11/02/25 10:10 Potassium 5.8 mmol/L (3.5-5.1) H 11/02/25 10:10 Chloride 94 mmol/L (98-107) L 11/02/25 10:10 Carbon Dioxide 26 mmol/L (22-29) 11/02/25 10:10 Anion Gap 15.8 (5-19) 11/02/25 10:10 BUN 35 mg/dL (8-23) H 11/02/25 10:10 Creatinine 1.1 mg/dL (0.7-1.2) 11/02/25 10:10 GFR Calculation Not Reportable 11/02/25 10:10 Glucose 257 mg/dL (65-115) H 11/02/25 10:10 Calculated Osmolality 287 mOsm/kg (285-295) 11/02/25 10:10 Lactic Acid 2.6 mmol/L (0.5-2.2) H 11/02/25 10:10 Calcium 8.8 mg/dL (8.5-10.5) 11/02/25 10:10 Total Bilirubin 0.4 mg/dL (0.15-1.2) 11/02/25 10:10 AST 13 U/L (0-40) 11/02/25 10:10 ALT 24 U/L (0-41) 11/02/25 10:10 Alkaline Phosphatase 131 U/L (40-130) H 11/02/25 10:10 NT-Pro-B Natriuret Pep 4731 pg/mL (0-450) H 11/02/25 10:10 Total Protein 8.0 g/dL (6.6-8.7) 11/02/25 10:10 Albumin 3.7 g/dL (3.5-5.2) 11/02/25 10:10 Globulin 4.3 g/dL (1.3-4.6) 11/02/25 10:10 Procalcitonin 0.08 ng/mL (0-0.5) 11/02/25 10:10 Influenza A (PCR) Negative (Negative) 11/02/25 10:28 Influenza Type B (PCR) Negative (Negative) 11/02/25 10:28 RSV (PCR) Negative (Negative) 11/02/25 10:28 SARS-CoV-2 (PCR) Negative (Negative) 11/02/25 10:28 All radiology interpretation(s) finalized by discharge Discharge Plan Discharge Patient Disposition: Admitted As Inpatient Clinical Impression: Acute exacerbation of congestive heart failure, COPD with acute exacerbation, Hypoxemia Condition: Stable Coding Level of Care Code ED Art Supervisor for Yuval Kaiser
--- NOTE | 2025-11-02 10:36 | ECG_ITS ---
[facility] Date: 2025-11-02 Pat Name: Marcelino Díaz Department: Room: Gender: Male Property Technician: : 1945 Requested By: Lilia Liu Order Number: [id number] Cy MD: Finn Watkins M.D. Measurements Intervals [place] Rate: 79 P: 14 IA: 275 QRS: 46 QRSD: 125 T: 63 QT: 378 QTc: 436 Interpretive Statements SINUS RHYTHM WITH FIRST DEGREE AV BLOCK MODERATE INTRAVENTRICULAR CONDUCTION DELAY [110+ ms QRS DURATION] NONSPECIFIC ST & T-WAVE ABNORMALITY Compared to ECG 06/26/2025 15:15:47 NO SIGNIFICANT CHANGE Electronically Signed On 11-05-2025 22:22:34 CLIMATE CHANGE ANALYST by Finn Watkins M.D. [email or web address]
[2025-11-02 10:42] LABS: ABG PCO2 45.3 mmHg (35-45); ABG PH Result 7.37 (7.35-7.45); Arterial Blood Gas Hematocrit 34.7 % (42-52); Blood Gas Allen Test Pos; Blood Gas Operator Identificat AMH; Blood Gas Sample Site Radial, right; Blood Gas Sample Type Arterial; Carboxyhemoglobin 1.9 %THgb (0.4-20.1); Glucose Level-ABG 234.0 mg/dL (70-115); HCO3 ABG 26.0 mmol/L (22-26); Ionized Calcium Level - ABG 1.2 mmol/L (1.1-1.4); Methemoglobin 0.3 % (0.4-1.5); Oxygen Saturation ABG 89.1; PO2 ABG 57.3 mmHg (80.0-100.0); Potassium Level - ABG 5.4 mmol/L (3.5-5.0); Sodium Level - ABG 131.0 mmol/L (131-143)
[2025-11-02 10:52] LABS: Lactic Sepsis W/Reflex 2.6 mmol/L (0.5-2.2)
[2025-11-02 10:53] LABS: Reflex Lactate Order REFLEX LACTIC ORDERD
[2025-11-02 11:02] LABS: Alveolar-Arterial Oxygen Gradi 11.3 mmHg (5-10); Blood Gas LPM 2.0 %; PO2 FiO2 Ratio Arterial Blood 204
[2025-11-02 11:15] LABS: NT Pro B Type Natriuretic Pept 4731 pg/mL (0-450); Procalcitonin 0.08 ng/mL (0-0.5)
[2025-11-02 11:26] LABS: Alanine Aminotransferase 24 U/L (0-41); Albumin Level 3.7 g/dL (3.5-5.2); Alkaline Phosphatase 131 U/L (40-130); Anion Gap 15.8 (5-19); Aspartate Amino Transferase 13 U/L (0-40); Blood Urea Nitrogen 35 mg/dL (8-23); Calcium 8.8 mg/dL (8.5-10.5); Carbon Dioxide 26 mmol/L (22-29); Chloride 94 mmol/L (98-107); Globulin 4.3 g/dL (1.3-4.6); Glucose 257 mg/dL (65-115); Osmolality Calculated 287 mOsm/kg (285-295); Potassium 5.8 mmol/L (3.5-5.1); Sodium 130 mmol/L (136-145); Total Protein 8.0 g/dL (6.6-8.7)
--- NOTE | 2025-11-02 11:41 | CTR_ITS ---
PROCEDURE INFORMATION: Exam: CT Chest Without Contrast; Diagnostic Exam date and time: 11/02/2025 11:59 AM Age: 80 years old Clinical indication: Abnormal findings; Abnormal radiologic exam of lung or chest; Dyspnea; Prior surgery; Surgery date: 6+ months; Surgery type: Cabg; Additional info: Abnormal chest xray TECHNIQUE: Imaging protocol: Diagnostic computed tomography of the chest without contrast. Radiation optimization: All CT scans at this facility use at least one of these dose optimization techniques: automated exposure control; mA and/or kV adjustment per patient size (includes targeted exams where dose is matched to clinical indication); or iterative reconstruction. COMPARISON: CR (CHEST, ) 11/02/2025 11:03 AM RADIATION DOSE METRICS: Total DLP (mGy-cm): 750.73 FINDINGS: Lungs: There is configurational interstitial edema. There is compressed consolidated appearance to lower lobes of nonspecific etiology, atelectasis or pneumonia could be considered. Correlate and follow-up as indicated Pleural spaces: There are findings of bilateral pleural effusions small Heart: Heart is enlarged. Coronary artery aortic valve calcifications demonstrated. Patient is status post open heart Lymph nodes: Unremarkable. No enlarged lymph nodes. Vasculature: Unremarkable. No aortic aneurysm. Kidneys: There are hypodensities in the kidneys largest right upper pole 5.1 cm compatible with renal cysts. Bones/joints: Unremarkable. No acute fracture. Soft tissues: Unremarkable. CT/CT chest wo con [id number] IMPRESSION: Findings consistent with decompensated congestive heart failure pulmonary edema pleural effusions Nonspecific consolidation lower lobes as above Hypodensities in the kidneys compatible with cysts. COMMENTS: Consistent with the [employer]'s Incidental Findings Committee white paper (J Am Sonali Radiol 2018): Any incidental renal lesion less than 1 cm or classified as too small to characterize, or any incidental cystic renal lesion characterized as simple-appearing, is likely benign. No follow-up imaging is recommended for these lesions per consensus recommendations based on imaging criteria.
[2025-11-02] MEDS: linezolid premix 600 MG/300 ML PREMIX 300 MG IV (12:20)
[2025-11-02 12:23] LABS: Respiratory Syncytial Virus Ce NEGATIVE (Negative); SARS-CoV-2 PCR NEGATIVE (Negative)
[2025-11-02] MEDS: FUROsemide 10 mg/mL SDV 4mL 40 MG IVP ×2 (13:38→17:17)
[2025-11-02 13:46] LABS: Lactic Acid level (Lactate) 3.4 mmol/L (0.5-2.2)
--- NOTE | 2025-11-02 14:55 | USCV_ITS ---
Marcelino Díaz Age: 80 Gender: M : 1945 Exam Date: 11/02/2025 16:31 Ordering Phys: Kylah Cueto MD Technologist: Perry Morales [place] [facility] [place] Indication: chf BP: 143 / 71 HR: 79 Rhythm: Sinus Technical Quality: Adequate MEASUREMENTS (Male / Female) Normal Values 2D ECHO LV Diastolic Diameter PLAX 5.6 cm 4.2 - 5.9 / 3.9 - 5.3 cm IVS Diastolic Thickness 0.6 cm 0.6 - 1.0 / 0.6 - 0.9 cm IVS Systolic Thickness 1.1 cm LVPW Diastolic Thickness 1.0 cm 0.6 - 1.0 / 0.6 - 0.9 cm LVPW Systolic Thickness 1.8 cm LVOT Diameter 2.1 cm LV Ejection Fraction 2D Teich 65.9 % LV Ejection Fraction MOD 4C 41.9 % LV Ejection Fraction MOD 2C 43.3 % LV Ejection Fraction 2C AL 44.1 % LA Diameter 5.0 cm RA Systolic Volume 4C AL 50.4 ml RA Systolic Volume 4C MOD 45.2 ml LA Sys Volume AL 87.5 cm cubed LA Sys Volume Index AL 31.8 cm cubed/m squared Aorta at Sinotubular Diameter 2.9 cm IVC Diameter 2.1 cm M-MODE LA Ao Ratio MM 1.4 AV Cusp Separation MM 1.5 cm DOPPLER AV Peak Velocity 274.3 cm/s LVOT Peak Velocity 83.0 cm/s AV Area Cont Eq vti 1.0 cm squared AV Area Cont Eq pk 1.1 cm squared MV Peak Velocity 166.0 cm/s MV Area PHT 5.6 cm squared Mitral E to A Ratio 1.5 TV Peak Velocity 288.0 cm/s TR Peak Velocity 290.0 cm/s TR Peak Gradient 33.6 mmHg TR Mean Velocity 223.0 cm/s TR Mean Gradient 22.1 mmHg TR Velocity Time Integral 72.3 cm PV Peak Velocity 109.0 cm/s RV Ejection Time 0.3 s FINDINGS Left Ventricle Normal left ventricular size, systolic function and wall thickness, with no regional wall motion abnormalities. Left ventricular ejection fraction is estimated at 60 %. Grade II/IV diastolic dysfunction, moderately elevated filling pressures. Right Ventricle Normal right ventricular size and systolic function. Right Atrium Normal right atrial size. Left Atrium Moderately increased left atrial size. IA Septum Normal appearance of the interatrial septum. Mitral Valve Moderately thickened mitral valve. No mitral valve stenosis. Mild mitral valve regurgitation. Aortic Valve Moderate aortic valve calcification. Moderate aortic valve stenosis, mean gradient 15.7 mmHg, NEMESIO 1 cm squared. Trace aortic valve regurgitation. Tricuspid Valve Normal tricuspid valve structure. No tricuspid valve stenosis or regurgitation. Normal pulmonary pressure. Pulmonic Valve Normal pulmonic valve structure. No pulmonic valve stenosis or regurgitation. Pericardium No pericardial effusion. Aorta Normal diameter of the aortic root and ascending thoracic aorta. IVC Normal IVC diameter. CONCLUSIONS Normal left ventricular size, systolic function and wall thickness, with no regional wall motion abnormalities. Left ventricular ejection fraction is estimated at 60 %. Grade II/IV diastolic dysfunction, moderately elevated filling pressures. Moderate aortic valve calcification. Moderate aortic valve stenosis, mean gradient 15.7 mmHg, NEMESIO 1 cm squared. Trace aortic valve regurgitation. Moderately thickened mitral valve. No mitral valve stenosis. Mild mitral valve regurgitation. Moderately increased left atrial size. There is no pericardial effusion. Right atrial pressure is around 5 mm of mercury. Gilberto Mahoney MD (Electronically Signed) Final Date: 03 November 2025 12:19 S
--- NOTE | 2025-11-02 15:02 | PM.HP ---
Providers/Chief Complaint Admitting Physician: Jarrell Moreno MD Primary Care Provider: Adonay Zhang DO Chief Complaint: resp distress History of Present Illness Marcelino Díaz is a 80 year old male history of COPD, BPH, hypertension, peripheral vascular's, CAD with CABG and stents sleep apnea who presented with complaints of 3 weeks history of shortness of breath. Increased O2 requirements. He was noted to require oxygen. The patient states that he lives in a [facility] and was requested to come to the ER. He denies any chest pain, fevers, sore throat or recent change in medications. He does have sleep apnea and does not use his CPAP. 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 It is noted he also has a boot on his right foot he is following with podiatry Review of Systems Const: Denies: fever(s), chills or body aches Card: Reports: edema; Denies: chest pain or palpitations Resp: Reports: dyspnea and non-productive cough : Denies: flank pain Musc: Denies: neck pain or back pain Neuro: Denies: headache(s) or numbness in extremities Danny/Lymph: Denies: easy bruising or easy bleeding Medications/Allergies Home Medications ?Medication ?Instructions ?Recorded ?Confirmed ?Last Taken ?Type blood sugar diagnostic (OneTouch #100 ea 01/05/22 11/02/25 Unknown Rx Verio test strips) fluticasone propionate 50 2 spray intranasal DAILY #15.8 mL 01/05/22 11/02/25 11/02/25 08:55 Rx mcg/actuation nasal spray,suspension metformin 1,000 mg tablet 1,000 mg PO BID #180 tabs 01/05/22 11/02/25 11/02/25 08:55 Rx trandolapril 2 mg tablet 2 mg PO DAILY #90 tabs 01/05/22 11/02/25 11/02/25 08:55 Rx Diabetic shoes with inserts #1 ea 03/30/22 11/02/25 Unknown Rx Cam Boot to the Right #1 ea 06/20/22 11/02/25 Unknown Rx [place] Boot to the left #1 ea 06/20/22 11/02/25 Unknown Rx articulating AFO to the right #1 ea 06/20/22 11/02/25 Unknown Rx lower extremity multivitamin 1 tab PO DAILY 11/02/22 11/02/25 11/02/25 08:55 History acetaminophen 325 mg tablet 650 mg PO Q4H PRN Pain 07/05/23 11/02/25 10/18/25 08:40 History (Tylenol) calcium carbonate (Tums) 1,000 mg PO Q8H PRN upset stomach 07/05/23 11/02/25 02/02/25 History gabapentin 300 mg capsule 300 mg PO QID 07/05/23 11/02/25 11/02/25 08:55 History insulin glargine 100 unit/mL (3 35 unit SUBCUT BID 07/05/23 11/02/25 11/02/25 06:55 History mL) subcutaneous pen (Lantus Solostar U-100 Insulin) nitroglycerin 0.4 mg sublingual 0.4 mg sublingual Q5M PRN Chest 07/05/23 11/02/25 03/27/25 History tablet (Nitrostat) Pain bisacodyl 10 mg rectal suppository 10 mg MA DAILY PRN Constipation 03/28/24 11/02/25 Unknown History (Dulcolax (bisacodyl)) diclofenac sodium 1 % topical gel 2 g topical QID 03/28/24 11/02/25 11/01/25 08:20 History docusate sodium 100 mg tablet 100 mg PO BID Constipation 03/28/24 11/02/25 11/02/25 08:55 History insulin aspart U-100 100 unit/mL See Rx Instructions .Route .COMPLEX 03/28/24 11/02/25 11/01/25 16:25 History (3 mL) subcutaneous pen (Novolog FlexPen U-100 Insulin aspart) magnesium hydroxide 400 mg/5 mL 2,000 mg PO DAILY PRN Constipation 03/28/24 11/02/25 Unknown History oral suspension (Milk of Magnesia) melatonin 3 mg tablet 3 mg PO DAILY PRN Insomnia 03/28/24 11/02/25 Unknown History primidone 50 mg tablet 50 mg PO DAILY 03/28/24 11/02/25 11/02/25 08:55 History sodium phosphates 19 gram-7 1 ml MA DAILY PRN Constipation 03/28/24 11/02/25 Unknown History gram/118 mL enema (Fleet Enema) triamcinolone acetonide 0.1 % 1 applic topical BID PRN actinic 03/28/24 11/02/25 06/01/25 History topical cream keratosis clopidogrel 75 mg tablet 75 mg PO DAILY #30 tabs 03/30/24 11/02/25 11/02/25 08:55 Rx famotidine 20 mg tablet 20 mg PO BID 09/24/24 11/02/25 11/02/25 07:25 History pentoxifylline 400 mg 400 mg PO TID 09/24/24 11/02/25 11/02/25 08:55 History tablet,extended release Lactobacillus acidophilus 1 1,000 mmu cells PO DAILY 06/26/25 11/02/25 11/02/25 08:55 History billion cell tablet albuterol sulfate 2.5 mg/3 mL 2.5 mg continuous nebulization Q4H 06/26/25 11/02/25 11/02/25 05:50 History (0.083 %) solution for nebulization PRN Shortness Of Breath albuterol sulfate 90 mcg/actuation 2 puff inhalation Q6H PRN 06/26/25 11/02/25 08/31/25 12:40 History aerosol inhaler Shortness Of Breath apixaban 5 mg tablet (Eliquis) 5 mg PO BID 06/26/25 11/02/25 11/02/25 08:55 History finasteride 5 mg tablet 5 mg PO BEDTIME 06/26/25 11/02/25 11/01/25 19:10 History guaifenesin 100 mg/5 mL oral liquid 200 mg PO Q4H PRN Cough 06/26/25 11/02/25 10/10/25 14:10 History loperamide 2 mg tablet (Imodium 2 mg PO Q6H PRN Constipation 06/26/25 11/02/25 03/31/25 History A-D) loratadine 10 mg tablet (Claritin) 10 mg PO DAILY PRN allergies 06/26/25 11/02/25 04/09/25 History sitagliptin phosphate 100 mg 100 mg PO DAILY 06/26/25 11/02/25 11/02/25 08:55 History tablet (Januvia) tamsulosin 0.4 mg capsule 0.4 mg PO BEDTIME 06/26/25 11/02/25 11/01/25 18:10 History white petrolatum (Vaseline jelly, 1 applic topical Q12H PRN actinic 06/26/25 11/02/25 Unknown History topical) keratosis CAM walker #1 ea 07/22/25 11/02/25 Unknown Rx Diabetic shoes #1 ea 07/22/25 11/02/25 Unknown Rx insulin aspart U-100 100 unit/mL 10 unit SUBCUT TID 11/02/25 11/02/25 11/02/25 06:55 History subcutaneous solution (Novolog U-100 Insulin aspart) Allergies Allergy/AdvReac Type Severity Reaction Status Date / Time sertraline (From Zoloft) Allergy Intermediate Seizure Verified 11/02/25 10:41 Latex, Natural Rubber Allergy Unknown ALGY-Rash Verified 11/02/25 10:41 PFSH Acute PFSH: Medical History (Updated 11/02/25 @ 12:28 by Lilia Tan MD) Cellulitis of left foot HTN (hypertension) BPH (benign prostatic hyperplasia) Diabetes mellitus COPD (chronic obstructive pulmonary disease) CKD (chronic kidney disease) Fibromyalgia ASHD (arteriosclerotic heart disease) JOHAN (obstructive sleep apnea) Hyperlipidemia PAD (peripheral artery disease) Surgical History H/O vasectomy S/P rotator cuff repair S/P PTCA (percutaneous transluminal coronary angioplasty) S/P CABG (coronary artery bypass graft) Family History Other Cancer Denies family history of Diabetes Social History Smoking and tobacco/nicotine status: unknown if used tobacco/nicotine Second hand smoke exposure: No Alcohol intake: never Substance/Drug Use: never Caregiver/support person: Yes Lives independently: Yes Household members: spouse Marital status: Current occupational status: retired Current gender identity: Male Special aubree needs: No Agree to transfusion: Yes Vitals/I&O/Wt Last Vital Signs Temp 97.7 F 11/02/25 14:18 Pulse 78 11/02/25 14:18 Resp 21 H 11/02/25 14:18 BP 143/71 11/02/25 14:18 Pulse Ox 95 11/02/25 14:18 O2 Del Method Nasal Cannula 11/02/25 14:18 O2 Flow Rate 3 11/02/25 12:00 11/02/25 11/02/25 11/02/25 06:59 14:59 22:59 Intake Total 300 / 300 Output Total 375 / 375 Balance -75 / -75 Weight last 48 hrs Weight 143.789 kg Physical Exam Narrative: general: obese, purse lip breathing HEENT: large neck CVS:RRR Lungs: mild labored, clear Abdomen:Soft, NT MSK: no deformity Data 11/02/25 10:10 11/02/25 10:10 Micro: Microbiology 11/02/25 10:42 Blood Culture - Preliminary Blood SPECIMEN COLLECTED 11/02/25 10:40 Blood Culture - Preliminary Blood SPECIMEN COLLECTED CT Chest: My impression: Pleural effusion noted A&P Assessment and plan 1. COPD (chronic obstructive pulmonary disease): Continue oxygen, inhalers 2. JOHAN (obstructive sleep apnea): Will need outpatient sleep study 3. Diabetes mellitus: Monitor fingerstick blood sugars with sliding scale insulin continue home Lantus 4. CHF exacerbation: Check echo, resume home medications IV diuretics consider cardiology consultation 5. Acute exacerbation of congestive heart failure: As above 6. S/P CABG (coronary artery bypass graft): Restart home medications including Plavix PDMP PDMP Reviewed: Not Reviewed Attestations Medical Necessity Statement*: diuresis, echo. maybe cardiology consult Coding Level of Care Code 30646 Diagnoses COPD (chronic obstructive pulmonary disease) J44.9 JOHAN (obstructive sleep apnea) G47.33 Diabetes mellitus E11.9 CHF exacerbation I50.9 S/P CABG (coronary artery bypass graft) Z95.1
[2025-11-02] MEDS: insulin glargine 100 units/1 mL 35 UNIT SUBCUT (17:17)
[2025-11-02] MEDS: diclofenac 1% Topical Gel 100 gm 4 APPLIC TOPICAL (17:18)
[2025-11-02] MEDS: lactobacillus 1 Tablet 1 TAB PO (21:20)
[2025-11-03] VITALS (11 sets, daily range): BP systolic 96–153; BP diastolic 52–74; PULSE 80–89; RESP 14–18; TEMP 36.7–36.8; O2SAT 90–94
[2025-11-03 03:58] LABS: Hematocrit 33.6 % (37-53); Hemoglobin 10.60 g/dL (11.27-16.99); Mean Corpuscular HGB Conc 31.5 g/dL (30-55); Mean Corpuscular Hemoglobin 27.5 pg (27-33); Mean Corpuscular Volume 87.3 fl (82-101); Nucleated Red Blood Cells % 0 %; Platelet Count 255 10^3/cmm (157-399); Red Blood Count 3.85 10^6/uL (3.85-5.65); White Blood Count 9.68 10^3/uL (3.29-11.43)
[2025-11-03 04:18] LABS: Anion Gap 13.7 (5-19); Blood Urea Nitrogen 37 mg/dL (8-23); Calcium 8.9 mg/dL (8.5-10.5); Carbon Dioxide 27 mmol/L (22-29); Chloride 95 mmol/L (98-107); Glucose 114 mg/dL (65-115); Osmolality Calculated 282 mOsm/kg (285-295); Potassium 4.7 mmol/L (3.5-5.1); Sodium 131 mmol/L (136-145)
[2025-11-03] MEDS: lactobacillus 1 Tablet 1 TAB PO ×3 (05:46→20:18)
[2025-11-03] MEDS: multivitamin therapeutic Tablet 1 TAB PO (05:46)
[2025-11-03] MEDS: fluticasone nasal spray 16gm Btl 2 SPRAY INTRANASAL (05:46)
[2025-11-03] MEDS: insulin glargine 100 units/1 mL 35 UNIT SUBCUT ×2 (06:11→17:56)
[2025-11-03] MEDS: guaiFENesin 100 mg/5 mL UDC 10 mL 200 MG PO (06:12)
--- NOTE | 2025-11-03 11:21 | P.PN_ITS ---
Subjective 2 Subjective: on 2L feels better Vitals/I&O/Wt Last Vital Signs Temp 98.2 F 11/03/25 07:25 Pulse 89 11/03/25 09:11 Resp 16 11/03/25 09:08 BP 103/61 11/03/25 07:25 Pulse Ox 92 11/03/25 09:08 O2 Del Method Nasal Cannula 11/03/25 09:08 O2 Flow Rate 2 11/03/25 09:08 11/02/25 11/03/25 11/03/25 22:59 06:59 14:59 Intake Total 610 / 910 240 / 1150 Output Total 1150 / 1525 440 / 1965 Balance -540 / -615 -200 / -815 Weight last 48 hrs Weight 132.024 kg Weight 143.789 kg Physical Exam 2 Narrative: general: obese, NAD HEENT: large neck CVS:RRR Lungs: mild labored, clear Abdomen:Soft, NT MSK: no deformity Data 11/03/25 03:12 11/03/25 03:12 Micro: Microbiology 11/02/25 10:42 Blood Culture - Preliminary Blood NEGATIVE TO DATE 11/02/25 10:40 Blood Culture - Preliminary Blood NEGATIVE TO DATE Other data: ECHO-- CONCLUSIONS Normal left ventricular cavity size. Moderately decreased left ventricular systolic function. In the presene of atrial fibrillation diastolic function cannot be assesed accurately .left ventricular ejection fraction is estimated at 45 %. There is global wall hypokinesis Moderate aortic valve calcification. Moderte aortic valve stenosis, mean gradient 10.3 mmHg, NEMESIO 0.98 cm squared. Trace aortic valve regurgitation. Possible bioprosthetic valve . Structurally normal mitral valve without significant stenosis or prolapse. There is no mitral regurgitation. There is no pericardial effusion. Right atrial pressure is around 5 mm of mercury. A&P Assessment and plan 1. COPD (chronic obstructive pulmonary disease): Continue oxygen, inhalers 2. JOHAN (obstructive sleep apnea): Will need outpatient sleep study 3. Diabetes mellitus: Monitor fingerstick blood sugars with sliding scale insulin continue home Lantus 4. CHF exacerbation: ECHO done, EF 45% --continue lisinopril, lasix 40mg i --eliquis 5mg po bid, plavix 75mg 5. Acute exacerbation of congestive heart failure: As above 6. S/P CABG (coronary artery bypass graft): Restarted home medications including Plavix Plan: dispo possible dc in am PDMP PDMP Reviewed: Not Reviewed Attestations 2 Medical Necessity Statement*: diuresis Coding Level of Care Code 78443 Diagnoses COPD (chronic obstructive pulmonary disease) J44.9 JOHAN (obstructive sleep apnea) G47.33 Diabetes mellitus E11.9 CHF exacerbation I50.9 S/P CABG (coronary artery bypass graft) Z95.1
[2025-11-03] MEDS: FUROsemide 10 mg/mL SDV 4mL 40 MG IVP (17:56)
[2025-11-04] VITALS (11 sets, daily range): BP systolic 93–152; BP diastolic 51–63; PULSE 72–84; RESP 16–20; TEMP 36.4–36.8; O2SAT 91–94
[2025-11-04 05:29] LABS: Hematocrit 34.6 % (37-53); Hemoglobin 10.70 g/dL (11.27-16.99); Mean Corpuscular HGB Conc 30.9 g/dL (30-55); Mean Corpuscular Hemoglobin 27.4 pg (27-33); Mean Corpuscular Volume 88.7 fl (82-101); Nucleated Red Blood Cells % 0 %; Platelet Count 265 10^3/cmm (157-399); Red Blood Count 3.90 10^6/uL (3.85-5.65); White Blood Count 10.13 10^3/uL (3.29-11.43)
[2025-11-04] MEDS: multivitamin therapeutic Tablet 1 TAB PO (05:33)
[2025-11-04] MEDS: lactobacillus 1 Tablet 1 TAB PO ×3 (05:33→20:15)
[2025-11-04] MEDS: fluticasone nasal spray 16gm Btl 2 SPRAY INTRANASAL (05:34)
[2025-11-04 05:50] LABS: Anion Gap 14.4 (5-19); Blood Urea Nitrogen 30 mg/dL (8-23); Calcium 8.5 mg/dL (8.5-10.5); Carbon Dioxide 27 mmol/L (22-29); Chloride 97 mmol/L (98-107); Glucose 100 mg/dL (65-115); Osmolality Calculated 284 mOsm/kg (285-295); Potassium 4.4 mmol/L (3.5-5.1); Sodium 134 mmol/L (136-145)
[2025-11-04] MEDS: insulin glargine 100 units/1 mL 35 UNIT SUBCUT ×2 (06:39→17:15)
[2025-11-04 09:10] LABS: ABG PCO2 47.7 mmHg (35-45); ABG PH Result 7.43 (7.35-7.45); Alveolar-Arterial Oxygen Gradi 14.1 mmHg (5-10); Arterial Blood Gas Hematocrit 33.8 % (42-52); Blood Gas Allen Test Pos; Blood Gas LPM 3.0 %; Blood Gas Operator Identificat GD; Blood Gas Sample Site Radial, left; Blood Gas Sample Type Arterial; Carboxyhemoglobin 1.9 %THgb (0.4-20.1); Glucose Level-ABG 133.0 mg/dL (70-115); HCO3 ABG 31.3 mmol/L (22-26); Ionized Calcium Level - ABG 1.1 mmol/L (1.1-1.4); Methemoglobin 0.2 % (0.4-1.5); Oxygen Saturation ABG 91.6; PO2 ABG 61.1 mmHg (80.0-100.0); PO2 FiO2 Ratio Arterial Blood 190; Potassium Level - ABG 4.2 mmol/L (3.5-5.0); Sodium Level - ABG 136.0 mmol/L (131-143)
--- NOTE | 2025-11-04 11:44 | P.PN_ITS ---
Subjective 2 Subjective: 80-year-old male admitted with suspected heart fail exacerbation. Today he was noted to be more confused. ABG was done noted to be not hypercapnic. Vitals/I&O/Wt Last Vital Signs Temp 97.8 F 11/04/25 11:28 Pulse 77 11/04/25 11:28 Resp 16 11/04/25 11:28 BP 93/57 11/04/25 11:28 Pulse Ox 91 11/04/25 11:28 O2 Del Method Nasal Cannula 11/04/25 11:28 O2 Flow Rate 3 11/04/25 10:34 11/03/25 11/04/25 11/04/25 22:59 06:59 14:59 Intake Total 200 / 200 480 / 480 Output Total 600 / 800 1100 / 1900 200 / 200 Balance -600 / -800 -900 / -1700 280 / 280 Weight last 48 hrs Weight 133.81 kg Weight 132.024 kg Physical Exam 2 Narrative: general: obese, NAD alert oriented x 1 HEENT: large neck CVS:RRR Lungs: mild labored, clear Abdomen:Soft, NT MSK: no deformity Data 11/04/25 05:20 11/04/25 05:20 Micro: Microbiology 11/02/25 10:42 Blood Culture - Preliminary Blood NEGATIVE TO DATE 11/02/25 10:40 Blood Culture - Preliminary Blood NEGATIVE TO DATE A&P Assessment and plan 1. COPD (chronic obstructive pulmonary disease): Continue oxygen, inhalers 2. JOHAN (obstructive sleep apnea): Will need outpatient sleep study 3. Diabetes mellitus: Monitor fingerstick blood sugars with sliding scale insulin continue home Lantus 4. CHF exacerbation: ECHO done, EF 45% --continue lisinopril, lasix 40mg i --eliquis 5mg po bid, plavix 75mg --start on dapagliflozin 5. Acute exacerbation of congestive heart failure: As above 6. S/P CABG (coronary artery bypass graft): Restarted home medications including Plavix briefly discussed with cardiology, may consider consult but will need outpatient followup 7. AMS (altered mental status): Unclear etiology, will check CT head, ammonia level ABG was okay. May need sleep aid at bedtime. Plan: dispo possible dc in am PDMP PDMP Reviewed: Not Reviewed Attestations 2 Medical Necessity Statement*: Further workup on confusion diuresing will need outpatient follow-up for sleep study Coding Level of Care Code 39148 Diagnoses COPD (chronic obstructive pulmonary disease) J44.9 JOHAN (obstructive sleep apnea) G47.33 Diabetes mellitus E11.9 CHF exacerbation I50.9 S/P CABG (coronary artery bypass graft) Z95.1 AMS (altered mental status) R41.82
--- NOTE | 2025-11-04 11:48 | CT_ITS ---
WS: [id number] CT HEAD NONCONTRAST HISTORY: ams TECHNIQUE: Contiguous axial imaging performed through the brain. Bone and soft tissue windows. Sagittal and coronal reformats reviewed. All CT scans at [facility] use at least one of these dose optimization techniques: automated exposure control; mA and/or kV adjustment per patient size (includes targeted exams where dose is matched to clinical indication); or iterative reconstruction. DLP: 1190.46 mGy.cm COMPARISON: 07/23/2022 No acute intracranial hemorrhage, midline shift or mass effect. Moderate symmetric atrophy in the cerebrum and cerebellum. No large territory infarct. Moderate small vessel disease. Ventricles: Ventricles and extra-axial spaces are dilated on the basis of atrophy. No anterior displacement of the cerebellar tonsils. Paranasal sinuses: Small mucous retention cyst in the floor the RIGHT maxillary sinus. Mastoid air cells: Well pneumatized. Calvarium and scalp: Skull is intact with no soft tissue edema or swelling. CT/CT head wo con* [id number] IMPRESSION: 1. No acute intracranial hemorrhage or edema. 2. Moderate cerebral and cerebellar atrophy and small vessel changes.
[2025-11-04 14:18] LABS: Ammonia 23 umol/L (16-60)
[2025-11-04] MEDS: FUROsemide 10 mg/mL SDV 4mL 40 MG IVP (17:14)
[2025-11-05 01:55] VITALS: BMI 41.1
[2025-11-05 04:00] VITALS: BP 108/54; PULSE 70; RESP 16; TEMP 36.4; O2SAT 94
--- NOTE | 2025-11-05 04:12 | PC.NURSE ---
BP 96/[address] Mendoza notified and said to hold Lisinopril. Physician notification put in.
[2025-11-05] MEDS: multivitamin therapeutic Tablet 1 TAB PO (05:23)
[2025-11-05 05:24] LABS: Hematocrit 35.7 % (37-53); Hemoglobin 10.70 g/dL (11.27-16.99); Mean Corpuscular HGB Conc 30.0 g/dL (30-55); Mean Corpuscular Hemoglobin 27.0 pg (27-33); Mean Corpuscular Volume 90.2 fl (82-101); Nucleated Red Blood Cells % 0 %; Platelet Count 271 10^3/cmm (157-399); Red Blood Count 3.96 10^6/uL (3.85-5.65); White Blood Count 10.80 10^3/uL (3.29-11.43)
[2025-11-05] MEDS: lactobacillus 1 Tablet 1 TAB PO ×3 (05:24→12:28)
[2025-11-05] MEDS: fluticasone nasal spray 16gm Btl 2 SPRAY INTRANASAL (05:26)
[2025-11-05 05:40] LABS: Anion Gap 13.9 (5-19); Blood Urea Nitrogen 31 mg/dL (8-23); Calcium 8.1 mg/dL (8.5-10.5); Carbon Dioxide 28 mmol/L (22-29); Chloride 98 mmol/L (98-107); Glucose 75 mg/dL (65-115); Osmolality Calculated 287 mOsm/kg (285-295); Potassium 3.9 mmol/L (3.5-5.1); Sodium 136 mmol/L (136-145)
[2025-11-05 05:55] VITALS: PULSE 63
--- NOTE | 2025-11-05 06:13 | PC.NURSE ---
Blood sugar 78 this morning, Dr. Mendoza notified of normal sugar. Asked if I should still give Januvia, Farxiga, and Lantus per JAN. said to give all but only 25 units of Lantus instead of 35.
[2025-11-05] MEDS: DAPAGLIFLOZIN 5 MG TABLET PO (06:16)
[2025-11-05] MEDS: insulin glargine 100 units/1 mL 35 UNIT SUBCUT (06:16)
[2025-11-05 07:35] VITALS: BP 90/49; PULSE 62; RESP 16; TEMP 36.6; O2SAT 94
[2025-11-05 08:11] VITALS: PULSE 62; RESP 18; O2SAT 93
--- NOTE | 2025-11-05 09:39 | PC.SOCIAL ---
IMM Update pg 2 of IMM Updated and reviewed w/ patient. Copy provided and copy dated, initialed and placed in chart.
[2025-11-05 11:23] VITALS: BP 97/60; PULSE 74; RESP 16; TEMP 36.3; O2SAT 94
--- NOTE | 2025-11-05 12:03 | PM.DCS ---
Discharge Providers Date of Admission: 11/02/25 12:19 Date of Discharge: November 05, 2025 Attending Provider at Admission: Jarrell Moreno MD Attending Provider at Discharge: Kylah Cueto MD Primary Care Provider: Adonay Zhang DO Diagnoses at Discharge Discharge Diagnosis 1. Chronic obstructive pulmonary disease, unspecified COPD type: 2. JOHAN (obstructive sleep apnea): 3. Type 2 diabetes mellitus with hyperglycemia, with long-term current use of insulin: 4. CHF exacerbation: 5. S/P CABG (coronary artery bypass graft): 6. AMS (altered mental status): Reason for Visit Reason for Visit: resp distress Hospital Course Hospital Course Marcelino Díaz is a 80 year old male history of COPD, BPH, hypertension, peripheral vascular's, CAD with CABG and stents sleep apnea who presented with complaints of 3 weeks history of shortness of breath. Increased O2 requirements. He was noted to require oxygen. The patient states that [facility] and was requested to come to the ER. He denies any chest pain, fevers, sore throat or recent change in medications. He does have sleep apnea and does not use his CPAP. 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 It is noted he also has a boot on his right foot he is following with podiatry Hospital course: The patient was admitted for COPD CHF exacerbation. Medications were adjusted. Recommended sleep study. He did have a bout of confusion. A CT head ammonia and ABG were checked and were okay. His symptoms have improved. He was discharged back to jail in stable condition. Physical Exam Narrative: general: obese, NAD alert oriented x 3 HEENT: large neck CVS:RRR Lungs: mild labored, clear Abdomen:Soft, NT MSK: no deformity Discharge Data Studies Completed and Pending Completed Studies During Hospitalization Category Date Time Status CT chest wo con [id number] Stat Cat Scan 11/02/25 11:[address] head wo con* [id number] Routine Cat Scan 11/04/25 11:48 Completed XR chest 1V portable [id number] Stat Exams 11/02/25 10:26 Completed CV. echo complete* [id number] Routine Ultrasound 11/02/25 14:55 Completed Pending at discharge Category Date Time Status Blood Culture Stat Lab 11/02/25 10:42 Results Radiology Impressions Chest X-Ray 11/02/25 10:26 IMPRESSION: Findings of decompensated congestive heart failure pulmonary edema pleural effusions Hyperinflation suggestive of COPD Chest CT 11/02/25 11:41 IMPRESSION: Findings consistent with decompensated congestive heart failure pulmonary edema pleural effusions Nonspecific consolidation lower lobes as above Hypodensities in the kidneys compatible with cysts. COMMENTS: Consistent with the [employer]'s Incidental Findings Committee white paper (J Am Sonali Radiol 2018): Any incidental renal lesion less than 1 cm or classified as too small to characterize, or any incidental cystic renal lesion characterized as simple-appearing, is likely benign. No follow-up imaging is recommended for these lesions per consensus recommendations based on imaging criteria. Head CT 11/04/25 11:48 IMPRESSION: 1. No acute intracranial hemorrhage or edema. 2. Moderate cerebral and cerebellar atrophy and small vessel changes. Laboratory Results WBC 10.80 10^3/uL (3.29-11.43) 11/05/25 05:10 RBC 3.96 10^6/uL (3.85-5.65) 11/05/25 05:10 Hgb 10.70 g/dL (11.27-16.99) L 11/05/25 05:10 Hct 35.7 % (37-53) L 11/05/25 05:10 MCV 90.2 fl (82-101) 11/05/25 05:10 MCH 27.0 pg (27-33) 11/05/25 05:10 MCHC 30.0 g/dL (30-55) 11/05/25 05:10 RDW 17.2 % (12.1-15.1) H 11/05/25 05:10 Plt Count 271 10^3/cmm (157-399) 11/05/25 05:10 MPV 10.2 fL (7.4-10.4) 11/05/25 05:10 Neut % (Auto) 71.2 % 11/05/25 05:10 Lymph % (Auto) 15.0 % 11/05/25 05:10 [place] % (Auto) 10.1 % 11/05/25 05:10 Eos % (Auto) 2.4 % 11/05/25 05:10 Baso % (Auto) 0.9 % 11/05/25 05:10 Neut # (Auto) 7.69 10^3/uL (1.8-7.7) 11/05/25 05:10 Lymph # (Auto) 1.6 10^3/uL (0.8-4.8) 11/05/25 05:10 [place] # (Auto) 1.1 10^3/uL (0.2-0.9) H 11/05/25 05:10 Eos # (Auto) 0.3 10^3/uL (0.0-0.8) 11/05/25 05:10 Baso # (Auto) 0.1 10^3/uL (0.0-0.1) 11/05/25 05:10 Nucleated RBC % (auto) 0 % 11/05/25 05:10 Nucleated RBCs # 0.0 /100WBC 11/05/25 05:10 Specimen Type Arterial 11/04/25 08:55 Sample Site Radial, left 11/04/25 08:55 ABG pH 7.43 (7.35-7.45) 11/04/25 08:55 ABG pCO2 47.7 mmHg (35-45) H 11/04/25 08:55 ABG pO2 61.1 mmHg (80.0-100.0) L 11/04/25 08:55 ABG PO2/FiO2 Ratio 190 11/04/25 08:55 ABG HCO3 31.3 mmol/L (22-26) H 11/04/25 08:55 ABG O2 Saturation 91.6 11/04/25 08:55 ABG Base Excess 6.0 mmol/L (-2.0-2.0) H 11/04/25 08:55 Sogn Test Pos 11/04/25 08:55 A-a O2 Gradient 14.1 mmHg (5-10) H 11/04/25 08:55 Hematocrit 33.8 % (42-52) L 11/04/25 08:55 Hgb O2 Saturation 89.7 % (95-100) L 11/04/25 08:55 Carboxyhemoglobin 1.9 %THgb (0.4-20.1) 11/04/25 08:55 Methemoglobin 0.2 % (0.4-1.5) L 11/04/25 08:55 Total Hemoglobin 11.0 g/dL (14-18) L 11/04/25 08:55 Sodium 136.0 mmol/L (131-143) 11/04/25 08:55 Potassium 4.2 mmol/L (3.5-5.0) 11/04/25 08:55 Glucose 133.0 mg/dL (70-115) H 11/04/25 08:55 Ionized Calcium 1.1 mmol/L (1.1-1.4) 11/04/25 08:55 O2 Delivery Device Nc 11/04/25 08:55 O2 Liters/Min 3.0 % 11/04/25 08:55 FiO2 32.0 % 11/04/25 08:55 Well Site Drilling Engineer ID [id number] 11/04/25 08:55 Sodium 136 mmol/L (136-145) 11/05/25 05:10 Potassium 3.9 mmol/L (3.5-5.1) 11/05/25 05:10 Chloride 98 mmol/L (98-107) 11/05/25 05:10 Carbon Dioxide 28 mmol/L (22-29) 11/05/25 05:10 Anion Gap 13.9 (5-19) 11/05/25 05:10 BUN 31 mg/dL (8-23) H 11/05/25 05:10 Creatinine 1.2 mg/dL (0.7-1.2) 11/05/25 05:10 GFR Calculation Not Reportable 11/05/25 05:10 Glucose 75 mg/dL (65-115) 11/05/25 05:10 POC Glucose 197 mg/dL (70-110) H 11/05/25 11:01 Lactic Acid 2.6 mmol/L (0.5-2.2) H 11/02/25 10:10 Lactic Acid (Sepsis) 3.4 mmol/L (0.5-2.2) H 11/02/25 13:14 Calculated Osmolality 287 mOsm/kg (285-295) 11/05/25 05:10 Calcium 8.1 mg/dL (8.5-10.5) L 11/05/25 05:10 Total Bilirubin 0.4 mg/dL (0.15-1.2) 11/02/25 10:10 AST 13 U/L (0-40) 11/02/25 10:10 ALT 24 U/L (0-41) 11/02/25 10:10 Alkaline Phosphatase 131 U/L (40-130) H 11/02/25 10:10 Ammonia 23 umol/L (16-60) 11/04/25 13:51 NT-Pro-B Natriuret Pep 4731 pg/mL (0-450) H 11/02/25 10:10 Total Protein 8.0 g/dL (6.6-8.7) 11/02/25 10:10 Albumin 3.7 g/dL (3.5-5.2) 11/02/25 10:10 Globulin 4.3 g/dL (1.3-4.6) 11/02/25 10:10 Procalcitonin 0.08 ng/mL (0-0.5) 11/02/25 10:10 Influenza A (PCR) Negative (Negative) 11/02/25 10:28 Influenza Type B (PCR) Negative (Negative) 11/02/25 10:28 RSV (PCR) Negative (Negative) 11/02/25 10:28 SARS-CoV-2 (PCR) Negative (Negative) 11/02/25 10:28 Vitals Last Vital Signs Temp 97.3 F L 11/05/25 11:23 Pulse 74 11/05/25 11:23 Resp 16 11/05/25 11:23 BP 97/60 11/05/25 11:23 Pulse Ox 94 11/05/25 11:23 O2 Del Method Nasal Cannula 11/05/25 11:23 O2 Flow Rate 2 11/05/25 08:11 Discharge Plan Discharge Patient Disposition: Xfer SNF Condition: Stable Prescriptions: New dapagliflozin propanediol 5 mg Tablet 5 mg PO DAILY Qty: 30 0RF furosemide [Lasix] 20 mg tablet 20 mg PO DAILY Qty: 30 0RF potassium chloride [Klor-Con] 20 mEq packet 10 meq PO DAILY Qty: 30 0RF Continued (DME) OneTouch Verio test strips Strip See Rx Instructions .Route Qty: 100 2RF Rx Instructions: test Blood sugar three times daily fluticasone propionate 50 mcg/actuation spray,suspension 2 spray INTRANASAL DAILY Qty: 15.8 2RF Rx Instructions: administer into each nostril metformin 1,000 mg tablet 1,000 mg PO BID Qty: 180 1RF trandolapril 2 mg tablet 2 mg PO DAILY Qty: 90 1RF (DME) Diabetic shoes with inserts See Rx Instructions .Route .MEDSUPPLY Qty: 1 0RF Rx Instructions: As directed multivitamin Tablet 1 tab PO DAILY (DME) CAM walker See Rx Instructions .Route .MEDSUPPLY Qty: 1 0RF Rx Instructions: As directed ([facility] [employer]) Diabetic shoes See Rx Instructions .ROUTE .MEDSUPPLY Qty: 1 0RF Rx Instructions: With 3 pairs of inserts, toe filler to the right (DME) Cam Boot to the Right See Rx Instructions .Route .MEDSUPPLY Qty: 1 0RF Rx Instructions: As directed ([facility]) [place]ake Boot to the left See Rx Instructions .Route .MEDSUPPLY Qty: 1 0RF Rx Instructions: As directed by [facility] ([facility]) articulating AFO to the right lower extremity See Rx Instructions .Route .MEDSUPPLY Qty: 1 0RF Rx Instructions: As directed calcium carbonate [Tums] 200 mg calcium (500 mg) tablet,chewable 1,000 mg PO Q8H PRN (Reason: upset stomach) gabapentin 300 mg capsule 300 mg PO QID acetaminophen [Tylenol] 325 mg tablet 650 mg PO Q4H PRN (Reason: Pain) nitroglycerin [Nitrostat] 0.4 mg tablet, sublingual 0.4 mg sublingual Q5M PRN (Reason: Chest Pain) Rx Instructions: do not exceed 3 doses per episode insulin glargine [Lantus Solostar U-100 Insulin] 100 unit/mL (3 mL) insulin pen 35 unit SUBCUT BID pentoxifylline 400 mg tablet extended release 400 mg PO TID famotidine 20 mg tablet 20 mg PO BID albuterol sulfate 90 mcg/actuation Hfa Aerosol Inhaler 2 puff INHALATION Q6H PRN (Reason: Shortness Of Breath) Januvia 100 mg tablet 100 mg PO DAILY Lactobacillus acidophilus 1 billion cell Tablet 1,000 mmu cells PO DAILY Eliquis 5 mg tablet 5 mg PO BID albuterol sulfate 2.5 mg /3 mL (0.083 %) solution for nebulization 2.5 mg continuous nebulization Q4H PRN (Reason: Shortness Of Breath) loperamide [Imodium A-D] 2 mg Tablet 2 mg PO Q6H PRN (Reason: Constipation) guaifenesin 100 mg/5 mL Liquid 200 mg PO Q4H PRN (Reason: Cough) finasteride 5 mg tablet 5 mg PO BEDTIME white petrolatum [Vaseline] Gel 1 applic TOPICAL Q12H PRN (Reason: actinic keratosis) Rx Instructions: while awake loratadine [Claritin] 10 mg Tablet 10 mg PO DAILY PRN (Reason: allergies) tamsulosin 0.4 mg capsule 0.4 mg PO BEDTIME primidone 50 mg Tablet 50 mg PO DAILY docusate sodium 100 mg Tablet 100 mg PO BID bisacodyl [Dulcolax (bisacodyl)] 10 mg Suppository 10 mg RI DAILY PRN (Reason: Constipation) Fleet Enema 19-7 gram/118 mL Enema 1 ml RI DAILY PRN (Reason: Constipation) melatonin 3 mg Tablet 3 mg PO DAILY PRN (Reason: Insomnia) magnesium hydroxide [Milk of Magnesia] 400 mg/5 mL Suspension 2,000 mg PO DAILY PRN (Reason: Constipation) insulin aspart U-100 [Novolog FlexPen U-100 Insulin] 100 unit/mL (3 mL) Insulin Pen See Rx Instructions .ROUTE .COMPLEX Rx Instructions: Give 14 unit subcutaneously 3 times daily plus sliding scale: bs 141-180=2 units, 181-220=4 units, 221-260=6 units,261-300=8 units, 301-350=10 units, 351-400=12 units, 401 and above=14 units. diclofenac sodium 1 % Gel 2 g TOPICAL QID Rx Instructions: apply to single elbow, wrist or hand; for hand includes palm/fingers/back of hand triamcinolone acetonide 0.1 % Cream 1 applic TOPICAL BID PRN (Reason: actinic keratosis) clopidogrel 75 mg Tablet 75 mg PO DAILY Qty: 30 0RF insulin aspart U-100 [Novolog U-100 Insulin aspart] 100 unit/mL Solution 10 unit SUBCUT TID Discharge Order = DC NOW: Discharge Order (Routine); Ordered 11/05/25 Ordered By: Kylah Cueto Referrals: CANDELARIA CONNOR, [Occupational Therapist] Adonay Zhang DO [Primary Care Provider, Internal Medicine] Patient Instructions: Opioid Safety, Patient Portal & Emily Instructions Discharge Attestations Time Spent in Discharge Care*: less than 30 min Quality Metrics Clinical Quality Measures [ No reported AMI, CVA or VTE this stay] Coding Level of Care Code Acute Code for g Fwd Diagnoses Chronic obstructive pulmonary disease, unspecified COPD type J44.9 COPD type: unspecified COPD JOHAN (obstructive sleep apnea) G47.33 Type 2 diabetes mellitus with hyperglycemia, with long-term current use of insulin E11.65; Z79.4 Diabetes mellitus complication status: with hyperglycemia Diabetes mellitus ocean transportation intermediary insulin use: with ocean transportation intermediary use Diabetes mellitus type: type 2 CHF exacerbation I50.9 S/P CABG (coronary artery bypass graft) Z95.1 AMS (altered mental status) R41.82
[2025-11-05 14:28] VITALS: BP 97/60; PULSE 74; RESP 16; TEMP 36.3; O2SAT 94
--- NOTE | 2025-11-05 14:34 | PC.NURSE ---
Called Report to [facility] and Spoke to CEE Santacruz
== END 2025-11-05 15:53 | disposition skilled nursing facility (03) | DRG 291 ==
LOC: ER 12:28 → MEDSURG 13:23
PROVIDERS: Admitting Provider Family Medicine; Emergency Provider Emergency Medicine; PCP Internal Medicine; Visit Provider Internal Medicine
DX: I13.0 Hypertensive heart and chronic kidney disease with heart failure and stage 1 through stage 4 chronic kidney disease, or unspecified chronic kidney disease (principal); I50.33 Acute on chronic diastolic (congestive) heart failure; Z68.41 Body mass index [BMI] 40.0-44.9, adult; N18.9 Chronic kidney disease, unspecified; E11.22 Type 2 diabetes mellitus with diabetic chronic kidney disease; J44.9 Chronic obstructive pulmonary disease, unspecified; G47.33 Obstructive sleep apnea (adult) (pediatric); E11.65 Type 2 diabetes mellitus with hyperglycemia; E11.51 Type 2 diabetes mellitus with diabetic peripheral angiopathy without gangrene; I25.10 Atherosclerotic heart disease of native coronary artery without angina pectoris; N40.0 Benign prostatic hyperplasia without lower urinary tract symptoms; G47.30 Sleep apnea, unspecified; M79.7 Fibromyalgia; E78.5 Hyperlipidemia, unspecified; R41.82 Altered mental status, unspecified; E66.9 Obesity, unspecified; Z79.4 Long term (current) use of insulin; Z79.84 Long term (current) use of oral hypoglycemic drugs; Z79.01 Long term (current) use of anticoagulants; Z79.02 Long term (current) use of antithrombotics/antiplatelets; Z95.1 Presence of aortocoronary bypass graft; Z95.5 Presence of coronary angioplasty implant and graft
CPT/HCPCS: 36415; 36416; 36600; 70450; 71045; 71250; 80048; 80051; 80053; 82140; 82330; 82805; 82962; 83605; 83880; 84145; 85025; 87040; 87637; 93005; 93306; 94640; 96365; 96372; 96375; 99285; J1815; J1938; J2020; J2185; J7613; J9999

== ENCOUNTER → 2025-11-12 10:45 | Outpatient (BNVA) | payer MEDICARE, OTHER, MEDICAID, SELFPAY | PROVIDERS: PCP Internal Medicine; Visit Provider Podiatrist Foot & Ankle Surgery | DX: I73.9 Peripheral vascular disease, unspecified (principal); E11.610 Type 2 diabetes mellitus with diabetic neuropathic arthropathy; N18.9 Chronic kidney disease, unspecified; Z89.431 Acquired absence of right foot; T87.81 Dehiscence of amputation stump; L97.513 Non-pressure chronic ulcer of other part of right foot with necrosis of muscle; Y83.8 Other surgical procedures as the cause of abnormal reaction of the patient, or of later complication, without mention of misadventure at the time of the procedure; Z79.4 Long term (current) use of insulin; Z79.84 Long term (current) use of oral hypoglycemic drugs | CPT/HCPCS: 99213 ==